=== PATIENT | female | born 1935 | race Caucasian/White ===

== ENCOUNTER 2017-11-14 22:25 | Observation (INO) | payer MEDICARE ==
[2017-11-14] MEDS ORDERED: HYDROmorphone 1 MG/ML Syringe IM ONE (23:10)
--- NOTE | 2017-11-14 23:22 | EDM.PDOC ---
ED HPI GENERAL MEDICAL PROBLEM - General Chief Complaint: Neck Problem Stated Complaint: ILLNESS Time Seen by Provider: 11/14/17 22:50 Source of Information: Reports: Patient, EMS History Limitations: Reports: No Limitations - History of Present Illness INITIAL COMMENTS - FREE TEXT/NARRATIVE: 82-year-old female who lives alone, lives independently has been struggling with neck pain. The past several weeks. It's getting worse, she is having very significant spasms and bursts of sharp pain which seems to be more left-sided on her neck but is debilitating. It is somewhat related with movement, it does not radiate down the arms and she has no radiculopathy or weakness or paresthesias in the arms. There is no specific history of trauma. Onset: Unknown/Unsure Location: Reports: Neck Severity: Severe Improves with: Reports: Rest Worsens with: Reports: Movement Associated Symptoms: Reports: No Other Symptoms Left Neck Pain Score (Numeric/FACES): 4 - Related Data Allergies Allergy/AdvReac Type Severity Reaction Status Date / Time No Known Allergies Allergy Verified 11/15/17 00:06 Home Meds: Home Meds Albuterol [Ventolin HFA] 2 puff INH QID PRN 11/25/12 [History] Benazepril HCl [Lotensin] 20 mg PO DAILY 11/25/12 [History] Cholecalciferol (Vitamin D3) [Vitamin D3] 2,000 unit PO DAILY 11/25/12 [History] Cyanocobalamin (Vitamin B-12) [Vitamin B-12] 1,000 mcg PO DAILY 11/25/12 [ History] Metoprolol Succinate [Toprol XL] 25 mg PO DAILY 11/25/12 [History] Polyethylene Glycol 3350 [MiraLAX] 17 gm PO DAILY PRN 11/25/12 [History] Pregabalin [Lyrica] 100 mg PO TID 11/25/12 [History] Sennosides/Docusate Sodium [Senokot-S Tablet] 2 tab PO DAILY 11/25/12 [History] Folic Acid 0.4 mg PO DAILY 02/17/15 [History] Sertraline HCl 50 mg PO DAILY 02/17/15 [History] Warfarin [Coumadin] 5 mg PO SUMOTUTHFRSA 02/17/15 [History] Albuterol/Ipratropium [DuoNeb 3.0-0.5 MG/3 ML] 3 ml INH Q4H PRN 05/10/15 [ History] Calcium Carbonate/Vitamin D3 [Calcium 600 + Vit D 400 Softgl] 1 tab PO DAILY [History] Naproxen [Naprosyn] 500 mg PO BID 05/10/15 [History] Ranitidine [Zantac] 150 mg PO BID 05/10/15 [History] Warfarin [Coumadin] 7.5 mg PO WE 05/12/15 [History] Colesevelam [Welchol] 1,875 mg PO BID 11/14/17 [History] Cyclobenzaprine [Flexeril] 5 mg PO DAILY 11/14/17 [History] Docusate Sodium 100 mg PO DAILY 11/14/17 [History] Fesoterodine Fumarate [Toviaz] 8 mg PO DAILY 11/14/17 [History] Nystatin [Nystatin Crm] 30 gm TOP QID 11/14/17 [History] Tiotropium [Spiriva] 18 mcg INH DAILY 11/14/17 [History] Vit D3 & K/Berberine HCl/Hops [Ostera] 1 each PO DAILY 11/14/17 [History] Past Medical History HEENT History: Reports: Cataract, Hard of Hearing, Impaired Vision Cardiovascular History: Reports: Afib, Automatic Implantable Cardioverter Defibrillators, High Cholesterol, Hypertension, Pacemaker, Other (See Below) Other Cardiovascular History: Aortic stenosis Respiratory History: Reports: Bronchitis, Recurrent, COPD, Sleep Apnea Gastrointestinal History: Reports: Cholelithiasis, Chronic Constipation, GERD, Hemorrhoids Genitourinary History: Reports: Urinary Incontinence, UTI, Recurrent 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 - Infectious Disease History Infectious Disease History: Reports: Chicken Pox, Measles, Mumps - Past Surgical History HEENT Surgical History: Reports: Cataract Surgery GI Surgical History: Reports: Colonoscopy, Hernia Repair/Other, Other (See Below ) Other GI Surgeries/Procedures: colon resection Musculoskeletal Surgical History: Reports: Knee Replacement, Shoulder Replacement Dermatological Surgical History: Reports: Skin Biopsy Social & Family History - Family History Family Medical History: Noncontributory - Tobacco Use Smoking Status *Q: Former Smoker Used Tobacco, but Quit: Yes Month/Year Tobacco Last Used: 47 years ago - Caffeine Use Caffeine Use: Reports: Coffee - Recreational Drug Use Recreational Drug Use: No ED ROS GENERAL - Review of Systems Review Of Systems: See Below Constitutional: Denies: Fever, Chills HEENT: Denies: Vision Change Respiratory: Denies: Shortness of Breath Cardiovascular: Denies: Chest Pain GI/Abdominal: Denies: Abdominal Pain, Nausea, Vomiting Skin: Denies: Rash (No rash over painful area) Neurological: Denies: Paresthesia Psychiatric: Reports: No Symptoms ED EXAM, UPPER BACK/NECK PAIN - Physical Exam Exam: See Below Exam Limited By: No Limitations General Appearance: Alert, No Apparent Distress (Generally she is not in distress until the pain hits and then she becomes acutely distressed and uncomfortable) Eye Exam: Bilateral Eye: EOMI Head Exam: Atraumatic Neck Exam: Other (She is very tender to palpation to the paraspinous cervical neck on both sides, increased pain with rotation against resistance both directions) Nexus Criteria: No: Focal Neurological Deficit Cardiovascular/Respiratory: No Respiratory Distress GI/Abdominal: Soft, Non-Tender Neurologic: No Motor/Sensory Deficits, Oriented x 3 Psychiatric: Normal Affect, Normal Mood Skin Exam: Normal Color, Warm/Dry Course - Vital Signs Last Recorded V/S: Last Vital Signs Temp 98.1 F 11/15/17 02:04 Pulse 66 11/15/17 02:04 Resp 18 11/15/17 02:04 BP 143/68 H 11/15/17 02:04 Pulse Ox 94 L 11/15/17 02:04 - Orders/Labs/Meds Orders: Active Orders 24 hr Category Date Time Status Cervical Spine 2V or 3V [CR] Stat Exams 11/14/17 23:07 Taken Medication Orders Acetaminophen (Tylenol) 650 mg PO Q4H PRN PRN Reason: Pain (Mild 1-3)/fever Albuterol (Proventil Neb Soln) 2.5 mg NEB Q4H PRN PRN Reason: Shortness Of Breath/wheezing Albuterol/Ipratropium (Duoneb 3.0-0.5 Mg/3 Ml) 3 ml NEB QID PRN PRN Reason: Shortness Of Breath/wheezing Benazepril HCl (Lotensin) 20 mg PO DAILY [facility] Bisacodyl (Dulcolax) 5 mg PO DAILY PRN PRN Reason: Constipation Cyclobenzaprine HCl (Flexeril) 5 mg PO DAILY [facility] Docusate Sodium (Colace) 100 mg PO BID PRN PRN Reason: Constipation Docusate Sodium (Colace) 100 mg PO DAILY [facility] Folic Acid (Folic Acid) 0.5 mg PO DAILY [facility] Hydromorphone HCl (Dilaudid) 0.5 mg IVPUSH Q4H PRN PRN Reason: Pain Ibuprofen (Motrin) 600 mg PO Q6H PRN PRN Reason: Pain/Fever Lorazepam (Ativan) 1 mg IV Q6H PRN PRN Reason: Nausea/Vomiting Metoprolol Succinate (Toprol Xl) 25 mg PO DAILY [facility] Naproxen (Naprosyn) 500 mg PO BIDMEALS [facility] Non-Formulary Medication (Colesevelam [Welchol]) 1,875 mg PO BIDMEALS [facility] Nystatin (Nystatin Crm) 0 gm TOP QID [facility] Ondansetron HCl (Zofran Odt) 4 mg PO Q6H PRN PRN Reason: Nausea able to take PO Oxycodone HCl (Oxycodone) 5 mg PO Q4H PRN PRN Reason: Pain (moderate 4-6) Pantoprazole Sodium (Protonix) 40 mg PO ACBREAKFAST [facility] Polyethylene Glycol (Miralax) 17 gm PO DAILY PRN PRN Reason: Constipation Pregabalin (Lyrica) 100 mg PO TID [facility] Senna/Docusate Sodium (Senna Plus) 2 tab PO DAILY [facility] Sertraline HCl (Zoloft) 50 mg PO DAILY [facility] Sodium Chloride (Saline Flush) 10 ml FLUSH ASDIRECTED PRN PRN Reason: Keep Vein Open Tiotropium [place] (Spiriva Handihaler) 18 mcg INH DAILY [facility] Trospium (Sanctura) 20 mg PO BID [facility] Warfarin Sodium (Coumadin) 5 mg PO SUMOTUTHFRSA [facility] Warfarin Sodium (Coumadin) 7.5 mg PO WE [facility] Meds: Medications Generic Name Dose Route Start Last Admin Trade Name Freq PRN Reason Stop Dose Admin Acetaminophen 650 mg 11/15/17 01:52 Tylenol PO Q4H PRN Pain (Mild 1-3)/fever Albuterol 2.5 mg 11/15/17 01:52 Proventil Neb Soln NEB Q4H PRN Shortness Of Breath/wheezing Albuterol/Ipratropium 3 ml 11/15/17 01:52 Duoneb 3.0-0.5 Mg/3 Ml NEB QID PRN Shortness Of Breath/wheezing Benazepril HCl 20 mg 11/15/17 09:00 Lotensin PO DAILY [facility] Bisacodyl 5 mg 11/15/17 01:52 Dulcolax PO DAILY PRN Constipation Cyclobenzaprine HCl 5 mg 11/15/17 09:00 Flexeril PO DAILY [facility] Docusate Sodium 100 mg 11/15/17 01:52 Colace PO BID PRN Constipation Docusate Sodium 100 mg 11/15/17 09:00 Colace PO DAILY [facility] Folic Acid 0.5 mg 11/15/17 09:00 Folic Acid PO DAILY [facility] Hydromorphone HCl 0.5 mg 11/15/17 01:52 Dilaudid IVPUSH Q4H PRN Pain Ibuprofen 600 mg 11/15/17 01:52 Motrin PO Q6H PRN Pain/Fever Lorazepam 1 mg 11/15/17 01:52 Ativan IV Q6H PRN Nausea/Vomiting Metoprolol Succinate 25 mg 11/15/17 09:00 Toprol Xl PO DAILY [facility] Naproxen 500 mg 11/15/17 08:00 Naprosyn PO BIDMEALS [facility] Non-Formulary Medication 1,875 mg 11/15/17 08:00 Colesevelam [Welchol] PO BIDMEALS [facility] Nystatin 0 gm 11/15/17 06:00 Nystatin Crm TOP QID [facility] Ondansetron HCl 4 mg 11/15/17 01:52 Zofran Odt PO Q6H PRN Nausea able to take PO Oxycodone HCl 5 mg 11/15/17 01:52 Oxycodone PO Q4H PRN Pain (moderate 4-6) Pantoprazole Sodium 40 mg 11/15/17 07:30 Protonix PO ACBREAKFAST [facility] Polyethylene Glycol 17 gm 11/15/17 01:52 Miralax PO DAILY PRN Constipation Pregabalin 100 mg 11/15/17 09:00 Lyrica PO TID [facility] Senna/Docusate Sodium 2 tab 11/15/17 09:00 Senna Plus PO DAILY [facility] Sertraline HCl 50 mg 11/15/17 09:00 Zoloft PO DAILY [facility] Sodium Chloride 10 ml 11/15/17 01:52 Saline Flush FLUSH ASDIRECTED PRN Keep Vein Open Tiotropium [place] 18 mcg 11/15/17 09:00 Spiriva Handihaler INH DAILY [facility] Trospium 20 mg 11/15/17 09:00 Sanctura PO BID [facility] Warfarin Sodium 5 mg 11/15/17 01:52 Coumadin PO SUMOTUTHFRSA [facility] Warfarin Sodium 7.5 mg 11/20/17 00:37 Coumadin PO WE [facility] Discontinued Medications Generic Name Dose Route Start Last Admin Trade Name Freq PRN Reason Stop Dose Admin Hydromorphone HCl 1 mg 11/14/17 23:10 11/14/17 23:16 Dilaudid IM 11/14/17 23:11 1 mg ONETIME ONE Administration - Re-Assessments/Exams Free Text/Narrative Re-Assessment/Exam: 11/14/17 23:22 Patient was given 1 mg of IM Dilaudid because she was so uncomfortable. A 2 view cervical spine x-ray was obtained. 11/14/17 23:55 Patient's seemed to get some symptom relief from the IM Dilaudid, the x-ray showed significant arthritis and spurring at C3 and C4 of the cervical spine. Because of the debilitating pain and inability to get relief at home, I talked to the hospitalist service and Cathy Darling agreed to admit her for pain control and further evaluation tomorrow, possibly MRI or physical therapy consultation. She may also be a candidate for anesthesia consultation for local injections. Departure - Departure Time of Disposition: 00:17 Disposition: Admitted As Inpatient 64 Condition: Fair Clinical Impression: Neck pain, bilateral - Discharge Information - My Orders Last 24 Hours: My Active Orders 11/14/17 23:07 Cervical Spine 2V or 3V [CR] Stat - Assessment/Plan Last 24 Hours: My Active Orders 11/14/17 23:07 Cervical Spine 2V or 3V [CR] Stat
[2017-11-15] MEDS ORDERED: Bisacodyl 5 MG Tab PO PRN (01:52)
[2017-11-15] MEDS ORDERED: Docusate Sodium 100 MG Cap PO PRN (01:52)
[2017-11-15] MEDS ORDERED: Ibuprofen 600 MG Tab PO PRN (01:52)
[2017-11-15] MEDS ORDERED: Ondansetron 4 MG Tab.DIS PO PRN (01:52)
[2017-11-15] MEDS ORDERED: Polyethylene Glycol 3350 Powder 17 GM Packet PO PRN (01:52)
[2017-11-15] MEDS ORDERED: Sodium Chloride 0.9% 10 ML Syringe FLUSH PRN (01:52)
[2017-11-15] MEDS ORDERED: Albuterol/Ipratropium 3.0-0.5 MG/3 ML Neb Soln NEB PRN (01:52)
[2017-11-15] MEDS ORDERED: Acetaminophen 325 MG Tab PO PRN (01:52)
[2017-11-15] MEDS ORDERED: HYDROmorphone 0.5 MG/0.5 ML Syringe IVPUSH PRN (01:52)
[2017-11-15] MEDS ORDERED: oxyCODONE 5 MG Tab PO PRN (01:52)
[2017-11-15] MEDS ORDERED: LORazepam 2 MG/ML SDV IV PRN (01:52)
[2017-11-15] MEDS ORDERED: Albuterol 0.083% 2.5 MG/3 ML Neb Soln NEB PRN (01:52)
--- NOTE | 2017-11-15 05:48 | PCM.HP ---
H&P History of Present Illness - General Date of Service: 11/14/17 Admit Problem/Dx: Admission Diagnosis/Problem Admission Diagnosis/Problem Neck pain Source of Information: Patient, Provider, RN History Limitations: Reports: No Limitations - History of Present Illness Initial Comments - Free Text/Narative: 82-year-old female who lives alone, lives independently has been struggling with neck pain. The past several weeks. It's getting worse, she is having very significant spasms and bursa sharp pain which seems to be more left-sided on her neck but is debilitating. It is somewhat related with movement, it does not radiate down the arms and she has no radiculopathy or weakness or paresthesias in the arms. There is no specific history of trauma. Onset: Unknown/Unsure Location: Reports: Neck Severity: Severe Improves with: Reports: Rest 11/14/17 23:22 Patient was given 1 mg of IM Dilaudid because she was so uncomfortable. A 2 view cervical spine x-ray was obtained. 11/14/17 23:55 Patient's seemed to get some symptom relief from the IM Dilaudid, the x-ray showed significant arthritis and spurring at C3 and C4 of the cervical spine. Because of the debilitating pain and inability to get relief at home, I talked to the hospitalist service and Cathy Martin agreed to admit her for pain control and further evaluation tomorrow, possibly MRI or physical therapy consultation. She may also be a candidate for anesthesia consultation for local injections. Onset of Symptoms: Reports: Gradual Duration of Symptoms: Reports: Week(s):, Chronic, Getting Worse Location: Reports: Neck Quality: Reports: Same as Previous Episode Severity: Severe Improves with: Reports: Medication Worsens with: Reports: Movement Context: Reports: Other (acute on chronic necck pain) Associated Symptoms: Reports: No Other Symptoms Left Neck Pain Score (Numeric/FACES): 4 - Related Data Allergies/Adverse Reactions: Allergies Allergy/AdvReac Type Severity Reaction Status Date / Time No Known Allergies Allergy Verified 11/15/17 00:06 Home Medications: Home Meds Albuterol [Ventolin HFA] 2 puff INH QID PRN 11/25/12 [History] Benazepril HCl [Lotensin] 20 mg PO DAILY 11/25/12 [History] Cholecalciferol (Vitamin D3) [Vitamin D3] 2,000 unit PO DAILY 11/25/12 [History] Cyanocobalamin (Vitamin B-12) [Vitamin B-12] 1,000 mcg PO DAILY 11/25/12 [ History] Metoprolol Succinate [Toprol XL] 25 mg PO DAILY 11/25/12 [History] Polyethylene Glycol 3350 [MiraLAX] 17 gm PO DAILY PRN 11/25/12 [History] Pregabalin [Lyrica] 100 mg PO TID 11/25/12 [History] Sennosides/Docusate Sodium [Senokot-S Tablet] 2 tab PO DAILY 11/25/12 [History] Folic Acid 0.4 mg PO DAILY 02/17/15 [History] Sertraline HCl 50 mg PO DAILY 02/17/15 [History] Warfarin [Coumadin] 5 mg PO SUMOTUTHFRSA 02/17/15 [History] Albuterol/Ipratropium [DuoNeb 3.0-0.5 MG/3 ML] 3 ml INH Q4H PRN 05/10/15 [ History] Calcium Carbonate/Vitamin D3 [Calcium 600 + Vit D 400 Softgl] 1 tab PO DAILY [History] Naproxen [Naprosyn] 500 mg PO BID 05/10/15 [History] Ranitidine [Zantac] 150 mg PO BID 05/10/15 [History] Warfarin [Coumadin] 7.5 mg PO WE 05/12/15 [History] Colesevelam [Welchol] 1,875 mg PO BID 11/14/17 [History] Cyclobenzaprine [Flexeril] 5 mg PO DAILY 11/14/17 [History] Docusate Sodium 100 mg PO DAILY 11/14/17 [History] Fesoterodine Fumarate [Toviaz] 8 mg PO DAILY 11/14/17 [History] Nystatin [Nystatin Crm] 30 gm TOP QID 11/14/17 [History] Tiotropium [Spiriva] 18 mcg INH DAILY 11/14/17 [History] Vit D3 & K/Berberine HCl/Hops [Ostera] 1 each PO DAILY 11/14/17 [History] Past Medical History HEENT History: Reports: Cataract, Hard of Hearing, Impaired Vision Cardiovascular History: Reports: Afib, Automatic Implantable Cardioverter Defibrillators, High Cholesterol, Hypertension, Pacemaker, Other (See Below) Other Cardiovascular History: Aortic stenosis Respiratory History: Reports: Bronchitis, Recurrent, COPD, Sleep Apnea Gastrointestinal History: Reports: Cholelithiasis, Chronic Constipation, GERD, Hemorrhoids Genitourinary History: Reports: Urinary Incontinence, UTI, Recurrent OPHTHALMIC SURGEON History: Reports: Musculoskeletal History: Reports: Arthritis, Fracture, RA Endocrine/Metabolic History: Reports: Hyperthyroidism, Obesity/BMI 30+, Other ( See Below) Other Endocrine/Metabolic History: Goiter Hematologic History: Reports: Anticoagulation Therapy, B12 Deficiency Oncologic (Cancer) History: Reports: Other (See Below) Other Oncologic History: "skin cancer" Dermatologic History: Reports: Melanoma Other Dermatologic History: Removal of skin spot l hand. - Infectious Disease History Infectious Disease History: Reports: Chicken Pox, Measles, Mumps - Past Surgical History HEENT Surgical History: Reports: Cataract Surgery GI Surgical History: Reports: Colonoscopy, Hernia Repair/Other, Other (See Below ) Other GI Surgeries/Procedures: colon resection Musculoskeletal Surgical History: Reports: Knee Replacement, Shoulder Replacement Dermatological Surgical History: Reports: Skin Biopsy Social & Family History - Family History Family Medical History: Noncontributory - Tobacco Use Smoking Status *Q: Never Smoker Used Tobacco, but Quit: Yes Month/Year Tobacco Last Used: 47 years ago Second Hand Smoke Exposure: No - Caffeine Use Caffeine Use: Reports: Coffee - Recreational Drug Use Recreational Drug Use: No - Living Situation & Occupation Living situation: Reports: Alone Occupation: Retired (lives alone in [place]. Has 3 children, one son and 2 daughter, (one daughter age 44 yrs related to OD)) H&P Review of Systems - Review of Systems: Review Of Systems: See Below General: Reports: Other (at Present time Mrs. Hayden is very comfortable after receiving Dilaudid injection. reports pain free. worried about being home alone after Dilaudid injection. no one to check on her.) HEENT: Reports: No Symptoms Pulmonary: Reports: No Symptoms, Other (COPD) Cardiovascular: Reports: No Symptoms Gastrointestinal: Reports: No Symptoms Genitourinary: Reports: No Symptoms Musculoskeletal: Reports: Neck Pain (presently pain is controlled.), Other ( ambulates with cane or walker) Skin: Reports: No Symptoms Psychiatric: Reports: No Symptoms Neurological: Reports: No Symptoms Hematologic/Lymphatic: Reports: No Symptoms Immunologic: Reports: No Symptoms Exam - Exam Exam: See Below - Vital Signs Vital Signs: Last Vital Signs Temp 36.7 C 11/15/17 02:04 Pulse 66 11/15/17 02:04 Resp 18 11/15/17 02:04 BP 143/68 H 11/15/17 02:04 Pulse Ox 94 L 11/15/17 02:04 Weight: 112.491 kg - Exam General: Alert, Oriented, Cooperative, Other (reports pain free.) HEENT: PERRLA, Conjunctiva Clear, EACs Clear, EOMI, Hearing Intact, Mucosa Moist & [place] Neck: Supple, Trachea Midline Lungs: Clear to Auscultation, Normal Respiratory Effort Cardiovascular: Regular Rate, Regular Rhythm GI/Abdominal Exam: Normal Bowel Sounds, Soft, Non-Tender, Other (difficult to assess abdomnen due to size) Back Exam: Normal Inspection, Full Range of Motion Extremities: Normal Inspection, Normal Range of Motion, Non-Tender, No Pedal Edema, Normal Capillary Refill Skin: Warm, Dry, Intact Neurological: Reflexes Equal Bilateral, Strength Equal Bilateral Neuro Extensive - Mental Status: Alert, Oriented x3, Normal Mood/Affect, Normal Cognition Psychiatric: Alert, Normal Affect, Normal Mood - Problem List (1) Neck pain, bilateral SNOMED Code(s): 52453557 ICD Code: M54.2 - CERVICALGIA Status: Acute Priority: High Current Visit: Yes (2) COPD (chronic obstructive pulmonary disease) SNOMED Code(s): 38629545 ICD Code: J44.9 - CHRONIC OBSTRUCTIVE PULMONARY DISEASE, UNSPECIFIED Status : Acute Priority: Low Current Visit: No Qualifiers: COPD type: unspecified COPD Qualified Code(s): J44.9 - Chronic obstructive pulmonary disease, unspecified (3) Pacemaker SNOMED Code(s): 370562445 ICD Code: Z95.0 - PRESENCE OF CARDIAC PACEMAKER Status: Acute Priority: Low Current Visit: No (4) Cardiovascular disease Status: Acute Priority: Low Current Visit: No Problem List Initiated/Reviewed/Updated: Yes Orders Last 24hrs: Active Orders 24 hr Category Date Time Status Intake and Output [RC] QSHIFT Care 11/15/17 01:52 Active Notify Provider Vital Signs [RC] ASDIRECTED Care 11/15/17 01:52 Active Oxygen Therapy [RC] PRN Care 11/15/17 01:52 Active Pulse Oximetry [RC] PRN Care 11/15/17 01:52 Active RT Aerosol Therapy [RC] ASDIRECTED Care 11/15/17 01:52 Active Up With Assistance [RC] ASDIRECTED Care 11/15/17 01:52 Active VTE/DVT Education [RC] Per Unit Routine Care 11/15/17 01:52 Active Vital Signs [RC] Q4H Care 11/15/17 01:52 Active OT Evaluation and Treatment [CONS] Routine Cons 11/15/17 01:52 Active PT Evaluation and Treatment [CONS] Routine Cons 11/15/17 01:52 Active Regular Diet [DIET] Diet 11/15/17 Breakfast Active Cervical Spine 2V or 3V [CR] Stat Exams 11/14/17 23:07 Taken Acetaminophen [Tylenol] Med 11/15/17 01:52 Active 650 mg PO Q4H PRN Albuterol [Proventil Neb Soln] Med 11/15/17 01:52 Active 2.5 mg NEB Q4H PRN Albuterol/Ipratropium [DuoNeb 3.0-0.5 MG/3 ML] Med 11/15/17 01:52 Active 3 ml NEB QID PRN Benazepril [Lotensin] Med 11/15/17 09:00 Active 20 mg PO DAILY Bisacodyl [Dulcolax] Med 11/15/17 01:52 Active 5 mg PO DAILY PRN Colesevelam [Welchol] Med 11/15/17 08:00 Pending 1,875 mg PO BIDMEALS Cyclobenzaprine [Flexeril] Med 11/15/17 09:00 Pending 5 mg PO DAILY Docusate Sodium [Colace] Med 11/15/17 01:52 Active 100 mg PO BID PRN Docusate Sodium [Colace] Med 11/15/17 09:00 Active 100 mg PO DAILY Docusate Sodium/Sennosides [Senna Plus] Med 11/15/17 09:00 Active 2 tab PO DAILY Folic Acid Med 11/15/17 09:00 Active 0.5 mg PO DAILY HYDROmorphone [Dilaudid] Med 11/15/17 01:52 Active 0.5 mg IVPUSH Q4H PRN Ibuprofen [Motrin] Med 11/15/17 01:52 Active 600 mg PO Q6H PRN LORazepam [Ativan] Med 11/15/17 01:52 Active 1 mg IV Q6H PRN Metoprolol Succinate [Toprol XL] Med 11/15/17 09:00 Active 25 mg PO DAILY Naproxen [Naprosyn] Med 11/15/17 08:00 Active 500 mg PO BIDMEALS Nystatin [Nystatin Crm] Med 11/15/17 06:00 Active 0 gm TOP QID Ondansetron [Zofran ODT] Med 11/15/17 01:52 Active 4 mg PO Q6H PRN Pantoprazole [ProTONIX] Med 11/15/17 07:30 Active 40 mg PO ACBREAKFAST Polyethylene Glycol 3350 [MiraLAX] Med 11/15/17 01:52 Active 17 gm PO DAILY PRN Pregabalin [Lyrica] Med 11/15/17 09:00 Active 100 mg PO TID Sertraline [Zoloft] Med 11/15/17 09:00 Active 50 mg PO DAILY Sodium Chloride 0.9% [Saline Flush] Med 11/15/17 01:52 Active 10 ml FLUSH ASDIRECTED PRN Tiotropium [Spiriva HandiHaler] Med 11/15/17 09:00 Active 18 mcg INH DAILY Trospium [Sanctura] Med 11/15/17 09:00 Active 20 mg PO BID Warfarin [Coumadin] Med 11/15/17 01:52 Pending 5 mg PO SUMOTUTHFRSA Warfarin [Coumadin] Med 11/20/17 00:37 Pending 7.5 mg PO WE oxyCODONE Med 11/15/17 01:52 Active 5 mg PO Q4H PRN Saline Lock Insert [OM.PC] Routine Oth 11/15/17 01:52 Ordered Resuscitation Status Routine Resus Stat 11/15/17 00:29 Ordered Medication Orders Acetaminophen (Tylenol) 650 mg PO Q4H PRN PRN Reason: Pain (Mild 1-3)/fever Albuterol (Proventil Neb Soln) 2.5 mg NEB Q4H PRN PRN Reason: Shortness Of Breath/wheezing Albuterol/Ipratropium (Duoneb 3.0-0.5 Mg/3 Ml) 3 ml NEB QID PRN PRN Reason: Shortness Of Breath/wheezing Benazepril HCl (Lotensin) 20 mg PO DAILY [facility] Bisacodyl (Dulcolax) 5 mg PO DAILY PRN PRN Reason: Constipation Cyclobenzaprine HCl (Flexeril) 5 mg PO DAILY [facility] Docusate Sodium (Colace) 100 mg PO BID PRN PRN Reason: Constipation Docusate Sodium (Colace) 100 mg PO DAILY [facility] Folic Acid (Folic Acid) 0.5 mg PO DAILY [facility] Hydromorphone HCl (Dilaudid) 0.5 mg IVPUSH Q4H PRN PRN Reason: Pain Ibuprofen (Motrin) 600 mg PO Q6H PRN PRN Reason: Pain/Fever Lorazepam (Ativan) 1 mg IV Q6H PRN PRN Reason: Nausea/Vomiting Metoprolol Succinate (Toprol Xl) 25 mg PO DAILY [facility] Naproxen (Naprosyn) 500 mg PO BIDMEALS [facility] Non-Formulary Medication (Colesevelam [Welchol]) 1,875 mg PO BIDMEALS [facility] Nystatin (Nystatin Crm) 0 gm TOP QID [facility] Ondansetron HCl (Zofran Odt) 4 mg PO Q6H PRN PRN Reason: Nausea able to take PO Oxycodone HCl (Oxycodone) 5 mg PO Q4H PRN PRN Reason: Pain (moderate 4-6) Pantoprazole Sodium (Protonix) 40 mg PO ACBREAKFAST [facility] Polyethylene Glycol (Miralax) 17 gm PO DAILY PRN PRN Reason: Constipation Pregabalin (Lyrica) 100 mg PO TID [facility] Senna/Docusate Sodium (Senna Plus) 2 tab PO DAILY [facility] Sertraline HCl (Zoloft) 50 mg PO DAILY [facility] Sodium Chloride (Saline Flush) 10 ml FLUSH ASDIRECTED PRN PRN Reason: Keep Vein Open Tiotropium [place] (Spiriva Handihaler) 18 mcg INH DAILY [facility] Trospium (Sanctura) 20 mg PO BID [facility] Warfarin Sodium (Coumadin) 5 mg PO SUMOTUTHFRSA [facility] Warfarin Sodium (Coumadin) 7.5 mg PO [facility] Assessment/Plan Comment:: ASSESSMENT / PLAN - 82-year-old female who lives alone, lives independently has been struggling with neck pain. The past several weeks. It's getting worse, she is having very significant spasms and bursa sharp pain which seems to be more left-sided on her neck but is debilitating. It is somewhat related with movement, it does not radiate down the arms and she has no radiculopathy or weakness or paresthesias in the arms. There is no specific history of trauma. Patient was given 1 mg of IM Dilaudid because she was so uncomfortable. A 2 view cervical spine x-ray was obtained. Patient's seemed to get some symptom relief from the IM Dilaudid, the x-ray showed significant arthritis and spurring at C3 and C4 of the cervical spine. Because of the debilitating pain and inability to get relief at home, to admit Observation status for pain control and further evaluation tomorrow. Neck Pain -admit to [address] [place] [address] Observation -pain medications ordered -saline lock -referral to OT and PT for evaluation COPD -continue home medications -albuterol nebs prn -Duo nebs prn Cardiovascular Disease -Pacemaker -continue home medication Maintenance issues -Orders home meds:ordered -Nutrition: Regular diet -William catheter not indicated at this time -DVT: current Coumadin therapy -GI Prophalaxis; Protonix 40mg daily CODE STATUS: DNR/DNI Admission status: Admit to Observation -I expect this patient to stay less than 24 hours, not to exceed 96 hours for evaluation and management of this problem. Disposition: home Primary care provider: Dr. Morris Hospitalist: Dr. Campos
[2017-11-15] MEDS ORDERED: Nystatin Crm 30 GM Tube TOP SCH (06:00)
[2017-11-15] MEDS ORDERED: Pantoprazole 40 MG Tab.CR PO SCH (07:30)
[2017-11-15] MEDS ORDERED: Naproxen 250 MG Tab PO SCH (08:00)
--- NOTE | 2017-11-15 08:33 | CR ---
Cervical Spine 2V or 3V CLINICAL HISTORY: Pain with movement, no trauma FINDINGS: The vertebral body heights are intact. The disc spaces are narrowed diffusely. There is mod erate accompanying spondylosis in the upper and mid cervical spine . The alignment is maintained. The re are severe osteoarthritic changes throughout the apophyseal joints. IMPRESSION: Severe diffuse degenerative disc disease with spondylosis Severe diffuse osteoarthritis
[2017-11-15] MEDS ORDERED: Metoprolol Succinate 25 MG Tab.ER PO SCH (09:00)
[2017-11-15] MEDS ORDERED: Tiotropium Inhaler 18 MCG Inhalation Powder Cap Kit of 5 INH SCH (09:00)
[2017-11-15] MEDS ORDERED: Cyclobenzaprine 10 MG Tab PO SCH (09:00)
[2017-11-15] MEDS ORDERED: Trospium 20 MG Tab PO SCH (09:00)
[2017-11-15] MEDS ORDERED: Sertraline 25 MG Tab PO SCH (09:00)
[2017-11-15] MEDS ORDERED: Pregabalin 100 MG Cap PO SCH (09:00)
[2017-11-15] MEDS ORDERED: Docusate Sodium 100 MG Cap PO SCH (09:00)
[2017-11-15] MEDS ORDERED: Folic Acid 1 MG Tab PO SCH (09:00)
[2017-11-15 10:51] VITALS: BP 132/56
--- NOTE | 2017-11-15 12:44 | PCM.DCSUM1 ---
Discharge Summary - Hospital Course Brief History: Ms. Hayden is an 82-year-old woman who was admitted to observation status for further evaluation and management of severe neck pain. - Discharge Data Discharge Date: 11/15/17 Discharge Disposition: Home, W Home Health Agency Condition: Fair - Discharge Diagnosis/Problem(s) (1) Degenerative arthritis of cervical spine SNOMED Code(s): 214011419 ICD Code: M47.812 - SPONDYLOSIS W/O MYELOPATHY OR RADICULOPATHY, CERVICAL REGION Status: Acute Current Visit: Yes (2) Neck pain, bilateral SNOMED Code(s): 13257958 ICD Code: M54.2 - CERVICALGIA Status: Acute Priority: High Current Visit: Yes (3) COPD (chronic obstructive pulmonary disease) SNOMED Code(s): 87800174 ICD Code: J44.9 - CHRONIC OBSTRUCTIVE PULMONARY DISEASE, UNSPECIFIED Status : Chronic Priority: Low Current Visit: No Qualifiers: COPD type: unspecified COPD Qualified Code(s): J44.9 - Chronic obstructive pulmonary disease, unspecified - Patient Summary/Data Consults: Consultations 11/15/17 01:52 OT Evaluation and Treatment [CONS] Routine Please Evaluate and Treat. OT Reason for Consult: Discharge Planning This query below is only for informational purposes and is not editable. PT Evaluation and Treatment [CONS] Routine Please Evaluate and Treat. PT Reason for Consult: Ambulation This query below is only for informational purposes and is not editable. Hospital Course: 82-year-old female who lives alone, lives independently has been struggling with neck pain. The past several weeks. It's getting worse, she is having very significant spasms and bursts of sharp pain which seems to be more left-sided on her neck but is debilitating. It is somewhat related with movement, it does not radiate down the arms and she has no radiculopathy or weakness or paresthesias in the arms. There is no specific history of trauma. Patient's seemed to get some symptom relief from the IM Dilaudid, the X-ray showed significant arthritis and spurring at C3 and C4 of the cervical spine. On admission she was given pain medications and muscle relaxants as needed for her pain. Following morning was seen and evaluated by physical therapy and did feel improved prior to discharge. Activity will be as tolerated and she will resume her usual diet. Soft cervical neck brace will be provided to the patient to use for episodes of increased pain. She was given a very limited amount of oxycodone at the time of discharge to use for episodes of very severe pain. She will be scheduled for appointment in the pain clinic to consider cervical trigger point injections. Home care will be arranged with home physical therapy and a follow-up appointment will be scheduled with primary care within 1 week. - Patient Instructions Diet: Usual Diet as Tolerated Activity: As Tolerated Other/Special Instructions: Soft cervical collar, use as needed for severe neck pain. Please schedule follow-up appointment with Dr. Morris within one week. Please schedule appointment for pain clinic for cervical trigger point injections. Please arrange for home care with home physical therapy after discharge. - Discharge Plan *PRESCRIPTION DRUG MONITORING PROGRAM REVIEWED*: Not Applicable *COPY OF PRESCRIPTION DRUG MONITORING REPORT IN PATIENT DANIEL: Not Applicable Prescriptions/Med Rec: oxyCODONE 5 mg PO Q4H PRN #12 tablet PRN Reason: Pain (Moderate 4-6) Home Medications: Home Meds Albuterol [Ventolin HFA] 2 puff INH QID PRN 11/25/12 [History] Benazepril HCl [Lotensin] 20 mg PO DAILY 11/25/12 [History] Cholecalciferol (Vitamin D3) [Vitamin D3] 2,000 unit PO DAILY 11/25/12 [History] Cyanocobalamin (Vitamin B-12) [Vitamin B-12] 1,000 mcg PO DAILY 11/25/12 [ History] Metoprolol Succinate [Toprol XL] 25 mg PO DAILY 11/25/12 [History] Polyethylene Glycol 3350 [MiraLAX] 17 gm PO DAILY PRN 11/25/12 [History] Pregabalin [Lyrica] 100 mg PO TID 11/25/12 [History] Sennosides/Docusate Sodium [Senokot-S Tablet] 2 tab PO DAILY 11/25/12 [History] Folic Acid 0.4 mg PO DAILY 02/17/15 [History] Sertraline HCl 50 mg PO DAILY 02/17/15 [History] Warfarin [Coumadin] 5 mg PO SUMOTUTHFRSA 02/17/15 [History] Albuterol/Ipratropium [DuoNeb 3.0-0.5 MG/3 ML] 3 ml INH Q4H PRN 05/10/15 [ History] Calcium Carbonate/Vitamin D3 [Calcium 600 + Vit D 400 Softgl] 1 tab PO DAILY [History] Naproxen [Naprosyn] 500 mg PO BID 05/10/15 [History] Ranitidine [Zantac] 150 mg PO BID 05/10/15 [History] Warfarin [Coumadin] 7.5 mg PO WE 05/12/15 [History] Colesevelam [Welchol] 1,875 mg PO BID 11/14/17 [History] Cyclobenzaprine [Flexeril] 5 mg PO DAILY 11/14/17 [History] Docusate Sodium 100 mg PO DAILY 11/14/17 [History] Fesoterodine Fumarate [Toviaz] 8 mg PO DAILY 11/14/17 [History] Nystatin [Nystatin Crm] 30 gm TOP QID 11/14/17 [History] Tiotropium [Spiriva HandiHaler] 18 mcg INH DAILY 11/14/17 [History] Vit D3 & K/Berberine HCl/Hops [Ostera] 1 each PO DAILY 11/14/17 [History] oxyCODONE 5 mg PO Q4H PRN #12 tablet 11/15/17 [Rx] Referrals: Marlon Morris MD [Primary Care Provider] - 11/20/17 1:00 pm Lori Perdomo CNM [Mid-] - 11/27/17 11:00 am - Discharge Summary/Plan Comment DC Time >30 min.: No - Patient Data Vitals - Most Recent: Last Vital Signs Temp 96.6 F 11/15/17 10:50 Pulse 64 11/15/17 10:50 Resp 16 11/15/17 10:50 BP 132/56 L 11/15/17 10:50 Pulse Ox 91 L 11/15/17 10:50 Weight - Most Recent: 248 lb I&O - Last 24 hours: Intake & Output 11/14/17 11/15/17 11/15/17 22:59 06:59 14:59 Intake Total 240 Balance 240 Med Orders - Current: Current Medications Acetaminophen (Tylenol) 650 mg PO Q4H PRN PRN Reason: Pain (Mild 1-3)/fever Albuterol (Proventil Neb Soln) 2.5 mg NEB Q4H PRN PRN Reason: Shortness Of Breath/wheezing Albuterol/Ipratropium (Duoneb 3.0-0.5 Mg/3 Ml) 3 ml NEB QID PRN PRN Reason: Shortness Of Breath/wheezing Benazepril HCl (Lotensin) 20 mg PO DAILY [facility] Bisacodyl (Dulcolax) 5 mg PO DAILY PRN PRN Reason: Constipation Cyclobenzaprine HCl (Flexeril) 5 mg PO DAILY [facility] Docusate Sodium (Colace) 100 mg PO BID PRN PRN Reason: Constipation Docusate Sodium (Colace) 100 mg PO DAILY [facility] Folic Acid (Folic Acid) 0.5 mg PO DAILY [facility] Hydromorphone HCl (Dilaudid) 0.5 mg IVPUSH Q4H PRN PRN Reason: Pain Last Admin: 11/15/17 06:18 Dose: 0.5 mg Ibuprofen (Motrin) 600 mg PO Q6H PRN PRN Reason: Pain/Fever Lorazepam (Ativan) 1 mg IV Q6H PRN PRN Reason: Nausea/Vomiting Metoprolol Succinate (Toprol Xl) 25 mg PO DAILY [facility] Naproxen (Naprosyn) 500 mg PO BIDMEALS [facility] (Colesevelam [ Welchol] 1,875 Mg)* Pom* 1,875 mg PO BIDMEALS [facility] Nystatin (Nystatin Crm) 0 gm TOP QID [facility] Last Admin: 11/15/17 07:03 Dose: Not Given Ondansetron HCl (Zofran Odt) 4 mg PO Q6H PRN PRN Reason: Nausea able to take PO Oxycodone HCl (Oxycodone) 5 mg PO Q4H PRN PRN Reason: Pain (moderate 4-6) Pantoprazole Sodium (Protonix) 40 mg PO ACBREAKFAST [facility] Polyethylene Glycol (Miralax) 17 gm PO DAILY PRN PRN Reason: Constipation Pregabalin (Lyrica) 100 mg PO TID [facility] Senna/Docusate Sodium (Senna Plus) 2 tab PO DAILY [facility] Sertraline HCl (Zoloft) 50 mg PO DAILY [facility] Sodium Chloride (Saline Flush) 10 ml FLUSH ASDIRECTED PRN PRN Reason: Keep Vein Open Tiotropium [place] (Spiriva Handihaler) 18 mcg INH DAILY [facility] Last Admin: 11/15/17 10:26 Dose: Not Given Trospium (Sanctura) 20 mg PO BID [facility] Warfarin Sodium (Coumadin) 5 mg PO SuMoTuThFrSa@1300 [facility] Warfarin Sodium (Coumadin) 7.5 mg PO We@1300 [facility] Discontinued Medications Hydromorphone HCl (Dilaudid) 1 mg IM ONETIME ONE Stop: 11/14/17 23:11 Last Admin: 11/14/17 23:16 Dose: 1 mg - Exam General: Reports: Alert, Oriented, Cooperative, Mild Distress Lungs: Reports: Clear to Auscultation, Normal Respiratory Effort Cardiovascular: Reports: Regular Rate, Regular Rhythm, No Murmurs GI/Abdominal Exam: Soft, Non-Tender, No Organomegaly, No Distention Extremities: Other (Tenderness to palpation of cervical musculature)
[2017-11-15] MEDS ORDERED: Warfarin 5 MG Tab PO SCH (13:00)
[2017-11-20] MEDS ORDERED: Warfarin 5 MG Tab PO SCH (13:00)
== END 2017-11-15 13:20 | disposition home health service (06) ==
LOC: JP.ED 22:25 → JP.MS 11-15 00:28
PROVIDERS: ADMIT Hospitalist; ATTEND Hospitalist
DX: M47.812 Spondylosis without myelopathy or radiculopathy, cervical region (principal); J44.9 Chronic obstructive pulmonary disease, unspecified; I48.91 Unspecified atrial fibrillation; G47.30 Sleep apnea, unspecified; K21.9 Gastro-esophageal reflux disease without esophagitis; M10.9 Gout, unspecified; M19.90 Unspecified osteoarthritis, unspecified site; E05.90 Thyrotoxicosis, unspecified without thyrotoxic crisis or storm; E53.8 Deficiency of other specified B group vitamins; E66.9 Obesity, unspecified; Z68.42 Body mass index [BMI] 45.0-49.9, adult; Z79.01 Long term (current) use of anticoagulants; Z79.899 Other long term (current) drug therapy; Z87.891 Personal history of nicotine dependence
CPT/HCPCS: 72040; 96372; 97161; 97165; 97530; 99285; A9270; J1170; 96374; G0378

== ENCOUNTER 2018-05-08 08:57 | Emergency (ER) | payer MEDICARE ==
[2018-05-08 09:01] VITALS: BP 155/92
--- NOTE | 2018-05-08 09:24 | EDM.PDOC ---
ED HPI GENERAL MEDICAL PROBLEM - General Chief Complaint: Lower Extremity Injury/Pain Stated Complaint: VIA NORTH Time Seen by Provider: 05/08/18 09:21 Source of Information: Reports: Patient History Limitations: Reports: No Limitations - History of Present Illness INITIAL COMMENTS - FREE TEXT/NARRATIVE: pt got upt to go to the bathroom and lost her balance She landed on her left knee. She is able to bear weight on the knee. She did develop alot of swelling over the knee cap. She is on coumadin. Onset: Today, Sudden Duration: Hour(s): Location: Reports: Lower Extremity, Left Associated Symptoms: Reports: No Other Symptoms - Related Data Allergies Allergy/AdvReac Type Severity Reaction Status Date / Time No Known Allergies Allergy Verified 01/08/18 09:42 Home Meds: Home Meds Albuterol [Ventolin HFA] 2 puff INH QID PRN 11/25/12 [History] Benazepril HCl [Lotensin] 20 mg PO DAILY 11/25/12 [History] Cholecalciferol (Vitamin D3) [Vitamin D3] 2,000 unit PO DAILY 11/25/12 [History] Cyanocobalamin (Vitamin B-12) [Vitamin B-12] 1,000 mcg PO DAILY 11/25/12 [ History] Metoprolol Succinate [Toprol XL] 25 mg PO DAILY 11/25/12 [History] Polyethylene Glycol 3350 [MiraLAX] 17 gm PO DAILY PRN 11/25/12 [History] Pregabalin [Lyrica] 100 mg PO TID 11/25/12 [History] Sennosides/Docusate Sodium [Senokot-S Tablet] 2 tab PO DAILY 11/25/12 [History] Folic Acid 0.4 mg PO DAILY 02/17/15 [History] Sertraline HCl 50 mg PO DAILY 02/17/15 [History] Warfarin [Coumadin] 5 mg PO SUMOTUTHFRSA 02/17/15 [History] Albuterol/Ipratropium [DuoNeb 3.0-0.5 MG/3 ML] 3 ml INH Q4H PRN 05/10/15 [ History] Calcium Carbonate/Vitamin D3 [Calcium 600 + Vit D 400 Softgl] 1 tab PO DAILY [History] Naproxen [Naprosyn] 500 mg PO BID 05/10/15 [History] Ranitidine [Zantac] 150 mg PO BID 05/10/15 [History] Warfarin [Coumadin] 7.5 mg PO WE 05/12/15 [History] Colesevelam [Welchol] 1,875 mg PO BID 11/14/17 [History] Cyclobenzaprine [Flexeril] 5 mg PO DAILY 11/14/17 [History] Docusate Sodium 100 mg PO DAILY 11/14/17 [History] Fesoterodine Fumarate [Toviaz] 8 mg PO DAILY 11/14/17 [History] Nystatin [Nystatin Crm] 30 gm TOP QID 11/14/17 [History] Tiotropium [Spiriva HandiHaler] 18 mcg INH DAILY 11/14/17 [History] Vit D3 & K/Berberine HCl/Hops [Ostera] 1 each PO DAILY 11/14/17 [History] oxyCODONE 5 mg PO Q4H PRN #12 tablet 11/15/17 [Rx] Nitrofurantoin [place]/Macrocryst [Nitrofurantoin [place]-MCR] 1 tab PO BID 12/11/17 [ History] Past Medical History HEENT History: Reports: Cataract, Hard of Hearing, Impaired Vision Cardiovascular History: Reports: Afib, Automatic Implantable Cardioverter Defibrillators, High Cholesterol, Hypertension, Pacemaker, Other (See Below) Other Cardiovascular History: Aortic stenosis Respiratory History: Reports: Bronchitis, Recurrent, COPD, Sleep Apnea Gastrointestinal History: Reports: Cholelithiasis, Chronic Constipation, GERD, Hemorrhoids Genitourinary History: Reports: Urinary Incontinence, UTI, Recurrent 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 - Infectious Disease History Infectious Disease History: Reports: Chicken Pox, Measles, Mumps - Past Surgical History Other GI Surgeries/Procedures: colon resection Social & Family History - Family History Family Medical History: Noncontributory - Tobacco Use Smoking Status *Q: Former Smoker Used Tobacco, but Quit: Yes Month/Year Tobacco Last Used: many years ago - Caffeine Use Caffeine Use: Reports: Coffee - Recreational Drug Use Recreational Drug Use: No - Living Situation & Occupation Living situation: Reports: Alone Occupation: Retired Review of Systems - Review of Systems Review Of Systems: See Below Constitutional: Reports: No Symptoms Eyes: Reports: No Symptoms Ears: Reports: No Symptoms Nose: Reports: No Symptoms Mouth/Throat: Reports: No Symptoms Respiratory: Reports: No Symptoms Cardiovascular: Reports: No Symptoms GI/Abdominal: Reports: No Symptoms Musculoskeletal: Reports: Other (pt has swelling over the left knee cap. ) Skin: Reports: No Symptoms Neurological: Reports: No Symptoms Psychiatric: Reports: No Symptoms ED EXAM, GENERAL - Physical Exam Exam: See Below Free Text/Narrative:: pt fell on the way to the bathroom this am and landed on her left knee. She now has alot of swelling over the knee cap that looks like a hematoma. Exam Limited By: No Limitations General Appearance: Alert, No Apparent Distress, Anxious, Other (pt is able to ambulate on the left leg without alot of pain. ) Ears: Normal TMs Nose: Normal Inspection Throat/Mouth: Normal Inspection Head: Atraumatic Neck: Normal Inspection Respiratory/Chest: No Respiratory Distress Cardiovascular: Regular Rate, Rhythm Extremities: Other (pt has a large hematoma over the left knee cap. She does not have alot of pain with the swelling. ) Neurological: Alert, Oriented, Normal Cognition Psychiatric: Normal Affect Course - Vital Signs Last Recorded V/S: Last Vital Signs Temp 36.7 C 05/08/18 09:05 Pulse 51 L 05/08/18 09:05 Resp 18 05/08/18 09:05 BP 155/92 H 05/08/18 09:05 Pulse Ox 93 L 05/08/18 09:05 - Orders/Labs/Meds Orders: Active Orders 24 hr Category Date Time Status Knee 3V Lt [CR] Stat Exams 05/08/18 08:58 Ordered Labs: Laboratory Tests 05/08/18 Range/Units 09:05 PT 20.2 H (9.5-12.0) sec INR 1.90 H (0.80-1.20) - Re-Assessments/Exams Free Text/Narrative Re-Assessment/Exam: 05/08/18 09:50 pt had a INR that was not elevated. Her xray revealed a total knee which is not disrupted and there is no fracture. Departure - Departure Time of Disposition: 09:52 Disposition: Home, Self-Care 01 Condition: Fair Clinical Impression: Traumatic hematoma of left knee - Discharge Information Referrals: PCP,None [Primary Care Provider] - Forms: ED Department Discharge Care Plan Goals: limit activity for the next 2 days, cool pack to the left knee, pt should be aware that the bruising will spread down the leg and spread wider. This does not mean that it is getting worse. - My Orders Last 24 Hours: My Active Orders 05/08/18 08:58 Knee 3V Lt [CR] Stat - Assessment/Plan Last 24 Hours: My Active Orders 05/08/18 08:58 Knee 3V Lt [CR] Stat
--- NOTE | 2018-05-08 10:49 | CRLCR ---
3 VIEWS left knee. INDICATION: Swelling and bruising IMPRESSION: No visualized fracture. Alignments anatomic. Left knee arthroplasty FINDINGS: Extensive anterior prepatellar swelling. Intact components of total knee arthroplasty with patellar resurfacing. Title mild bony demineralization. Dictated by Jose Andrade MD @ May 08 2018 10:45AM Signed by Dr. Jose Andrade @ May 08 2018 10:47AM
== END 2018-05-08 10:03 | disposition home or self-care (01) ==
LOC: JP.ED 08:57
DX: S80.02XA Contusion of left knee, initial encounter (principal); I48.91 Unspecified atrial fibrillation; E78.00 Pure hypercholesterolemia, unspecified; I10 Essential (primary) hypertension; E05.90 Thyrotoxicosis, unspecified without thyrotoxic crisis or storm; Z95.0 Presence of cardiac pacemaker; W18.30XA Fall on same level, unspecified, initial encounter; Z79.899 Other long term (current) drug therapy; Z87.891 Personal history of nicotine dependence
CPT/HCPCS: 36415; 73562-LT; 85610; 99283-25

== ENCOUNTER 2019-02-26 02:24 | Emergency (ER) | payer MEDICARE ==
[2019-02-26] MEDS ORDERED: Albuterol 0.083% 2.5 MG/3 ML Neb Soln NEB ONE (03:02)
--- NOTE | 2019-02-26 03:08 | EDM.PDOC ---
ED HPI GENERAL MEDICAL PROBLEM - General Chief Complaint: Respiratory Problem Stated Complaint: MEDICAL VIA NORTH Time Seen by Provider: 02/26/19 02:50 Source of Information: Reports: Patient, Old Records, RN History Limitations: Reports: No Limitations - History of Present Illness INITIAL COMMENTS - FREE TEXT/NARRATIVE: 83 yo female patient of Dr. Ewing with known COPD and who lives alone presents via EMS from her home with SOB and a cough productive of colored phlegm. She has had progressive sx's for about a week. No fever. Has home oxygen to use at night as needed. Quit smoking about 40-45 yrs ago. Last used her nebulizer about 3 hrs before arrival with minimal benefit. Has sleep apnea, does not use her CPAP as they took it away because she sleeps so little at night. Frequent awakening. Onset: Gradual Onset Date: 02/19/19 Duration: Week(s): (1), Getting Worse Location: Reports: Chest Quality: Reports: Other (no pain) Severity: Moderate Improves with: Reports: Rest Worsens with: Reports: Movement (exertion) Context: Reports: Other (see HPI) Associated Symptoms: Reports: Cough, Shortness of Breath, Weakness. 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 (see below) (Duoneb 3 hrs ago) Chest Pain Score (Numeric/FACES): 10 - Related Data Allergies Allergy/AdvReac Type Severity Reaction Status Date / Time No Known Allergies Allergy Verified 02/26/19 02:36 Home Meds: Home Meds Albuterol [Ventolin HFA] 2 puff INH QID PRN 11/25/12 [History] Benazepril HCl [Lotensin] 20 mg PO DAILY 11/25/12 [History] Cholecalciferol (Vitamin D3) [Vitamin D3] 2,000 unit PO DAILY 11/25/12 [History] Cyanocobalamin (Vitamin B-12) [Vitamin B-12] 1,000 mcg PO DAILY 11/25/12 [ History] Metoprolol Succinate [Toprol XL] 25 mg PO DAILY 11/25/12 [History] Polyethylene Glycol 3350 [MiraLAX] 17 gm PO DAILY PRN 11/25/12 [History] Pregabalin [Lyrica] 100 mg PO TID 11/25/12 [History] Sennosides/Docusate Sodium [Senokot-S Tablet] 2 tab PO DAILY 11/25/12 [History] Folic Acid 0.4 mg PO DAILY 02/17/15 [History] Sertraline HCl 50 mg PO DAILY 02/17/15 [History] Warfarin [Coumadin] 5 mg PO SUTUTHFRSA 02/17/15 [History] Albuterol/Ipratropium [DuoNeb 3.0-0.5 MG/3 ML] 3 ml INH Q4H PRN 05/10/15 [ History] Calcium Carbonate/Vitamin D3 [Calcium 600 + Vit D 400 Softgl] 1 tab PO DAILY [History] Naproxen [Naprosyn] 500 mg PO BID 05/10/15 [History] Ranitidine [Zantac] 150 mg PO BID 05/10/15 [History] Colesevelam [Welchol] 1,875 mg PO BID 11/14/17 [History] Cyclobenzaprine [Flexeril] 5 mg PO DAILY 11/14/17 [History] Docusate Sodium 100 mg PO DAILY 11/14/17 [History] Fesoterodine Fumarate [Toviaz] 8 mg PO DAILY 11/14/17 [History] Nystatin [Nystatin Crm] 30 gm TOP QID 11/14/17 [History] Tiotropium [Spiriva HandiHaler] 18 mcg INH DAILY 11/14/17 [History] Vit D3 & K/Berberine HCl/Hops [Ostera] 1 each PO DAILY 11/14/17 [History] Nitrofurantoin [place]/Macrocryst [Nitrofurantoin [place]-MCR] 1 tab PO BID 12/11/17 [ History] traMADol HCl [Tramadol HCl] 25 mg PO BEDTIME 10/23/18 [History] Doxycycline Hyclate 100 mg PO BID #14 tablet 02/26/19 [Rx] Warfarin [Coumadin] 2.5 mg PO MO 02/26/19 [History] predniSONE [Prednisone] 20 mg PO BID #10 tablet 02/26/19 [Rx] Past Medical History HEENT History: Reports: Cataract, Hard of Hearing, Impaired Vision Cardiovascular History: Reports: Afib, Automatic Implantable Cardioverter Defibrillators, High Cholesterol, Hypertension, Pacemaker, Other (See Below) Other Cardiovascular History: Aortic stenosis Respiratory History: Reports: Bronchitis, Recurrent, COPD, Sleep Apnea Other Respiratory History: Oxygen and c-pap Gastrointestinal History: Reports: Cholelithiasis, Chronic Constipation, GERD, Hemorrhoids Genitourinary History: Reports: Urinary Incontinence, UTI, Recurrent 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 right shoulder pain Neurological History: Reports: None Psychiatric History: Reports: None Endocrine/Metabolic History: Reports: Hyperthyroidism, Obesity/BMI 30+, Other ( See Below) Other Endocrine/Metabolic History: Goiter Hematologic History: Reports: Anticoagulation Therapy, B12 Deficiency Immunologic History: Reports: None Oncologic (Cancer) History: Reports: Other (See Below) Other Oncologic History: "skin cancer" Dermatologic History: Reports: Melanoma Other Dermatologic History: Removal of skin spot l hand. - Infectious Disease History Infectious Disease History: Reports: Chicken Pox, Measles, Mumps - Past Surgical History HEENT Surgical History: Reports: None Cardiovascular Surgical History: Reports: None Respiratory Surgical History: Reports: None Other GI Surgeries/Procedures: colon resection Female Surgical History: Reports: None Endocrine Surgical History: Reports: None Musculoskeletal Surgical History: Reports: Knee Replacement, Shoulder Surgery Other Musculoskeletal Surgeries/Procedures:: reverse total shoulder Social & Family History - Family History Family Medical History: Noncontributory - Tobacco Use Smoking Status *Q: Former Smoker Used Tobacco, but Quit: Yes Month/Year Tobacco Last Used: 40 years - Caffeine Use Caffeine Use: Reports: Coffee - Recreational Drug Use Recreational Drug Use: No - Living Situation & Occupation Living situation: Reports: Alone Occupation: Retired ED ROS GENERAL - Review of Systems Review Of Systems: See Below Constitutional: Reports: Weakness, Fatigue. Denies: Fever, Chills HEENT: Reports: No Symptoms Respiratory: Reports: Shortness of Breath, Cough, Sputum. Denies: Wheezing, Pleuritic Chest Pain, Hemoptysis Cardiovascular: Reports: No Symptoms Endocrine: Reports: No Symptoms GI/Abdominal: Reports: No Symptoms : Reports: No Symptoms Musculoskeletal: Reports: No Symptoms Skin: Reports: No Symptoms Neurological: Reports: No Symptoms Psychiatric: Reports: No Symptoms ED EXAM, GENERAL - Physical Exam Exam: See Below Exam Limited By: No Limitations General Appearance: Alert, WD/WN, Mild Distress, Obese Eye Exam: Bilateral Eye: Normal Inspection Ears: Normal External Exam, Normal Canal, Hearing Grossly Normal, Normal TMs Ear Exam: Bilateral Ear: Auricle Normal, Canal Normal, TM normal Nose: Normal Inspection, No Blood Throat/Mouth: Normal Inspection, Normal Lips, Normal Oropharynx, Normal Voice, No Airway Compromise Head: Atraumatic, Normocephalic Neck: Normal Inspection Respiratory/Chest: No Respiratory Distress, No Accessory Muscle Use, Decreased Breath Sounds, Other (mild tachypnea) Cardiovascular: Regular Rate, Rhythm, No Edema GI/Abdominal: Normal Bowel Sounds, Soft, Non-Tender. No: No Distention Back Exam: Normal Inspection Extremities: Normal Inspection, Normal Range of Motion, Non-Tender, No Pedal Edema Neurological: Alert, Oriented, CN II-XII Intact, Normal Cognition, No Motor/ Sensory Deficits Psychiatric: Normal Affect, Normal Mood Skin Exam: Warm, Dry, Intact, Normal Color, No Rash Course - Vital Signs Text/Narrative:: Albuterol neb, wheezing slightly more audible after this. Called Dr. Abarca @ 1604h Last Recorded V/S: Last Vital Signs Temp 36.8 C 02/26/19 02:31 Pulse 78 02/26/19 03:53 Resp 22 H 02/26/19 03:53 BP 141/79 H 02/26/19 03:53 Pulse Ox 88 L 02/26/19 03:53 - Orders/Labs/Meds Orders: Active Orders 24 hr Category Date Time Status RT Aerosol Therapy [RC] ASDIRECTED Care 02/26/19 03:02 Active PRO B-TYPE NATRIUR PEPT,BNPPRO [CHEM] Stat Lab 02/26/19 03:50 Ordered Labs: Laboratory Tests 02/26/19 02/26/19 Range/Units 03:10 03:10 WBC 7.7 (4.5-11.0) K/uL RBC 4.72 (3.30-5.50) M/uL Hgb 12.9 D (12.0-15.0) g/dL Hct 42.9 (36.0-48.0) % MCV 91 (80-98) fL MCH 27 (27-31) pg MCHC 30 L (32-36) % Plt Count 228 (150-400) K/uL Sodium 141 (140-148) mmol/L Potassium 4.1 (3.6-5.2) mmol/L Chloride 103 (100-108) mmol/L Carbon Dioxide 32 (21-32) mmol/L Anion Gap 6.2 (5.0-14.0) mmol/L BUN 22 H (7-18) mg/dL Creatinine 0.8 (0.6-1.0) mg/dL Est Cr Clr Drug Dosing 38.80 mL/min Estimated GFR (MDRD) > 60 (>60) Glucose 135 H (74-106) mg/dL Calcium 8.8 (8.5-10.1) mg/dL Meds: Medications Discontinued Medications Generic Name Dose Route Start Last Admin Trade Name Freq PRN Reason Stop Dose Admin Albuterol 2.5 mg 02/26/19 03:02 02/26/19 03:08 Proventil Neb Soln NEB 02/26/19 03:03 2.5 mg ONETIME ONE Administration - Radiology Interpretation Free Text/Narrative:: CXR- IMPRESSION: Pulmonary cephalization without focal consolidation. Dictated by Josse Fernandez MD @ Feb 26 2019 3:48AM Departure - Departure Time of Disposition: 07:00 Disposition: Home, Self-Care 01 Condition: Fair Clinical Impression: COPD exacerbation, Bronchitis - Discharge Information *PRESCRIPTION DRUG MONITORING PROGRAM REVIEWED*: No *COPY OF PRESCRIPTION DRUG MONITORING REPORT IN PATIENT DANIEL: No Instructions: Acute Bronchitis, Adult, [id number], Chronic Obstructive Pulmonary Disease, [id number] Referrals: PCP,None [Primary Care Provider] - Forms: ED Department Discharge Additional Instructions: Take the prednisone and doxycycline as directed. Avoid taking anything with calcium 2 hrs before or after the doxycycline. Continue your other medications as before. Avoid salt or salty foods. Recheck with Dr. Alexandra MILLER. Return as needed. Sepsis Event Note - Evaluation Sepsis Screening Result: No Definite Risk - Focused Exam Vital Signs: Vital Signs Temp Pulse Resp BP Pulse Ox 02/26/19 03:53 78 22 H 141/79 H 88 L 02/26/19 02:31 36.8 C 83 24 H 186/77 H 92 L Date Exam was Performed: 02/26/19 Time Exam was Performed: 04:02 - My Orders Last 24 Hours: My Active Orders 02/26/19 03:02 RT Aerosol Therapy [RC] ASDIRECTED 02/26/19 03:50 PRO B-TYPE NATRIUR PEPT,BNPPRO [CHEM] Stat - Assessment/Plan Last 24 Hours: My Active Orders 02/26/19 03:02 RT Aerosol Therapy [RC] ASDIRECTED 02/26/19 03:50 PRO B-TYPE NATRIUR PEPT,BNPPRO [CHEM] Stat
--- NOTE | 2019-02-26 03:50 | CRLCR ---
INDICATION: Shortness of breath TECHNIQUE: Chest 2 views COMPARISON: Chest x-ray 10/01/2017 FINDINGS: Cardiovascular and mediastinum: Normal heart size with left-sided dual lead pacemaker. Lungs and pleural spaces: No pleural effusion or pneumothorax. Pulmonary cephalization. Bones and soft tissues: Status post reverse left shoulder replacement. IMPRESSION: Pulmonary cephalization without focal consolidation. Dictated by Josse Fernandez MD @ Feb 26 2019 3:48AM Signed by Dr. Josse Fernandez @ Feb 26 2019 3:49AM
[2019-02-26 04:00] VITALS: BP 141/79; PULSE 78
[2019-02-26] MEDS ORDERED: Sodium Chloride 0.9% 10 ML Syringe FLUSH PRN (04:07)
[2019-02-26] MEDS ORDERED: predniSONE 20 MG Tab PO ONE (04:10)
== END 2019-02-26 06:52 | disposition home or self-care (01) ==
LOC: JP.ED 02:24
DX: J44.1 Chronic obstructive pulmonary disease with (acute) exacerbation (principal); I48.91 Unspecified atrial fibrillation; E78.00 Pure hypercholesterolemia, unspecified; I10 Essential (primary) hypertension; K21.9 Gastro-esophageal reflux disease without esophagitis; M06.9 Rheumatoid arthritis, unspecified; E05.90 Thyrotoxicosis, unspecified without thyrotoxic crisis or storm; E66.9 Obesity, unspecified; Z79.01 Long term (current) use of anticoagulants; Z87.891 Personal history of nicotine dependence; Z79.899 Other long term (current) drug therapy
CPT/HCPCS: 36415; 71046; 80048; 85027; 87804; 87804-59; 94640; 99284; 99285-25; A9270-GY

== ENCOUNTER 2020-08-21 23:01 | Emergency (ER) | payer MEDICARE ==
[2020-08-21 23:06] VITALS: PULSE 68
[2020-08-21] MEDS ORDERED: Sodium Chloride 0.9% 10 ML Syringe FLUSH PRN (23:17)
[2020-08-22 01:39] VITALS: BP 130/58
--- NOTE | 2020-08-22 01:51 | EDM.PDOC ---
ED HPI GENERAL MEDICAL PROBLEM - General Chief Complaint: Upper Extremity Injury/Pain Stated Complaint: MEDICAL Time Seen by Provider: 08/21/20 23:11 Source of Information: Reports: Patient, Old Records History Limitations: Reports: No Limitations - History of Present Illness INITIAL COMMENTS - FREE TEXT/NARRATIVE: Nemo is a 85-year-old female presenting to the ED with severe right upper extremity pain, limited mobility, and swelling. The patient is scheduled tomorrow for an ultrasound of the right upper extremity with duplex venous imaging to rule out a DVT. The patient has a history significant for rotator cuff injury of the right shoulder and chronic right shoulder pain. She states she is not able to lift the arm off the chair and is having great deal of difficulty ambulating at home as she gets around with a walker. Complicating matters is that the patient is morbidly obese with a BMI of 51.2. The patient is on chronic pain management with tramadol 50 mg every 6 hours. She does take naproxen but states that that has not been helping. She is inquiring about a stronger pain medicine, however, given her age and comorbidities I declined anything stronger. She denies any new injuries. She does live at [facility] which she moved into approximately a month ago. Since then she has had significant increase in her peripheral edema both in the upper and lower extremities. Prior to going into [facility] she was very cautious about her salt intake. She does take Lasix 20 mg daily for fluid retention. She is short of breath but is constantly on oxygen due to her COPD. She denies any nausea, vomiting, diarrhea or constipation. She has had no fever or chills. She is on chronic anticoagulation with Coumadin for atrial fibrillation. 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 - Related Data Allergies Allergy/AdvReac Type Severity Reaction Status Date / Time No Known Allergies Allergy Verified 02/26/19 02:36 Home Meds: Home Meds Albuterol [Ventolin HFA] 2 puff INH Q6HR PRN 11/25/12 [History] Benazepril HCl [Lotensin] 20 mg PO DAILY 11/25/12 [History] Cholecalciferol (Vitamin D3) [Vitamin D3] 2,000 unit PO DAILY 11/25/12 [History] Cyanocobalamin (Vitamin B-12) [Vitamin B-12] 1,000 mcg PO DAILY 11/25/12 [History] Metoprolol Succinate [Toprol XL] 25 mg PO DAILY 11/25/12 [History] Pregabalin [Lyrica] 100 mg PO TID 11/25/12 [History] Sennosides/Docusate Sodium [Senokot-S Tablet] 2 tab PO DAILY 11/25/12 [History] polyethylene glycoL 3350 [MiraLAX] 17 gm PO DAILY PRN 11/25/12 [History] Folic Acid 0.4 mg PO DAILY 02/17/15 [History] Sertraline HCl 50 mg PO DAILY 02/17/15 [History] Warfarin [Coumadin] 5 mg PO SUTUTHFRSA 02/17/15 [History] Albuterol/Ipratropium [DuoNeb 3.0-0.5 MG/3 ML] 3 ml INH Q4H PRN 05/10/15 [History] Naproxen [Naprosyn] 500 mg PO BID PRN 05/10/15 [History] Ranitidine [Zantac] 150 mg PO BID 05/10/15 [History] Docusate Sodium 100 mg PO DAILY 11/14/17 [History] Nystatin [Nystatin Crm] 30 gm TOP QID 11/14/17 [History] Tiotropium [Spiriva HandiHaler] 18 mcg INH DAILY 11/14/17 [History] Vit D3 & K/Berberine HCl/Hops [Ostera] 1 each PO DAILY 11/14/17 [History] Nitrofurantoin Drew/Macrocryst [Nitrofurantoin Drew-MCR] 1 tab PO BID 12/11/17 [History] traMADol HCl [Tramadol HCl] 25 mg PO Q6HR PRN 10/23/18 [History] Warfarin [Coumadin] 2.5 mg PO MO 02/26/19 [History] predniSONE [Prednisone] 20 mg PO BID #10 tablet 02/26/19 [Rx] Acetaminophen [Mapap] 500 mg PO TID PRN 07/17/19 [History] Mirabegron [Myrbetriq] 50 mg PO 07/17/19 [History] Furosemide 20 mg PO DAILY 08/22/20 [History] Furosemide [Lasix] 40 mg PO DAILY 30 Days #30 tab 08/22/20 [Rx] Past Medical History HEENT History: Reports: Cataract, Hard of Hearing, Impaired Vision Cardiovascular History: Reports: Afib, Automatic Implantable Cardioverter Defibrillators, High Cholesterol, Hypertension, Pacemaker, Other (See Below) Other Cardiovascular History: Aortic stenosis Respiratory History: Reports: Bronchitis, Recurrent, COPD, Sleep Apnea Other Respiratory History: Oxygen and c-pap Gastrointestinal History: Reports: Cholelithiasis, Chronic Constipation, GERD, Hemorrhoids Genitourinary History: Reports: Urinary Incontinence, UTI, Recurrent 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 right shoulder pain Neurological History: Reports: None Psychiatric History: Reports: None Endocrine/Metabolic History: Reports: Hyperthyroidism, Obesity/BMI 30+, Other (See Below) Other Endocrine/Metabolic History: Goiter Hematologic History: Reports: Anticoagulation Therapy, B12 Deficiency Immunologic History: Reports: None Oncologic (Cancer) History: Reports: Other (See Below) Other Oncologic History: "skin cancer" Dermatologic History: Reports: Melanoma Other Dermatologic History: Removal of skin spot l hand. - Infectious Disease History Infectious Disease History: Reports: Chicken Pox, Measles, Mumps - Past Surgical History HEENT Surgical History: Reports: None, Cataract Surgery Cardiovascular Surgical History: Reports: None Respiratory Surgical History: Reports: None GI Surgical History: Reports: Colonoscopy, Hernia Repair/Other, Other (See Below) Other GI Surgeries/Procedures: colon resection Female Surgical History: Reports: None Endocrine Surgical History: Reports: None Musculoskeletal Surgical History: Reports: Knee Replacement, Shoulder Surgery Other Musculoskeletal Surgeries/Procedures:: reverse total shoulder Dermatological Surgical History: Reports: Skin Biopsy Social & Family History - Family History Family Medical History: No Pertinent Family History - Tobacco Use Tobacco Use Status *Q: Former Tobacco User Used Tobacco, but Quit: Yes Month/Year Tobacco Last Used: unknown - Caffeine Use Caffeine Use: Reports: None - Recreational Drug Use Recreational Drug Use: No - Living Situation & Occupation Living situation: Reports: Alone Occupation: Retired Review of Systems - Review of Systems Review Of Systems: See Below Constitutional: Reports: No Symptoms Eyes: Reports: No Symptoms Ears: Reports: No Symptoms Nose: Reports: No Symptoms Mouth/Throat: Reports: No Symptoms Respiratory: Reports: Shortness of Breath (Chronically due to COPD), Cough (Chronic) Cardiovascular: Reports: Edema GI/Abdominal: Reports: No Symptoms Genitourinary: Reports: No Symptoms Musculoskeletal: Reports: Shoulder Pain (Right shoulder pain and reduced range of motion), Other (Swelling of the right upper extremity with ecchymosis of the forearm and hand.) Skin: Reports: Bruising (Right forearm and hand) Neurological: Reports: No Symptoms Psychiatric: Reports: Anxiety ED EXAM, GENERAL - Physical Exam Exam: See Below Exam Limited By: No Limitations General Appearance: Alert, Anxious, Mild Distress Eye Exam: Bilateral Eye: EOMI, PERRL Throat/Mouth: Normal Inspection, Normal Oropharynx, Normal Voice, No Airway Compromise Head: Atraumatic, Normocephalic Neck: Normal Inspection, Non-Tender, Full Range of Motion. No: Lymphadenopathy (R), Lymphadenopathy (L) Respiratory/Chest: No Accessory Muscle Use, Decreased Breath Sounds (Diminished breath sounds in the bases), Rhonchi (Bibasilar rhonchi), Wheezing (Inspiratory and expiratory wheezes) Cardiovascular: Normal Peripheral Pulses, Regular Rate, Rhythm, No Murmur, Other (Distant heart sounds due to chest anatomy) GI/Abdominal: Normal Bowel Sounds, Soft, Non-Tender Extremities: Limited Range of Motion (Pain with movement of the right shoulder), Other (Increased swelling of the right upper extremity). No: Increased Warmth Neurological: Alert, Oriented, Normal Cognition, No Motor/Sensory Deficits Psychiatric: Anxious Skin Exam: Warm, Ecchymosis (Ecchymosis in the distal right forearm and dorsal hand. These areas are nontender. There is no increased temperature. The patient is anticoagulated with Coumadin. She is unaware of what her INR is that has not been checked in over a month.) Lymphatic: No Adenopathy Course - Vital Signs Last Recorded V/S: Last Vital Signs Temp 36.5 C 08/21/20 23:05 Pulse 68 08/21/20 23:05 Resp 16 08/22/20 01:38 BP 130/58 L 08/22/20 01:38 Pulse Ox 94 L 08/22/20 01:38 - Orders/Labs/Meds Orders: Active Orders 24 hr Category Date Time Status EKG Documentation Completion [RC] ASDIRECTED Care 08/21/20 23:18 Active VL Duplex Lwr Ext Veins Ltd Rt [US] Stat Exams 08/21/20 23:17 Taken Sodium Chloride 0.9% [Saline Flush] Med 08/21/20 23:17 Active 10 ml FLUSH ASDIRECTED PRN Saline Lock Insert [OM.PC] Routine Oth 08/21/20 23:17 Ordered EKG 12 Lead [EK] Routine Ther 08/21/20 23:17 Ordered Medication Orders Sodium Chloride (Sodium Chloride 0.9% 10 Ml Syringe) 10 ml FLUSH ASDIRECTED PRN PRN Reason: Keep Vein Open Last Admin: 08/21/20 23:25 Dose: 10 ml Documented by: OTILIA Labs: Laboratory Tests 08/21/20 08/21/20 08/21/20 Range/Units 23:24 23:24 23:24 WBC 6.4 (4.5-11.0) K/uL RBC 3.96 (3.30-5.50) M/uL Hgb 11.5 L (12.0-15.0) g/dL Hct 36.7 (36.0-48.0) % MCV 93 (80-98) fL MCH 29 (27-31) pg MCHC 31 L (32-36) % Plt Count 212 (150-400) K/uL Neut % (Auto) 55.0 (36-66) % Lymph % (Auto) 26.4 (24-44) % Drew % (Auto) 14.7 H (2-6) % Eos % (Auto) 3.1 (2-4) % Baso % (Auto) 0.8 (0-1) % PT 32.8 H (9.5-12.0) sec INR 3.08 H (0.80-1.20) APTT 40.1 H (27.0-36.0) sec Sodium 140 (140-148) mmol/L Potassium 4.9 (3.6-5.2) mmol/L Chloride 102 (100-108) mmol/L Carbon Dioxide 31 (21-32) mmol/L Anion Gap 6.8 (5.0-14.0) mmol/L BUN 26 H (7-18) mg/dL Creatinine 1.1 H (0.6-1.0) mg/dL Est Cr Clr Drug Dosing 27.19 mL/min Estimated GFR (MDRD) 47 L (>60) Glucose 115 H (74-106) mg/dL Calcium 8.9 (8.5-10.1) mg/dL Total Bilirubin 0.3 D (0.2-1.0) mg/dL AST 22 (15-37) U/L ALT 29 (12-78) U/L Alkaline Phosphatase 81 (46-116) U/L Troponin I < 0.017 (0.000-0.056) ng/mL NT-Pro-B Natriuret Pep 141 (5-450) pg/mL Total Protein 6.7 (6.4-8.2) g/dL Albumin 3.1 L (3.4-5.0) g/dL Globulin 3.6 H (2.3-3.5) g/dL Albumin/Globulin Ratio 0.9 L (1.2-2.2) Meds: Medications Generic Name Dose Route Start Last Admin Trade Name Freq PRN Reason Stop Dose Admin Sodium Chloride 10 ml 08/21/20 23:17 08/21/20 23:25 Sodium Chloride 0.9% 10 Ml Syringe FLUSH 10 ml ASDIRECTED PRN Administration Keep Vein Open - Radiology Interpretation Free Text/Narrative:: Venous duplex ultrasound of the right upper extremity shows normal venous compliance and augmentation. There is no evidence for deep venous thrombosis. There is considerable tissue edema seen on the ultrasound. This is consistent with lymphedema. - Re-Assessments/Exams Free Text/Narrative Re-Assessment/Exam: 08/22/20 02:02 I reviewed the patient's labs with a leukocyte count of 6.4, hemoglobin of 11.5, hematocrit of 36.7, and 212,000 platelets. Her comprehensive metabolic panel was significant for a BUN of 26 with a creatinine 1.1. Her INR is 3.08 with a PTT of 40.1. Her troponin is negative at less than 0.017. Her BNP is negative at 141. An EKG was obtained showing an atrial and ventricular paced rhythm at 71 bpm. No kiana P waves are present. 08/22/20 02:04 to reviewing everything, I believe the patient is suitable for discharge home. She inquired about a stronger pain medicine than tramadol as she has been on 50 mg of tramadol every 6 hours for over a year. Given her age and multiple comorbidities, I am concerned about giving her anything stronger. She may continue to use the naproxen as before intermittently. I believe her kidney function is well enough that can tolerate that. I think an additional narcotic medication would be a poor decision. Ultimately she needs to get the rotator cuff addressed. Another issue, is we need to make sure the fabi mariee is watching a low-sodium diet on this patient as she has increased fluid retention. I am going to increase her Lasix to 40 mg a day from 20 mg a day to see if this will help diurese off the excess fluid. I do believe that this time she can return to [facility]. Indications to return to the ED were discussed. I like her to follow-up with her primary care provider within a week. Departure - Departure Time of Disposition: 01:50 Disposition: DC/Tfer to [facility] Clinical Impression: Peripheral edema, Rotator cuff syndrome of right shoulder Shoulder pain, right Qualifiers: Chronicity: chronic Qualified Code(s): M25.511 - Pain in right shoulder; G89.29 - Other chronic pain - Discharge Information Prescriptions: Furosemide [Lasix] 40 mg PO DAILY 30 Days #30 tab Referrals: PCP,None [Primary Care Provider] - Forms: ED Department Discharge Care Plan Goals: Your work-up today has shown that you are retaining fluid causing swelling in your upper and lower extremities. We need to be very mindful of the amount of salt that you may be taking in in your diet. Please have the [employer] people review your salt intake. We are going to increase your Lasix from 20 mg to 40 mg a day to help get the excess water off. The work-up of your arm has shown that there is normal blood flow both arterial and venous in your right arm and no evidence for a blood clot. In addition, your blood work does not show any evidence of heart failure or heart damage. Your EKG remains unchanged. I would recommend following up with your primary care provider this week. Your INR today was 3.08. Sepsis Event Note (ED) - Evaluation Sepsis Screening Result: No Definite Risk - Focused Exam Vital Signs: Vital Signs Temp Pulse Resp BP Pulse Ox 08/22/20 01:38 16 130/58 L 94 L 08/21/20 23:05 36.5 C 68 150/38 H 92 L 08/21/20 23:04 36.5 C 68 150/38 H 92 L - Problem List & Annotations (1) Shoulder pain, right SNOMED Code(s): 35972310, 41170091 Code(s): M25.511 - PAIN IN RIGHT SHOULDER Status: Chronic Priority: Medium Current Visit: Yes Qualifiers: Chronicity: chronic Qualified Code(s): M25.511 - Pain in right shoulder; G89.29 - Other chronic pain (2) Rotator cuff syndrome of right shoulder SNOMED Code(s): 844631857 Code(s): M75.101 - UNSP ROTATR-CUFF TEAR/RUPTR OF RIGHT SHOULDER, NOT TRAUMA Status: Chronic Priority: Medium Current Visit: Yes (3) COPD (chronic obstructive pulmonary disease) SNOMED Code(s): 42343875 Code(s): J44.9 - CHRONIC OBSTRUCTIVE PULMONARY DISEASE, UNSPECIFIED Status: Chronic Priority: Low Current Visit: No Qualifiers: COPD type: unspecified COPD Qualified Code(s): J44.9 - Chronic obstructive pulmonary disease, unspecified (4) Peripheral edema SNOMED Code(s): 344981077 Code(s): R60.9 - EDEMA, UNSPECIFIED Status: Acute Priority: Medium Current Visit: Yes - Problem List Review Problem List Initiated/Reviewed/Updated: Yes - My Orders Last 24 Hours: My Active Orders 08/21/20 23:17 VL Duplex Lwr Ext Veins Ltd Rt [US] Stat Sodium Chloride 0.9% [Saline Flush] 10 ml FLUSH ASDIRECTED PRN Saline Lock Insert [OM.PC] Routine EKG 12 Lead [EK] Routine 08/21/20 23:18 EKG Documentation Completion [RC] ASDIRECTED - Assessment/Plan Last 24 Hours: My Active Orders 08/21/20 23:17 VL Duplex Lwr Ext Veins Ltd Rt [US] Stat Sodium Chloride 0.9% [Saline Flush] 10 ml FLUSH ASDIRECTED PRN Saline Lock Insert [OM.PC] Routine EKG 12 Lead [EK] Routine 08/21/20 23:18 EKG Documentation Completion [RC] ASDIRECTED
[2020-08-22] MEDS ORDERED: Ketorolac 30 MG/ML SDV IM ONE (02:07)
--- NOTE | 2020-08-22 13:55 | US ---
VL Duplex Lwr Ext Veins Ltd Rt CLINICAL HISTORY: Right arm pain and swelling FINDINGS: There is normal downward flow in the right jugular. There is normal flow in the brachiocephalic. Subclavian axillary brachial cephalic and basilic veins show flow and compressibility IMPRESSION: No evidence of deep venous thrombosis in the right upper extremity
== END 2020-08-22 02:30 ==
LOC: JP.ED 23:01
DX: M75.101 Unspecified rotator cuff tear or rupture of right shoulder, not specified as traumatic (principal); R60.0 Localized edema; I48.91 Unspecified atrial fibrillation; I10 Essential (primary) hypertension; J44.9 Chronic obstructive pulmonary disease, unspecified; K21.9 Gastro-esophageal reflux disease without esophagitis; E05.90 Thyrotoxicosis, unspecified without thyrotoxic crisis or storm; E66.9 Obesity, unspecified; Z68.43 Body mass index [BMI] 50.0-59.9, adult; Z79.01 Long term (current) use of anticoagulants; Z87.891 Personal history of nicotine dependence; Z79.899 Other long term (current) drug therapy; X58.XXXA Exposure to other specified factors, initial encounter
CPT/HCPCS: 36415; 80053; 83880; 84484; 85025; 85610; 85730; 93005; 93010; 93971-26; 93971-RT; 99283; 99284-25

== ENCOUNTER 2020-10-19 05:16 | Inpatient (IN) | payer MEDICARE ==
[2020-10-19] MEDS ORDERED: Povidone-Iodine 10% Soln 118.25 ML Bottle ONE (06:46)
[2020-10-19] MEDS ORDERED: Nozin Nasal Sanitizer NASBOTH ONE (07:00)
[2020-10-19] MEDS ORDERED: Albuterol/Ipratropium 3.0-0.5 MG/3 ML Neb Soln NEB ONE (07:00)
[2020-10-19] MEDS ORDERED: Lactated Ringers 1,000 ML IV SCH (07:00)
[2020-10-19] MEDS ORDERED: Budesonide 0.5 MG/2 ML Neb Susp NEB ONE (07:00)
[2020-10-19] MEDS ORDERED: ceFAZolin 1 GM in Premix Bag 1 BAG IV ONE (07:15)
[2020-10-19] MEDS ORDERED: fentaNYL 250 MCG/5 ML SDV ONE (07:27)
[2020-10-19] MEDS ORDERED: Ondansetron 4 MG/2 ML SDV ONE (07:28)
[2020-10-19] MEDS ORDERED: Rocuronium 50 MG/5 ML Vial ONE (07:28)
[2020-10-19] MEDS ORDERED: Dexamethasone 4 MG/ML SDV ONE (07:28)
[2020-10-19] MEDS ORDERED: Glycopyrrolate 0.2 MG/ML 5 ML MDV ONE (07:28)
[2020-10-19] MEDS ORDERED: Neostigmine Methylsulfate 1 MG/ML 5 ML Syringe ONE (07:28)
[2020-10-19] MEDS ORDERED: Propofol 200 MG/20 ML SDV ONE (07:28)
[2020-10-19] MEDS ORDERED: Bupivacaine 0.5% 30 ML SDV ONE (07:34)
[2020-10-19] MEDS ORDERED: Acetaminophen/oxyCODONE 325-5 MG Tab PO PRN (10:08)
[2020-10-19] MEDS ORDERED: Acetaminophen 325 MG Tab PO PRN (10:08)
[2020-10-19] MEDS ORDERED: Morphine 2 MG/ML SYRINGE IVPUSH PRN (10:08)
[2020-10-19] MEDS ORDERED: Albuterol 8 GM Inhaler INH PRN (10:18)
[2020-10-19] MEDS ORDERED: Albuterol/Ipratropium 3.0-0.5 MG/3 ML Neb Soln INH PRN (10:18)
[2020-10-19] MEDS ORDERED: Warfarin 5 MG Tab PO SCH (10:30)
[2020-10-19] MEDS ORDERED: Warfarin 2.5 MG Tab PO SCH (10:30)
[2020-10-19] MEDS ORDERED: Aluminum Hydroxide/Magnesium Hydroxide/Simethicone Susp 30 ML Cup PO PRN (10:45)
[2020-10-19] MEDS: traMADol 50 MG Tab PO PRN ×2 (12:07→19:18)
[2020-10-19] MEDS: Sodium Chloride 0.9% 1,000 ML IV SCH (13:42)
[2020-10-19] MEDS: ceFAZolin 1 GM in Premix Bag 1 BAG IV SCH ×2 (14:51→21:53)
[2020-10-19] MEDS: Pregabalin 100 MG Cap PO SCH ×2 (14:51→21:52)
--- NOTE | 2020-10-19 15:11 | CR ---
Shoulder 1V Rt CLINICAL HISTORY: Postop total shoulder FINDINGS: Patient is status post recent placement of a total reverse shoulder prosthesis. Components appear well seated
[2020-10-19] MEDS: Budesonide 0.5 MG/2 ML Neb Susp NEB SCH (21:43)
[2020-10-19] MEDS: Docusate Sodium 100 MG Cap PO SCH (21:52)
[2020-10-19] MEDS: Nozin Nasal Sanitizer NASBOTH SCH (21:53)
[2020-10-19] MEDS ORDERED: Furosemide 20 MG Tab PO ONE (21:53)
[2020-10-20] MEDS: Acetaminophen/HYDROcodone 325-5 MG Tab PO PRN ×4 (00:01→17:26)
[2020-10-20] MEDS: Sodium Chloride 0.9% 1,000 ML IV SCH (04:46)
[2020-10-20] MEDS: ceFAZolin 1 GM in Premix Bag 1 BAG IV SCH (05:47)
[2020-10-20] MEDS ORDERED: Tiotropium Bromide 4 GM Inhalation Spray (2.5mcg/1 dose; 10 doses) INH SCH (07:00)
[2020-10-20] MEDS: Budesonide 0.5 MG/2 ML Neb Susp NEB SCH ×2 (07:22→20:13)
[2020-10-20] MEDS: Tiotropium Bromide 4 GM Inhalation Spray (2.5mcg/1 dose; 10 doses) INH SCH (07:23)
[2020-10-20] MEDS ORDERED: MIRABEGRON 50 MG PO SCH (09:00)
[2020-10-20] MEDS ORDERED: Non-Formulary Medication 1 Each (Tiotropium [Spiriva Handihaler] 18 MCG Cap) INH SCH (09:00)
[2020-10-20] MEDS: Nozin Nasal Sanitizer NASBOTH SCH ×2 (09:58→20:13)
[2020-10-20] MEDS: Docusate Sodium 100 MG Cap PO SCH ×2 (09:59→20:13)
[2020-10-20] MEDS: Furosemide 20 MG Tab PO SCH (09:59)
[2020-10-20] MEDS: Aspirin 81 MG Tab.EC PO SCH (09:59)
[2020-10-20] MEDS: Mirabegron 25 MG Tab Extended Release PO SCH (09:59)
[2020-10-20] MEDS: Polyethylene Glycol 3350 Powder 17 GM Packet PO SCH (09:59)
[2020-10-20] MEDS: predniSONE 20 MG Tab PO SCH (10:00)
[2020-10-20] MEDS: Pravastatin 20 MG Tab PO SCH (10:00)
[2020-10-20] MEDS: Benazepril 10 MG Tab PO SCH (10:01)
[2020-10-20] MEDS: Metoprolol Succinate 25 MG Tab.ER PO SCH (10:02)
[2020-10-20] MEDS: Pregabalin 100 MG Cap PO SCH ×3 (10:07→20:13)
--- NOTE | 2020-10-20 16:08 | PCM.SURGPN ---
- General Info Date of Service: 10/20/20 Date of Surgery/Procedure: 10/19/20 POD#: 1 Functional Status: Reports: Pain Controlled, Tolerating Diet - Review of Systems General: Reports: No Symptoms HEENT: Reports: No Symptoms Pulmonary: Reports: Shortness of Breath, Wheezing Cardiovascular: Reports: No Symptoms Gastrointestinal: Reports: No Symptoms Genitourinary: Reports: No Symptoms Musculoskeletal: Reports: Arm Pain Skin: Reports: No Symptoms Neurological: Reports: No Symptoms Psychiatric: Reports: No Symptoms - Patient Data Vitals - Most Recent: Last Vital Signs Temp 35.9 C L 10/20/20 15:00 Pulse 65 10/20/20 15:00 Resp 16 10/20/20 15:00 BP 114/38 L 10/20/20 15:00 Pulse Ox 96 10/20/20 15:00 Weight - Most Recent: 127.006 kg I&O - Last 24 Hours: Intake & Output 10/20/20 10/20/20 10/20/20 06:59 14:59 22:59 Intake Total 955 480 Output Total 710 Balance 245 480 Lab Results Last 24 Hrs: Laboratory Results - last 24 hr 10/20/20 Range/Units 05:03 PT 14.0 H (9.5-12.0) sec INR 1.29 H (0.80-1.20) Med Orders - Current: Current Medications Acetaminophen (Acetaminophen 325 Mg Tab) 650 mg PO Q4H PRN PRN Reason: Pain/Fever Hydrocodone Bitart/Acetaminophen (Acetaminophen/Hydrocodone 325-5 Mg Tab) 1 tab PO Q3H PRN PRN Reason: Pain (mild 1-3) Last Admin: 10/20/20 09:20 Dose: 1 tab Documented by: Al Hydroxide/Mg Hydroxide (Aluminum Hydroxide/Magnesium Hydroxide/Simethicone Susp 30 Ml Cup) 30 ml PO Q4H PRN PRN Reason: Indigestion Albuterol (Albuterol 8 Gm Inhaler) 0 gm INH Q6HR PRN PRN Reason: Shortness of Breath Albuterol/Ipratropium (Albuterol/Ipratropium 3.0-0.5 Mg/3 Ml Neb Soln) 3 ml INH Q4H PRN PRN Reason: Shortness of Breath Last Admin: 10/19/20 11:23 Dose: 3 ml Documented by: Aspirin (Aspirin 81 Mg Tab.Ec) 81 mg PO DAILY [facility] Last Admin: 10/20/20 09:59 Dose: 81 mg Documented by: Bandage/Support Products (Nozin Nasal Ultrasonic Solderer) 1 applic NASBOTH BID [facility] Stop: 10/25/20 21:01 Last Admin: 10/20/20 09:58 Dose: 1 applic Documented by: Benazepril HCl (Benazepril 10 Mg Tab) 20 mg PO DAILY [facility] Last Admin: 10/20/20 10:01 Dose: 20 mg Documented by: Budesonide (Budesonide 0.5 Mg/2 Ml Neb Susp) 0.5 mg NEB BIDRT [facility] Last Admin: 10/20/20 07:22 Dose: 0.5 mg Documented by: Docusate Sodium (Docusate Sodium 100 Mg Cap) 100 mg PO BID [facility] Last Admin: 10/20/20 09:59 Dose: 100 mg Documented by: Furosemide (Furosemide 20 Mg Tab) 40 mg PO DAILY [facility] Last Admin: 10/20/20 09:59 Dose: 40 mg Documented by: Sodium Chloride (Normal Saline) 1,000 mls @ 25 mls/hr IV ASDIRECTED [facility] Last Admin: 10/20/20 04:46 Dose: 100 mls/hr Documented by: Magnesium Hydroxide (Magnesium Hydroxide 400 Mg/5 Ml Susp 30 Ml Cup) 30 ml PO BID PRN PRN Reason: Constipation Metoprolol Succinate (Metoprolol Succinate 25 Mg Tab.Er) 25 mg PO DAILY [facility] Last Admin: 10/20/20 10:02 Dose: 25 mg Documented by: Mirabegron (Mirabegron 25 Mg Tab Extended Release) 50 mg PO DAILY [facility] Last Admin: 10/20/20 09:59 Dose: 50 mg Documented by: Morphine Sulfate (Morphine 2 Mg/Ml Syringe) 2 mg IVPUSH Q1H PRN PRN Reason: Breakthrough Pain Oxycodone/Acetaminophen (Acetaminophen/Oxycodone 325-5 Mg Tab) 1 - 2 tab PO Q4H PRN PRN Reason: Pain (moderate 4-6) Polyethylene Glycol (Polyethylene Glycol 3350 Powder 17 Gm Packet) 17 gm PO DAILY [facility] Last Admin: 10/20/20 09:59 Dose: 17 gm Documented by: Pravastatin Sodium (Pravastatin 20 Mg Tab) 20 mg PO DAILY [facility] Last Admin: 10/20/20 10:00 Dose: 20 mg Documented by: Prednisone (Prednisone 20 Mg Tab) 20 mg PO DAILY [facility] Last Admin: 10/20/20 10:00 Dose: 20 mg Documented by: Pregabalin (Pregabalin 100 Mg Cap) 100 mg PO TID [facility] Last Admin: 10/20/20 15:38 Dose: 100 mg Documented by: Senna/Docusate Sodium (Docusate Sodium/Sennosides 50-8.6 Mg Tab) 1 tab PO DAILY [facility] Last Admin: 10/20/20 10:02 Dose: 1 tab Documented by: Tiotropium Hackett (Tiotropium Hackett 4 Gm Inhalation [place] (2.5mcg/1 Dose; 10 Doses)) [facility] Last Admin: 10/20/20 07:23 Dose: 2 puff Documented by: Tramadol HCl (Tramadol 50 Mg Tab) 25 mg PO Q6H PRN PRN Reason: Pain Last Admin: 10/19/20 19:18 Dose: 25 mg Documented by: Discontinued Medications Albuterol/Ipratropium (Albuterol/Ipratropium 3.0-0.5 Mg/3 Ml Neb Soln) 3 ml NEB ONETIME ONE Stop: 10/19/20 07:01 Last Admin: 10/19/20 07:13 Dose: 3 ml Documented by: Bandage/Support Products (Nozin Nasal Ultrasonic Solderer) 1 applic NASBOTH ONETIME ONE Stop: 10/19/20 07:01 Last Admin: 10/19/20 06:12 Dose: 1 applic Documented by: Budesonide (Budesonide 0.5 Mg/2 Ml Neb Susp) 0.5 mg NEB ONETIME ONE Stop: 10/19/20 07:01 Last Admin: 10/19/20 07:11 Dose: 0.5 mg Documented by: Bupivacaine HCl (Bupivacaine 0.5% 30 Ml Sdv) Confirm Administered Dose 60 ml .ROUTE .STK-MED ONE Stop: 10/19/20 07:35 Dexamethasone (Dexamethasone 4 Mg/Ml Sdv) Confirm Administered Dose 4 mg .ROUTE .STK-MED ONE Stop: 10/19/20 07:29 Fentanyl (Fentanyl 250 Mcg/5 Ml Sdv) Confirm Administered Dose 250 mcg .ROUTE .STK-MED ONE Stop: 10/19/20 07:28 Furosemide (Furosemide 20 Mg Tab) 20 mg PO ONETIME ONE Stop: 10/19/20 21:54 Last Admin: 10/19/20 22:18 Dose: 20 mg Documented by: Glycopyrrolate (Glycopyrrolate 0.2 Mg/Ml 5 Ml Mdv) Confirm Administered Dose 1 mg .ROUTE .STK-MED ONE Stop: 10/19/20 07:29 Lactated Ringer's (Ringers, Lactated) 1,000 mls @ 75 mls/hr IV ASDIRECTED [facility] Last Admin: 10/19/20 06:11 Dose: 75 mls/hr Documented by: Cefazolin Sodium/Dextrose 1 gm (/ Premix) 50 mls @ 100 mls/hr IV ONETIME ONE Stop: 10/19/20 07:44 Last Admin: 10/19/20 07:35 Dose: 100 mls/hr Documented by: Cefazolin Sodium/Dextrose 1 gm (/ Premix) 50 mls @ 100 mls/hr IV Q8H [facility] Stop: 10/20/20 06:59 Last Admin: 10/20/20 05:47 Dose: 100 mls/hr Documented by: Neostigmine Methylsulfate (Neostigmine Methylsulfate 1 Mg/Ml 5 Ml Syringe) Confirm Administered Dose 5 mg .ROUTE .STK-MED ONE Stop: 10/19/20 07:29 Ondansetron HCl (Ondansetron 4 Mg/2 Ml Sdv) Confirm Administered Dose 4 mg .ROUTE .STK-MED ONE Stop: 10/19/20 07:29 Povidone Iodine (Povidone-Iodine 10% Soln 118.25 Ml Bottle) Confirm Administered Dose 1 ml .ROUTE .STK-MED ONE Stop: 10/19/20 06:47 Last Admin: 10/19/20 08:49 Dose: 30 ml Documented by: Propofol (Propofol 200 Mg/20 Ml Sdv) Confirm Administered Dose 200 mg .ROUTE .STK-MED ONE Stop: 10/19/20 07:29 Rocuronium Hackett (Rocuronium 50 Mg/5 Ml Vial) Confirm Administered Dose 50 mg .ROUTE .STK-MED ONE Stop: 10/19/20 07:29 - Exam Wound/Incisions: Drainage (slight from drain site) General: Alert, Oriented Neck: Supple Lungs: Decreased Breath Sounds Cardiovascular: Regular Rate, Regular Rhythm GI/Abdominal Exam: Normal Bowel Sounds, Soft Extremities: Arm Pain, Limited Range of Motion Skin: Warm, Dry Neurological: No New Focal Deficit Psy/Mental Status: Alert, Normal Affect, Normal Mood Sepsis Event Note - Evaluation Sepsis Screening Result: No Definite Risk - Focused Exam Vital Signs: Vital Signs Temp Pulse Pulse Resp BP BP Pulse Ox 10/20/20 15:00 35.9 C L 65 16 114/38 L 96 10/20/20 10:20 35.3 C L 80 16 122/45 L 97 10/20/20 10:02 87 157/62 H 10/20/20 10:01 157/62 H 10/20/20 07:25 80 10/20/20 07:00 35.7 C L 84 18 157/62 H 95 - Problem List & Annotations (1) Status post reverse arthroplasty of right shoulder SNOMED Code(s): 90863247165723232, 10322019527229096 Code(s): Z96.611 - PRESENCE OF RIGHT ARTIFICIAL SHOULDER JOINT Status: Acute Current Visit: Yes (2) Rotator cuff tear arthropathy of right shoulder SNOMED Code(s): 14477695364087691 Code(s): M75.101 - UNSP ROTATR-CUFF TEAR/RUPTR OF RIGHT SHOULDER, NOT TRAUMA; M12.811 - OTH SPECIFIC ARTHROPATHIES, NEC, RIGHT SHOULDER Status: Acute Current Visit: No (3) COPD (chronic obstructive pulmonary disease) SNOMED Code(s): 84610687 Code(s): J44.9 - CHRONIC OBSTRUCTIVE PULMONARY DISEASE, UNSPECIFIED Status: Chronic Priority: Low Current Visit: No Qualifiers: (4) Cardiovascular disease Status: Chronic Priority: Low Current Visit: No (5) History of atrial fibrillation SNOMED Code(s): 066202086 Code(s): Z86.79 - PERSONAL HISTORY OF OTHER DISEASES OF THE CIRCULATORY SYSTEM Status: Chronic Current Visit: No - Problem List Review Problem List Initiated/Reviewed/Updated: Yes - My Orders Last 24 Hours: Active Orders 24 hr Category Date Time Status Admission Status [Patient Status] [ADT] Routine ADT 10/20/20 11:45 Active William Catheter Insertion [Insert Urinary Catheter] [OM. Care 10/19/20 22:00 Ordered PC] Q24H Urinary Catheter Assessment [RC] ASDIRECTED Care 10/19/20 21:52 Active Aspirin [Halfprin] Med 10/20/20 09:00 Active 81 mg PO DAILY Benazepril [Lotensin] Med 10/20/20 09:00 Active 20 mg PO DAILY Budesonide [Pulmicort] Med 10/19/20 21:00 Active 0.5 mg NEB BIDRT Docusate Sodium [Colace] Med 10/19/20 21:00 Active 100 mg PO BID Docusate Sodium/Sennosides [Senna Plus] Med 10/20/20 09:00 Active 1 tab PO DAILY Furosemide [Lasix] Med 10/20/20 09:00 Active 40 mg PO DAILY Metoprolol Succinate [Toprol XL] Med 10/20/20 09:00 Active 25 mg PO DAILY Mirabegron [Myrbetriq] Med 10/20/20 09:00 Active 50 mg PO DAILY Nozin [ Nasal Ultrasonic Solderer] Med 10/19/20 21:00 Active 1 applic NASBOTH BID Pravastatin [Pravachol] Med 10/20/20 09:00 Active 20 mg PO DAILY Tiotropium Hackett [Spiriva Respimat] Med 10/20/20 07:00 Active 0 gm INH DAILYRT polyethylene glycoL 3350 [MiraLAX] Med 10/20/20 09:00 Active 17 gm PO DAILY predniSONE Med 10/20/20 09:00 Active 20 mg PO DAILY Medication Orders Acetaminophen (Acetaminophen 325 Mg Tab) 650 mg PO Q4H PRN PRN Reason: Pain/Fever Hydrocodone Bitart/Acetaminophen (Acetaminophen/Hydrocodone 325-5 Mg Tab) 1 tab PO Q3H PRN PRN Reason: Pain (mild 1-3) Last Admin: 10/20/20 09:20 Dose: 1 tab Documented by: Admin: 10/20/20 04:45 Dose: 1 tab Documented by: Admin: 10/20/20 00:01 Dose: 1 tab Documented by: KATHIA Al Hydroxide/Mg Hydroxide (Aluminum Hydroxide/Magnesium Hydroxide/Simethicone Susp 30 Ml Cup) 30 ml PO Q4H PRN PRN Reason: Indigestion Albuterol (Albuterol 8 Gm Inhaler) 0 gm INH Q6HR PRN PRN Reason: Shortness of Breath Albuterol/Ipratropium (Albuterol/Ipratropium 3.0-0.5 Mg/3 Ml Neb Soln) 3 ml INH Q4H PRN PRN Reason: Shortness of Breath Last Admin: 10/19/20 11:23 Dose: 3 ml Documented by: PB Aspirin (Aspirin 81 Mg Tab.Ec) 81 mg PO DAILY [facility] Last Admin: 10/20/20 09:59 Dose: 81 mg Documented by: PB Bandage/Support Products (Nozin Nasal Ultrasonic Solderer) 1 applic NASBOTH BID [facility] Stop: 10/25/20 21:01 Last Admin: 10/20/20 09:58 Dose: 1 applic Documented by: Admin: 10/19/20 21:53 Dose: 1 applic Documented by: KOBE Benazepril HCl (Benazepril 10 Mg Tab) 20 mg PO DAILY [facility] Last Admin: 10/20/20 10:01 Dose: 20 mg Documented by: PB Budesonide (Budesonide 0.5 Mg/2 Ml Neb Susp) 0.5 mg NEB BIDRT [facility] Last Admin: 10/20/20 07:22 Dose: 0.5 mg Documented by: Admin: 10/19/20 21:43 Dose: 0.5 mg Documented by: KOBE Docusate Sodium (Docusate Sodium 100 Mg Cap) 100 mg PO BID [facility] Last Admin: 10/20/20 09:59 Dose: 100 mg Documented by: Admin: 10/19/20 21:52 Dose: 100 mg Documented by: KOBE Furosemide (Furosemide 20 Mg Tab) 40 mg PO DAILY [facility] Last Admin: 10/20/20 09:59 Dose: 40 mg Documented by: PB Sodium Chloride (Normal Saline) 1,000 mls @ 25 mls/hr IV ASDIRECTED [facility] Last Admin: 10/20/20 04:46 Dose: 100 mls/hr Documented by: Infusion: 10/19/20 23:42 Dose: 100 mls/hr Documented by: Admin: 10/19/20 13:42 Dose: 100 mls/hr Documented by: SHANE Magnesium Hydroxide (Magnesium Hydroxide 400 Mg/5 Ml Susp 30 Ml Cup) 30 ml PO BID PRN PRN Reason: Constipation Metoprolol Succinate (Metoprolol Succinate 25 Mg Tab.Er) 25 mg PO DAILY [facility] Last Admin: 10/20/20 10:02 Dose: 25 mg Documented by: PB Mirabegron (Mirabegron 25 Mg Tab Extended Release) 50 mg PO DAILY [facility] Last Admin: 10/20/20 09:59 Dose: 50 mg Documented by: PB Morphine Sulfate (Morphine 2 Mg/Ml Syringe) 2 mg IVPUSH Q1H PRN PRN Reason: Breakthrough Pain Oxycodone/Acetaminophen (Acetaminophen/Oxycodone 325-5 Mg Tab) 1 - 2 tab PO Q4H PRN PRN Reason: Pain (moderate 4-6) Polyethylene Glycol (Polyethylene Glycol 3350 Powder 17 Gm Packet) 17 gm PO DAILY [facility] Last Admin: 10/20/20 09:59 Dose: 17 gm Documented by: PB Pravastatin Sodium (Pravastatin 20 Mg Tab) 20 mg PO DAILY [facility] Last Admin: 10/20/20 10:00 Dose: 20 mg Documented by: PB Prednisone (Prednisone 20 Mg Tab) 20 mg PO DAILY [facility] Last Admin: 10/20/20 10:00 Dose: 20 mg Documented by: PB Pregabalin (Pregabalin 100 Mg Cap) 100 mg PO TID [facility] Last Admin: 10/20/20 15:38 Dose: 100 mg Documented by: Admin: 10/20/20 10:07 Dose: 100 mg Documented by: Admin: 10/19/20 21:52 Dose: 100 mg Documented by: Admin: 10/19/20 14:51 Dose: 100 mg Documented by: PB Senna/Docusate Sodium (Docusate Sodium/Sennosides 50-8.6 Mg Tab) 1 tab PO DAILY [facility] Last Admin: 10/20/20 10:02 Dose: 1 tab Documented by: PB Tiotropium Hackett (Tiotropium [place]ett 4 Gm Inhalation [place] (2.5mcg/1 Dose; 10 Doses)) 0 gm INH DAILYRT [facility] Last Admin: 10/20/20 07:23 Dose: 2 puff Documented by: ADRIENNE Tramadol HCl (Tramadol 50 Mg Tab) 25 mg PO Q6H PRN PRN Reason: Pain Last Admin: 10/19/20 19:18 Dose: 25 mg Documented by: Admin: 10/19/20 12:07 Dose: 25 mg Documented by: PB - Assessment Assessment (Free Text/Narrative):: Tolerated the surgery fairly well but did have difficulty getting out of bed to bathroom last night and had some SOB and mild wheezing. William placed to monitor fluid output and prevent need for frequent bathroom/commode use with Lasix. Better this morning and tolerated getting up to chair. Does not feel short of breath today. Dressing changed and drain pulled. Back on normal Lasix dose, nebulizers, etc. Will restart Coumadin in am. Continue William through the night and D/C in am. PT/OT for right arm ROM. Probable discharge tomorrow if stable.
[2020-10-21] MEDS: Tiotropium Bromide 4 GM Inhalation Spray (2.5mcg/1 dose; 10 doses) INH SCH (07:12)
[2020-10-21] MEDS: Budesonide 0.5 MG/2 ML Neb Susp NEB SCH ×2 (07:12→21:04)
[2020-10-21] MEDS: Acetaminophen/HYDROcodone 325-5 MG Tab PO PRN ×3 (07:49→19:32)
[2020-10-21] MEDS ORDERED: Warfarin 5 MG Tab PO ONE (08:00)
[2020-10-21] MEDS: Nozin Nasal Sanitizer NASBOTH SCH ×2 (10:36→21:04)
[2020-10-21] MEDS: Benazepril 10 MG Tab PO SCH (10:37)
[2020-10-21] MEDS: predniSONE 20 MG Tab PO SCH (10:37)
[2020-10-21] MEDS: Mirabegron 25 MG Tab Extended Release PO SCH (10:38)
[2020-10-21] MEDS: Metoprolol Succinate 25 MG Tab.ER PO SCH (10:38)
[2020-10-21] MEDS: Pravastatin 20 MG Tab PO SCH (10:38)
[2020-10-21] MEDS: Polyethylene Glycol 3350 Powder 17 GM Packet PO SCH (10:38)
[2020-10-21] MEDS: Docusate Sodium 100 MG Cap PO SCH ×2 (10:39→21:04)
[2020-10-21] MEDS: Furosemide 20 MG Tab PO SCH (10:39)
[2020-10-21] MEDS: Aspirin 81 MG Tab.EC PO SCH (10:40)
[2020-10-21] MEDS: Pregabalin 100 MG Cap PO SCH ×3 (10:43→21:04)
[2020-10-22] MEDS: Acetaminophen/HYDROcodone 325-5 MG Tab PO PRN ×3 (00:06→19:32)
[2020-10-22] MEDS: Magnesium Hydroxide 400 MG/5 ML Susp 30 ML Cup PO PRN ×2 (04:01→19:32)
[2020-10-22] MEDS: Tiotropium Bromide 4 GM Inhalation Spray (2.5mcg/1 dose; 10 doses) INH SCH (07:09)
[2020-10-22] MEDS: Budesonide 0.5 MG/2 ML Neb Susp NEB SCH ×2 (07:09→20:35)
[2020-10-22] MEDS: Nozin Nasal Sanitizer NASBOTH SCH ×2 (09:22→20:35)
[2020-10-22] MEDS: Aspirin 81 MG Tab.EC PO SCH (09:23)
[2020-10-22] MEDS: Mirabegron 25 MG Tab Extended Release PO SCH (09:23)
[2020-10-22] MEDS: Pravastatin 20 MG Tab PO SCH (09:23)
[2020-10-22] MEDS: predniSONE 20 MG Tab PO SCH (09:24)
[2020-10-22] MEDS: Docusate Sodium 100 MG Cap PO SCH ×2 (09:24→20:35)
[2020-10-22] MEDS: Polyethylene Glycol 3350 Powder 17 GM Packet PO SCH (09:24)
[2020-10-22] MEDS: Furosemide 20 MG Tab PO SCH (09:24)
[2020-10-22] MEDS: Pregabalin 100 MG Cap PO SCH ×3 (09:26→20:35)
[2020-10-22] MEDS: Metoprolol Succinate 25 MG Tab.ER PO SCH (13:56)
[2020-10-22] MEDS: Benazepril 10 MG Tab PO SCH (13:56)
[2020-10-22] MEDS ORDERED: Warfarin 5 MG Tab PO ONE (15:00)
[2020-10-23] MEDS: Tiotropium Bromide 4 GM Inhalation Spray (2.5mcg/1 dose; 10 doses) INH SCH (06:58)
[2020-10-23] MEDS: Budesonide 0.5 MG/2 ML Neb Susp NEB SCH ×2 (06:58→21:22)
[2020-10-23] MEDS: Nozin Nasal Sanitizer NASBOTH SCH ×2 (08:58→21:19)
[2020-10-23] MEDS: Polyethylene Glycol 3350 Powder 17 GM Packet PO SCH (08:58)
[2020-10-23] MEDS: Furosemide 20 MG Tab PO SCH (08:59)
[2020-10-23] MEDS: Mirabegron 25 MG Tab Extended Release PO SCH (08:59)
[2020-10-23] MEDS: Aspirin 81 MG Tab.EC PO SCH (08:59)
[2020-10-23] MEDS: Docusate Sodium 100 MG Cap PO SCH ×2 (08:59→21:22)
[2020-10-23] MEDS: Pravastatin 20 MG Tab PO SCH (09:00)
[2020-10-23] MEDS: predniSONE 20 MG Tab PO SCH (09:01)
[2020-10-23] MEDS: Pregabalin 100 MG Cap PO SCH ×3 (09:06→21:22)
[2020-10-23] MEDS: Benazepril 10 MG Tab PO SCH (09:09)
[2020-10-23] MEDS: Metoprolol Succinate 25 MG Tab.ER PO SCH (09:09)
[2020-10-23] MEDS: Acetaminophen/HYDROcodone 325-5 MG Tab PO PRN ×2 (09:32→12:25)
[2020-10-23] MEDS ORDERED: Warfarin 5 MG Tab PO ONE (18:05)
[2020-10-24] MEDS: Acetaminophen/HYDROcodone 325-5 MG Tab PO PRN ×3 (07:06→20:44)
[2020-10-24] MEDS: Tiotropium Bromide 4 GM Inhalation Spray (2.5mcg/1 dose; 10 doses) INH SCH (07:25)
[2020-10-24] MEDS: Budesonide 0.5 MG/2 ML Neb Susp NEB SCH ×2 (07:25→20:57)
[2020-10-24] MEDS: Nozin Nasal Sanitizer NASBOTH SCH ×2 (08:26→20:46)
[2020-10-24] MEDS: Docusate Sodium 100 MG Cap PO SCH ×2 (08:26→20:46)
[2020-10-24] MEDS: Aspirin 81 MG Tab.EC PO SCH (08:27)
[2020-10-24] MEDS: Furosemide 20 MG Tab PO SCH (08:27)
[2020-10-24] MEDS: Polyethylene Glycol 3350 Powder 17 GM Packet PO SCH (08:28)
[2020-10-24] MEDS: Benazepril 10 MG Tab PO SCH (08:28)
[2020-10-24] MEDS: Metoprolol Succinate 25 MG Tab.ER PO SCH (08:29)
[2020-10-24] MEDS: Pravastatin 20 MG Tab PO SCH (08:29)
[2020-10-24] MEDS: Mirabegron 25 MG Tab Extended Release PO SCH (08:29)
[2020-10-24] MEDS: predniSONE 20 MG Tab PO SCH (08:29)
[2020-10-24] MEDS: Pregabalin 100 MG Cap PO SCH ×3 (08:31→20:44)
--- NOTE | 2020-10-24 10:48 | PCM.DCSUM1 ---
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 Diagnosis: Stroke: No Modified [place] Scale: No Symptoms at All Modified [place] Scale Score: 0 - Discharge Data Discharge Date: 10/24/20 Discharge Disposition: DC/Tfer to SNF 03 Condition: Good - Referral to Home Health Date of Face to Face Encounter: 10/24/20 Primary Care Physician: Marlon Morris MD - Discharge Diagnosis/Problem(s) (1) Status post reverse arthroplasty of right shoulder SNOMED Code(s): 21302430401805474, 52306321447132245 ICD Code: Z96.611 - PRESENCE OF RIGHT ARTIFICIAL SHOULDER JOINT Status: Acute Current Visit: Yes (2) Rotator cuff tear arthropathy of right shoulder SNOMED Code(s): 94341844792202373 ICD Code: M75.101 - UNSP ROTATR-CUFF TEAR/RUPTR OF RIGHT SHOULDER, NOT TRAUMA; M12.811 - [facility] SPECIFIC ARTHROPATHIES, NEC, RIGHT SHOULDER Status: Acute Current Visit: No (3) COPD (chronic obstructive pulmonary disease) SNOMED Code(s): 68038266 ICD Code: J44.9 - CHRONIC OBSTRUCTIVE PULMONARY DISEASE, UNSPECIFIED Status: Chronic Priority: Low Current Visit: No Qualifiers: (4) Cardiovascular disease Status: Chronic Priority: Low Current Visit: No (5) History of atrial fibrillation SNOMED Code(s): 980232063 ICD Code: Z86.79 - PERSONAL HISTORY OF OTHER DISEASES OF THE CIRCULATORY SYSTEM Status: Chronic Current Visit: No (6) Acute postoperative anemia due to expected blood loss SNOMED Code(s): 88380173059189986 ICD Code: D62 - ACUTE POSTHEMORRHAGIC ANEMIA Status: Acute Current Visit: Yes - Patient Summary/Data Operative Procedure(s) Performed: Right reverse total shoulder arthroplasty Complications: none Consults: Consultations 10/19/20 10:08 Consult to Case Management/Configuration Analyst [CONS] Routine Comment: Physician Instructions: Service(s) to be Consulted: Case Management Reason for Consult: Plan for Discharge OT Evaluation and Treatment [CONS] Routine Please Evaluate and Treat. OT Reason for Consult: Other (Type Response) Special Instructions: ROM and strengthening right hand and elbow, ROM of shoulder as tolerated This query below is only for informational purposes and is not editable. PT Evaluation and Treatment [CONS] Routine Please Evaluate and Treat. PT Reason for Consult: Post op Ortho Surgery This query below is only for informational purposes and is not editable. PT Evaluation and Treatment [CONS] Routine Please Evaluate and Treat. PT Reason for Consult: Post op Ortho Surgery Knee Pending Discharge: Yes, 1- 2 days Special Instructions: Schedule first outpatient PT appointment in 3-5 day post discharge. This query below is only for informational purposes and is not editable. Recommended Follow-up Testing/Procedures: Routine PT/INR Hospital Course: Patient admitted for right shoulder arthroplasty. She tolerated the procedure well. She has multiple chronic medical conditions including CHF, COPD, sleep apnea, A. Fib. on Coumadin therapy. Had some SOB with mild fluid retention post -op. William was placed to monitor fluid output. Minimal drain output and drain was removed POD#1. She had difficulty with transfers in and out of bed requiring assist of 2-3 staff. Due to this factors it was felt that she was not safe to return to her assisted living. Coumadin was resumed. Post op H/H showed anemia but her BP and heart rate were stable. She was seen by PT and OT. She improved significantly with mobility over the weekend and a spot was available for Saturday at a SNF. She is discharged today on her regular Coumadin schedule. Continue PT/O for right arm and ambulation. use of right arm as tolerated. Follow up with Ortho in approx 2 weeks. - Patient Instructions Diet: Usual Diet as Tolerated Activity: Apply Ice, No Lifting Over 10 Pounds Showering/Bathing: May Shower Wound/Incision Care: Keep Operative Site/Wound Site Clean and Dry Notify Provider of: Fever, Increased Pain, Swelling and Redness, Drainage, Nausea and/or Vomiting Other/Special Instructions: Resume Coumadin on her pre-op schedule. PT to see for ROM and strengthening of right arm. - Discharge Plan *PRESCRIPTION DRUG MONITORING PROGRAM REVIEWED*: No *COPY OF PRESCRIPTION DRUG MONITORING REPORT IN PATIENT DANIEL: No Prescriptions/Med Rec: Acetaminophen/HYDROcodone [HYDROcodone-Acetaminophen 325-5 MG] 1 - 2 tab PO Q6H PRN #36 tab PRN Reason: Pain (Moderate 4-6) Home Medications: Home Meds Albuterol [Ventolin HFA] 2 puff INH Q6HR PRN 11/25/12 [History] Benazepril HCl [Lotensin] 20 mg PO DAILY 11/25/12 [History] Cholecalciferol (Vitamin D3) [Vitamin D3] 2,000 unit PO DAILY 11/25/12 [History] Cyanocobalamin (Vitamin B-12) [Vitamin B-12] 1,000 mcg PO DAILY 11/25/12 [History] Metoprolol Succinate [Toprol XL] 25 mg PO DAILY 11/25/12 [History] Sennosides/Docusate Sodium [Senokot-S Tablet] 1 tab PO DAILY 11/25/12 [History] polyethylene glycoL 3350 [MiraLAX] 17 gm PO DAILY 11/25/12 [History] Folic Acid 400 mcg PO DAILY 02/17/15 [History] Warfarin [Coumadin] 5 mg PO .SAT,SAT,SAT,,02/17/15 [History] Albuterol/Ipratropium [DuoNeb 3.0-0.5 MG/3 ML] 3 ml INH Q4H PRN 05/10/15 [History] Naproxen [Naprosyn] 375 mg PO DAILY PRN 05/10/15 [History] Docusate Sodium 100 - 300 mg PO DAILY PRN 11/14/17 [History] Nystatin [Nystatin Crm] 1 applic TOP TID 11/14/17 [History] Tiotropium [Spiriva HandiHaler] 1 cap INH DAILY 11/14/17 [History] traMADol HCl [Tramadol HCl] 25 mg PO Q6HR PRN 10/23/18 [History] Warfarin [Coumadin] 2.5 mg PO .SAT,Sat02/26/19 [History] Acetaminophen [Mapap] 650 mg PO Q4H PRN 07/17/19 [History] Mirabegron [Myrbetriq] 50 mg PO DAILY 07/17/19 [History] Aspirin [Halfprin] 81 mg PO DAILY 08/22/20 [History] Betamethasone/Clotrimazole [Lotrisone] 1 applic TOP BID 08/22/20 [History] Budesonide [Pulmicort] 2 ml IH BID 08/22/20 [History] Diclofenac Sodium [Voltaren Arthritis Pain] 1 applic TOP QID PRN 08/22/20 [History] Furosemide 40 mg PO DAILY 08/22/20 [History] Pravastatin Sodium 20 mg PO DAILY 08/22/20 [History] Pregabalin [Lyrica] 100 mg PO TID 08/22/20 [History] predniSONE [Prednisone] 20 mg PO DAILY 08/22/20 [History] Acetaminophen [Tylenol] 650 mg RECTAL Q4H PRN 10/05/20 [History] Bisacodyl [Laxative Suppository] 10 mg RC DAILY PRN 10/05/20 [History] Carbamide Peroxide [Debrox] 5 drop EARBOTH BID PRN 10/05/20 [History] Dextromethorphan/guaiFENesin [Robitussin DM] 10 ml PO Q4H PRN 10/05/20 [History] Mag Hydrox/Aluminum Hyd/Simeth [Maalox Maximum Strength Susp] 30 ml PO Q4H PRN 10/05/20 [History] Magnesium Hydroxide [Milk of Magnesia] 30 ml PO DAILY PRN 10/05/20 [History] Acetaminophen [Acetaminophen Extra Strength] 1,000 mg PO TID 10/14/20 [History] Cyanocobalamin (Vitamin B12) [Vitamin B12] 1,000 mcg PO DAILY 10/14/20 [History] Sodium Phosphate,[place]-Dibasic [Fleet Enema] 1 enema RECTAL DAILY PRN 10/14/20 [History] cephALEXin [Keflex] 250 mg PO BEDTIME 10/14/20 [History] Acetaminophen/HYDROcodone [HYDROcodone-Acetaminophen 325-5 MG] 1 - 2 tab PO Q6H PRN #36 tab 10/24/20 [Rx] Oxygen Therapy Mode: Nasal Cannula Oxygen Flow Rate (L/min): 2 Patient Handouts: Preventing Problems After Surgery, How to Prevent Constipation After Surgery - Discharge Summary/Plan Comment DC Time >30 min.: Yes Total # of Minutes for Discharge Time: 35 minutes - General Info Functional Status: Reports: Pain Controlled, Tolerating Diet, Ambulating, Urinating - Review of Systems General: Reports: No Symptoms HEENT: Reports: No Symptoms Pulmonary: Reports: Other (baseline SOB) Cardiovascular: Reports: No Symptoms Gastrointestinal: Reports: No Symptoms Genitourinary: Reports: No Symptoms Musculoskeletal: Reports: Arm Pain Skin: Reports: No Symptoms Neurological: Reports: No Symptoms Psychiatric: Reports: No Symptoms - Patient Data Vitals - Most Recent: Last Vital Signs Temp 35.8 C L 10/24/20 10:07 Pulse 88 10/24/20 10:07 Resp 18 10/24/20 10:07 BP 134/56 L 10/24/20 10:07 Pulse Ox 98 10/24/20 10:07 Weight - Most Recent: 127.006 kg I&O - Last 24 hours: Intake & Output 10/23/20 10/24/20 10/24/20 22:59 06:59 14:59 Intake Total 360 500 Output Total 100 Balance 260 500 Med Orders - Current: Current Medications Acetaminophen (Acetaminophen 325 Mg Tab) 650 mg PO Q4H PRN PRN Reason: Pain/Fever Hydrocodone Bitart/Acetaminophen (Acetaminophen/Hydrocodone 325-5 Mg Tab) 1 tab PO Q3H PRN PRN Reason: Pain (mild 1-3) Last Admin: 10/24/20 10:31 Dose: 1 tab Documented by: Al Hydroxide/Mg Hydroxide (Aluminum Hydroxide/Magnesium Hydroxide/Simethicone Susp 30 Ml Cup) 30 ml PO Q4H PRN PRN Reason: Indigestion Last Admin: 10/21/20 10:20 Dose: 30 ml Documented by: Albuterol (Albuterol 8 Gm Inhaler) 0 gm INH Q6HR PRN PRN Reason: Shortness of Breath Albuterol/Ipratropium (Albuterol/Ipratropium 3.0-0.5 Mg/3 Ml Neb Soln) 3 ml INH Q4H PRN PRN Reason: Shortness of Breath Last Admin: 10/19/20 11:23 Dose: 3 ml Documented by: Aspirin (Aspirin 81 Mg Tab.Ec) 81 mg PO DAILY [facility] Last Admin: 10/24/20 08:27 Dose: 81 mg Documented by: Bandage/Support Products (Nozin Nasal Pull Worker) 1 applic NASBOTH BID ANGELA Stop: 10/25/20 21:01 Last Admin: 10/24/20 08:26 Dose: 1 applic Documented by: Benazepril HCl (Benazepril 10 Mg Tab) 20 mg PO DAILY [facility] Last Admin: 10/24/20 08:28 Dose: 20 mg Documented by: Budesonide (Budesonide 0.5 Mg/2 Ml Neb Susp) 0.5 mg NEB BIDRT [facility] Last Admin: 10/24/20 07:25 Dose: 0.5 mg Documented by: Docusate Sodium (Docusate Sodium 100 Mg Cap) 100 mg PO BID [facility] Last Admin: 10/24/20 08:26 Dose: 100 mg Documented by: Furosemide (Furosemide 20 Mg Tab) 40 mg PO DAILY [facility] Last Admin: 10/24/20 08:27 Dose: 40 mg Documented by: Sodium Chloride (Normal Saline) 1,000 mls @ 25 mls/hr IV ASDIRECTED [facility] Last Admin: 10/20/20 04:46 Dose: 100 mls/hr Documented by: Magnesium Hydroxide (Magnesium Hydroxide 400 Mg/5 Ml Susp 30 Ml Cup) 30 ml PO BID PRN PRN Reason: Constipation Last Admin: 10/22/20 19:32 Dose: 30 ml Documented by: Metoprolol Succinate (Metoprolol Succinate 25 Mg Tab.Er) 25 mg PO DAILY [facility] Last Admin: 10/24/20 08:29 Dose: 25 mg Documented by: Mirabegron (Mirabegron 25 Mg Tab Extended Release) 50 mg PO DAILY [facility] Last Admin: 10/24/20 08:29 Dose: 50 mg Documented by: Morphine Sulfate (Morphine 2 Mg/Ml Syringe) 2 mg IVPUSH Q1H PRN PRN Reason: Breakthrough Pain Oxycodone/Acetaminophen (Acetaminophen/Oxycodone 325-5 Mg Tab) 1 - 2 tab PO Q4H PRN PRN Reason: Pain (moderate 4-6) Polyethylene Glycol (Polyethylene Glycol 3350 Powder 17 Gm Packet) 17 gm PO DAILY [facility] Last Admin: 10/24/20 08:28 Dose: Not Given Documented by: Pravastatin Sodium (Pravastatin 20 Mg Tab) 20 mg PO DAILY [facility] Last Admin: 10/24/20 08:29 Dose: 20 mg Documented by: Prednisone (Prednisone 20 Mg Tab) 20 mg PO DAILY [facility] Last Admin: 10/24/20 08:29 Dose: 20 mg Documented by: Pregabalin (Pregabalin 100 Mg Cap) 100 mg PO TID [facility] Last Admin: 10/24/20 08:31 Dose: 100 mg Documented by: Senna/Docusate Sodium (Docusate Sodium/Sennosides 50-8.6 Mg Tab) 1 tab PO DAILY [facility] Last Admin: 10/24/20 08:29 Dose: 1 tab Documented by: Tiotropium [place] (Tiotropium [place] 4 Gm Inhalation [place] (2.5mcg/1 Dose; 10 Doses)) 0 gm INH DAILYRT [facility] Last Admin: 10/24/20 07:25 Dose: 2 puff Documented by: Tramadol HCl (Tramadol 50 Mg Tab) 25 mg PO Q6H PRN PRN Reason: Pain Last Admin: 10/19/20 19:18 Dose: 25 mg Documented by: Discontinued Medications Albuterol/Ipratropium (Albuterol/Ipratropium 3.0-0.5 Mg/3 Ml Neb Soln) 3 ml NEB ONETIME ONE Stop: 10/19/20 07:01 Last Admin: 10/19/20 07:13 Dose: 3 ml Documented by: Bandage/Support Products (Nozin Nasal Pull Worker) 1 applic NASBOTH ONETIME ONE Stop: 10/19/20 07:01 Last Admin: 10/19/20 06:12 Dose: 1 applic Documented by: Budesonide (Budesonide 0.5 Mg/2 Ml Neb Susp) 0.5 mg NEB ONETIME ONE Stop: 10/19/20 07:01 Last Admin: 10/19/20 07:11 Dose: 0.5 mg Documented by: Bupivacaine HCl (Bupivacaine 0.5% 30 Ml Sdv) Confirm Administered Dose 60 ml .ROUTE .STK-MED ONE Stop: 10/19/20 07:35 Dexamethasone (Dexamethasone 4 Mg/Ml Sdv) Confirm Administered Dose 4 mg .ROUTE .STK-MED ONE Stop: 10/19/20 07:29 Fentanyl (Fentanyl 250 Mcg/5 Ml Sdv) Confirm Administered Dose 250 mcg .ROUTE .STK-MED ONE Stop: 10/19/20 07:28 Furosemide (Furosemide 20 Mg Tab) 20 mg PO ONETIME ONE Stop: 10/19/20 21:54 Last Admin: 10/19/20 22:18 Dose: 20 mg Documented by: Glycopyrrolate (Glycopyrrolate 0.2 Mg/Ml 5 Ml Mdv) Confirm Administered Dose 1 mg .ROUTE .STK-MED ONE Stop: 10/19/20 07:29 Lactated Ringer's (Ringers, Lactated) 1,000 mls @ 75 mls/hr IV ASDIRECTED [facility] Last Admin: 10/19/20 06:11 Dose: 75 mls/hr Documented by: Cefazolin Sodium/Dextrose 1 gm (/ Premix) 50 mls @ 100 mls/hr IV ONETIME ONE Stop: 10/19/20 07:44 Last Admin: 10/19/20 07:35 Dose: 100 mls/hr Documented by: Cefazolin Sodium/Dextrose 1 gm (/ Premix) 50 mls @ 100 mls/hr IV Q8H ANGELA Stop: 10/20/20 06:59 Last Admin: 10/20/20 05:47 Dose: 100 mls/hr Documented by: Neostigmine Methylsulfate (Neostigmine Methylsulfate 1 Mg/Ml 5 Ml Syringe) Confirm Administered Dose 5 mg .ROUTE .STK-MED ONE Stop: 10/19/20 07:29 Ondansetron HCl (Ondansetron 4 Mg/2 Ml Sdv) Confirm Administered Dose 4 mg .ROUTE .STK-MED ONE Stop: 10/19/20 07:29 Povidone Iodine (Povidone-Iodine 10% Soln 118.25 Ml Bottle) Confirm Administered Dose 1 ml .ROUTE .STK-MED ONE Stop: 10/19/20 06:47 Last Admin: 10/19/20 08:49 Dose: 30 ml Documented by: Propofol (Propofol 200 Mg/20 Ml Sdv) Confirm Administered Dose 200 mg .ROUTE .STK-MED ONE Stop: 10/19/20 07:29 Rocuronium [place] (Rocuronium 50 Mg/5 Ml Vial) Confirm Administered Dose 50 mg .ROUTE .STK-MED ONE Stop: 10/19/20 07:29 Warfarin Sodium (Warfarin 5 Mg Tab) 10 mg PO ONETIME ONE Stop: 10/21/20 08:01 Last Admin: 10/21/20 07:53 Dose: 10 mg Documented by: Warfarin Sodium (Warfarin 5 Mg Tab) 10 mg PO ONETIME ONE Stop: 10/22/20 15:01 Last Admin: 10/22/20 15:24 Dose: 10 mg Documented by: Warfarin Sodium (Warfarin 5 Mg Tab) 7.5 mg PO ONETIME ONE Stop: 10/23/20 18:06 Last Admin: 10/23/20 18:38 Dose: 7.5 mg Documented by: - Exam Quality Assessment: Reports: Supplemental Oxygen General: Reports: Alert, Oriented HEENT: Reports: Pupils Equal, Pupils Reactive, EOMI, Mucous Membr. Moist/[place] Neck: Reports: Supple Lungs: Reports: Clear to Auscultation, Decreased Breath Sounds Cardiovascular: Reports: Regular Rate, Regular Rhythm GI/Abdominal Exam: Normal Bowel Sounds, Soft, Non-Tender, No Distention (Female) Exam: Deferred Rectal (Female) Exam: Deferred Back Exam: Reports: Normal Inspection Extremities: Arm Pain, Limited Range of Motion, Other (ecchymosis of right upper arm, no pedal edema) Skin: Reports: Warm, Dry Wound/Incisions: Reports: Healing Well, No Drainage Neurological: Reports: No New Focal Deficit Psy/Mental Status: Reports: Alert, Normal Affect, Normal Mood
[2020-10-25 07:13] VITALS: BP 128/85; PULSE 85
[2020-10-25] MEDS: Budesonide 0.5 MG/2 ML Neb Susp NEB SCH (07:39)
[2020-10-25] MEDS: Tiotropium Bromide 4 GM Inhalation Spray (2.5mcg/1 dose; 10 doses) INH SCH (07:39)
[2020-10-25] MEDS: Acetaminophen/HYDROcodone 325-5 MG Tab PO PRN (08:18)
[2020-10-25] MEDS: Docusate Sodium 100 MG Cap PO SCH (08:22)
[2020-10-25] MEDS: Furosemide 20 MG Tab PO SCH (08:22)
[2020-10-25] MEDS: Aspirin 81 MG Tab.EC PO SCH (08:22)
[2020-10-25] MEDS: Nozin Nasal Sanitizer NASBOTH SCH (08:22)
[2020-10-25] MEDS: Benazepril 10 MG Tab PO SCH (08:24)
[2020-10-25] MEDS: Polyethylene Glycol 3350 Powder 17 GM Packet PO SCH (08:24)
[2020-10-25] MEDS: Mirabegron 25 MG Tab Extended Release PO SCH (08:25)
[2020-10-25] MEDS: Pravastatin 20 MG Tab PO SCH (08:25)
[2020-10-25] MEDS: predniSONE 20 MG Tab PO SCH (08:25)
[2020-10-25] MEDS: Metoprolol Succinate 25 MG Tab.ER PO SCH (08:25)
[2020-10-25] MEDS: Pregabalin 100 MG Cap PO SCH (08:29)
--- NOTE | 2020-11-14 03:46 | OR ---
DATE OF PROCEDURE: 10/19/2020 SURGEON: Gary Montano MD PREOPERATIVE DIAGNOSES: 1. Chronic massive rotator cuff tear. 2. Pseudoparalysis, right shoulder. POSTOPERATIVE DIAGNOSES: 1. Chronic massive rotator cuff tear. 2. Pseudoparalysis, right shoulder. PROCEDURE: Right reverse total shoulder arthroplasty using Jerilyn trabecular metal size 12 stem, 36 glenosphere, +6 mm spacer and a +3 mm polyethylene. ANESTHESIA: Interscalene block with general. INDICATIONS: Nemo is an 85-year-old female with a history of chronic rotator cuff tear, which has progressed to the point of pseudoparalysis. She has minimal use of her right arm with significant pain and subluxation. She now presents for a right reverse total shoulder. Risks, benefits, and potential complications of the procedure were discussed with her at some length. DESCRIPTION OF PROCEDURE: After adequate anesthesia was obtained, the patient was placed in a modified beach-chair position. The right shoulder and arm were prepped and draped in a sterile fashion. Anterior incision was utilized, carried down through the subcutaneous tissues, and the deltopectoral interval was identified, retracting the cephalic vein laterally with the deltoid. The clavipectoral fascia was divided, and this exposed the denuded superior humeral head with a massive chronic retracted rotator cuff tear. The capsule was released from the humeral neck, allowing exposure of the head. A self-retaining retractor was placed beneath the conjoined tendon and the deltoid. Additional retraction was placed over the top of the humeral head and a rongeur was used to initiate a starting point for the humeral shaft awl. The Awl was placed down the shaft, and the shaft was sequentially reamed to 12 mm with good cortical contact. Last reamer was left in place, and the humeral cutting jig was secured. The rotation guides were placed onto the cutting jig. The jig was positioned and secured to the humeral head. Cutting guides were removed along with the reamer, and the humeral head was then cut with an oscillating saw. The metaphyseal reamer was then utilized. A trial humeral stem was placed and left in place to protect the humerus during retraction for work on the glenoid. Retractors were placed about the glenoid. Remaining portions of the glenoid labrum were excised including the stump of the biceps tendon. The glenoid guide was used to position a starting pin in the center position from anterior to posterior and as low in the glenoid as possible while maintaining contact. A pin was placed. A small reamer was placed over this, and then the glenoid reamer was utilized to remove the glenoid cartilage. Once this was taken down to bone, a larger reamer was utilized for the glenoid base plate peg. The base plate was tapped into position with good fit. Additional fixation was obtained with superior and inferior screws, and locking caps were placed. The wound was then irrigated. Retractors were placed and the 36 mm glenosphere was tamped onto the base plate. This was confirmed to be snugly in place with use of a [place] elevator in an attempt to dislodge it. Attention was returned to the humerus where, initial trials with a 6 and 9 mm polyethylene were done. This showed just a slight amount of residual laxity with a 9 mm implant. The trials were removed, and the final stem was tapped into position. This was trialed once again using a 6 mm spacer and a 3 mm polyethylene. This provided good tension on the reduction and stability with internal and external rotation. Trial poly was removed. Prosthesis was irrigated and dried. The spacer was tapped into position followed by the 3 mm polyethylene and the shoulder was reduced. It again showed good stability. The shoulder was irrigated including a dilute Betadine irrigation which was left in place for 2-1/2 minutes. A small round drain was placed and brought out through a separate stab incision. The deltopectoral interval was allowed to close without additional suture closure. The skin was closed with 2-0 Vicryl and a running 3-0 Monocryl. Steri-Strips were applied. Sterile dressing was then placed. The patient tolerated the procedure very well. There were no complications. She was taken from the operating room in stable condition. Gary Montano MD /[id number] LUIS
== END 2020-10-25 09:00 | DRG 483 ==
LOC: JP.SDS 05:16 → JP.MS 10:08 → JP.SDS 10-20 11:44
PROVIDERS: ADMIT Specialist; ATTEND Specialist
PROC: 0RRJ00Z Replacement of Right Shoulder Joint with Reverse Ball and Socket Synthetic Substitute, Open Approach (ICD-10-PCS; principal; 2020-10-19)
DX: M75.101 Unspecified rotator cuff tear or rupture of right shoulder, not specified as traumatic (principal); D62 Acute posthemorrhagic anemia; M12.811 Other specific arthropathies, not elsewhere classified, right shoulder; J44.9 Chronic obstructive pulmonary disease, unspecified; I50.9 Heart failure, unspecified; G47.30 Sleep apnea, unspecified; I48.91 Unspecified atrial fibrillation; Z79.01 Long term (current) use of anticoagulants; Z79.899 Other long term (current) drug therapy
CPT/HCPCS: 36415; 51702; 73020-26-RT; 73020-RT; 80048; 85027; 85610; 86850; 86900; 86901; 94640; 94667; 94668; 97110-GO; 97110-GP; 97116-GP; 97140-GP; 97162-GP; 97165-GO; 97530-GP; 97535-GP; A9270-GY; C1713; C1776; J0690; J1100; J2405; J2704; J2710; J3010; J3490; J7030; J7120; J7512; J7620-GY

== ENCOUNTER 2020-12-02 16:10 | Inpatient (IN) | payer MEDICARE ==
[2020-12-02] MEDS ORDERED: Sodium Chloride 0.9% 1,000 ML IV SCH ×3 (16:30→22:24)
[2020-12-02] MEDS ORDERED: Lactated Ringers 1,000 ML IV SCH (17:45)
--- NOTE | 2020-12-02 17:59 | EDM.PDOC ---
ED HPI GENERAL MEDICAL PROBLEM - General Chief Complaint: General Stated Complaint: MED[facility] Time Seen by Provider: 12/02/20 16:30 Source of Information: Reports: EMS, Family, [facility] Records History Limitations: Reports: No Limitations - History of Present Illness INITIAL COMMENTS - FREE TEXT/NARRATIVE: pt has had a couple of days where she was not nearly as responsive as usual. This Pm lori is very lethargic. She Was seen by ortho yesterday and during that visit she did go to sleep. This pm she is very lethargic. Her bp was in the 90 systolic range. Onset: Gradual, Other (last 2 days. ) Duration: Hour(s): Location: Reports: Generalized Associated Symptoms: Reports: Weakness, Other (pt is quite obtunded. ) Left Leg Pain Score (Numeric/FACES): 3 - Related Data Allergies Allergy/AdvReac Type Severity Reaction Status Date / Time No Known Allergies Allergy Verified 12/02/20 16:34 Home Meds: Home Meds Albuterol [Ventolin HFA] 2 puff INH Q6HR PRN 11/25/12 [History] Benazepril HCl [Lotensin] 20 mg PO DAILY 11/25/12 [History] Cholecalciferol (Vitamin D3) [Vitamin D3] 2,000 unit PO DAILY 11/25/12 [History] Metoprolol Succinate [Toprol XL] 25 mg PO DAILY 11/25/12 [History] Sennosides/Docusate Sodium [Senokot-S Tablet] 1 tab PO DAILY 11/25/12 [History] polyethylene glycoL 3350 [MiraLAX] 17 gm PO DAILY 11/25/12 [History] Folic Acid 400 mcg PO DAILY 02/17/15 [History] Warfarin [Coumadin] 2.5 mg PO .SUN,SAT,SAT,,SA 02/17/15 [History] Albuterol/Ipratropium [DuoNeb 3.0-0.5 MG/3 ML] 3 ml INH Q4H PRN 05/10/15 [History] Naproxen [Naprosyn] 375 mg PO DAILY PRN 05/10/15 [History] Docusate Sodium 100 - 300 mg PO DAILY PRN 11/14/17 [History] Nystatin [Nystatin Crm] 1 applic TOP TID 11/14/17 [History] Tiotropium [Spiriva HandiHaler] 1 cap INH DAILY 11/14/17 [History] Warfarin [Coumadin] 5 mg PO .MON,Sat02/26/19 [History] Mirabegron [Myrbetriq] 50 mg PO DAILY 07/17/19 [History] Aspirin [Halfprin] 81 mg PO DAILY 08/22/20 [History] Furosemide 40 mg PO DAILY 08/22/20 [History] Pravastatin Sodium 20 mg PO DAILY 08/22/20 [History] Pregabalin [Lyrica] 100 mg PO TID 08/22/20 [History] predniSONE [Prednisone] 20 mg PO DAILY 08/22/20 [History] Bisacodyl [Laxative Suppository] 10 mg RC DAILY PRN 10/05/20 [History] Carbamide Peroxide [Debrox] 5 drop EARBOTH BID PRN 10/05/20 [History] Dextromethorphan/guaiFENesin [Robitussin DM] 10 ml PO Q4H PRN 10/05/20 [History] Mag Hydrox/Aluminum Hyd/Simeth [Maalox Maximum Strength Susp] 30 ml PO Q4H PRN 10/05/20 [History] Magnesium Hydroxide [Milk of Magnesia] 30 ml PO DAILY PRN 10/05/20 [History] Acetaminophen [Acetaminophen Extra Strength] 1,000 mg PO TID PRN 10/14/20 [History] Cyanocobalamin (Vitamin B12) [Vitamin B12] 1,000 mcg PO DAILY 10/14/20 [History] Acetaminophen/HYDROcodone [HYDROcodone-Acetaminophen 5-325 MG *] 1 - 2 tab PO Q6H PRN #36 tab 10/24/20 [Rx] Diclofenac Sodium [Voltaren 1% Gel] 1 applic TOP BID PRN #100 gm 12/01/20 [Rx] Pantoprazole Sodium [Protonix] 40 mg PO DAILY 12/02/20 [History] cephALEXin [Keflex] 500 mg PO BID #1 cap 12/06/20 [Rx] Past Medical History HEENT History: Reports: Cataract, Hard of Hearing, Impaired Vision Cardiovascular History: Reports: Afib, Automatic Implantable Cardioverter Defibrillators, High Cholesterol, Hypertension, Pacemaker, Other (See Below) Other Cardiovascular History: Aortic stenosis Respiratory History: Reports: Bronchitis, Recurrent, COPD, Sleep Apnea Other Respiratory History: Oxygen and c-pap Gastrointestinal History: Reports: Cholelithiasis, Chronic Constipation, GERD, Hemorrhoids Genitourinary History: Reports: Urinary Incontinence, UTI, Recurrent PROVER History: Reports: Musculoskeletal History: Reports: Arthritis, Fracture, RA Other Musculoskeletal History: left knee pain. right shoulder pain Neurological History: Reports: None Psychiatric History: Reports: None Endocrine/Metabolic History: Reports: Hyperthyroidism, Obesity/BMI 30+, Other (See Below) Other Endocrine/Metabolic History: Goiter Hematologic History: Reports: Anticoagulation Therapy, B12 Deficiency Immunologic History: Reports: None Oncologic (Cancer) History: Reports: Other (See Below) Other Oncologic History: "skin cancer" Dermatologic History: Reports: Melanoma Other Dermatologic History: Removal of skin spot l hand. - Infectious Disease History Infectious Disease History: Reports: Chicken Pox, Measles, Mumps - Past Surgical History HEENT Surgical History: Reports: None, Cataract Surgery Cardiovascular Surgical History: Reports: None Respiratory Surgical History: Reports: None GI Surgical History: Reports: Colonoscopy, Hernia Repair/Other, Other (See Below) Other GI Surgeries/Procedures: colon resection Female Surgical History: Reports: None Endocrine Surgical History: Reports: None Musculoskeletal Surgical History: Reports: Knee Replacement, Shoulder Replacement, Shoulder Surgery Other Musculoskeletal Surgeries/Procedures:: LT reverse total shoulder. RT reverse total shoulder (10/19/2020). Bilat TKA Dermatological Surgical History: Reports: Skin Biopsy Social & Family History - Family History Family Medical History: No Pertinent Family History - Tobacco Use Tobacco Use Status *Q: Never Tobacco User - Caffeine Use Caffeine Use: Reports: None - Recreational Drug Use Recreational Drug Use: No - Living Situation & Occupation Living situation: Reports: Alone Occupation: Retired ED ROS GENERAL - Review of Systems Review Of Systems: See Below Constitutional: Reports: Malaise, Weakness HEENT: Reports: No Symptoms Respiratory: Reports: No Symptoms Cardiovascular: Reports: No Symptoms Endocrine: Reports: No Symptoms GI/Abdominal: Reports: No Symptoms : Reports: No Symptoms Musculoskeletal: Reports: No Symptoms Skin: Reports: No Symptoms Neurological: Reports: Weakness, Other (pt is obtunded. ) ED EXAM, GENERAL - Physical Exam Exam: See Below Free Text/Narrative:: pt arrived very obtunded and bearly responding. She started with not being as active yestrerday and today she has become progressively less responsive. Exam Limited By: Altered Mental Status General Appearance: Alert, Obtunded Ears: Normal TMs Nose: Normal Inspection Throat/Mouth: Normal Inspection Head: Atraumatic Neck: Normal Inspection Respiratory/Chest: No Respiratory Distress Cardiovascular: Regular Rate, Rhythm GI/Abdominal: Soft, No Mass (Female) Exam: Deferred Rectal (Female) Exam: Deferred Back Exam: Normal Inspection Extremities: Normal Inspection Neurological: Alert, Oriented, Inattentive, Slow to Respond Course - Vital Signs Last Recorded V/S: Last Vital Signs Temp 36.2 C 12/06/20 11:00 Pulse 70 12/06/20 11:00 Resp 18 12/06/20 11:00 BP 154/60 H 12/06/20 08:07 Pulse Ox 100 12/06/20 11:00 - Orders/Labs/Meds Labs: Laboratory Tests 12/02/20 12/02/20 12/02/20 Range/Units 16:44 16:46 17:32 WBC 11.1 H (4.5-11.0) K/uL RBC 3.65 (3.30-5.50) M/uL Hgb 10.4 L D (12.0-15.0) g/dL Hct 35.2 L (36.0-48.0) % MCV 96 (80-98) fL MCH 29 (27-31) pg MCHC 30 L (32-36) % Plt Count 218 (150-400) K/uL Neut % (Auto) 81.3 H (36-66) % Lymph % (Auto) 10.5 L (24-44) % [place] % (Auto) 8.0 H (2-6) % Eos % (Auto) 0.0 L (2-4) % Baso % (Auto) 0.2 (0-1) % Sodium 140 (140-148) mmol/L Potassium 5.1 (3.6-5.2) mmol/L Chloride 102 (100-108) mmol/L Carbon Dioxide 29 (21-32) mmol/L Anion Gap 8.9 (5.0-14.0) mmol/L BUN 44 H (7-18) mg/dL Creatinine 1.7 H D (0.6-1.0) mg/dL Est Cr Clr Drug Dosing 17.59 mL/min Estimated GFR (MDRD) 28 L (>60) Glucose 166 H (74-106) mg/dL Lactic Acid 2.7 H (0.4-2.0) mmol/L Calcium 8.4 L (8.5-10.1) mg/dL Total Bilirubin 0.4 (0.2-1.0) mg/dL AST 45 H D (15-37) U/L ALT 33 (12-78) U/L Alkaline Phosphatase 47 (46-116) U/L C-Reactive Protein (0.0-0.3) mg/dL Total Protein 5.8 L (6.4-8.2) g/dL Albumin 2.9 L (3.4-5.0) g/dL Globulin 2.9 (2.3-3.5) g/dL Albumin/Globulin Ratio 1.0 L (1.2-2.2) Urine Color (YELLOW) Urine Appearance (CLEAR) Urine pH (5.0-8.0) Ur Specific [place] (1.008-1.030) Urine Protein (NEGATIVE) mg/dL Urine Glucose (UA) (NEGATIVE) mg/dL Urine Ketones (NEGATIVE) mg/dL Urine Occult Blood (NEGATIVE) Urine Nitrite (NEGATIVE) Urine Bilirubin (NEGATIVE) Urine Urobilinogen (0.2-1.0) EU/dL Ur Leukocyte Esterase (NEGATIVE) Urine RBC (0-5) Urine WBC (0-5) Ur Epithelial Cells Amorphous Sediment Urine Bacteria Urine Mucus SARS-CoV-2 RNA (MARVIN) (NEGATIVE) 12/02/20 12/02/20 12/02/20 Range/Units 17:32 17:56 18:06 WBC (4.5-11.0) K/uL RBC (3.30-5.50) M/uL Hgb (12.0-15.0) g/dL Hct (36.0-48.0) % MCV (80-98) fL MCH (27-31) pg MCHC (32-36) % Plt Count (150-400) K/uL Neut % (Auto) (36-66) % Lymph % (Auto) (24-44) % [place] % (Auto) (2-6) % Eos % (Auto) (2-4) % Baso % (Auto) (0-1) % Sodium (140-148) mmol/L Potassium (3.6-5.2) mmol/L Chloride (100-108) mmol/L Carbon Dioxide (21-32) mmol/L Anion Gap (5.0-14.0) mmol/L BUN (7-18) mg/dL Creatinine (0.6-1.0) mg/dL Est Cr Clr Drug Dosing mL/min Estimated GFR (MDRD) (>60) Glucose (74-106) mg/dL Lactic Acid (0.4-2.0) mmol/L Calcium (8.5-10.1) mg/dL Total Bilirubin (0.2-1.0) mg/dL AST (15-37) U/L ALT (12-78) U/L Alkaline Phosphatase (46-116) U/L C-Reactive Protein 10.12 H (0.0-0.3) mg/dL Total Protein (6.4-8.2) g/dL Albumin (3.4-5.0) g/dL Globulin (2.3-3.5) g/dL Albumin/Globulin Ratio (1.2-2.2) Urine Color Yellow (YELLOW) Urine Appearance Cloudy A (CLEAR) Urine pH 5.5 (5.0-8.0) Ur Specific [place] 1.020 (1.008-1.030) Urine Protein Trace H (NEGATIVE) mg/dL Urine Glucose (UA) Negative (NEGATIVE) mg/dL Urine Ketones Negative (NEGATIVE) mg/dL Urine Occult Blood Trace-intact H (NEGATIVE) Urine Nitrite Negative (NEGATIVE) Urine Bilirubin Negative (NEGATIVE) Urine Urobilinogen 0.2 (0.2-1.0) EU/dL Ur Leukocyte Esterase Moderate H (NEGATIVE) Urine RBC 0-5 (0-5) Urine WBC Semi-packed H (0-5) Ur Epithelial Cells Occasional Amorphous Sediment Occasional Urine Bacteria Many Urine Mucus Occasional SARS-CoV-2 RNA (MARVIN) Negative (NEGATIVE) Meds: Medications Discontinued Medications Generic Name Dose Route Start Last Admin Trade Name Freq PRN Reason Stop Dose Admin Acetaminophen 650 mg 12/02/20 20:31 Acetaminophen 650 Mg Supp RECTAL Q4H PRN Mild pain/fever Acetaminophen 650 mg 12/02/20 20:31 Acetaminophen 325 Mg Tab PO Q4H PRN Pain (Mild 1-3)/fever Hydrocodone Bitart/Acetaminophen 1 - 2 tab 12/02/20 20:31 Acetaminophen/Hydrocodone 325-5 Mg Tab PO Q6H PRN Pain (moderate 4-6) Al Hydroxide/Mg Hydroxide 30 ml 12/02/20 20:31 Aluminum Hydroxide/Magnesium Hydroxide/Simethicone Susp 30 Ml Cup PO Q4H PRN Indigestion Albuterol 2.5 mg 12/02/20 20:31 12/03/20 17:52 Albuterol 0.083% 2.5 Mg/3 Ml Neb Soln NEB 2.5 mg Q4H PRN Administration Shortness Of Breath/wheezing Albuterol/Ipratropium 3 ml 12/02/20 20:31 Albuterol/Ipratropium 3.0-0.5 Mg/3 Ml Neb Soln NEB QID PRN Shortness Of Breath/wheezing Albuterol/Ipratropium 3 ml 12/03/20 11:00 12/06/20 11:01 Albuterol/Ipratropium 3.0-0.5 Mg/3 Ml Neb Soln NEB 3 ml QIDRT ANGELA Administration Benazepril HCl 20 mg 12/03/20 09:00 12/06/20 08:07 Benazepril 10 Mg Tab PO 20 mg DAILY ANGELA Administration Bisacodyl 5 mg 12/02/20 20:31 Bisacodyl 5 Mg Tab PO DAILY PRN Constipation Bisacodyl 10 mg 12/02/20 20:31 Bisacodyl 10 Mg Supp RECTAL DAILY PRN Constipation Cephalexin 500 mg 12/04/20 21:00 12/06/20 08:05 Cephalexin 250 Mg Cap PO 500 mg BID ANGELA Administration Cholecalciferol 50 mcg 12/03/20 09:00 12/06/20 08:07 Cholecalciferol (Vitamin D3) 25 Mcg Tab PO 50 mcg DAILY ANGELA Administration Cyanocobalamin 1,000 mcg 12/03/20 09:00 12/06/20 08:06 Cyanocobalamin (Vitamin B12) 1,000 Mcg Tab PO 1,000 mcg DAILY ANGELA Administration Diclofenac Sodium 0 gm 12/02/20 20:31 Diclofenac Sodium 1% Gel 100 Gm Tube TOP BID PRN Pain Docusate Sodium 100 mg 12/02/20 20:31 Docusate Sodium 100 Mg Cap PO BID PRN Constipation Docusate Sodium 100 - 300 mg 12/02/20 20:31 Docusate Sodium 100 Mg Cap PO DAILY PRN Constipation Folic Acid 1 mg 10/09/21 09:00 12/06/20 08:06 Folic Acid 1 Mg Tab PO 1 mg DAILY ANGELA Administration Furosemide 40 mg 12/03/20 09:00 12/06/20 08:07 Furosemide 40 Mg Tab PO 40 mg DAILY ANGELA Administration Guaifenesin/Dextromethorphan 10 ml 12/02/20 20:31 Guaifenesin/Dextromethorphan 100-10 Mg/5 Ml Soln 10 Ml Cup PO Q4H PRN Cough Sodium Chloride 1,000 mls @ 500 mls/hr 12/02/20 16:30 12/02/20 16:25 Normal Saline IV 500 mls/hr ASDIRECTED ANGELA Administration Lactated Ringer's 1,000 mls @ 999 mls/hr 12/02/20 17:45 12/02/20 18:35 Ringers, Lactated IV 999 mls/hr ASDIRECTED ANGELA Administration Piperacillin Sod/Tazobactam 50 mls @ 100 mls/hr 12/02/20 18:15 12/02/20 18:41 Sod 3.375 gm/ Sodium Chloride IV 100 mls/hr ONETIME ANGELA Administration Piperacillin Sod/Tazobactam 50 mls @ 100 mls/hr 12/03/20 00:10 Sod 3.375 gm/ Sodium Chloride IV Q6H ANGELA Sodium Chloride 1,000 mls @ 125 mls/hr 12/02/20 20:31 12/02/20 21:28 Normal Saline IV 75 mls/hr ASDIRECTED ANGELA Administration Piperacillin Sod/Tazobactam 50 mls @ 100 mls/hr 12/03/20 02:00 12/03/20 01:50 Sod 2.25 gm/ Sodium Chloride IV 100 mls/hr Q8H ANGELA Administration Sodium Chloride 1,000 mls @ 75 mls/hr 12/02/20 22:24 12/03/20 10:08 Normal Saline IV 75 mls/hr ASDIRECTED ANGELA Administration Piperacillin/Tazobactam/ 50 mls @ 100 mls/hr 12/03/20 08:00 12/04/20 10:51 Dextrose 2.25 gm/ Premix IV 100 mls/hr Q6H ANGELA Administration Lorazepam 1 mg 12/02/20 20:31 Lorazepam 2 Mg/Ml Sdv IV Q6H PRN Nausea/Vomiting Magnesium Hydroxide 30 ml 12/02/20 20:31 Magnesium Hydroxide 400 Mg/5 Ml Susp 30 Ml Cup PO DAILY PRN Constipation Melatonin 9 mg 12/04/20 21:00 12/05/20 20:58 Melatonin 3 Mg Tab PO 9 mg BEDTIME ANGELA Administration Metoprolol Succinate 25 mg 12/03/20 09:00 12/06/20 08:06 Metoprolol Succinate 25 Mg Tab.Er PO 25 mg DAILY ANGELA Administration Morphine Sulfate 2 mg 12/02/20 20:31 Morphine 2 Mg/Ml Syringe IVPUSH Q2H PRN Pain (severe 7-10) Non-Formulary Medication 400 mcg 12/03/20 09:00 Folic Acid [Folic Acid] PO DAILY ANGELA Non-Formulary Medication 50 mg 12/03/20 09:00 Mirabegron [Myrbetriq] PO DAILY ANGELA Nystatin 0 gm 12/02/20 21:00 12/04/20 21:17 Nystatin Crm 30 Gm Tube TOP 1 applic TID ANGELA Administration Nystatin 0 gm 12/05/20 10:30 12/06/20 08:07 Nystatin Crm 15 Gm Tube TOP 1 applicful TID ANGELA Administration Pantoprazole Sodium 40 mg 12/02/20 21:00 12/02/20 21:24 Pantoprazole 40 Mg Vial IV 40 mg BEDTIME ANGELA Administration Pantoprazole Sodium 40 mg 12/04/20 07:30 12/06/20 07:18 Pantoprazole 40 Mg Tab.Cr PO 40 mg ACBREAKFAST ANGELA Administration Polyethylene Glycol 17 gm 12/03/20 09:00 12/06/20 08:07 Polyethylene Glycol 3350 Powder 17 Gm Packet PO 17 gm DAILY ANGELA Administration Prednisone 20 mg 12/03/20 08:00 12/06/20 07:18 Prednisone 20 Mg Tab PO 20 mg DAILY@0800 ANGELA Administration Pregabalin 100 mg 12/02/20 21:00 12/06/20 08:10 Pregabalin 100 Mg Cap PO 100 mg TID ANGELA Administration Tiotropium [place] 0 gm 12/03/20 09:00 12/04/20 08:07 Tiotropium [place] 4 Gm Inhalation [place] (2.5mcg/1 Dose; 10 Doses) INH 2 puff DAILY ANGELA Administration Tiotropium [place] 0 gm 12/05/20 07:00 12/06/20 07:16 Tiotropium [place] 4 Gm Inhalation [place] (2.5mcg/1 Dose; 10 Doses) INH 2 puff DAILYRT ANGELA Administration Warfarin Sodium 2.5 mg 12/03/20 13:00 12/06/20 12:12 Warfarin 2.5 Mg Tab PO 2.5 mg SuTuWeThSa@1300 [facility] Administration Warfarin Sodium 5 mg 12/05/20 13:00 12/05/20 12:59 Warfarin 2.5 Mg Tab PO 5 mg MoFr@1300 [facility] Administration - Re-Assessments/Exams Free Text/Narrative Re-Assessment/Exam: 12/02/20 19:09 cat scan result pending, lactic acid is elevated urine is very infected. A culture of urine and bl ood cultures were obtained/ will admit and treat for urosepsis Departure - Departure Time of Disposition: 19:10 Disposition: Admitted As Inpatient 64 Condition: Fair Clinical Impression: UTI (urinary tract infection), Sepsis - Discharge Information Sepsis Event Note (ED) - Evaluation Sepsis Screening Result: No Definite Risk
[2020-12-02] MEDS ORDERED: Piperacillin/Tazobactam 3.375 GM in Sodium Chloride 0.9% 50 ML IV SCH (18:15)
--- NOTE | 2020-12-02 19:15 | CRLCT ---
For Patients: As a result of the Century Cures Act, medical imaging exams and procedure reports are released immediately into your electronic medical record. You may view this report before your referring provider. If you have questions, please contact your health care provider. INDICATION: Less responsive. TECHNIQUE: Noncontrast CT images acquired through the brain. COMPARISON: None. FINDINGS: Motion artifact degrades image quality, significantly through the skullbase and posterior fossa. Prominence of the ventricles and sulci compatible with mild diffuse cerebral volume loss. No mass effect or midline shift. The coreas-white differentiation is preserved. No acute intracranial hemorrhage within exam limitations. No pathologic extra-axial fluid collection. Scattered hypoattenuation in the supratentorial white matter, suggestive of mild chronic microvascular ischemic changes. Intracranial atherosclerotic calcifications. Thinning of the ocular lenses. The calvarium is intact. Hyperostosis frontalis interna. Minimal right maxillary sinus mucosal thickening. The mastoid air cells are clear. IMPRESSION: 1. Motion artifact degrades image quality, significantly through the skullbase and posterior fossa. 2. No acute intracranial hemorrhage within exam limitations. No intracranial mass effect. Please note that all CT scans at this facility use dose modulation, iterative reconstruction, and/or weight-based dosing when appropriate to reduce radiation dose to as low as reasonably achievable. Dictated by Roderick Basurto MD @ 12/02/2020 7:13:16 PM (Electronically Signed)
--- NOTE | 2020-12-02 20:08 | PCM.HP.2 ---
H&P History of Present Illness - General Date of Service: 12/02/20 Admit Problem/Dx: Admission Diagnosis/Problem Admission Diagnosis/Problem Urosepsis Source of Information: EMS Notes Reviewed, Provider, RN History Limitations: Reports: Altered Mental Status - History of Present Illness Initial Comments - Free Text/Narative: chief complaint: urosepsis Mrs. Hayden is unable to give history of present illness due to lethargic and not responding to questions. ER Note review- Mrs. Hayden arrives to ER via EMS [facility] from [facility] at 1610, the staff called for EMS when it was noted Mrws. Hayden was having increase lethargy and not responding. Yesterday she was at a Ortho appointment and slept during exam, today with worsen condition. Daughter was at bedside but left before H & P exam. Onset of Symptoms: Reports: Gradual Symptom Onset Date: 12/01/20 Duration of Symptoms: Reports: Day(s): (two), Getting Worse Location: Reports: Generalized (weakness and lethargy) Improves with: Reports: None Worsens with: Reports: None Context: Reports: Other (85 year old female who is unresponsive.) Associated Symptoms: Reports: Weakness - Related Data Allergies/Adverse Reactions: Allergies Allergy/AdvReac Type Severity Reaction Status Date / Time No Known Allergies Allergy Verified 12/02/20 16:34 Home Medications: Home Meds Albuterol [Ventolin HFA] 2 puff INH Q6HR PRN 11/25/12 [History] Benazepril HCl [Lotensin] 20 mg PO DAILY 11/25/12 [History] Cholecalciferol (Vitamin D3) [Vitamin D3] 2,000 unit PO DAILY 11/25/12 [History] Metoprolol Succinate [Toprol XL] 25 mg PO DAILY 11/25/12 [History] Sennosides/Docusate Sodium [Senokot-S Tablet] 1 tab PO DAILY 11/25/12 [History] polyethylene glycoL 3350 [MiraLAX] 17 gm PO DAILY 11/25/12 [History] Folic Acid 400 mcg PO DAILY 02/17/15 [History] Warfarin [Coumadin] 2.5 mg PO .SUN,E,SAT,TH,SA 02/17/15 [History] Albuterol/Ipratropium [DuoNeb 3.0-0.5 MG/3 ML] 3 ml INH Q4H PRN 05/10/15 [History] Naproxen [Naprosyn] 375 mg PO DAILY PRN 05/10/15 [History] Docusate Sodium 100 - 300 mg PO DAILY PRN 11/14/17 [History] Nystatin [Nystatin Crm] 1 applic TOP TID 11/14/17 [History] Tiotropium [Spiriva HandiHaler] 1 cap INH DAILY 11/14/17 [History] Warfarin [Coumadin] 5 mg PO .SAT,Sat02/26/19 [History] Mirabegron [Myrbetriq] 50 mg PO DAILY 07/17/19 [History] Aspirin [Halfprin] 81 mg PO DAILY 08/22/20 [History] Furosemide 40 mg PO DAILY 08/22/20 [History] Pravastatin Sodium 20 mg PO DAILY 08/22/20 [History] Pregabalin [Lyrica] 100 mg PO TID 08/22/20 [History] predniSONE [Prednisone] 20 mg PO DAILY 08/22/20 [History] Bisacodyl [Laxative Suppository] 10 mg RC DAILY PRN 10/05/20 [History] Carbamide Peroxide [Debrox] 5 drop EARBOTH BID PRN 10/05/20 [History] Dextromethorphan/guaiFENesin [Robitussin DM] 10 ml PO Q4H PRN 10/05/20 [History] Mag Hydrox/Aluminum Hyd/Simeth [Maalox Maximum Strength Susp] 30 ml PO Q4H PRN 10/05/20 [History] Magnesium Hydroxide [Milk of Magnesia] 30 ml PO DAILY PRN 10/05/20 [History] Acetaminophen [Acetaminophen Extra Strength] 1,000 mg PO TID PRN 10/14/20 [History] Cyanocobalamin (Vitamin B12) [Vitamin B12] 1,000 mcg PO DAILY 10/14/20 [History] Acetaminophen/HYDROcodone [HYDROcodone-Acetaminophen 325-5 MG] 1 - 2 tab PO Q6H PRN #36 tab 10/24/20 [Rx] Diclofenac Sodium [Voltaren 1% Gel] 1 applic TOP BID PRN #100 gm 12/01/20 [Rx] Pantoprazole Sodium [Protonix] 40 mg PO DAILY 12/02/20 [History] Past Medical History HEENT History: Reports: Cataract, Hard of Hearing, Impaired Vision Cardiovascular History: Reports: Afib, Automatic Implantable Cardioverter Defibrillators, High Cholesterol, Hypertension, Pacemaker, Other (See Below) Other Cardiovascular History: Aortic stenosis Respiratory History: Reports: Bronchitis, Recurrent, COPD, Sleep Apnea Other Respiratory History: Oxygen and c-pap Gastrointestinal History: Reports: Cholelithiasis, Chronic Constipation, GERD, Hemorrhoids Genitourinary History: Reports: Urinary Incontinence, UTI, Recurrent [employer]ER History: Reports: Musculoskeletal History: Reports: Arthritis, Fracture, RA Other Musculoskeletal History: left knee pain. right shoulder pain Neurological History: Reports: None Psychiatric History: Reports: None Endocrine/Metabolic History: Reports: Hyperthyroidism, Obesity/BMI 30+, Other (See Below) Other Endocrine/Metabolic History: Goiter Hematologic History: Reports: Anticoagulation Therapy, B12 Deficiency Immunologic History: Reports: None Oncologic (Cancer) History: Reports: Other (See Below) Other Oncologic History: "skin cancer" Dermatologic History: Reports: Melanoma Other Dermatologic History: Removal of skin spot l hand. - Infectious Disease History Infectious Disease History: Reports: Chicken Pox, Measles, Mumps - Past Surgical History HEENT Surgical History: Reports: None, Cataract Surgery Cardiovascular Surgical History: Reports: None Respiratory Surgical History: Reports: None GI Surgical History: Reports: Colonoscopy, Hernia Repair/Other, Other (See Below) Other GI Surgeries/Procedures: colon resection Female Surgical History: Reports: None Endocrine Surgical History: Reports: None Musculoskeletal Surgical History: Reports: Knee Replacement, Shoulder Replacement, Shoulder Surgery Other Musculoskeletal Surgeries/Procedures:: LT reverse total shoulder. RT reverse total shoulder (10/19/2020). Bilat TKA Dermatological Surgical History: Reports: Skin Biopsy Social & Family History - Family History Family Medical History: No Pertinent Family History - Tobacco Use Tobacco Use Status *Q: Never Tobacco User - Caffeine Use Caffeine Use: Reports: None - Recreational Drug Use Recreational Drug Use: No - Living Situation & Occupation Living situation: Reports: , Assisted Living ([facility].) Occupation: Retired H&P Review of Systems - Review of Systems: Review Of Systems: Unable To Obtain (Mrs. Hayden is unresponsive during H&P) Reason Not Obtained: unresponsive Exam - Exam Exam: See Below - Vital Signs Vital Signs: Last Vital Signs Temp 97.2 F 12/02/20 16:45 Pulse 68 12/02/20 19:30 Resp 25 H 12/02/20 19:30 BP 114/39 L 12/02/20 19:30 Pulse Ox 93 L 12/02/20 18:22 Weight: 287 lb - Exam Quality Assessment: Supplemental Oxygen, DVT Prophylaxis, Skin Breakdown (decub noted to lower lower back /coccyx) General: Lethargic (unable to respond to questions), Obtunded, Other (Mrs. Hayden in laying at 30 degrees, in hospital gown, mouth open, does not respond to questions. or open eyes . non labored breathing noted. ) HEENT: Nares Patent, Posterior Pharynx Clear, Pupils Equal (constricted pin point), Glasses, Other (ear canals clear of any debri or wax). No: Mucosa Moist & [place] (mouth is dry and open) Neck: Supple, Trachea Midline Lungs: Clear to Auscultation, Normal Respiratory Effort Cardiovascular: Regular Rate, Regular Rhythm GI/Abdominal Exam: Normal Bowel Sounds, Soft, Non-Tender (no pain response noted with palpation of abdomen. ), No Distention (very large abdomen- morbid obesity) (Female) Exam: Deferred Rectal (Female) Exam: Deferred Back Exam: Other (skin breakdown noted to area just above the coccyx. 4.5 cm x 2.5 cm) Extremities: Pedal Edema (2+ pitting edema of feet ), Slow Capillary Refill, Limited Range of Motion Peripheral Pulses: 1+: Radial (L), Radial (R) Skin: Warm, Dry, Other (skin breakdown noted to coccyx 4.5x 2.5 cm, groin folds, multi bruises to body and extremities) Neurological: Other (no response due to lethargy) Neuro Extensive - Mental Status: Other (no response when asked question. ) Neuro Extensive - Motor, Sensory, Reflexes: Motor/Sensory Deficits Psychiatric: Other (unable to evaluate due to unresponsive) - Patient Data Lab Results Last 24 hrs: Laboratory Results - last 24 hr 12/02/20 12/02/20 12/02/20 Range/Units 16:44 16:46 17:32 WBC 11.1 H (4.5-11.0) K/uL RBC 3.65 (3.30-5.50) M/uL Hgb 10.4 L D (12.0-15.0) g/dL Hct 35.2 L (36.0-48.0) % MCV 96 (80-98) fL MCH 29 (27-31) pg MCHC 30 L (32-36) % Plt Count 218 (150-400) K/uL Neut % (Auto) 81.3 H (36-66) % Lymph % (Auto) 10.5 L (24-44) % [place] % (Auto) 8.0 H (2-6) % Eos % (Auto) 0.0 L (2-4) % Baso % (Auto) 0.2 (0-1) % Sodium 140 (140-148) mmol/L Potassium 5.1 (3.6-5.2) mmol/L Chloride 102 (100-108) mmol/L Carbon Dioxide 29 (21-32) mmol/L Anion Gap 8.9 (5.0-14.0) mmol/L BUN 44 H (7-18) mg/dL Creatinine 1.7 H D (0.6-1.0) mg/dL Est Cr Clr Drug Dosing 17.59 mL/min Estimated GFR (MDRD) 28 L (>60) Glucose 166 H (74-106) mg/dL Lactic Acid 2.7 H (0.4-2.0) mmol/L Calcium 8.4 L (8.5-10.1) mg/dL Total Bilirubin 0.4 (0.2-1.0) mg/dL AST 45 H D (15-37) U/L ALT 33 (12-78) U/L Alkaline Phosphatase 47 (46-116) U/L C-Reactive Protein (0.0-0.3) mg/dL Total Protein 5.8 L (6.4-8.2) g/dL Albumin 2.9 L (3.4-5.0) g/dL Globulin 2.9 (2.3-3.5) g/dL Albumin/Globulin Ratio 1.0 L (1.2-2.2) Urine Color (YELLOW) Urine Appearance (CLEAR) Urine pH (5.0-8.0) Ur Specific [place] (1.008-1.030) Urine Protein (NEGATIVE) mg/dL Urine Glucose (UA) (NEGATIVE) mg/dL Urine Ketones (NEGATIVE) mg/dL Urine Occult Blood (NEGATIVE) Urine Nitrite (NEGATIVE) Urine Bilirubin (NEGATIVE) Urine Urobilinogen (0.2-1.0) EU/dL Ur Leukocyte Esterase (NEGATIVE) Urine RBC (0-5) Urine WBC (0-5) Ur Epithelial Cells Amorphous Sediment Urine Bacteria Urine Mucus SARS-CoV-2 RNA (MARVIN) (NEGATIVE) 12/02/20 12/02/20 12/02/20 Range/Units 17:32 17:56 18:06 WBC (4.5-11.0) K/uL RBC (3.30-5.50) M/uL Hgb (12.0-15.0) g/dL Hct (36.0-48.0) % MCV (80-98) fL MCH (27-31) pg MCHC (32-36) % Plt Count (150-400) K/uL Neut % (Auto) (36-66) % Lymph % (Auto) (24-44) % [place] % (Auto) (2-6) % Eos % (Auto) (2-4) % Baso % (Auto) (0-1) % Sodium (140-148) mmol/L Potassium (3.6-5.2) mmol/L Chloride (100-108) mmol/L Carbon Dioxide (21-32) mmol/L Anion Gap (5.0-14.0) mmol/L BUN (7-18) mg/dL Creatinine (0.6-1.0) mg/dL Est Cr Clr Drug Dosing mL/min Estimated GFR (MDRD) (>60) Glucose (74-106) mg/dL Lactic Acid (0.4-2.0) mmol/L Calcium (8.5-10.1) mg/dL Total Bilirubin (0.2-1.0) mg/dL AST (15-37) U/L ALT (12-78) U/L Alkaline Phosphatase (46-116) U/L C-Reactive Protein 10.12 H (0.0-0.3) mg/dL Total Protein (6.4-8.2) g/dL Albumin (3.4-5.0) g/dL Globulin (2.3-3.5) g/dL Albumin/Globulin Ratio (1.2-2.2) Urine Color Yellow (YELLOW) Urine Appearance Cloudy A (CLEAR) Urine pH 5.5 (5.0-8.0) Ur Specific [place] 1.020 (1.008-1.030) Urine Protein Trace H (NEGATIVE) mg/dL Urine Glucose (UA) Negative (NEGATIVE) mg/dL Urine Ketones Negative (NEGATIVE) mg/dL Urine Occult Blood Trace-intact H (NEGATIVE) Urine Nitrite Negative (NEGATIVE) Urine Bilirubin Negative (NEGATIVE) Urine Urobilinogen 0.2 (0.2-1.0) EU/dL Ur Leukocyte Esterase Moderate H (NEGATIVE) Urine RBC 0-5 (0-5) Urine WBC Semi-packed H (0-5) Ur Epithelial Cells Occasional Amorphous Sediment Occasional Urine Bacteria Many Urine Mucus Occasional SARS-CoV-2 RNA (MARVIN) Negative (NEGATIVE) Result Diagrams: 12/02/20 16:44 12/02/20 16:46 Sepsis Event Note - Evaluation Sepsis Screening Result: No Definite Risk - Focused Exam Vital Signs: Vital Signs Temp Pulse Resp BP Pulse Ox 12/02/20 19:30 68 25 H 114/39 L 12/02/20 18:22 70 23 H 119/78 93 L 12/02/20 16:53 68 22 H 98/38 L 94 L 12/02/20 16:45 97.2 F 72 25 H 112/59 L 92 L 12/02/20 16:24 97.2 F 72 25 H 112/59 L 92 L - Problem List (1) UTI (urinary tract infection) SNOMED Code(s): 08694914 ICD Code: N39.0 - URINARY TRACT INFECTION, SITE NOT SPECIFIED Status: Acute Current Visit: Yes (2) Sepsis SNOMED Code(s): 81204356 ICD Code: A41.9 - SEPSIS, UNSPECIFIED ORGANISM Status: Acute Current Visit: Yes (3) Peripheral edema SNOMED Code(s): 665701046 ICD Code: R60.9 - EDEMA, UNSPECIFIED Status: Acute Priority: Medium Current Visit: No (4) COPD (chronic obstructive pulmonary disease) SNOMED Code(s): 83907663 ICD Code: J44.9 - CHRONIC OBSTRUCTIVE PULMONARY DISEASE, UNSPECIFIED Status: Chronic Priority: Low Current Visit: No Qualifiers: (5) Cardiovascular disease Status: Chronic Priority: Low Current Visit: No (6) History of atrial fibrillation SNOMED Code(s): 960440661 ICD Code: Z86.79 - PERSONAL HISTORY OF OTHER DISEASES OF THE CIRCULATORY SYSTEM Status: Chronic Current Visit: No (7) Pacemaker SNOMED Code(s): 524645637 ICD Code: Z95.0 - PRESENCE OF CARDIAC PACEMAKER Status: Chronic Priority: Low Current Visit: No (8) Intertriginous skin ulcer, limited to breakdown of skin SNOMED Code(s): 73664384, 67525407, 708643771 ICD Code: L98.491 - NON-PRS CHRONIC ULCER SKIN/ SITES LIMITED TO BRKDWN SKIN Status: Acute Priority: Low Current Visit: Yes (9) Skin ulcer of lower back, limited to breakdown of skin SNOMED Code(s): 48107316628648355, 27482782636376310 ICD Code: L98.421 - NON-PRESSURE CHRONIC ULCER OF BACK LIMITED TO BRKDWN SKIN Status: Acute Priority: Low Current Visit: Yes Problem List Initiated/Reviewed/Updated: Yes Orders Last 24hrs: Active Orders 24 hr Category Date Time Status Patient Status Manage Transfer [TRANSFER] Routine ADT 12/02/20 19:38 Ordered Chest 1V Frontal [CR] Stat Exams 12/02/20 17:33 Taken CULTURE BLOOD [BC] Urgent Lab 12/02/20 18:40 Received CULTURE BLOOD [BC] Urgent Lab 12/02/20 19:40 Received CULTURE URINE [RM] Stat Lab 12/02/20 18:23 Received Lactated Ringers [Ringers, Lactated] 1,000 ml Med 12/02/20 17:45 Active IV ASDIRECTED Piperacillin/Tazobactam [Zosyn] 3.375 gm Med 12/02/20 18:15 Active Sodium Chloride 0.9% [Normal Saline] 50 ml IV ONETIME Sodium Chloride 0.9% [Normal Saline] 1,000 ml Med 12/02/20 16:30 Active IV ASDIRECTED Blood Culture x2 Reflex Set [OM.PC] Urgent Oth 12/02/20 18:10 Ordered Resuscitation Status Routine Resus Stat 12/02/20 19:40 Ordered EKG 12 Lead [EK] Routine Ther 12/02/20 19:12 Ordered Medication Orders Sodium Chloride (Normal Saline) 1,000 mls @ 500 mls/hr IV ASDIRECTED ANGELA Last Admin: 12/02/20 16:25 Dose: 500 mls/hr Documented by: NYDIA Lactated Ringer's (Ringers, Lactated) 1,000 mls @ 999 mls/hr IV ASDIRECTED [facility] Last Admin: 12/02/20 18:35 Dose: 999 mls/hr Documented by: NYDIA Piperacillin Sod/Tazobactam (Sod 3.375 gm/ Sodium Chloride) 50 mls @ 100 mls/hr IV ONETIME [facility] Last Admin: 12/02/20 18:41 Dose: 100 mls/hr Documented by: NYDIA Assessment/Plan Comment:: Assessment/Plan Comment:: ASSESSMENT AND PLAN OF CARE- URINARY TRACT INFECTION WITH LETHARGY, WEAKNESS AND SEPSIS, CARDIOVASCULAR DISEASE ,HX OF ATRIAL FIB., PACEMAKER, COPD, PULMONARY EDEMA, SKIN BREAKDOWN OF LOWER BACK AND GROIN FOLDS. URINARY TRACT INFECTION WITH LETHARY, WEAKNESS AND SEPSIS, Mrs. Hayden has a two day history of worsen lethargy. Today at [facility] assisted living home was noted to be obtunded and ambulance was called to transport to ER. In ER, vital signs were 97.2-72-25 112/59 oxygen sat 92% on 1-2 liter. She was unresponsive, blood pressure was less than 100 systolic was given two liter and blood pressure systolic >100, Imaging of CT head and Chest x-ray with not acute worrisome changes. Labs wbc 11.1, hgb 10.4, hct 35.2, chemistries Na+ 140, K+ 5.1, Cl 102, anion gap 8.9, BUN 44, cr 1.7- last cr 1.1, glucose 166, co2 29, lactic acid 2.7, crp 10.12, covid negative. Urine cath +Leukocytes, moderate, packed WBC, urine culture pending, blood cultures x2 pending. Medication - IV fluids x 2 liter, Zoysn 3.375 at 1815, oxygen. plans to admit for further care and treatment. -Admit to [address] [place] [address] for further monitoring -IV Fluids for rehydration NS at 125 ml/hr -IV Antibiotic; Zosyn 3.375 gram IV every 6 hours -oxygen to keep sats greater than 95% -Prednisone -blood cultures x2 pending -Covid 19 virus test in ER is negative -Lactic acid timed at 2300 and in am -Am lab-m CBC, BMP,CRP,LACTIC ACID COPD WITHOUT EXACERBATION -Duo nebs every 6 hours prn , Albuterol nebs every 4 hours prn -Robitussin dm 10 ml every 6 hours as needed for painful cough CARDIOVASCULAR DISEASE, HISTORY OF A.FIB, PACEMAKER -continue outpatient medications -Coumadin 2.5 mg on Sat, Saturday -Coumadin 5 mg on Sat, Sat, Sat. -tele overnight -am labs INR, PT SKIN BREAKDOWN OF LOWER BACK AND GROIN FOLD -lower back applied foam wound pad -groin folds- intradry pads and Nystatin creme bid -monitor for any skin changes -consider consult to wound clinic Maintenance issues -Orders home meds: chronic medication -Nutrition: full liquid diet as advance as tolerated -William catheter -not indicated at this time -DVT - Coumadin -PPI - IV Protonix 40mg daily -consult to PT -consult to OT CODE STATUS: DNR/DNI Admission status: Admit to [address] [place] [address] Admission justification. This patient will be admitted for inpatient services and is medically appropriate meeting medical necessity for inpatient admission as outlined in my documentation. I reasonably expect the patient will require inpatient services that span. Time over 2 midnights. I reasonably expect this patient to be discharged or tr ansferred within 96 hours after admission to the [facility]. Disposition: assisted living home or extended care facility Primary care provider: Dr. Morris, [facility] Hospitalist: Dr. Abarca - Mortality Measure Prognosis:: Poor
[2020-12-02] MEDS ORDERED: Aluminum Hydroxide/Magnesium Hydroxide/Simethicone Susp 30 ML Cup PO PRN (20:31)
[2020-12-02] MEDS ORDERED: Acetaminophen 650 MG Supp RECTAL PRN (20:31)
[2020-12-02] MEDS ORDERED: Diclofenac Sodium 1% Gel 100 GM Tube TOP PRN (20:31)
[2020-12-02] MEDS ORDERED: Acetaminophen 325 MG Tab PO PRN (20:31)
[2020-12-02] MEDS ORDERED: Magnesium Hydroxide 400 MG/5 ML Susp 30 ML Cup PO PRN (20:31)
[2020-12-02] MEDS ORDERED: Bisacodyl 5 MG Tab PO PRN (20:31)
[2020-12-02] MEDS ORDERED: guaiFENesin/Dextromethorphan 100-10 MG/5 ML Soln 10 ML Cup PO PRN (20:31)
[2020-12-02] MEDS ORDERED: Acetaminophen/HYDROcodone 325-5 MG Tab PO PRN (20:31)
[2020-12-02] MEDS ORDERED: Albuterol/Ipratropium 3.0-0.5 MG/3 ML Neb Soln NEB PRN (20:31)
[2020-12-02] MEDS ORDERED: Morphine 2 MG/ML SYRINGE IVPUSH PRN (20:31)
[2020-12-02] MEDS ORDERED: Docusate Sodium 100 MG Cap PO PRN ×2 (20:31)
[2020-12-02] MEDS ORDERED: LORazepam 2 MG/ML SDV IV PRN (20:31)
[2020-12-02] MEDS ORDERED: Bisacodyl 10 MG Supp RECTAL PRN (20:31)
[2020-12-02] MEDS ORDERED: Albuterol 0.083% 2.5 MG/3 ML Neb Soln NEB PRN (20:31)
[2020-12-02] MEDS ORDERED: Pantoprazole 40 MG Vial IV SCH (21:00)
[2020-12-02] MEDS: Pregabalin 100 MG Cap PO SCH (21:24)
[2020-12-02] MEDS: Nystatin Crm 30 GM Tube TOP SCH (21:31)
[2020-12-03] MEDS ORDERED: Piperacillin/Tazobactam 3.375 GM in Sodium Chloride 0.9% 50 ML IV SCH (00:10)
[2020-12-03] MEDS ORDERED: Piperacillin/Tazobactam 2.25 GM in Sodium Chloride 0.9% 50 ML IV SCH (02:00)
[2020-12-03] MEDS: Nystatin Crm 30 GM Tube TOP SCH ×4 (02:16→21:00)
[2020-12-03] MEDS: Tiotropium Bromide 4 GM Inhalation Spray (2.5mcg/1 dose; 10 doses) INH SCH (08:29)
[2020-12-03] MEDS ORDERED: Non-Formulary Medication 1 Each (Folic Acid [Folic Acid] 0.4 MG Tablet) PO SCH (09:00)
[2020-12-03] MEDS ORDERED: MIRABEGRON 50 MG PO SCH (09:00)
[2020-12-03] MEDS: predniSONE 20 MG Tab PO SCH (09:49)
[2020-12-03] MEDS: Folic Acid 1 MG Tab PO SCH (09:49)
[2020-12-03] MEDS: Cyanocobalamin (Vitamin B12) 1,000 MCG Tab PO SCH (09:49)
[2020-12-03] MEDS: Pregabalin 100 MG Cap PO SCH ×3 (09:50→20:56)
[2020-12-03] MEDS: Furosemide 40 MG Tab PO SCH (09:50)
[2020-12-03] MEDS: Metoprolol Succinate 25 MG Tab.ER PO SCH (09:51)
--- NOTE | 2020-12-03 09:51 | PCM.PN ---
- General Info Date of Service: 12/03/20 Subjective Update: No acute events overnight following admission. The patient is more alert and interactive today. She thinks she is feeling better than yesterday. Ate most of her breakfast. No fevers overnight. She did require a Zehra lift to get from the bed to the chair. She is complaining of pain in her buttocks area in the area of her pressure ulcer. Urine culture is growing a gram-negative rose with identification pending. White blood cell count is normal today. - Review of Systems General: Reports: Weakness. Denies: Fever - Patient Data Vitals - Most Recent: Last Vital Signs Temp 36.9 C 12/03/20 07:48 Pulse 70 12/03/20 07:48 Resp 20 12/03/20 07:48 BP 137/103 H 12/03/20 07:48 Pulse Ox 93 L 12/03/20 07:48 Weight - Most Recent: 123.831 kg I&O - Last 24 Hours: Intake & Output 12/02/20 12/03/20 12/03/20 22:59 06:59 14:59 Intake Total 50 Balance 50 Lab Results Last 24 Hours: Laboratory Results - last 24 hr 12/02/20 12/02/20 12/02/20 Range/Units 16:44 16:46 17:32 WBC 11.1 H (4.5-11.0) K/uL RBC 3.65 (3.30-5.50) M/uL Hgb 10.4 L D (12.0-15.0) g/dL Hct 35.2 L (36.0-48.0) % MCV 96 (80-98) fL MCH 29 (27-31) pg MCHC 30 L (32-36) % Plt Count 218 (150-400) K/uL Neut % (Auto) 81.3 H (36-66) % Lymph % (Auto) 10.5 L (24-44) % Boyle % (Auto) 8.0 H (2-6) % Eos % (Auto) 0.0 L (2-4) % Baso % (Auto) 0.2 (0-1) % PT (9.2-10.6) sec INR Sodium 140 (140-148) mmol/L Potassium 5.1 (3.6-5.2) mmol/L Chloride 102 (100-108) mmol/L Carbon Dioxide 29 (21-32) mmol/L Anion Gap 8.9 (5.0-14.0) mmol/L BUN 44 H (7-18) mg/dL Creatinine 1.7 H D (0.6-1.0) mg/dL Est Cr Clr Drug Dosing 17.59 mL/min Estimated GFR (MDRD) 28 L (>60) Glucose 166 H (74-106) mg/dL Lactic Acid 2.7 H (0.4-2.0) mmol/L Calcium 8.4 L (8.5-10.1) mg/dL Total Bilirubin 0.4 (0.2-1.0) mg/dL AST 45 H D (15-37) U/L ALT 33 (12-78) U/L Alkaline Phosphatase 47 (46-116) U/L C-Reactive Protein (0.0-0.3) mg/dL Total Protein 5.8 L (6.4-8.2) g/dL Albumin 2.9 L (3.4-5.0) g/dL Globulin 2.9 (2.3-3.5) g/dL Albumin/Globulin Ratio 1.0 L (1.2-2.2) Urine Color (YELLOW) Urine Appearance (CLEAR) Urine pH (5.0-8.0) Ur Specific Moffit (1.008-1.030) Urine Protein (NEGATIVE) mg/dL Urine Glucose (UA) (NEGATIVE) mg/dL Urine Ketones (NEGATIVE) mg/dL Urine Occult Blood (NEGATIVE) Urine Nitrite (NEGATIVE) Urine Bilirubin (NEGATIVE) Urine Urobilinogen (0.2-1.0) EU/dL Ur Leukocyte Esterase (NEGATIVE) Urine RBC (0-5) Urine WBC (0-5) Ur Epithelial Cells Amorphous Sediment Urine Bacteria Urine Mucus SARS-CoV-2 RNA (MARVIN) (NEGATIVE) 12/02/20 12/02/20 12/02/20 Range/Units 17:32 17:56 18:06 WBC (4.5-11.0) K/uL RBC (3.30-5.50) M/uL Hgb (12.0-15.0) g/dL Hct (36.0-48.0) % MCV (80-98) fL MCH (27-31) pg MCHC (32-36) % Plt Count (150-400) K/uL Neut % (Auto) (36-66) % Lymph % (Auto) (24-44) % Boyle % (Auto) (2-6) % Eos % (Auto) (2-4) % Baso % (Auto) (0-1) % PT (9.2-10.6) sec INR Sodium (140-148) mmol/L Potassium (3.6-5.2) mmol/L Chloride (100-108) mmol/L Carbon Dioxide (21-32) mmol/L Anion Gap (5.0-14.0) mmol/L BUN (7-18) mg/dL Creatinine (0.6-1.0) mg/dL Est Cr Clr Drug Dosing mL/min Estimated GFR (MDRD) (>60) Glucose (74-106) mg/dL Lactic Acid (0.4-2.0) mmol/L Calcium (8.5-10.1) mg/dL Total Bilirubin (0.2-1.0) mg/dL AST (15-37) U/L ALT (12-78) U/L Alkaline Phosphatase (46-116) U/L C-Reactive Protein 10.12 H (0.0-0.3) mg/dL Total Protein (6.4-8.2) g/dL Albumin (3.4-5.0) g/dL Globulin (2.3-3.5) g/dL Albumin/Globulin Ratio (1.2-2.2) Urine Color Yellow (YELLOW) Urine Appearance Cloudy A (CLEAR) Urine pH 5.5 (5.0-8.0) Ur Specific Moffit 1.020 (1.008-1.030) Urine Protein Trace H (NEGATIVE) mg/dL Urine Glucose (UA) Negative (NEGATIVE) mg/dL Urine Ketones Negative (NEGATIVE) mg/dL Urine Occult Blood Trace-intact H (NEGATIVE) Urine Nitrite Negative (NEGATIVE) Urine Bilirubin Negative (NEGATIVE) Urine Urobilinogen 0.2 (0.2-1.0) EU/dL Ur Leukocyte Esterase Moderate H (NEGATIVE) Urine RBC 0-5 (0-5) Urine WBC Semi-packed H (0-5) Ur Epithelial Cells Occasional Amorphous Sediment Occasional Urine Bacteria Many Urine Mucus Occasional SARS-CoV-2 RNA (MARVIN) Negative (NEGATIVE) 12/02/20 12/03/20 12/03/20 Range/Units 23:15 04:20 04:20 WBC 7.3 (4.5-11.0) K/uL RBC 3.47 (3.30-5.50) M/uL Hgb 10.0 L (12.0-15.0) g/dL Hct 33.8 L (36.0-48.0) % MCV 97 (80-98) fL MCH 29 (27-31) pg MCHC 30 L (32-36) % Plt Count 188 (150-400) K/uL Neut % (Auto) 74.4 H (36-66) % Lymph % (Auto) 17.1 L (24-44) % Boyle % (Auto) 8.1 H (2-6) % Eos % (Auto) 0.1 L (2-4) % Baso % (Auto) 0.3 (0-1) % PT 17.1 H (9.2-10.6) sec INR 1.7 Sodium (140-148) mmol/L Potassium (3.6-5.2) mmol/L Chloride (100-108) mmol/L Carbon Dioxide (21-32) mmol/L Anion Gap (5.0-14.0) mmol/L BUN (7-18) mg/dL Creatinine (0.6-1.0) mg/dL Est Cr Clr Drug Dosing mL/min Estimated GFR (MDRD) (>60) Glucose (74-106) mg/dL Lactic Acid 1.3 (0.4-2.0) mmol/L Calcium (8.5-10.1) mg/dL Total Bilirubin (0.2-1.0) mg/dL AST (15-37) U/L ALT (12-78) U/L Alkaline Phosphatase (46-116) U/L C-Reactive Protein (0.0-0.3) mg/dL Total Protein (6.4-8.2) g/dL Albumin (3.4-5.0) g/dL Globulin (2.3-3.5) g/dL Albumin/Globulin Ratio (1.2-2.2) Urine Color (YELLOW) Urine Appearance (CLEAR) Urine pH (5.0-8.0) Ur Specific Moffit (1.008-1.030) Urine Protein (NEGATIVE) mg/dL Urine Glucose (UA) (NEGATIVE) mg/dL Urine Ketones (NEGATIVE) mg/dL Urine Occult Blood (NEGATIVE) Urine Nitrite (NEGATIVE) Urine Bilirubin (NEGATIVE) Urine Urobilinogen (0.2-1.0) EU/dL Ur Leukocyte Esterase (NEGATIVE) Urine RBC (0-5) Urine WBC (0-5) Ur Epithelial Cells Amorphous Sediment Urine Bacteria Urine Mucus SARS-CoV-2 RNA (MARVIN) (NEGATIVE) 12/03/20 Range/Units 04:20 WBC (4.5-11.0) K/uL RBC (3.30-5.50) M/uL Hgb (12.0-15.0) g/dL Hct (36.0-48.0) % MCV (80-98) fL MCH (27-31) pg MCHC (32-36) % Plt Count (150-400) K/uL Neut % (Auto) (36-66) % Lymph % (Auto) (24-44) % Boyle % (Auto) (2-6) % Eos % (Auto) (2-4) % Baso % (Auto) (0-1) % PT (9.2-10.6) sec INR Sodium 143 (140-148) mmol/L Potassium 4.5 (3.6-5.2) mmol/L Chloride 105 (100-108) mmol/L Carbon Dioxide 31 (21-32) mmol/L Anion Gap 7.4 (5.0-14.0) mmol/L BUN 37 H (7-18) mg/dL Creatinine 1.2 H (0.6-1.0) mg/dL Est Cr Clr Drug Dosing 24.92 mL/min Estimated GFR (MDRD) 42 L (>60) Glucose 95 (74-106) mg/dL Lactic Acid (0.4-2.0) mmol/L Calcium 8.1 L (8.5-10.1) mg/dL Total Bilirubin (0.2-1.0) mg/dL AST (15-37) U/L ALT (12-78) U/L Alkaline Phosphatase (46-116) U/L C-Reactive Protein 11.01 H (0.0-0.3) mg/dL Total Protein (6.4-8.2) g/dL Albumin (3.4-5.0) g/dL Globulin (2.3-3.5) g/dL Albumin/Globulin Ratio (1.2-2.2) Urine Color (YELLOW) Urine Appearance (CLEAR) Urine pH (5.0-8.0) Ur Specific Moffit (1.008-1.030) Urine Protein (NEGATIVE) mg/dL Urine Glucose (UA) (NEGATIVE) mg/dL Urine Ketones (NEGATIVE) mg/dL Urine Occult Blood (NEGATIVE) Urine Nitrite (NEGATIVE) Urine Bilirubin (NEGATIVE) Urine Urobilinogen (0.2-1.0) EU/dL Ur Leukocyte Esterase (NEGATIVE) Urine RBC (0-5) Urine WBC (0-5) Ur Epithelial Cells Amorphous Sediment Urine Bacteria Urine Mucus SARS-CoV-2 RNA (MARVIN) (NEGATIVE) Luis Results Last 24 Hours: Microbiology 12/02/20 18:23 Urine Culture - Preliminary Urine, Bladder Med Orders - Current: Current Medications Acetaminophen (Acetaminophen 650 Mg Supp) 650 mg RECTAL Q4H PRN PRN Reason: Mild pain/fever Acetaminophen (Acetaminophen 325 Mg Tab) 650 mg PO Q4H PRN PRN Reason: Pain (Mild 1-3)/fever Hydrocodone Bitart/Acetaminophen (Acetaminophen/Hydrocodone 325-5 Mg Tab) 1 - 2 tab PO Q6H PRN PRN Reason: Pain (moderate 4-6) Al Hydroxide/Mg Hydroxide (Aluminum Hydroxide/Magnesium Hydroxide/Simethicone Susp 30 Ml Cup) 30 ml PO Q4H PRN PRN Reason: Indigestion Albuterol (Albuterol 0.083% 2.5 Mg/3 Ml Neb Soln) 2.5 mg NEB Q4H PRN PRN Reason: Shortness Of Breath/wheezing Benazepril HCl (Benazepril 10 Mg Tab) 20 mg PO DAILY [facility] Bisacodyl (Bisacodyl 5 Mg Tab) 5 mg PO DAILY PRN PRN Reason: Constipation Bisacodyl (Bisacodyl 10 Mg Supp) 10 mg RECTAL DAILY PRN PRN Reason: Constipation Cholecalciferol (Cholecalciferol (Vitamin D3) 25 Mcg Tab) 50 mcg PO DAILY [facility] Cyanocobalamin (Cyanocobalamin (Vitamin B12) 1,000 Mcg Tab) 1,000 mcg PO DAILY [facility] Diclofenac Sodium (Diclofenac Sodium 1% Gel 100 Gm Tube) 0 gm TOP BID PRN PRN Reason: Pain Docusate Sodium (Docusate Sodium 100 Mg Cap) 100 - 300 mg PO DAILY PRN PRN Reason: Constipation Folic Acid (Folic Acid 1 Mg Tab) 1 mg PO DAILY [facility] Furosemide (Furosemide 40 Mg Tab) 40 mg PO DAILY [facility] Guaifenesin/Dextromethorphan (Guaifenesin/Dextromethorphan 100-10 Mg/5 Ml Soln 10 Ml Cup) 10 ml PO Q4H PRN PRN Reason: Cough Piperacillin/Tazobactam/ (Dextrose 2.25 gm/ Premix) 50 mls @ 100 mls/hr IV Q6H [facility] Lorazepam (Lorazepam 2 Mg/Ml Sdv) 1 mg IV Q6H PRN PRN Reason: Nausea/Vomiting Magnesium Hydroxide (Magnesium Hydroxide 400 Mg/5 Ml Susp 30 Ml Cup) 30 ml PO DAILY PRN PRN Reason: Constipation Metoprolol Succinate (Metoprolol Succinate 25 Mg Tab.Er) 25 mg PO DAILY [facility] Morphine Sulfate (Morphine 2 Mg/Ml Syringe) 2 mg IVPUSH Q2H PRN PRN Reason: Pain (severe 7-10) Nystatin (Nystatin Crm 30 Gm Tube) 0 gm TOP TID [facility] Last Admin: 12/03/20 02:16 Dose: Not Given Documented by: Polyethylene Glycol (Polyethylene Glycol 3350 Powder 17 Gm Packet) 17 gm PO DAILY [facility] Prednisone (Prednisone 20 Mg Tab) 20 mg PO DAILY@0800 [facility] Pregabalin (Pregabalin 100 Mg Cap) 100 mg PO TID [facility] Last Admin: 12/02/20 21:24 Dose: 100 mg Documented by: Tiotropium Hamel (Tiotropium Hamel 4 Gm Inhalation [place] (2.5mcg/1 Dose; 10 Doses)) 0 gm INH DAILY [facility] Last Admin: 12/03/20 08:29 Dose: 2 puff Documented by: Warfarin Sodium (Warfarin 2.5 Mg Tab) 2.5 mg PO SuTuWeThSa@1300 [facility] Warfarin Sodium (Warfarin 2.5 Mg Tab) 5 mg PO MoFr@1300 [facility] Discontinued Medications Albuterol/Ipratropium (Albuterol/Ipratropium 3.0-0.5 Mg/3 Ml Neb Soln) 3 ml NEB QID PRN PRN Reason: Shortness Of Breath/wheezing Docusate Sodium (Docusate Sodium 100 Mg Cap) 100 mg PO BID PRN PRN Reason: Constipation Sodium Chloride (Normal Saline) 1,000 mls @ 500 mls/hr IV ASDIRECTED [facility] Last Admin: 12/02/20 16:25 Dose: 500 mls/hr Documented by: Lactated Ringer's (Ringers, Lactated) 1,000 mls @ 999 mls/hr IV ASDIRECTED [facility] Last Admin: 12/02/20 18:35 Dose: 999 mls/hr Documented by: Piperacillin Sod/Tazobactam (Sod 3.375 gm/ Sodium Chloride) 50 mls @ 100 mls/hr IV ONETIME [facility] Last Admin: 12/02/20 18:41 Dose: 100 mls/hr Documented by: Piperacillin Sod/Tazobactam (Sod 3.375 gm/ Sodium Chloride) 50 mls @ 100 mls/hr IV Q6H [facility] Sodium Chloride (Normal Saline) 1,000 mls @ 125 mls/hr IV ASDIRECTED [facility] Last Admin: 12/02/20 21:28 Dose: 75 mls/hr Documented by: Piperacillin Sod/Tazobactam (Sod 2.25 gm/ Sodium Chloride) 50 mls @ 100 mls/hr IV Q8H [facility] Last Admin: 12/03/20 01:50 Dose: 100 mls/hr Documented by: Sodium Chloride (Normal Saline) 1,000 mls @ 75 mls/hr IV ASDIRECTED [facility] Non-Formulary Medication (Folic Acid [Folic Acid]) 400 mcg PO DAILY [facility] Non-Formulary Medication (Mirabegron [Myrbetriq]) 50 mg PO DAILY [facility] Pantoprazole Sodium (Pantoprazole 40 Mg Vial) 40 mg IV BEDTIME [facility] Last Admin: 12/02/20 21:24 Dose: 40 mg Documented by: - Exam Quality Assessment: Supplemental Oxygen General: Alert, Oriented, Cooperative, No Acute Distress Lungs: Clear to Auscultation, Normal Respiratory Effort, Decreased Breath Sounds (mild both ) Cardiovascular: Regular Rate, Regular Rhythm GI/Abdominal Exam: Soft, No Distention, Other (obese ) Extremities: Pedal Edema. No: Increased Warmth Skin: Warm, Dry Psy/Mental Status: Alert, Normal Affect - Patient Data Lab Results Last 24 hrs: Laboratory Results - last 24 hr 12/02/20 12/02/20 12/02/20 Range/Units 16:44 16:46 17:32 WBC 11.1 H (4.5-11.0) K/uL RBC 3.65 (3.30-5.50) M/uL Hgb 10.4 L D (12.0-15.0) g/dL Hct 35.2 L (36.0-48.0) % MCV 96 (80-98) fL MCH 29 (27-31) pg MCHC 30 L (32-36) % Plt Count 218 (150-400) K/uL Neut % (Auto) 81.3 H (36-66) % Lymph % (Auto) 10.5 L (24-44) % Boyle % (Auto) 8.0 H (2-6) % Eos % (Auto) 0.0 L (2-4) % Baso % (Auto) 0.2 (0-1) % PT (9.2-10.6) sec INR Sodium 140 (140-148) mmol/L Potassium 5.1 (3.6-5.2) mmol/L Chloride 102 (100-108) mmol/L Carbon Dioxide 29 (21-32) mmol/L Anion Gap 8.9 (5.0-14.0) mmol/L BUN 44 H (7-18) mg/dL Creatinine 1.7 H D (0.6-1.0) mg/dL Est Cr Clr Drug Dosing 17.59 mL/min Estimated GFR (MDRD) 28 L (>60) Glucose 166 H (74-106) mg/dL Lactic Acid 2.7 H (0.4-2.0) mmol/L Calcium 8.4 L (8.5-10.1) mg/dL Total Bilirubin 0.4 (0.2-1.0) mg/dL AST 45 H D (15-37) U/L ALT 33 (12-78) U/L Alkaline Phosphatase 47 (46-116) U/L C-Reactive Protein (0.0-0.3) mg/dL Total Protein 5.8 L (6.4-8.2) g/dL Albumin 2.9 L (3.4-5.0) g/dL Globulin 2.9 (2.3-3.5) g/dL Albumin/Globulin Ratio 1.0 L (1.2-2.2) Urine Color (YELLOW) Urine Appearance (CLEAR) Urine pH (5.0-8.0) Ur Specific Moffit (1.008-1.030) Urine Protein (NEGATIVE) mg/dL Urine Glucose (UA) (NEGATIVE) mg/dL Urine Ketones (NEGATIVE) mg/dL Urine Occult Blood (NEGATIVE) Urine Nitrite (NEGATIVE) Urine Bilirubin (NEGATIVE) Urine Urobilinogen (0.2-1.0) EU/dL Ur Leukocyte Esterase (NEGATIVE) Urine RBC (0-5) Urine WBC (0-5) Ur Epithelial Cells Amorphous Sediment Urine Bacteria Urine Mucus SARS-CoV-2 RNA (MARVIN) (NEGATIVE) 12/02/20 12/02/20 12/02/20 Range/Units 17:32 17:56 18:06 WBC (4.5-11.0) K/uL RBC (3.30-5.50) M/uL Hgb (12.0-15.0) g/dL Hct (36.0-48.0) % MCV (80-98) fL MCH (27-31) pg MCHC (32-36) % Plt Count (150-400) K/uL Neut % (Auto) (36-66) % Lymph % (Auto) (24-44) % Boyle % (Auto) (2-6) % Eos % (Auto) (2-4) % Baso % (Auto) (0-1) % PT (9.2-10.6) sec INR Sodium (140-148) mmol/L Potassium (3.6-5.2) mmol/L Chloride (100-108) mmol/L Carbon Dioxide (21-32) mmol/L Anion Gap (5.0-14.0) mmol/L BUN (7-18) mg/dL Creatinine (0.6-1.0) mg/dL Est Cr Clr Drug Dosing mL/min Estimated GFR (MDRD) (>60) Glucose (74-106) mg/dL Lactic Acid (0.4-2.0) mmol/L Calcium (8.5-10.1) mg/dL Total Bilirubin (0.2-1.0) mg/dL AST (15-37) U/L ALT (12-78) U/L Alkaline Phosphatase (46-116) U/L C-Reactive Protein 10.12 H (0.0-0.3) mg/dL Total Protein (6.4-8.2) g/dL Albumin (3.4-5.0) g/dL Globulin (2.3-3.5) g/dL Albumin/Globulin Ratio (1.2-2.2) Urine Color Yellow (YELLOW) Urine Appearance Cloudy A (CLEAR) Urine pH 5.5 (5.0-8.0) Ur Specific Moffit 1.020 (1.008-1.030) Urine Protein Trace H (NEGATIVE) mg/dL Urine Glucose (UA) Negative (NEGATIVE) mg/dL Urine Ketones Negative (NEGATIVE) mg/dL Urine Occult Blood Trace-intact H (NEGATIVE) Urine Nitrite Negative (NEGATIVE) Urine Bilirubin Negative (NEGATIVE) Urine Urobilinogen 0.2 (0.2-1.0) EU/dL Ur Leukocyte Esterase Moderate H (NEGATIVE) Urine RBC 0-5 (0-5) Urine WBC Semi-packed H (0-5) Ur Epithelial Cells Occasional Amorphous Sediment Occasional Urine Bacteria Many Urine Mucus Occasional SARS-CoV-2 RNA (MARVIN) Negative (NEGATIVE) 12/02/20 12/03/20 12/03/20 Range/Units 23:15 04:20 04:20 WBC 7.3 (4.5-11.0) K/uL RBC 3.47 (3.30-5.50) M/uL Hgb 10.0 L (12.0-15.0) g/dL Hct 33.8 L (36.0-48.0) % MCV 97 (80-98) fL MCH 29 (27-31) pg MCHC 30 L (32-36) % Plt Count 188 (150-400) K/uL Neut % (Auto) 74.4 H (36-66) % Lymph % (Auto) 17.1 L (24-44) % Boyle % (Auto) 8.1 H (2-6) % Eos % (Auto) 0.1 L (2-4) % Baso % (Auto) 0.3 (0-1) % PT 17.1 H (9.2-10.6) sec INR 1.7 Sodium (140-148) mmol/L Potassium (3.6-5.2) mmol/L Chloride (100-108) mmol/L Carbon Dioxide (21-32) mmol/L Anion Gap (5.0-14.0) mmol/L BUN (7-18) mg/dL Creatinine (0.6-1.0) mg/dL Est Cr Clr Drug Dosing mL/min Estimated GFR (MDRD) (>60) Glucose (74-106) mg/dL Lactic Acid 1.3 (0.4-2.0) mmol/L Calcium (8.5-10.1) mg/dL Total Bilirubin (0.2-1.0) mg/dL AST (15-37) U/L ALT (12-78) U/L Alkaline Phosphatase (46-116) U/L C-Reactive Protein (0.0-0.3) mg/dL Total Protein (6.4-8.2) g/dL Albumin (3.4-5.0) g/dL Globulin (2.3-3.5) g/dL Albumin/Globulin Ratio (1.2-2.2) Urine Color (YELLOW) Urine Appearance (CLEAR) Urine pH (5.0-8.0) Ur Specific Moffit (1.008-1.030) Urine Protein (NEGATIVE) mg/dL Urine Glucose (UA) (NEGATIVE) mg/dL Urine Ketones (NEGATIVE) mg/dL Urine Occult Blood (NEGATIVE) Urine Nitrite (NEGATIVE) Urine Bilirubin (NEGATIVE) Urine Urobilinogen (0.2-1.0) EU/dL Ur Leukocyte Esterase (NEGATIVE) Urine RBC (0-5) Urine WBC (0-5) Ur Epithelial Cells Amorphous Sediment Urine Bacteria Urine Mucus SARS-CoV-2 RNA (MARVIN) (NEGATIVE) 12/03/20 Range/Units 04:20 WBC (4.5-11.0) K/uL RBC (3.30-5.50) M/uL Hgb (12.0-15.0) g/dL Hct (36.0-48.0) % MCV (80-98) fL MCH (27-31) pg MCHC (32-36) % Plt Count (150-400) K/uL Neut % (Auto) (36-66) % Lymph % (Auto) (24-44) % Boyle % (Auto) (2-6) % Eos % (Auto) (2-4) % Baso % (Auto) (0-1) % PT (9.2-10.6) sec INR Sodium 143 (140-148) mmol/L Potassium 4.5 (3.6-5.2) mmol/L Chloride 105 (100-108) mmol/L Carbon Dioxide 31 (21-32) mmol/L Anion Gap 7.4 (5.0-14.0) mmol/L BUN 37 H (7-18) mg/dL Creatinine 1.2 H (0.6-1.0) mg/dL Est Cr Clr Drug Dosing 24.92 mL/min Estimated GFR (MDRD) 42 L (>60) Glucose 95 (74-106) mg/dL Lactic Acid (0.4-2.0) mmol/L Calcium 8.1 L (8.5-10.1) mg/dL Total Bilirubin (0.2-1.0) mg/dL AST (15-37) U/L ALT (12-78) U/L Alkaline Phosphatase (46-116) U/L C-Reactive Protein 11.01 H (0.0-0.3) mg/dL Total Protein (6.4-8.2) g/dL Albumin (3.4-5.0) g/dL Globulin (2.3-3.5) g/dL Albumin/Globulin Ratio (1.2-2.2) Urine Color (YELLOW) Urine Appearance (CLEAR) Urine pH (5.0-8.0) Ur Specific Moffit (1.008-1.030) Urine Protein (NEGATIVE) mg/dL Urine Glucose (UA) (NEGATIVE) mg/dL Urine Ketones (NEGATIVE) mg/dL Urine Occult Blood (NEGATIVE) Urine Nitrite (NEGATIVE) Urine Bilirubin (NEGATIVE) Urine Urobilinogen (0.2-1.0) EU/dL Ur Leukocyte Esterase (NEGATIVE) Urine RBC (0-5) Urine WBC (0-5) Ur Epithelial Cells Amorphous Sediment Urine Bacteria Urine Mucus SARS-CoV-2 RNA (MARVIN) (NEGATIVE) Result Diagrams: 12/03/20 04:20 12/03/20 04:20 Luis Results Last 24 hrs: Microbiology 12/02/20 18:23 Urine Culture - Preliminary Urine, Bladder Sepsis Event Note - Evaluation Sepsis Screening Result: No Definite Risk - Focused Exam Vital Signs: Vital Signs Temp Pulse Resp BP Pulse Ox 12/03/20 07:48 36.9 C 70 20 137/103 H 93 L 12/03/20 07:26 93 L 12/03/20 04:00 36.5 C 71 16 95 12/03/20 01:30 95 12/03/20 00:53 36.0 C L 72 20 131/59 L 96 - Problem List Review Problem List Initiated/Reviewed/Updated: Yes - My Orders Last 24 Hours: My Active Orders 12/02/20 22:49 Consult to Case Management/Neonatal Pediatric Nurse [CONS] Routine 12/03/20 09:48 Convert IV to Saline Lock [OM.PC] Routine 12/03/20 09:49 Discontinue Telemetry Monitoring [Cardiac Monitoring Discontinue] [RC] Click to Edit 12/03/20 10:00 Albuterol/Ipratropium [DuoNeb 3.0-0.5 MG/3 ML] 3 ml NEB QID 12/04/20 05:00 BASIC METABOLIC PANEL,BMP [CHEM] Timed CBC W/O DIFF,HEMOGRAM [HEME] Timed (1) INR,PT,PROTHROMBIN TIME [COAG] Timed 12/04/20 09:00 Pantoprazole [ProTONIX] 40 mg PO DAILY - Plan Plan:: ASSESSMENT AND PLAN - Acute cystitis without hematuria-history of recurrent urinary tract infections. Culture growing a gram-negative rose. Clinically she has improved since admission. -Saline lock IV -Continue Pip/Tazo -Follow-up cultures COPD WITHOUT EXACERBATION-respiratory status stable. She does [facility] oxygen [facility]. -Supplement oxygen as needed -Duo nebs every 6 hours prn , Albuterol nebs every 4 hours prn -Robitussin dm 10 ml every 6 hours as needed for painful cough CARDIOVASCULAR DISEASE, HISTORY OF A.FIB, PACEMAKER-stable. -continue outpatient medications -Coumadin 2.5 mg on Sat, Saturday -Coumadin 5 mg on Sat, Sat, Sat. SKIN BREAKDOWN OF LOWER BACK AND GROIN FOLD-sacral pressure ulcer was present on admission. -allevyn dressing to sacral wound -groin folds- intradry pads and Nystatin creme bid -monitor for any skin changes -consider consult to wound clinic Morbid obesity-BMI greater than 50 Maintenance issues -Nutrition: full liquid diet as advance as tolerated -DVT - Coumadin -GI - PPI Disposition: assisted living home or extended care facility Doyle Abarca MD
[2020-12-03] MEDS: Cholecalciferol (Vitamin D3) 25 MCG Tab PO SCH (09:53)
[2020-12-03] MEDS: Benazepril 10 MG Tab PO SCH (09:54)
[2020-12-03] MEDS: Piperacillin/Tazobactam/Dext 2.25 GM in Premix Bag 1 BAG IV SCH ×3 (09:56→20:54)
[2020-12-03] MEDS: Albuterol/Ipratropium 3.0-0.5 MG/3 ML Neb Soln NEB SCH ×3 (10:16→20:57)
[2020-12-03] MEDS: Polyethylene Glycol 3350 Powder 17 GM Packet PO SCH (13:53)
[2020-12-03] MEDS: Warfarin 2.5 MG Tab PO SCH (13:54)
[2020-12-04] MEDS: Piperacillin/Tazobactam/Dext 2.25 GM in Premix Bag 1 BAG IV SCH ×2 (03:12→10:51)
[2020-12-04] MEDS: Albuterol/Ipratropium 3.0-0.5 MG/3 ML Neb Soln NEB SCH ×4 (07:03→21:15)
[2020-12-04] MEDS: predniSONE 20 MG Tab PO SCH (08:05)
[2020-12-04] MEDS: Pantoprazole 40 MG Tab.CR PO SCH (08:05)
[2020-12-04] MEDS: Tiotropium Bromide 4 GM Inhalation Spray (2.5mcg/1 dose; 10 doses) INH SCH (08:07)
--- NOTE | 2020-12-04 10:19 | PCM.PN ---
- General Info Date of Service: 12/04/20 Subjective Update: No acute events overnight. Patient did not sleep well. She feels a little better today. She is a little bit stronger and was able to take a couple of steps. Appetite has been good. Urine culture grew out E. coli that was sensitive to the ceftriaxone. Kidney function slowly improving and nearing baseline. Weak but otherwise doing pretty well. Functional Status: Reports: Pain Controlled - Review of Systems General: Reports: Weakness - Patient Data Vitals - Most Recent: Last Vital Signs Temp 37.1 C 12/04/20 07:56 Pulse 70 12/04/20 07:56 Resp 20 12/04/20 07:56 BP 140/61 12/04/20 07:56 Pulse Ox 90 L 12/04/20 07:56 Weight - Most Recent: 123.831 kg I&O - Last 24 Hours: Intake & Output 12/03/20 12/04/20 12/04/20 22:59 06:59 14:59 Intake Total 150 50 50 Output Total 150 Balance 150 50 -100 Lab Results Last 24 Hours: Laboratory Results - last 24 hr 12/04/20 12/04/20 12/04/20 Range/Units 04:10 04:10 04:10 WBC 7.7 (4.5-11.0) K/uL RBC 3.48 (3.30-5.50) M/uL Hgb 9.7 L (12.0-15.0) g/dL Hct 33.5 L (36.0-48.0) % MCV 96 (80-98) fL MCH 28 (27-31) pg MCHC 29 L (32-36) % Plt Count 203 (150-400) K/uL PT 20.0 H (9.2-10.6) sec INR 2.0 Sodium 146 (140-148) mmol/L Potassium 4.4 (3.6-5.2) mmol/L Chloride 106 (100-108) mmol/L Carbon Dioxide > 45 H (21-32) mmol/L Anion Gap -0.6 L (5.0-14.0) mmol/L BUN 28 H (7-18) mg/dL Creatinine 1.1 H (0.6-1.0) mg/dL Est Cr Clr Drug Dosing 27.19 mL/min Estimated GFR (MDRD) 47 L (>60) Glucose 86 (74-106) mg/dL Calcium 8.5 (8.5-10.1) mg/dL Luis Results Last 24 Hours: Microbiology 12/02/20 18:23 Urine Culture - Final Urine, Bladder Escherichia Coli 12/02/20 19:40 Aerobic Blood Culture - Preliminary Blood - Arm, Left NO GROWTH AFTER 1 DAY Anaerobic Blood Culture - Preliminary NO GROWTH AFTER 1 DAY 12/02/20 18:40 Aerobic Blood Culture - Preliminary Blood - Arm, Left NO GROWTH AFTER 1 DAY Anaerobic Blood Culture - Preliminary NO GROWTH AFTER 1 DAY Med Orders - Current: Current Medications Acetaminophen (Acetaminophen 650 Mg Supp) 650 mg RECTAL Q4H PRN PRN Reason: Mild pain/fever Acetaminophen (Acetaminophen 325 Mg Tab) 650 mg PO Q4H PRN PRN Reason: Pain (Mild 1-3)/fever Hydrocodone Bitart/Acetaminophen (Acetaminophen/Hydrocodone 325-5 Mg Tab) 1 - 2 tab PO Q6H PRN PRN Reason: Pain (moderate 4-6) Al Hydroxide/Mg Hydroxide (Aluminum Hydroxide/Magnesium Hydroxide/Simethicone Susp 30 Ml Cup) 30 ml PO Q4H PRN PRN Reason: Indigestion Albuterol (Albuterol 0.083% 2.5 Mg/3 Ml Neb Soln) 2.5 mg NEB Q4H PRN PRN Reason: Shortness Of Breath/wheezing Last Admin: 12/03/20 17:52 Dose: 2.5 mg Documented by: Albuterol/Ipratropium (Albuterol/Ipratropium 3.0-0.5 Mg/3 Ml Neb Soln) 3 ml NEB QIDRT [facility] Last Admin: 12/04/20 07:03 Dose: 3 ml Documented by: Benazepril HCl (Benazepril 10 Mg Tab) 20 mg PO DAILY [facility] Last Admin: 12/03/20 09:54 Dose: 20 mg Documented by: Bisacodyl (Bisacodyl 5 Mg Tab) 5 mg PO DAILY PRN PRN Reason: Constipation Bisacodyl (Bisacodyl 10 Mg Supp) 10 mg RECTAL DAILY PRN PRN Reason: Constipation Cephalexin (Cephalexin 250 Mg Cap) 500 mg PO BID [facility] Cholecalciferol (Cholecalciferol (Vitamin D3) 25 Mcg Tab) 50 mcg PO DAILY [facility] Last Admin: 12/03/20 09:53 Dose: 50 mcg Documented by: Cyanocobalamin (Cyanocobalamin (Vitamin B12) 1,000 Mcg Tab) 1,000 mcg PO DAILY [facility] Last Admin: 12/03/20 09:49 Dose: 1,000 mcg Documented by: Diclofenac Sodium (Diclofenac Sodium 1% Gel 100 Gm Tube) 0 gm TOP BID PRN PRN Reason: Pain Docusate Sodium (Docusate Sodium 100 Mg Cap) 100 - 300 mg PO DAILY PRN PRN Reason: Constipation Folic Acid (Folic Acid 1 Mg Tab) 1 mg PO DAILY [facility] Last Admin: 12/03/20 09:49 Dose: 1 mg Documented by: Furosemide (Furosemide 40 Mg Tab) 40 mg PO DAILY [facility] Last Admin: 12/03/20 09:50 Dose: 40 mg Documented by: Guaifenesin/Dextromethorphan (Guaifenesin/Dextromethorphan 100-10 Mg/5 Ml Soln 10 Ml Cup) 10 ml PO Q4H PRN PRN Reason: Cough Lorazepam (Lorazepam 2 Mg/Ml Sdv) 1 mg IV Q6H PRN PRN Reason: Nausea/Vomiting Magnesium Hydroxide (Magnesium Hydroxide 400 Mg/5 Ml Susp 30 Ml Cup) 30 ml PO DAILY PRN PRN Reason: Constipation Melatonin (Melatonin 3 Mg Tab) 9 mg PO BEDTIME [facility] Metoprolol Succinate (Metoprolol Succinate 25 Mg Tab.Er) 25 mg PO DAILY [facility] Last Admin: 12/03/20 09:51 Dose: 25 mg Documented by: Morphine Sulfate (Morphine 2 Mg/Ml Syringe) 2 mg IVPUSH Q2H PRN PRN Reason: Pain (severe 7-10) Nystatin (Nystatin Crm 30 Gm Tube) 0 gm TOP TID [facility] Last Admin: 12/03/20 21:00 Dose: 1 applic Documented by: Pantoprazole Sodium (Pantoprazole 40 Mg Tab.Cr) 40 mg PO ACBREAKFAST [facility] Last Admin: 12/04/20 08:05 Dose: 40 mg Documented by: Polyethylene Glycol (Polyethylene Glycol 3350 Powder 17 Gm Packet) 17 gm PO DAILY [facility] Last Admin: 12/03/20 13:53 Dose: 17 gm Documented by: Prednisone (Prednisone 20 Mg Tab) 20 mg PO DAILY@0800 [facility] Last Admin: 12/04/20 08:05 Dose: 20 mg Documented by: Pregabalin (Pregabalin 100 Mg Cap) 100 mg PO TID [facility] Last Admin: 12/03/20 20:56 Dose: 100 mg Documented by: Tiotropium [place] (Tiotropium [place] 4 Gm Inhalation [place] (2.5mcg/1 Dose; 10 Doses)) 0 gm INH DAILY [facility] Last Admin: 12/04/20 08:07 Dose: 2 puff Documented by: Warfarin Sodium (Warfarin 2.5 Mg Tab) 2.5 mg PO SuTuWeThSa@1300 [facility] Last Admin: 12/03/20 13:54 Dose: 2.5 mg Documented by: Warfarin Sodium (Warfarin 2.5 Mg Tab) 5 mg PO MoFr@1300 [facility] Discontinued Medications Albuterol/Ipratropium (Albuterol/Ipratropium 3.0-0.5 Mg/3 Ml Neb Soln) 3 ml NEB QID PRN PRN Reason: Shortness Of Breath/wheezing Docusate Sodium (Docusate Sodium 100 Mg Cap) 100 mg PO BID PRN PRN Reason: Constipation Sodium Chloride (Normal Saline) 1,000 mls @ 500 mls/hr IV ASDIRECTED [facility] Last Admin: 12/02/20 16:25 Dose: 500 mls/hr Documented by: Lactated Ringer's (Ringers, Lactated) 1,000 mls @ 999 mls/hr IV ASDIRECTED [facility] Last Admin: 12/02/20 18:35 Dose: 999 mls/hr Documented by: Piperacillin Sod/Tazobactam (Sod 3.375 gm/ Sodium Chloride) 50 mls @ 100 mls/hr IV ONETIME [facility] Last Admin: 12/02/20 18:41 Dose: 100 mls/hr Documented by: Piperacillin Sod/Tazobactam (Sod 3.375 gm/ Sodium Chloride) 50 mls @ 100 mls/hr IV Q6H [facility] Sodium Chloride (Normal Saline) 1,000 mls @ 125 mls/hr IV ASDIRECTED [facility] Last Admin: 12/02/20 21:28 Dose: 75 mls/hr Documented by: Piperacillin Sod/Tazobactam (Sod 2.25 gm/ Sodium Chloride) 50 mls @ 100 mls/hr IV Q8H [facility] Last Admin: 12/03/20 01:50 Dose: 100 mls/hr Documented by: Sodium Chloride (Normal Saline) 1,000 mls @ 75 mls/hr IV ASDIRECTED [facility] Last Admin: 12/03/20 10:08 Dose: 75 mls/hr Documented by: Piperacillin/Tazobactam/ (Dextrose 2.25 gm/ Premix) 50 mls @ 100 mls/hr IV Q6H [facility] Last Admin: 12/04/20 03:12 Dose: 100 mls/hr Documented by: Non-Formulary Medication (Folic Acid [Folic Acid]) 400 mcg PO DAILY [facility] Non-Formulary Medication (Mirabegron [Myrbetriq]) 50 mg PO DAILY [facility] Pantoprazole Sodium (Pantoprazole 40 Mg Vial) 40 mg IV BEDTIME [facility] Last Admin: 12/02/20 21:24 Dose: 40 mg Documented by: - Exam Quality Assessment: Supplemental Oxygen General: Alert, Oriented, Cooperative, No Acute Distress Lungs: Normal Respiratory Effort. No: Wheezing Cardiovascular: Regular Rate, Regular Rhythm GI/Abdominal Exam: Soft, No Distention, Other (obese) Extremities: Pedal Edema. No: Increased Warmth Skin: Warm, Dry Psy/Mental Status: Alert, Normal Affect - Patient Data Lab Results Last 24 hrs: Laboratory Results - last 24 hr 12/04/20 12/04/20 12/04/20 Range/Units 04:10 04:10 04:10 WBC 7.7 (4.5-11.0) K/uL RBC 3.48 (3.30-5.50) M/uL Hgb 9.7 L (12.0-15.0) g/dL Hct 33.5 L (36.0-48.0) % MCV 96 (80-98) fL MCH 28 (27-31) pg MCHC 29 L (32-36) % Plt Count 203 (150-400) K/uL PT 20.0 H (9.2-10.6) sec INR 2.0 Sodium 146 (140-148) mmol/L Potassium 4.4 (3.6-5.2) mmol/L Chloride 106 (100-108) mmol/L Carbon Dioxide > 45 H (21-32) mmol/L Anion Gap -0.6 L (5.0-14.0) mmol/L BUN 28 H (7-18) mg/dL Creatinine 1.1 H (0.6-1.0) mg/dL Est Cr Clr Drug Dosing 27.19 mL/min Estimated GFR (MDRD) 47 L (>60) Glucose 86 (74-106) mg/dL Calcium 8.5 (8.5-10.1) mg/dL Result Diagrams: 12/04/20 04:10 12/04/20 04:10 Luis Results Last 24 hrs: Microbiology 12/02/20 18:23 Urine Culture - Final Urine, Bladder Escherichia Coli 12/02/20 19:40 Aerobic Blood Culture - Preliminary Blood - Arm, Left NO GROWTH AFTER 1 DAY Anaerobic Blood Culture - Preliminary NO GROWTH AFTER 1 DAY 12/02/20 18:40 Aerobic Blood Culture - Preliminary Blood - Arm, Left NO GROWTH AFTER 1 DAY Anaerobic Blood Culture - Preliminary NO GROWTH AFTER 1 DAY Sepsis Event Note - Evaluation Sepsis Screening Result: No Definite Risk - Focused Exam Vital Signs: Vital Signs Temp Pulse Resp BP Pulse Ox 12/04/20 07:56 37.1 C 70 20 140/61 90 L 12/04/20 07:03 70 12/04/20 03:09 37.3 C 70 18 121/57 L 90 L - Problem List Review Problem List Initiated/Reviewed/Updated: Yes - My Orders Last 24 Hours: My Active Orders 12/03/20 09:48 Convert IV to Saline Lock [OM.PC] Routine 12/03/20 11:00 Albuterol/Ipratropium [DuoNeb 3.0-0.5 MG/3 ML] 3 ml NEB QIDRT 12/04/20 07:30 Pantoprazole [ProTONIX] 40 mg PO ACBREAKFAST 12/04/20 21:00 Melatonin 9 mg PO BEDTIME cephALEXin [Keflex] 500 mg PO BID - Plan Plan:: ASSESSMENT AND PLAN - Acute cystitis without hematuria-history of recurrent urinary tract infections. Culture grew out E. coli that was sensitive to the ceftriaxone -Saline lock IV -Change antibiotics to cephalexin, anticipate 3 additional days of treatment -Follow-up cultures -Physical therapy for weakness Acute kidney injury-creatinine elevated more than 50% beyond baseline in the setting of acute infection. This has improved with treatment. -Repeat labs in the morning COPD WITHOUT EXACERBATION-respiratory status stable. She does use oxygen at home. -Supplement oxygen as needed -Duo nebs every 6 hours prn , Albuterol nebs every 4 hours prn -Robitussin dm 10 ml every 6 hours as needed for painful cough CARDIOVASCULAR DISEASE, HISTORY OF A.FIB, PACEMAKER-stable. INR acceptable. -continue outpatient medications -Coumadin 2.5 mg on Sat, Saturday -Coumadin 5 mg on Sat, Sat, Sat. SKIN BREAKDOWN OF LOWER BACK AND GROIN FOLD-sacral pressure ulcer was present on admission. -allevyn dressing to sacral wound -groin folds- intradry pads and Nystatin creme bid -monitor for any skin changes -consider consult to wound clinic Morbid obesity-BMI greater than 50 Maintenance issues -Nutrition: full liquid diet as advance as tolerated, patient content with full liquids at this time -DVT - Coumadin -GI - PPI Disposition: [facility] or extended care facility depending on how her strength is on Saturday Doyle Abarca MD
[2020-12-04] MEDS: Furosemide 40 MG Tab PO SCH (10:37)
[2020-12-04] MEDS: Pregabalin 100 MG Cap PO SCH ×3 (10:39→21:15)
[2020-12-04] MEDS: Metoprolol Succinate 25 MG Tab.ER PO SCH (10:39)
[2020-12-04] MEDS: Benazepril 10 MG Tab PO SCH (10:41)
[2020-12-04] MEDS: Folic Acid 1 MG Tab PO SCH (10:41)
[2020-12-04] MEDS: Polyethylene Glycol 3350 Powder 17 GM Packet PO SCH (10:41)
[2020-12-04] MEDS: Nystatin Crm 30 GM Tube TOP SCH ×3 (10:41→21:17)
[2020-12-04] MEDS: Cyanocobalamin (Vitamin B12) 1,000 MCG Tab PO SCH (10:42)
[2020-12-04] MEDS: Cholecalciferol (Vitamin D3) 25 MCG Tab PO SCH (10:42)
[2020-12-04] MEDS: Warfarin 2.5 MG Tab PO SCH (13:53)
[2020-12-04] MEDS: Cephalexin 250 MG Cap PO SCH (21:15)
[2020-12-04] MEDS: Melatonin 3 MG Tab PO SCH (21:15)
[2020-12-05] MEDS: Pantoprazole 40 MG Tab.CR PO SCH (07:01)
[2020-12-05] MEDS: Albuterol/Ipratropium 3.0-0.5 MG/3 ML Neb Soln NEB SCH ×4 (07:14→20:59)
[2020-12-05] MEDS: Tiotropium Bromide 4 GM Inhalation Spray (2.5mcg/1 dose; 10 doses) INH SCH (07:25)
[2020-12-05] MEDS: predniSONE 20 MG Tab PO SCH (07:46)
--- NOTE | 2020-12-05 09:38 | CR ---
CHEST: Portable 12/02/2020 at 6:27 PM CLINICAL HISTORY:Shortness of breath, confusion COMPARISON:February 2019 FINDINGS: Heart is enlarged. Pulmonary vascularity is mildly cephalized. There is mild generalized prominence of lung markings. Resolution is limited due to patient's large body habitus. There are no effusions. Patient has a permanent cardiac pacer. Impression: Cardiac megaly. With vascular cephalization suggests some pulmonary venous hypertension. Generalized prominence of the interstitial markings may be some mild interstitial edema from CHF. Pneumonitis is not excluded
[2020-12-05] MEDS: Cephalexin 250 MG Cap PO SCH ×2 (09:56→20:58)
[2020-12-05] MEDS: Furosemide 40 MG Tab PO SCH (09:57)
[2020-12-05] MEDS: Benazepril 10 MG Tab PO SCH (09:58)
[2020-12-05] MEDS: Polyethylene Glycol 3350 Powder 17 GM Packet PO SCH (09:59)
[2020-12-05] MEDS: Metoprolol Succinate 25 MG Tab.ER PO SCH (09:59)
[2020-12-05] MEDS: Cholecalciferol (Vitamin D3) 25 MCG Tab PO SCH (10:01)
[2020-12-05] MEDS: Cyanocobalamin (Vitamin B12) 1,000 MCG Tab PO SCH (10:01)
[2020-12-05] MEDS: Folic Acid 1 MG Tab PO SCH (10:02)
[2020-12-05] MEDS: Pregabalin 100 MG Cap PO SCH ×3 (10:20→20:58)
[2020-12-05] MEDS: Nystatin Crm 15 GM Tube TOP SCH ×3 (10:30→20:59)
[2020-12-05] MEDS ORDERED: Warfarin 2.5 MG Tab PO SCH (13:00)
[2020-12-05] MEDS: Melatonin 3 MG Tab PO SCH (20:58)
--- NOTE | 2020-12-05 21:23 | PCM.PN ---
- General Info Date of Service: 12/05/20 Admission Dx/Problem (Free Text): Admission Diagnosis/Problem Admission Diagnosis/Problem Urosepsis Subjective Update: Catracho says she is feeling better today and she has been able to get up and out of bed 3 times today. She states that she is working her best to get stronger so that she can go back to [place]. She did have an episode of hypoxia this morning and I asked her about that and she normally wears a CPAP at night when [facility]. - Review of Systems General: Reports: Weakness HEENT: Reports: No Symptoms Pulmonary: Reports: No Symptoms Cardiovascular: Reports: No Symptoms Gastrointestinal: Reports: No Symptoms Genitourinary: Reports: No Symptoms Musculoskeletal: Reports: No Symptoms Skin: Reports: No Symptoms Neurological: Reports: Difficulty Walking Psychiatric: Reports: No Symptoms - Patient Data Vitals - Most Recent: Last Vital Signs Temp 97.3 F 12/05/20 19:17 Pulse 70 12/05/20 19:17 Resp 18 12/05/20 19:17 BP 125/63 12/05/20 19:17 Pulse Ox 95 12/05/20 19:17 Weight - Most Recent: 273 lb 0.01 oz I&O - Last 24 Hours: Intake & Output 12/05/20 12/05/20 12/05/20 06:59 14:59 22:59 Intake Total 900 Output Total 200 Balance -200 900 Lab Results Last 24 Hours: Laboratory Results - last 24 hr 12/05/20 Range/Units 09:23 PT 20.8 H (9.2-10.6) sec INR 2.1 Luis Results Last 24 Hours: Microbiology 12/02/20 19:40 Aerobic Blood Culture - Preliminary Blood - Arm, Left NO GROWTH AFTER 3 DAYS Anaerobic Blood Culture - Preliminary NO GROWTH AFTER 3 DAYS 12/02/20 18:40 Aerobic Blood Culture - Preliminary Blood - Arm, Left NO GROWTH AFTER 3 DAYS Anaerobic Blood Culture - Preliminary NO GROWTH AFTER 3 DAYS Med Orders - Current: Current Medications Acetaminophen (Acetaminophen 650 Mg Supp) 650 mg RECTAL Q4H PRN PRN Reason: Mild pain/fever Acetaminophen (Acetaminophen 325 Mg Tab) 650 mg PO Q4H PRN PRN Reason: Pain (Mild 1-3)/fever Hydrocodone Bitart/Acetaminophen (Acetaminophen/Hydrocodone 325-5 Mg Tab) 1 - 2 tab PO Q6H PRN PRN Reason: Pain (moderate 4-6) Al Hydroxide/Mg Hydroxide (Aluminum Hydroxide/Magnesium Hydroxide/Simethicone Susp 30 Ml Cup) 30 ml PO Q4H PRN PRN Reason: Indigestion Albuterol (Albuterol 0.083% 2.5 Mg/3 Ml Neb Soln) 2.5 mg NEB Q4H PRN PRN Reason: Shortness Of Breath/wheezing Last Admin: 12/03/20 17:52 Dose: 2.5 mg Documented by: Albuterol/Ipratropium (Albuterol/Ipratropium 3.0-0.5 Mg/3 Ml Neb Soln) 3 ml NEB QIDRT [facility] Last Admin: 12/05/20 20:59 Dose: 3 ml Documented by: Benazepril HCl (Benazepril 10 Mg Tab) 20 mg PO DAILY [facility] Last Admin: 12/05/20 09:58 Dose: 20 mg Documented by: Bisacodyl (Bisacodyl 5 Mg Tab) 5 mg PO DAILY PRN PRN Reason: Constipation Bisacodyl (Bisacodyl 10 Mg Supp) 10 mg RECTAL DAILY PRN PRN Reason: Constipation Cephalexin (Cephalexin 250 Mg Cap) 500 mg PO BID [facility] Last Admin: 12/05/20 20:58 Dose: 500 mg Documented by: Cholecalciferol (Cholecalciferol (Vitamin D3) 25 Mcg Tab) 50 mcg PO DAILY [facility] Last Admin: 12/05/20 10:01 Dose: 50 mcg Documented by: Cyanocobalamin (Cyanocobalamin (Vitamin B12) 1,000 Mcg Tab) 1,000 mcg PO DAILY [facility] Last Admin: 12/05/20 10:01 Dose: 1,000 mcg Documented by: Diclofenac Sodium (Diclofenac Sodium 1% Gel 100 Gm Tube) 0 gm TOP BID PRN PRN Reason: Pain Docusate Sodium (Docusate Sodium 100 Mg Cap) 100 - 300 mg PO DAILY PRN PRN Reason: Constipation Folic Acid (Folic Acid 1 Mg Tab) 1 mg PO DAILY [facility] Last Admin: 12/05/20 10:02 Dose: 1 mg Documented by: Furosemide (Furosemide 40 Mg Tab) 40 mg PO DAILY [facility] Last Admin: 12/05/20 09:57 Dose: 40 mg Documented by: Guaifenesin/Dextromethorphan (Guaifenesin/Dextromethorphan 100-10 Mg/5 Ml Soln 10 Ml Cup) 10 ml PO Q4H PRN PRN Reason: Cough Lorazepam (Lorazepam 2 Mg/Ml Sdv) 1 mg IV Q6H PRN PRN Reason: Nausea/Vomiting Magnesium Hydroxide (Magnesium Hydroxide 400 Mg/5 Ml Susp 30 Ml Cup) 30 ml PO DAILY PRN PRN Reason: Constipation Melatonin (Melatonin 3 Mg Tab) 9 mg PO BEDTIME [facility] Last Admin: 12/05/20 20:58 Dose: 9 mg Documented by: Metoprolol Succinate (Metoprolol Succinate 25 Mg Tab.Er) 25 mg PO DAILY [facility] Last Admin: 12/05/20 09:59 Dose: 25 mg Documented by: Morphine Sulfate (Morphine 2 Mg/Ml Syringe) 2 mg IVPUSH Q2H PRN PRN Reason: Pain (severe 7-10) Nystatin (Nystatin Crm 15 Gm Tube) 0 gm TOP TID [facility] Last Admin: 12/05/20 20:59 Dose: 1 applicful Documented by: Pantoprazole Sodium (Pantoprazole 40 Mg Tab.Cr) 40 mg PO ACBREAKFAST [facility] Last Admin: 12/05/20 07:01 Dose: 40 mg Documented by: Polyethylene Glycol (Polyethylene Glycol 3350 Powder 17 Gm Packet) 17 gm PO DAILY [facility] Last Admin: 12/05/20 09:59 Dose: 17 gm Documented by: Prednisone (Prednisone 20 Mg Tab) 20 mg PO DAILY@0800 [facility] Last Admin: 12/05/20 07:46 Dose: 20 mg Documented by: Pregabalin (Pregabalin 100 Mg Cap) 100 mg PO TID [facility] Last Admin: 12/05/20 20:58 Dose: 100 mg Documented by: Tiotropium [place] (Tiotropium [place] 4 Gm Inhalation [place] (2.5mcg/1 Dose; 10 Doses)) 0 gm INH DAILYRT [facility] Last Admin: 12/05/20 07:25 Dose: 2 puff Documented by: Warfarin Sodium (Warfarin 2.5 Mg Tab) 2.5 mg PO SuTuWeThSa@1300 [facility] Last Admin: 12/04/20 13:53 Dose: 2.5 mg Documented by: Warfarin Sodium (Warfarin 2.5 Mg Tab) 5 mg PO MoFr@1300 [facility] Last Admin: 12/05/20 12:59 Dose: 5 mg Documented by: Discontinued Medications Albuterol/Ipratropium (Albuterol/Ipratropium 3.0-0.5 Mg/3 Ml Neb Soln) 3 ml NEB QID PRN PRN Reason: Shortness Of Breath/wheezing Docusate Sodium (Docusate Sodium 100 Mg Cap) 100 mg PO BID PRN PRN Reason: Constipation Sodium Chloride (Normal Saline) 1,000 mls @ 500 mls/hr IV ASDIRECTED [facility] Last Admin: 12/02/20 16:25 Dose: 500 mls/hr Documented by: Lactated Ringer's (Ringers, Lactated) 1,000 mls @ 999 mls/hr IV ASDIRECTED [facility] Last Admin: 12/02/20 18:35 Dose: 999 mls/hr Documented by: Piperacillin Sod/Tazobactam (Sod 3.375 gm/ Sodium Chloride) 50 mls @ 100 mls/hr IV ONETIME [facility] Last Admin: 12/02/20 18:41 Dose: 100 mls/hr Documented by: Piperacillin Sod/Tazobactam (Sod 3.375 gm/ Sodium Chloride) 50 mls @ 100 mls/hr IV Q6H [facility] Sodium Chloride (Normal Saline) 1,000 mls @ 125 mls/hr IV ASDIRECTED [facility] Last Admin: 12/02/20 21:28 Dose: 75 mls/hr Documented by: Piperacillin Sod/Tazobactam (Sod 2.25 gm/ Sodium Chloride) 50 mls @ 100 mls/hr IV Q8H [facility] Last Admin: 12/03/20 01:50 Dose: 100 mls/hr Documented by: Sodium Chloride (Normal Saline) 1,000 mls @ 75 mls/hr IV ASDIRECTED [facility] Last Admin: 12/03/20 10:08 Dose: 75 mls/hr Documented by: Piperacillin/Tazobactam/ (Dextrose 2.25 gm/ Premix) 50 mls @ 100 mls/hr IV Q6H [facility] Last Admin: 12/04/20 10:51 Dose: 100 mls/hr Documented by: Non-Formulary Medication (Folic Acid [Folic Acid]) 400 mcg PO DAILY [facility] Non-Formulary Medication (Mirabegron [Myrbetriq]) 50 mg PO DAILY [facility] Nystatin (Nystatin Crm 30 Gm Tube) 0 gm TOP TID [facility] Last Admin: 10/10/21 21:17 Dose: 1 applic Documented by: Pantoprazole Sodium (Pantoprazole 40 Mg Vial) 40 mg IV BEDTIME [facility] Last Admin: 12/02/20 21:24 Dose: 40 mg Documented by: Tiotropium [place] (Tiotropium [place] 4 Gm Inhalation [place] (2.5mcg/1 Dose; 10 Doses)) 0 gm INH DAILY [facility] Last Admin: 12/04/20 08:07 Dose: 2 puff Documented by: - Exam General: Alert, Oriented, Cooperative, No Acute Distress HEENT: Pupils Equal, EOMI, Mucous Membr. Moist/[place] Neck: Supple, Trachea Midline Lungs: Clear to Auscultation, Other (Increased respiratory effort and cough w hile conversing) Cardiovascular: Regular Rate, Regular Rhythm GI/Abdominal Exam: Normal Bowel Sounds, Soft, Non-Tender, No Distention Extremities: Normal Inspection, Non-Tender Skin: Warm, Dry, Intact Neurological: No New Focal Deficit Psy/Mental Status: Alert, Normal Affect, Normal Mood - Patient Data Lab Results Last 24 hrs: Laboratory Results - last 24 hr 12/05/20 Range/Units 09:23 PT 20.8 H (9.2-10.6) sec INR 2.1 Result Diagrams: 12/04/20 04:10 12/04/20 04:10 Luis Results Last 24 hrs: Microbiology 12/02/20 19:40 Aerobic Blood Culture - Preliminary Blood - Arm, Left NO GROWTH AFTER 3 DAYS Anaerobic Blood Culture - Preliminary NO GROWTH AFTER 3 DAYS 12/02/20 18:40 Aerobic Blood Culture - Preliminary Blood - Arm, Left NO GROWTH AFTER 3 DAYS Anaerobic Blood Culture - Preliminary NO GROWTH AFTER 3 DAYS Sepsis Event Note - Evaluation Sepsis Screening Result: No Definite Risk - Focused Exam Vital Signs: Vital Signs Temp Pulse Pulse Resp BP BP Pulse Ox 12/05/20 19:17 97.3 F 70 18 125/63 95 12/05/20 16:39 97.6 F 48 L 16 114/55 L 91 L 12/05/20 13:00 97.9 F 64 18 141/76 H 95 12/05/20 09:59 73 137/48 L 12/05/20 09:58 137/48 L 12/05/20 09:30 97.5 F 55 L 18 137/48 L 95 - Problem List & Annotations (1) Intertriginous skin ulcer, limited to breakdown of skin SNOMED Code(s): 02605013, 84289067, 639297828 Code(s): L98.491 - NON-PRS CHRONIC ULCER SKIN/ SITES LIMITED TO BRKDWN SKIN Status: Acute Priority: Low Current Visit: Yes (2) UTI (urinary tract infection) SNOMED Code(s): 88850053 Code(s): N39.0 - URINARY TRACT INFECTION, SITE NOT SPECIFIED Status: Acute Current Visit: Yes (3) COPD (chronic obstructive pulmonary disease) SNOMED Code(s): 01402954 Code(s): J44.9 - CHRONIC OBSTRUCTIVE PULMONARY DISEASE, UNSPECIFIED Status: Chronic Priority: Low Current Visit: No Qualifiers: (4) Sleep apnea SNOMED Code(s): 87722158 Code(s): G47.30 - SLEEP APNEA, UNSPECIFIED Status: Chronic Current Visit: No - Problem List Review Problem List Initiated/Reviewed/Updated: Yes - Plan Plan:: ASSESSMENT AND PLAN - Acute cystitis without hematuria-history of recurrent urinary tract infections. Culture grew out E. coli that was sensitive to the ceftriaxone -Saline lock IV -Change antibiotics to cephalexin 1/3 days -Follow-up cultures -Physical therapy for weakness Acute kidney injury-creatinine elevated more than 50% beyond baseline in the setting of acute infection. This has improved with treatment. -Repeat labs in the morning COPD WITHOUT EXACERBATION-respiratory status stable. She does use oxygen at home. -Supplement oxygen as needed -Duo nebs every 6 hours prn , Albuterol nebs every 4 hours prn -Robitussin dm 10 ml every 6 hours as needed for painful cough CARDIOVASCULAR DISEASE, HISTORY OF A.FIB, PACEMAKER-stable. INR acceptable. -continue outpatient medications -Coumadin 2.5 mg on Sat, Saturday -Coumadin 5 mg on Sat, Sat, Sat. Obstructive sleep apnea -Uses a CPAP at night and thinks her pressures might be 5 will need to be adjusted and will be started on CPAP while inpatient SKIN BREAKDOWN OF LOWER BACK AND GROIN FOLD-sacral pressure ulcer was present on admission. -allevyn dressing to sacral wound -groin folds- intradry pads and Nystatin creme bid -monitor for any skin changes -consider consult to wound clinic Morbid obesity-BMI greater than 50 Maintenance issues -Nutrition: full liquid diet as advance as tolerated, patient content with full liquids at this time -DVT - Coumadin -GI - PPI Disposition: [facility] living home or extended care facility depending on how her strength improves. She may be able to go home tomorrow Tana Benitez, DO
[2020-12-06] MEDS: Tiotropium Bromide 4 GM Inhalation Spray (2.5mcg/1 dose; 10 doses) INH SCH (07:16)
[2020-12-06] MEDS: predniSONE 20 MG Tab PO SCH (07:18)
[2020-12-06] MEDS: Pantoprazole 40 MG Tab.CR PO SCH (07:18)
[2020-12-06] MEDS: Albuterol/Ipratropium 3.0-0.5 MG/3 ML Neb Soln NEB SCH ×2 (07:32→11:01)
[2020-12-06] MEDS: Cephalexin 250 MG Cap PO SCH (08:05)
[2020-12-06] MEDS: Folic Acid 1 MG Tab PO SCH (08:06)
[2020-12-06] MEDS: Cyanocobalamin (Vitamin B12) 1,000 MCG Tab PO SCH (08:06)
[2020-12-06] MEDS: Metoprolol Succinate 25 MG Tab.ER PO SCH (08:06)
[2020-12-06] MEDS: Polyethylene Glycol 3350 Powder 17 GM Packet PO SCH (08:07)
[2020-12-06] MEDS: Benazepril 10 MG Tab PO SCH (08:07)
[2020-12-06] MEDS: Cholecalciferol (Vitamin D3) 25 MCG Tab PO SCH (08:07)
[2020-12-06] MEDS: Furosemide 40 MG Tab PO SCH (08:07)
[2020-12-06] MEDS: Nystatin Crm 15 GM Tube TOP SCH (08:07)
[2020-12-06 08:08] VITALS: BP 154/60
[2020-12-06] MEDS: Pregabalin 100 MG Cap PO SCH (08:10)
[2020-12-06 11:06] VITALS: PULSE 70
[2020-12-06] MEDS: Warfarin 2.5 MG Tab PO SCH (12:12)
--- NOTE | 2020-12-12 09:05 | PCM.DCSUM1 ---
Discharge Summary - Hospital Course Free Text/Narrative:: Ms. Hayden is an 85-year-old female with past medical history significant for atrial fibrillation status post pacemaker, and COPD who presented with lethargy and inability to respond to questions at her assisted living facility, [facility]. She was brought in by EMS. Her symptoms had been noted the day prior during and orthopedics appointment. Her initial vital signs in the emergency department: Temp 97.2, pulse 72, respiratory rate 25, blood pressure 112/59, pulse ox 92. Her labs were significant for a white blood cell count of 11.1, hemoglobin 10.4, and a lactic acid of 2.7. She had a urinalysis done via cath which showed leukocyte esterase , trace protein and blood, and packed white blood cells with many bacteria. She was given fluid hydration with IV normal saline. And started on Zosyn. She also had an acute kidney injury. Her urine culture grew E. coli sensitive to ceftriaxone and cephalosporins. Her kidney function improved. She was sent home to [facility] with the additional doses of antibiotic. Diagnosis: Stroke: No Modified Daniel Scale: No Signif.Disability Despite Sympt.Able to Carry Out Usual Act./Duties Modified [place] Scale Score: 1 - Discharge Data Discharge Date: 12/06/20 Discharge Disposition: DC/Tfer to SNF 03 Condition: Good - Referral to Home Health Primary Care Physician: Marlon Morris MD - Discharge Diagnosis/Problem(s) (1) Intertriginous skin ulcer, limited to breakdown of skin SNOMED Code(s): 43809812, 78541732, 268844198 ICD Code: L98.491 - NON-PRS CHRONIC ULCER SKIN/ SITES LIMITED TO BRKDWN SKIN Status: Acute Priority: Low (2) UTI (urinary tract infection) SNOMED Code(s): 62164376 ICD Code: N39.0 - URINARY TRACT INFECTION, SITE NOT SPECIFIED Status: Acute (3) COPD (chronic obstructive pulmonary disease) SNOMED Code(s): 78612483 ICD Code: J44.9 - CHRONIC OBSTRUCTIVE PULMONARY DISEASE, UNSPECIFIED Status: Chronic Priority: Low Qualifiers: (4) Sleep apnea SNOMED Code(s): 94341397 ICD Code: G47.30 - SLEEP APNEA, UNSPECIFIED Status: Chronic - Patient Summary/Data Consults: Consultations 12/02/20 20:31 OT Evaluation and Treatment [CONS] Routine Please Evaluate and Treat. OT Reason for Consult: Discharge Planning This query below is only for informational purposes and is not editable. PT Evaluation and Treatment [CONS] Routine Please Evaluate and Treat. PT Reason for Consult: Strengthening This query below is only for informational purposes and is not editable. 12/02/20 22:49 Consult to Case Management/Director Service [CONS] Routine Comment: Physician Instructions: Service(s) to be Consulted: Case Management Reason for Consult: pressure ulcer noted on admit - Patient Instructions Diet: Heart Healthy Diet - Discharge Plan Prescriptions/Med Rec: cephALEXin [Keflex] 500 mg PO BID #1 cap Home Medications: Home Meds Albuterol [Ventolin HFA] 2 puff INH Q6HR PRN 11/25/12 [History] Benazepril HCl [Lotensin] 20 mg PO DAILY 11/25/12 [History] Cholecalciferol (Vitamin D3) [Vitamin D3] 2,000 unit PO DAILY 11/25/12 [History] Metoprolol Succinate [Toprol XL] 25 mg PO DAILY 11/25/12 [History] Sennosides/Docusate Sodium [Senokot-S Tablet] 1 tab PO DAILY 11/25/12 [History] polyethylene glycoL 3350 [MiraLAX] 17 gm PO DAILY 11/25/12 [History] Folic Acid 400 mcg PO DAILY 02/17/15 [History] Warfarin [Coumadin] 2.5 mg PO .SAT,SAT,SAT,, 02/17/15 [History] Albuterol/Ipratropium [DuoNeb 3.0-0.5 MG/3 ML] 3 ml INH Q4H PRN 05/10/15 [His tory] Naproxen [Naprosyn] 375 mg PO DAILY PRN 05/10/15 [History] Docusate Sodium 100 - 300 mg PO DAILY PRN 11/14/17 [History] Nystatin [Nystatin Crm] 1 applic TOP TID 11/14/17 [History] Tiotropium [Spiriva HandiHaler] 1 cap INH DAILY 11/14/17 [History] Warfarin [Coumadin] 5 mg PO .SAT,Sat02/26/19 [History] Mirabegron [Myrbetriq] 50 mg PO DAILY 07/17/19 [History] Aspirin [Halfprin] 81 mg PO DAILY 08/22/20 [History] Furosemide 40 mg PO DAILY 08/22/20 [History] Pravastatin Sodium 20 mg PO DAILY 08/22/20 [History] Pregabalin [Lyrica] 100 mg PO TID 08/22/20 [History] predniSONE [Prednisone] 20 mg PO DAILY 08/22/20 [History] Bisacodyl [Laxative Suppository] 10 mg RC DAILY PRN 10/05/20 [History] Carbamide Peroxide [Debrox] 5 drop EARBOTH BID PRN 10/05/20 [History] Dextromethorphan/guaiFENesin [Robitussin DM] 10 ml PO Q4H PRN 10/05/20 [History] Mag Hydrox/Aluminum Hyd/Simeth [Maalox Maximum Strength Susp] 30 ml PO Q4H PRN 10/05/20 [History] Magnesium Hydroxide [Milk of Magnesia] 30 ml PO DAILY PRN 10/05/20 [History] Acetaminophen [Acetaminophen Extra Strength] 1,000 mg PO TID PRN 10/14/20 [History] Cyanocobalamin (Vitamin B12) [Vitamin B12] 1,000 mcg PO DAILY 10/14/20 [History] Acetaminophen/HYDROcodone [HYDROcodone-Acetaminophen 5-325 MG *] 1 - 2 tab PO Q6H PRN #36 tab 10/24/20 [Rx] Diclofenac Sodium [Voltaren 1% Gel] 1 applic TOP BID PRN #100 gm 12/01/20 [Rx] Pantoprazole Sodium [Protonix] 40 mg PO DAILY 12/02/20 [History] cephALEXin [Keflex] 500 mg PO BID #1 cap 12/06/20 [Rx] Patient Handouts: Urinary Tract Infection, Adult, [id number], Urosepsis, Adult Forms: ED Department Discharge Referrals: Marlon Morris MD [Primary Care Provider] - 12/14/20 1:30 pm (Please arrive 15 minutes early to register for your appointment.) - Discharge Summary/Plan Comment DC Time >30 min.: No Total # of Minutes for Discharge Time: 30 - General Info Date of Service: 12/06/20 Admission Dx/Problem (Free Text: Admission Diagnosis/Problem Admission Diagnosis/Problem Urosepsis Subjective Update: Ms. Hayden was feeling good on her day of discharge and ready to go home. She was still having some weakness but was able to get up and use the restroom with assistance. - Review of Systems General: Reports: Weakness HEENT: Reports: No Symptoms Pulmonary: Reports: No Symptoms Cardiovascular: Reports: No Symptoms Gastrointestinal: Reports: No Symptoms Genitourinary: Reports: No Symptoms Musculoskeletal: Reports: No Symptoms Skin: Reports: No Symptoms Neurological: Reports: No Symptoms Psychiatric: Reports: No Symptoms - Patient Data Vitals - Most Recent: Last Vital Signs Temp 97.1 F 12/06/20 11:00 Pulse 70 12/06/20 11:00 Resp 18 12/06/20 11:00 BP 154/60 H 12/06/20 08:07 Pulse Ox 100 12/06/20 11:00 Weight - Most Recent: 273 lb 0.01 oz Med Orders - Current: Current Medications Discontinued Medications Acetaminophen (Acetaminophen 650 Mg Supp) 650 mg RECTAL Q4H PRN PRN Reason: Mild pain/fever Acetaminophen (Acetaminophen 325 Mg Tab) 650 mg PO Q4H PRN PRN Reason: Pain (Mild 1-3)/fever Hydrocodone Bitart/Acetaminophen (Acetaminophen/Hydrocodone 325-5 Mg Tab) 1 - 2 tab PO Q6H PRN PRN Reason: Pain (moderate 4-6) Al Hydroxide/Mg Hydroxide (Aluminum Hydroxide/Magnesium Hydroxide/Simethicone Susp 30 Ml Cup) 30 ml PO Q4H PRN PRN Reason: Indigestion Albuterol (Albuterol 0.083% 2.5 Mg/3 Ml Neb Soln) 2.5 mg NEB Q4H PRN PRN Reason: Shortness Of Breath/wheezing Last Admin: 12/03/20 17:52 Dose: 2.5 mg Documented by: Albuterol/Ipratropium (Albuterol/Ipratropium 3.0-0.5 Mg/3 Ml Neb Soln) 3 ml NEB QID PRN PRN Reason: Shortness Of Breath/wheezing Albuterol/Ipratropium (Albuterol/Ipratropium 3.0-0.5 Mg/3 Ml Neb Soln) 3 ml NEB QIDRT ANGELA Last Admin: 12/06/20 11:01 Dose: 3 ml Documented by: Benazepril HCl (Benazepril 10 Mg Tab) 20 mg PO DAILY [facility] Last Admin: 12/06/20 08:07 Dose: 20 mg Documented by: Bisacodyl (Bisacodyl 5 Mg Tab) 5 mg PO DAILY PRN PRN Reason: Constipation Bisacodyl (Bisacodyl 10 Mg Supp) 10 mg RECTAL DAILY PRN PRN Reason: Constipation Cephalexin (Cephalexin 250 Mg Cap) 500 mg PO BID [facility] Last Admin: 12/06/20 08:05 Dose: 500 mg Documented by: Cholecalciferol (Cholecalciferol (Vitamin D3) 25 Mcg Tab) 50 mcg PO DAILY [facility] Last Admin: 12/06/20 08:07 Dose: 50 mcg Documented by: Cyanocobalamin (Cyanocobalamin (Vitamin B12) 1,000 Mcg Tab) 1,000 mcg PO DAILY [facility] Last Admin: 12/06/20 08:06 Dose: 1,000 mcg Documented by: Diclofenac Sodium (Diclofenac Sodium 1% Gel 100 Gm Tube) 0 gm TOP BID PRN PRN Reason: Pain Docusate Sodium (Docusate Sodium 100 Mg Cap) 100 mg PO BID PRN PRN Reason: Constipation Docusate Sodium (Docusate Sodium 100 Mg Cap) 100 - 300 mg PO DAILY PRN PRN Reason: Constipation Folic Acid (Folic Acid 1 Mg Tab) 1 mg PO DAILY [facility] Last Admin: 12/06/20 08:06 Dose: 1 mg Documented by: Furosemide (Furosemide 40 Mg Tab) 40 mg PO DAILY [facility] Last Admin: 12/06/20 08:07 Dose: 40 mg Documented by: Guaifenesin/Dextromethorphan (Guaifenesin/Dextromethorphan 100-10 Mg/5 Ml Soln 10 Ml Cup) 10 ml PO Q4H PRN PRN Reason: Cough Sodium Chloride (Normal Saline) 1,000 mls @ 500 mls/hr IV ASDIRECTED [facility] Last Admin: 12/02/20 16:25 Dose: 500 mls/hr Documented by: Lactated Ringer's (Ringers, Lactated) 1,000 mls @ 999 mls/hr IV ASDIRECTED [facility] Last Admin: 12/02/20 18:35 Dose: 999 mls/hr Documented by: Piperacillin Sod/Tazobactam (Sod 3.375 gm/ Sodium Chloride) 50 mls @ 100 mls/hr IV ONETIME [facility] Last Admin: 12/02/20 18:41 Dose: 100 mls/hr Documented by: Piperacillin Sod/Tazobactam (Sod 3.375 gm/ Sodium Chloride) 50 mls @ 100 mls/hr IV Q6H [facility] Sodium Chloride (Normal Saline) 1,000 mls @ 125 mls/hr IV ASDIRECTED [facility] Last Admin: 12/02/20 21:28 Dose: 75 mls/hr Documented by: Piperacillin Sod/Tazobactam (Sod 2.25 gm/ Sodium Chloride) 50 mls @ 100 mls/hr IV Q8H [facility] Last Admin: 12/03/20 01:50 Dose: 100 mls/hr Documented by: Sodium Chloride (Normal Saline) 1,000 mls @ 75 mls/hr IV ASDIRECTED [facility] Last Admin: 12/03/20 10:08 Dose: 75 mls/hr Documented by: Piperacillin/Tazobactam/ (Dextrose 2.25 gm/ Premix) 50 mls @ 100 mls/hr IV Q6H [facility] Last Admin: 12/04/20 10:51 Dose: 100 mls/hr Documented by: Lorazepam (Lorazepam 2 Mg/Ml Sdv) 1 mg IV Q6H PRN PRN Reason: Nausea/Vomiting Magnesium Hydroxide (Magnesium Hydroxide 400 Mg/5 Ml Susp 30 Ml Cup) 30 ml PO DAILY PRN PRN Reason: Constipation Melatonin (Melatonin 3 Mg Tab) 9 mg PO BEDTIME [facility] Last Admin: 12/05/20 20:58 Dose: 9 mg Documented by: Metoprolol Succinate (Metoprolol Succinate 25 Mg Tab.Er) 25 mg PO DAILY [facility] Last Admin: 12/06/20 08:06 Dose: 25 mg Documented by: Morphine Sulfate (Morphine 2 Mg/Ml Syringe) 2 mg IVPUSH Q2H PRN PRN Reason: Pain (severe 7-10) Non-Formulary Medication (Folic Acid [Folic Acid]) 400 mcg PO DAILY [facility] Non-Formulary Medication (Mirabegron [Myrbetriq]) 50 mg PO DAILY [facility] Nystatin (Nystatin Crm 30 Gm Tube) 0 gm TOP TID [facility] Last Admin: 12/04/20 21:17 Dose: 1 applic Documented by: Nystatin (Nystatin Crm 15 Gm Tube) 0 gm TOP TID [facility] Last Admin: 12/06/20 08:07 Dose: 1 applicful Documented by: Pantoprazole Sodium (Pantoprazole 40 Mg Vial) 40 mg IV BEDTIME [facility] Last Admin: 12/02/20 21:24 Dose: 40 mg Documented by: Pantoprazole Sodium (Pantoprazole 40 Mg Tab.Cr) 40 mg PO ACBREAKFAST [facility] Last Admin: 12/06/20 07:18 Dose: 40 mg Documented by: Polyethylene Glycol (Polyethylene Glycol 3350 Powder 17 Gm Packet) 17 gm PO DAILY [facility] Last Admin: 12/06/20 08:07 Dose: 17 gm Documented by: Prednisone (Prednisone 20 Mg Tab) 20 mg PO DAILY@0800 [facility] Last Admin: 12/06/20 07:18 Dose: 20 mg Documented by: Pregabalin (Pregabalin 100 Mg Cap) 100 mg PO TID [facility] Last Admin: 12/06/20 08:10 Dose: 100 mg Documented by: Tiotropium [place] (Tiotropium [place] 4 Gm Inhalation [place] (2.5mcg/1 Dose; 10 Doses)) 0 gm INH DAILY [facility] Last Admin: 12/04/20 08:07 Dose: 2 puff Documented by: Tiotropium [place] (Tiotropium [place] 4 Gm Inhalation [place] (2.5mcg/1 Dose; 10 Doses)) 0 gm INH DAILYRT [facility] Last Admin: 12/06/20 07:16 Dose: 2 puff Documented by: Warfarin Sodium (Warfarin 2.5 Mg Tab) 2.5 mg PO SuTuWeThSa@1300 [facility] Last Admin: 12/06/20 12:12 Dose: 2.5 mg Documented by: Warfarin Sodium (Warfarin 2.5 Mg Tab) 5 mg PO MoFr@1300 [facility] Last Admin: 12/05/20 12:59 Dose: 5 mg Documented by: - Exam General: Reports: Alert, Oriented HEENT: Reports: Pupils Equal, EOMI, Mucous Membr. Moist/[place] Neck: Reports: Supple Lungs: Reports: Clear to Auscultation, Normal Respiratory Effort Cardiovascular: Reports: Regular Rate, Regular Rhythm GI/Abdominal Exam: Normal Bowel Sounds, Soft, Non-Tender, No Organomegaly, No Distention, No Abnormal Bruit, No Mass, Pelvis Stable Extremities: Normal Inspection, Non-Tender Skin: Reports: Warm, Dry, Intact Neurological: Reports: No New Focal Deficit Psy/Mental Status: Reports: Alert, Normal Affect, Normal Mood
== END 2020-12-06 13:15 | DRG 690 ==
LOC: JP.ED 16:10 → JP.MS 19:38
PROVIDERS: ADMIT Internal Medicine; ATTEND Internal Medicine
DX: A41.9 Sepsis, unspecified organism (principal); N39.0 Urinary tract infection, site not specified; H54.7 Unspecified visual loss; H91.90 Unspecified hearing loss, unspecified ear; N30.00 Acute cystitis without hematuria; E78.00 Pure hypercholesterolemia, unspecified; N17.9 Acute kidney failure, unspecified; Z95.810 Presence of automatic (implantable) cardiac defibrillator; I35.0 Nonrheumatic aortic (valve) stenosis; Z68.43 Body mass index [BMI] 50.0-59.9, adult; G47.30 Sleep apnea, unspecified; B96.20 Unspecified Escherichia coli [E. coli] as the cause of diseases classified elsewhere; J44.9 Chronic obstructive pulmonary disease, unspecified; R32 Unspecified urinary incontinence; M19.90 Unspecified osteoarthritis, unspecified site; M06.9 Rheumatoid arthritis, unspecified; E05.90 Thyrotoxicosis, unspecified without thyrotoxic crisis or storm; E53.8 Deficiency of other specified B group vitamins; Z85.820 Personal history of malignant melanoma of skin; G47.33 Obstructive sleep apnea (adult) (pediatric); Z79.82 Long term (current) use of aspirin; Z79.52 Long term (current) use of systemic steroids; Z79.899 Other long term (current) drug therapy; I48.91 Unspecified atrial fibrillation; L89.159 Pressure ulcer of sacral region, unspecified stage; E66.01 Morbid (severe) obesity due to excess calories; Z20.822 Contact with and (suspected) exposure to COVID-19; I10 Essential (primary) hypertension; K21.9 Gastro-esophageal reflux disease without esophagitis; Z66 Do not resuscitate; K59.09 Other constipation; Z96.612 Presence of left artificial shoulder joint; Z96.611 Presence of right artificial shoulder joint; Z96.653 Presence of artificial knee joint, bilateral; Z79.01 Long term (current) use of anticoagulants; Z87.19 Personal history of other diseases of the digestive system; Z98.42 Cataract extraction status, left eye; Z98.41 Cataract extraction status, right eye; Z95.0 Presence of cardiac pacemaker
CPT/HCPCS: 36415; 70450; 71045 ×2; 80053; 81001; 83605; 85025; 86140; 87040; 87086; 87088; 87186; 93005; J2543; J7030; J7120; U0002; 80048; 85027; 85610; 94640; 94762; 96365; 97110-GP; 97161-GP; 97165-GO; 97530-GP; 97535-GP; 99285-25; A9270-GY; C9113; J7512; J7620-GY

== ENCOUNTER 2021-01-24 22:29 | Inpatient (IN) | payer MEDICARE ==
[2021-01-24] MEDS ORDERED: Albuterol/Ipratropium 3.0-0.5 MG/3 ML Neb Soln NEB PRN (22:58)
[2021-01-24] MEDS ORDERED: Acetaminophen 325 MG Tab PO PRN (22:58)
[2021-01-24] MEDS ORDERED: Dexamethasone 4 MG/ML SDV IVPUSH ONE (22:58)
--- NOTE | 2021-01-24 23:39 | EDM.PDOC ---
<JoselynSophie garcia - Last Filed: 01/25/21 05:33> ED HPI GENERAL MEDICAL PROBLEM - General Chief Complaint: Respiratory Problem Stated Complaint: MEDICAL [facility]IA [facility] Time Seen by Provider: 01/24/21 22:36 Source of Information: Reports: Alf Records, Old Records, RN Notes Reviewed History Limitations: Reports: Respiratory Distress - History of Present Illness INITIAL COMMENTS - FREE TEXT/NARRATIVE: Patient presents emergency room today via EMS secondary to increasing respiratory distress shortness of breath difficulty breathing patient is a resident at local halfway facility she is diagnosed with Covid. Patient is not able to give me any specific history she does know that she is at [facility] and appears her halfway records that she is on chronic oxygen utilizer 2 L nasal cannula nonambulatory and requires frequent nursing care support. 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 hypertension mixed incontinence already had pacemaker chronic anticoagulation secondary to atrial fibrillation Covid positive Medsreviewed in EMR is a list was not provided with her paperwork for me to review at this time She has no known drug allergies Patient has received her Covid immunization initial dose on three 03/2020-second dose was given on 05/26/2020 she was given her Pneumovax in 2016 her last tetanus in 2016 does not appear that she has received her annual immunization or influenza at this time POLST form is present it is noted for DNR allow natural this was verified with patient he states that she did not want to be on a breathing machine/intubated. Section B does request selective treatment but use antibiotics IV fluids rn cardiac but no intervention for advanced airway may consider CPAP BiPAP and transfer to hospital if needed patient he indicates no artificial nutrition by tube although she will accept IV IM as indicated. This form was signed on 10/25/2020 - Related Data Allergies Allergy/AdvReac Type Severity Reaction Status Date / Time No Known Allergies Allergy Verified 12/02/20 16:34 Home Meds: Home Meds Albuterol [Ventolin HFA] 2 puff INH Q6HR PRN 11/25/12 [History] Benazepril HCl [Lotensin] 20 mg PO DAILY 11/25/12 [History] Cholecalciferol (Vitamin D3) [Vitamin D3] 2,000 unit PO DAILY 11/25/12 [History] Metoprolol Succinate [Toprol XL] 25 mg PO DAILY 11/25/12 [History] Sennosides/Docusate Sodium [Senokot-S Tablet] 1 tab PO DAILY 11/25/12 [History] polyethylene glycoL 3350 [MiraLAX] 17 gm PO DAILY 11/25/12 [History] Folic Acid 400 mcg PO DAILY 02/17/15 [History] Warfarin [Coumadin] 2.5 mg PO .SUN,TUE,THUR,SA 02/17/15 [History] Albuterol/Ipratropium [DuoNeb 3.0-0.5 MG/3 ML] 3 ml INH Q4H PRN 05/10/15 [History] Naproxen [Naprosyn] 375 mg PO DAILY PRN 05/10/15 [History] Docusate Sodium 100 mg PO DAILY PRN 11/14/17 [History] Nystatin [Nystatin Crm] 1 applic TOP TID PRN 11/14/17 [History] Tiotropium [Spiriva HandiHaler] 1 cap INH DAILY 11/14/17 [History] Warfarin [Coumadin] 5 mg PO .MON,WED,Sat02/26/19 [History] Mirabegron [Myrbetriq] 50 mg PO DAILY 07/17/19 [History] Aspirin [Halfprin] 81 mg PO DAILY 08/22/20 [History] Furosemide 40 mg PO DAILY 08/22/20 [History] Pravastatin Sodium 20 mg PO DAILY 08/22/20 [History] Pregabalin [Lyrica] 100 mg PO TID 08/22/20 [History] predniSONE [Prednisone] 20 mg PO DAILY 08/22/20 [History] Carbamide Peroxide [Debrox] 5 drop EARBOTH BID PRN 10/05/20 [History] Dextromethorphan/guaiFENesin [Robitussin DM] 10 ml PO Q4H PRN 10/05/20 [History] Mag Hydrox/Aluminum Hyd/Simeth [Maalox Maximum Strength Susp] 30 ml PO Q4H PRN 10/05/20 [History] Magnesium Hydroxide [Milk of Magnesia] 30 ml PO DAILY PRN 10/05/20 [History] Acetaminophen [Acetaminophen Extra Strength] 1,000 mg PO TID PRN 10/14/20 [History] Cyanocobalamin (Vitamin B12) [Vitamin B12] 1,000 mcg PO DAILY 10/14/20 [History] Diclofenac Sodium [Voltaren 1% Gel] 1 applic TOP BID PRN #100 gm 12/01/20 [Rx] Pantoprazole Sodium [Protonix] 40 mg PO DAILY 12/02/20 [History] Ferrous Sulfate 325 mg PO BID 01/04/21 [History] Acetaminophen/HYDROcodone [HYDROcodone-Acetaminophen 5-325 MG *] 1 tab PO Q6H PRN 01/24/21 [History] Bisacodyl [Laxative Suppository] 10 mg RC Q24H PRN 01/24/21 [History] Clotrimazole/Betameth Dip/Zinc [Dermacinrx Therazole Devyn] 135 gm TP BID PRN 01/24/21 [History] Melatonin 3 mg PO BEDTIME 01/24/21 [History] Past Medical History HEENT History: Reports: Cataract, Hard of Hearing, Impaired Vision Cardiovascular History: Reports: Afib, Automatic Implantable Cardioverter Defibrillators, High Cholesterol, Hypertension, Pacemaker, Other (See Below) Other Cardiovascular History: Aortic stenosis Respiratory History: Reports: Bronchitis, Recurrent, COPD, Sleep Apnea Other Respiratory History: Oxygen and c-pap Gastrointestinal History: Reports: Cholelithiasis, Chronic Constipation, GERD, Hemorrhoids Genitourinary History: Reports: Urinary Incontinence, UTI, Recurrent 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 right shoulder pain Neurological History: Reports: None Psychiatric History: Reports: None Endocrine/Metabolic History: Reports: Hyperthyroidism, Obesity/BMI 30+, Other (See Below) Other Endocrine/Metabolic History: Goiter Hematologic History: Reports: Anticoagulation Therapy, B12 Deficiency Immunologic History: Reports: None Oncologic (Cancer) History: Reports: Other (See Below) Other Oncologic History: "skin cancer" Dermatologic History: Reports: Melanoma Other Dermatologic History: Removal of skin spot l hand. - Infectious Disease History Infectious Disease History: Reports: Chicken Pox, Measles, Mumps - Past Surgical History HEENT Surgical History: Reports: None, Cataract Surgery Cardiovascular Surgical History: Reports: None Respiratory Surgical History: Reports: None GI Surgical History: Reports: Colonoscopy, Hernia Repair/Other, Other (See Below) Other GI Surgeries/Procedures: colon resection Female Surgical History: Reports: None Endocrine Surgical History: Reports: None Musculoskeletal Surgical History: Reports: Knee Replacement, Shoulder Replacement, Shoulder Surgery Other Musculoskeletal Surgeries/Procedures:: LT reverse total shoulder. RT reverse total shoulder (10/19/2020). Bilat TKA Dermatological Surgical History: Reports: Skin Biopsy Social & Family History - Family History Family Medical History: No Pertinent Family History - Tobacco Use Tobacco Use Status *Q: Never Tobacco User - Caffeine Use Caffeine Use: Reports: Coffee - Living Situation & Occupation Living situation: Reports: , Assisted Living Occupation: Retired ED ROS GENERAL - Review of Systems Review Of Systems: Unable To Obtain Reason Not Obtained: acute respiratory distress ED EXAM, GENERAL - Physical Exam Exam: See Below Exam Limited By: Respiratory Distress General Appearance: Alert, Moderate Distress Eye Exam: Bilateral Eye: EOMI, PERRL Ears: Normal External Exam, Hearing Grossly Normal Nose: Normal Inspection Throat/Mouth: Normal Inspection, Normal Oropharynx, Normal Voice Head: Atraumatic, Normocephalic Neck: Normal Inspection, Supple, Non-Tender, Full Range of Motion Respiratory/Chest: Respiratory Distress, Rales, Rhonchi, Accessory Muscle Use, Other (During my exam his oximetry is noted to be 97% on 3 L her heart rate is 70 respiratory rate is 44 she does have "hoarse rhonchi and rails throughout and she does limit verbal interaction likely secondary to respiratory distress although she does talk to me with very limited responses) Cardiovascular: Normal Peripheral Pulses, No Edema, Irregularly Irregular Peripheral Pulses: 2+: Radial (L), Radial (R) GI/Abdominal: Normal Bowel Sounds, Soft, Non-Tender, No Distention (Female) Exam: Deferred Rectal (Female) Exam: Deferred Back Exam: Normal Inspection, Other (Patient was able to sit up with assistance in the bed for posterior lung exam she did hold with her arms nonferrous bilaterally as well as use her core muscles) Extremities: Normal Inspection, Normal Range of Motion, No Pedal Edema Neurological: Alert, Oriented, No Motor/Sensory Deficits Psychiatric: Normal Affect, Normal Mood Skin Exam: Warm, Dry, Intact, Normal Color #1 Interpretation EKG Date: 01/24/21 Time: 23:11 Rhythm: A-Fib Rate (Beats/Min): 70 Strong: Normal P-Wave: Absent QRS: Normal (Visits the scar you are denies) QT: Normal (QT/QTc was 13/452) EKG Interpretation Comments: Patient is noted on EKG to have atrial fib flutter with a ventricular paced rhythm EKG was read at 2316 there is no STEMI noted Course - Vital Signs Text/Narrative:: 0140--1 view chest film was completed and read by radiology it is noted for diffuse patchy interstitial opacities slightly improved from previous film in bilateral lung bases compared to prior study it is a known Covid positive patient with Covid pneumonia. labs have been reviewed and noted for the following abnormalities of note patient is on chronic anticoagulation of Coumadin therapy and is therapeutic at this time. Negative troponin LDH is elevated normal white blood cell count although she does have a mild elevation of neutrophil percent. CRP is elevated as would be expected with Covid related illness. Does have some mild renal insufficiency. Patient is noted on urinalysis to have positive nitrates positive leukoesterase with bacteria and white blood cells present urine culture was ordered as well as patient was started on Levaquin. patient on ABG noted to have hypercarpnia/respiratory acidosis. consider bipap to help with this (no an oxygen issue) Laboratory Tests 01/24/21 01/24/21 01/24/21 23:35 23:35 23:35 WBC 9.4 Neut % (Auto) 72.0 H INR D-Dimer, Quantitative 396.42 ABG pH ABG pCO2 ABG HCO3 ABG Total CO2 O2 Delivery Device Oxygen Flow Rate BUN 44 H D Creatinine 1.4 H D Lactate Dehydrogenase 246 H Creatine Kinase 21 L Troponin I C-Reactive Protein 7.85 H Procalcitonin Urine Appearance Urine Occult Blood Urine Nitrite Ur Leukocyte Esterase Urine WBC Urine Bacteria 01/24/21 01/24/21 01/24/21 23:35 23:35 23:35 WBC Neut % (Auto) INR 2.2 D-Dimer, Quantitative ABG pH 7.337 L ABG pCO2 63.3 H ABG HCO3 33.0 H ABG Total CO2 30.1 H O2 Delivery Device Nasal cannula Oxygen Flow Rate 3.0 BUN Creatinine Lactate Dehydrogenase Creatine Kinase Troponin I C-Reactive Protein Procalcitonin < 0.05 Urine Appearance Urine Occult Blood Urine Nitrite Ur Leukocyte Esterase Urine WBC Urine Bacteria 01/24/21 01/25/21 23:35 00:23 WBC Neut % (Auto) INR D-Dimer, Quantitative ABG pH ABG pCO2 ABG HCO3 ABG Total CO2 O2 Delivery Device Oxygen Flow Rate BUN Creatinine Lactate Dehydrogenase Creatine Kinase Troponin I < 0.017 C-Reactive Protein Procalcitonin Urine Appearance Cloudy A Urine Occult Blood Trace-lysed H Urine Nitrite Positive H Ur Leukocyte Esterase Trace H Urine WBC 5-10 H Urine Bacteria Many 0152--[facility] transfer line contacted, no beds available for COVID pneumonia transfer at this time 0153--call placed to [facility], no beds available for COVID pneumonia transfer at this time 0154--call placed to [facility]; case was d/w Dr Price, Hospitalist service. he agrees with IV steroids as given & placement of bipap. no beds available for COVID pneumonia transfer at this time 0200--[facility] (SENIOR BRANCH MANAGER had called for placement earlier, no beds available at night/do not accept transfers except during daytime. Will need to call back at that time to discuss with Hospitalist 0305--RT in the ER for placement of bipap; has placed to settings 15/5, 40% FiO2, to allow lower oxygen sats for increased respiratory "blow-off" of CO2, RR-20-30's TV--low to mid 300's. I will place order for repeat ABG in 1 hour to follow patient status 0415--SENIOR BRANCH MANAGER notified physician that patient is pulling off bipap mask or pulling tubing off, requesting something for possible anxiety/restlessness. I did offer ativan prn order as well as recommended soft wrist restraints if needed to stop pulling of needed medical treatment equipment. SENIOR BRANCH MANAGER was able to reposition tubing out of patient reach, will continued to monitor. ABG s/p initiation of bipap is due at 0430 but unsure how accurate it will be given episodes of bipap remove in the last 15-30 minutes 0530--patient has not pulled off bipap since tubing repositioned out of reach, p/o--90-91% on 40% 15/5. ABG essentially unchanged in nature other than increase in hypoxia as was set by RT with goal p/o 90-92%. remains hypercarpnic, respiratory acidosis Laboratory Tests 01/24/21 01/25/21 23:35 04:45 ABG pH 7.337 L 7.319 L ABG pCO2 63.3 H 67.1 H ABG pO2 67.5 L ABG HCO3 33.0 H 33.5 H ABG Total CO2 30.1 H 30.9 H ABG O2 Saturation 92.2 L O2 Delivery Device Nasal cannula Bipap 0700--case d/w Officer, ER at change of shift/transfer of care. patient need inpatient admission for continued medical care needs. Departure - Departure Disposition: Admitted As Inpatient 64 Condition: Fair Clinical Impression: Pneumonia due to COVID-19 virus, On home oxygen therapy, Acute respiratory failure with hypoxia and hypercarbia UTI (urinary tract infection) Qualifiers: Urinary tract infection type: acute cystitis Hematuria presence: without hematuria Qualified Code(s): N30.00 - Acute cystitis without hematuria Chronic renal insufficiency, stage III (moderate) Qualifiers: Chronic kidney disease stage 3 subtype: stage 3b (GFR 30-44) Qualified Code(s): N18.32 - Chronic kidney disease, stage 3b - Discharge Information *PRESCRIPTION DRUG MONITORING PROGRAM REVIEWED*: Not Applicable *COPY OF PRESCRIPTION DRUG MONITORING REPORT IN PATIENT DANIEL: Not Applicable Referrals: PCP,Unknown [Primary Care Provider] - Forms: ED Department Discharge Critical Care Note - Critical Care Note Total Time (mins): 45 Sepsis Event Note (ED) - Evaluation Sepsis Screening Result: No Definite Risk <Junior Johnston - Last Filed: 01/26/21 13:55> Course - Vital Signs Last Recorded V/S: Last Vital Signs Temp 97.6 F 01/26/21 10:27 Pulse 70 01/26/21 10:27 Resp 22 H 01/26/21 10:27 BP 141/72 H 01/26/21 10:27 Pulse Ox 95 01/26/21 12:08 - Orders/Labs/Meds Orders: Active Orders 24 hr Category Date Time Status Patient Status Manage Transfer [TRANSFER] Routine ADT 01/26/21 13:37 Active RT Aerosol Therapy [RC] ASDIRECTED Care 01/25/21 16:44 Active RT Post Treatment Assessment [RC] Click to Edit Care 01/25/21 16:44 Active Albuterol/Ipratropium [Combivent Respimat] Med 01/25/21 22:00 Active 1 gm INH QID Benzonatate [Tessalon Perles] Med 01/25/21 16:45 Active 100 mg PO TID PRN Dextromethorphan/guaiFENesin [Robitussin DM] Med 01/25/21 16:45 Active 10 ml PO Q4H PRN Melatonin Med 01/25/21 21:00 Active 3 mg PO BEDTIME Remdesivir 100 mg Med 01/26/21 17:00 Active Sodium Chloride 0.9% [Normal Saline] 100 ml IV Q24H Warfarin [Coumadin] Med 01/26/21 13:00 Active 2.5 mg PO SuTuThSa@1300 Warfarin [Coumadin] Med 01/25/21 13:00 Active 5 mg PO MoWeFr@1300 dexAMETHasone [Decadron] Med 01/25/21 23:00 Active 6 mg IVPUSH Q24H Medication Orders Acetaminophen (Acetaminophen 325 Mg Tab) 650 mg PO Q4H PRN PRN Reason: Pain/Fever Albuterol (Albuterol 8 Gm Inhaler) 0 gm INH Q6H PRN PRN Reason: Shortness of Breath Albuterol/Ipratropium (Albuterol/Ipratropium 4 Gm Inhalation [place]) 1 gm INH QID [facility] Last Admin: 01/26/21 10:22 Dose: 1 puff Documented by: Admin: 01/26/21 06:25 Dose: 1 puff Documented by: Admin: 01/25/21 22:45 Dose: 1 puff Documented by: JEANETTE Aspirin (Aspirin 81 Mg Tab.Ec) 81 mg PO DAILY [facility] Last Admin: 01/26/21 10:24 Dose: 81 mg Documented by: Admin: 01/25/21 09:40 Dose: 81 mg Documented by: RUDY Baricitinib (Baricitinib 2 Mg Tab) 2 mg PO DAILY [facility] Stop: 02/07/21 09:01 Last Admin: 01/26/21 10:24 Dose: 2 mg Documented by: Admin: 01/25/21 09:41 Dose: 2 mg Documented by: RUDY Benzonatate (Benzonatate 100 Mg Cap) 100 mg PO TID PRN PRN Reason: Cough Cholecalciferol (Cholecalciferol (Vitamin D3) 25 Mcg Tab) 50 mcg PO DAILY [facility] Last Admin: 01/26/21 10:25 Dose: 50 mcg Documented by: Admin: 01/25/21 09:40 Dose: 50 mcg Documented by: RUDY Cyanocobalamin (Cyanocobalamin (Vitamin B12) 1,000 Mcg Tab) 1,000 mcg PO DAILY [facility] Last Admin: 01/26/21 10:24 Dose: 1,000 mcg Documented by: Admin: 01/25/21 09:41 Dose: 1,000 mcg Documented by: RUDY Dexamethasone (Dexamethasone 4 Mg/Ml Sdv) 6 mg IVPUSH Q24H [facility] Last Admin: 01/25/21 22:28 Dose: 6 mg Documented by: JEANETTE Folic Acid (Folic Acid 1 Mg Tab) 0.5 mg PO DAILY [facility] Last Admin: 01/26/21 10:25 Dose: 0.5 mg Documented by: Admin: 01/25/21 09:39 Dose: 0.5 mg Documented by: RUDY Furosemide (Furosemide 40 Mg Tab) 40 mg PO DAILY [facility] Last Admin: 01/26/21 10:24 Dose: 40 mg Documented by: Admin: 01/25/21 09:40 Dose: 40 mg Documented by: RUDY Guaifenesin/Dextromethorphan (Guaifenesin/Dextromethorphan 100-10 Mg/5 Ml Soln 10 Ml Cup) 10 ml PO Q4H PRN PRN Reason: Cough Remdesivir 100 mg/ Sodium (Chloride) 100 mls @ 100 mls/hr IV Q24H [facility] Stop: 01/29/21 17:59 Lisinopril (Lisinopril 20 Mg Tab) 20 mg PO DAILY [facility] Last Admin: 01/26/21 10:25 Dose: 20 mg Documented by: Admin: 01/25/21 09:40 Dose: 20 mg Documented by: RUDY Melatonin (Melatonin 3 Mg Tab) 3 mg PO BEDTIME [facility] Last Admin: 01/25/21 22:30 Dose: 3 mg Documented by: JEANETTE Metoprolol Succinate (Metoprolol Succinate 25 Mg Tab.Er) 25 mg PO DAILY [facility] Last Admin: 01/26/21 10:23 Dose: 25 mg Documented by: Admin: 01/25/21 09:40 Dose: 25 mg Documented by: RUDY Mirabegron (Mirabegron 25 Mg Tab Extended Release) 50 mg PO DAILY [facility] Last Admin: 01/26/21 10:24 Dose: 50 mg Documented by: Admin: 01/25/21 09:41 Dose: 50 mg Documented by: RUDY Morphine Sulfate (Morphine 2 Mg/Ml Syringe) 2 mg IVPUSH Q1H PRN PRN Reason: Anxiety Last Admin: 01/25/21 12:50 Dose: 2 mg Documented by: Admin: 01/25/21 08:14 Dose: 2 mg Documented by: RUDY Non-Formulary Medication (Clotrimazole/Betameth Dip/Zinc [Dermacinrx Therazole Devyn]) 135 gm TP BID PRN PRN Reason: Itching Pantoprazole Sodium (Pantoprazole 40 Mg Tab.Cr) 40 mg PO ACBREAKFAST [facility] Last Admin: 01/26/21 10:25 Dose: 40 mg Documented by: Admin: 01/25/21 09:41 Dose: 40 mg Documented by: RUDY Pravastatin Sodium (Pravastatin 20 Mg Tab) 20 mg PO DAILY [facility] Last Admin: 01/26/21 10:24 Dose: 20 mg Documented by: Admin: 01/25/21 09:40 Dose: 20 mg Documented by: RUDY Pregabalin (Pregabalin 100 Mg Cap) 100 mg PO TID [facility] Last Admin: 01/26/21 10:48 Dose: 100 mg Documented by: Admin: 01/25/21 22:30 Dose: 100 mg Documented by: Admin: 01/25/21 16:04 Dose: 100 mg Documented by: Admin: 01/25/21 09:49 Dose: 100 mg Documented by: RUDY Tiotropium [place] (Tiotropium [place] 4 Gm Inhalation [place] (2.5mcg/1 Dose; 10 Doses)) 0 gm INH DAILYRT [facility] Last Admin: 01/26/21 07:53 Dose: 2 spray Documented by: Admin: 01/25/21 09:41 Dose: 2 spray Documented by: RUDY Warfarin Sodium (Warfarin 5 Mg Tab) 5 mg PO MoWeFr@1300 [facility] Last Admin: 01/25/21 12:51 Dose: 5 mg Documented by: RUDY Warfarin Sodium (Warfarin 2.5 Mg Tab) 2.5 mg PO SuTuThSa@1300 [facility] Labs: Laboratory Tests 01/24/21 01/24/21 01/24/21 Range/Units 23:35 23:35 23:35 WBC 9.4 (4.5-11.0) K/uL RBC 4.52 (3.30-5.50) M/uL Hgb 12.7 D (12.0-15.0) g/dL Hct 41.6 (36.0-48.0) % MCV 92 (80-98) fL MCH 28 (27-31) pg MCHC 31 L (32-36) % Plt Count 194 (150-400) K/uL Neut % (Auto) 72.0 H (36-66) % Lymph % (Auto) 15.4 L (24-44) % [place] % (Auto) 12.5 H (2-6) % Eos % (Auto) 0.0 L (2-4) % Baso % (Auto) 0.1 (0-1) % PT (9.2-10.6) sec INR APTT 34.1 H (21.4-31.8) sec D-Dimer, Quantitative (0.0-500.0) ng/mL Puncture Site ABG pH (7.350-7.450) ABG pCO2 (35.0-42.0) mmHg ABG pO2 (75.0-100.0) mmHg ABG HCO3 (22.0-26.0) mmol/L ABG Total CO2 (21.0-25.0) mmol/L ABG O2 Saturation (95.0-98.0) % ABG O2 Content (15.0-23.0) %vol ABG Base Excess mm/L ABG Hemoglobin (12.0-16.0) g/dL ABG Oxyhemoglobin % ABG Carboxyhemoglobin (0.0-1.6) % ABG Methemoglobin % Pedro Test O2 Delivery Device Oxygen Flow Rate L Sodium (140-148) mmol/L Potassium (3.6-5.2) mmol/L Chloride (100-108) mmol/L Carbon Dioxide (21-32) mmol/L Anion Gap (5.0-14.0) mmol/L BUN (7-18) mg/dL Creatinine (0.6-1.0) mg/dL Est Cr Clr Drug Dosing mL/min Estimated GFR (MDRD) (>60) Glucose (74-106) mg/dL Lactic Acid (0.4-2.0) mmol/L Calcium (8.5-10.1) mg/dL Magnesium (1.8-2.4) mg/dL Ferritin 174 (8-388) ng/ml Total Bilirubin (0.2-1.0) mg/dL Direct Bilirubin (0.0-0.2) mg/dL Indirect Bilirubin AST (15-37) U/L ALT (12-78) U/L Alkaline Phosphatase (46-116) U/L Lactate Dehydrogenase (82-234) U/L Creatine Kinase (26-192) U/L Troponin I (0.000-0.056) ng/mL C-Reactive Protein (0.0-0.3) mg/dL Total Protein (6.4-8.2) g/dL Albumin (3.4-5.0) g/dL Globulin (2.3-3.5) g/dL Albumin/Globulin Ratio (1.2-2.2) Procalcitonin ng/mL Urine Color (YELLOW) Urine Appearance (CLEAR) Urine pH (5.0-8.0) Ur Specific [place] (1.008-1.030) Urine Protein (NEGATIVE) mg/dL Urine Glucose (UA) (NEGATIVE) mg/dL Urine Ketones (NEGATIVE) mg/dL Urine Occult Blood (NEGATIVE) Urine Nitrite (NEGATIVE) Urine Bilirubin (NEGATIVE) Urine Urobilinogen (0.2-1.0) EU/dL Ur Leukocyte Esterase (NEGATIVE) Urine RBC (0-5) Urine WBC (0-5) Ur Epithelial Cells Amorphous Sediment Urine Bacteria Urine Mucus 01/24/21 01/24/21 01/24/21 Range/Units 23:35 23:35 23:35 WBC (4.5-11.0) K/uL RBC (3.30-5.50) M/uL Hgb (12.0-15.0) g/dL Hct (36.0-48.0) % MCV (80-98) fL MCH (27-31) pg MCHC (32-36) % Plt Count (150-400) K/uL Neut % (Auto) (36-66) % Lymph % (Auto) (24-44) % [place]pson % (Auto) (2-6) % Eos % (Auto) (2-4) % Baso % (Auto) (0-1) % PT (9.2-10.6) sec INR APTT (21.4-31.8) sec D-Dimer, Quantitative 396.42 (0.0-500.0) ng/mL Puncture Site ABG pH (7.350-7.450) ABG pCO2 (35.0-42.0) mmHg ABG pO2 (75.0-100.0) mmHg ABG HCO3 (22.0-26.0) mmol/L ABG Total CO2 (21.0-25.0) mmol/L ABG O2 Saturation (95.0-98.0) % ABG O2 Content (15.0-23.0) %vol ABG Base Excess mm/L ABG Hemoglobin (12.0-16.0) g/dL ABG Oxyhemoglobin % ABG Carboxyhemoglobin (0.0-1.6) % ABG Methemoglobin % Pedro Test O2 Delivery Device Oxygen Flow Rate L Sodium 143 (140-148) mmol/L Potassium 5.0 (3.6-5.2) mmol/L Chloride 103 (100-108) mmol/L Carbon Dioxide 36 H (21-32) mmol/L Anion Gap 9.0 (5.0-14.0) mmol/L BUN 44 H D (7-18) mg/dL Creatinine 1.4 H D (0.6-1.0) mg/dL Est Cr Clr Drug Dosing 20.33 mL/min Estimated GFR (MDRD) 36 L (>60) Glucose 111 H (74-106) mg/dL Lactic Acid 1.7 (0.4-2.0) mmol/L Calcium 8.3 L (8.5-10.1) mg/dL Magnesium (1.8-2.4) mg/dL Ferritin (8-388) ng/ml Total Bilirubin 0.3 (0.2-1.0) mg/dL Direct Bilirubin 0.09 (0.0-0.2) mg/dL Indirect Bilirubin TNP AST 16 (15-37) U/L ALT 30 (12-78) U/L Alkaline Phosphatase 52 (46-116) U/L Lactate Dehydrogenase 246 H (82-234) U/L Creatine Kinase 21 L (26-192) U/L Troponin I (0.000-0.056) ng/mL C-Reactive Protein 7.85 H (0.0-0.3) mg/dL Total Protein 6.6 (6.4-8.2) g/dL Albumin 3.1 L (3.4-5.0) g/dL Globulin 3.5 (2.3-3.5) g/dL Albumin/Globulin Ratio 0.9 L (1.2-2.2) Procalcitonin ng/mL Urine Color (YELLOW) Urine Appearance (CLEAR) Urine pH (5.0-8.0) Ur Specific [place] (1.008-1.030) Urine Protein (NEGATIVE) mg/dL Urine Glucose (UA) (NEGATIVE) mg/dL Urine Ketones (NEGATIVE) mg/dL Urine Occult Blood (NEGATIVE) Urine Nitrite (NEGATIVE) Urine Bilirubin (NEGATIVE) Urine Urobilinogen (0.2-1.0) EU/dL Ur Leukocyte Esterase (NEGATIVE) Urine RBC (0-5) Urine WBC (0-5) Ur Epithelial Cells Amorphous Sediment Urine Bacteria Urine Mucus 01/24/21 01/24/21 01/24/21 Range/Units 23:35 23:35 23:35 WBC (4.5-11.0) K/uL RBC (3.30-5.50) M/uL Hgb (12.0-15.0) g/dL Hct (36.0-48.0) % MCV (80-98) fL MCH (27-31) pg MCHC (32-36) % Plt Count (150-400) K/uL Neut % (Auto) (36-66) % Lymph % (Auto) (24-44) % [place] % (Auto) (2-6) % Eos % (Auto) (2-4) % Baso % (Auto) (0-1) % PT 21.7 H (9.2-10.6) sec INR 2.2 APTT (21.4-31.8) sec D-Dimer, Quantitative (0.0-500.0) ng/mL Puncture Site Rt radial ABG pH 7.337 L (7.350-7.450) ABG pCO2 63.3 H (35.0-42.0) mmHg ABG pO2 81.2 (75.0-100.0) mmHg ABG HCO3 33.0 H (22.0-26.0) mmol/L ABG Total CO2 30.1 H (21.0-25.0) mmol/L ABG O2 Saturation 95.7 (95.0-98.0) % ABG O2 Content 16.7 (15.0-23.0) %vol ABG Base Excess 5.8 mm/L ABG Hemoglobin 12.6 (12.0-16.0) g/dL ABG Oxyhemoglobin 93.5 % ABG Carboxyhemoglobin 1.6 (0.0-1.6) % ABG Methemoglobin 0.7 % Pedro Test Pass O2 Delivery Device Nasal cannula Oxygen Flow Rate 3.0 L Sodium (140-148) mmol/L Potassium (3.6-5.2) mmol/L Chloride (100-108) mmol/L Carbon Dioxide (21-32) mmol/L Anion Gap (5.0-14.0) mmol/L BUN (7-18) mg/dL Creatinine (0.6-1.0) mg/dL Est Cr Clr Drug Dosing mL/min Estimated GFR (MDRD) (>60) Glucose (74-106) mg/dL Lactic Acid (0.4-2.0) mmol/L Calcium (8.5-10.1) mg/dL Magnesium (1.8-2.4) mg/dL Ferritin (8-388) ng/ml Total Bilirubin (0.2-1.0) mg/dL Direct Bilirubin (0.0-0.2) mg/dL Indirect Bilirubin AST (15-37) U/L ALT (12-78) U/L Alkaline Phosphatase (46-116) U/L Lactate Dehydrogenase (82-234) U/L Creatine Kinase (26-192) U/L Troponin I (0.000-0.056) ng/mL C-Reactive Protein (0.0-0.3) mg/dL Total Protein (6.4-8.2) g/dL Albumin (3.4-5.0) g/dL Globulin (2.3-3.5) g/dL Albumin/Globulin Ratio (1.2-2.2) Procalcitonin < 0.05 ng/mL Urine Color (YELLOW) Urine Appearance (CLEAR) Urine pH (5.0-8.0) Ur Specific [place] (1.008-1.030) Urine Protein (NEGATIVE) mg/dL Urine Glucose (UA) (NEGATIVE) mg/dL Urine Ketones (NEGATIVE) mg/dL Urine Occult Blood (NEGATIVE) Urine Nitrite (NEGATIVE) Urine Bilirubin (NEGATIVE) Urine Urobilinogen (0.2-1.0) EU/dL Ur Leukocyte Esterase (NEGATIVE) Urine RBC (0-5) Urine WBC (0-5) Ur Epithelial Cells Amorphous Sediment Urine Bacteria Urine Mucus 01/24/21 01/25/21 01/25/21 Range/Units 23:35 00:23 04:45 WBC (4.5-11.0) K/uL RBC (3.30-5.50) M/uL Hgb (12.0-15.0) g/dL Hct (36.0-48.0) % MCV (80-98) fL MCH (27-31) pg MCHC (32-36) % Plt Count (150-400) K/uL Neut % (Auto) (36-66) % Lymph % (Auto) (24-44) % [place] % (Auto) (2-6) % Eos % (Auto) (2-4) % Baso % (Auto) (0-1) % PT (9.2-10.6) sec INR APTT (21.4-31.8) sec D-Dimer, Quantitative (0.0-500.0) ng/mL Puncture Site Lt radial ABG pH 7.319 L (7.350-7.450) ABG pCO2 67.1 H (35.0-42.0) mmHg ABG pO2 67.5 L (75.0-100.0) mmHg ABG HCO3 33.5 H (22.0-26.0) mmol/L ABG Total CO2 30.9 H (21.0-25.0) mmol/L ABG O2 Saturation 92.2 L (95.0-98.0) % ABG O2 Content 15.1 (15.0-23.0) %vol ABG Base Excess 5.9 mm/L ABG Hemoglobin 11.9 L (12.0-16.0) g/dL ABG Oxyhemoglobin 90.1 % ABG Carboxyhemoglobin 1.6 (0.0-1.6) % ABG Methemoglobin 0.7 % Pedro Test Pass O2 Delivery Device Bipap Oxygen Flow Rate L Sodium (140-148) mmol/L Potassium (3.6-5.2) mmol/L Chloride (100-108) mmol/L Carbon Dioxide (21-32) mmol/L Anion Gap (5.0-14.0) mmol/L BUN (7-18) mg/dL Creatinine (0.6-1.0) mg/dL Est Cr Clr Drug Dosing mL/min Estimated GFR (MDRD) (>60) Glucose (74-106) mg/dL Lactic Acid (0.4-2.0) mmol/L Calcium (8.5-10.1) mg/dL Magnesium 2.4 (1.8-2.4) mg/dL Ferritin (8-388) ng/ml Total Bilirubin (0.2-1.0) mg/dL Direct Bilirubin (0.0-0.2) mg/dL Indirect Bilirubin AST (15-37) U/L ALT (12-78) U/L Alkaline Phosphatase (46-116) U/L Lactate Dehydrogenase (82-234) U/L Creatine Kinase (26-192) U/L Troponin I < 0.017 (0.000-0.056) ng/mL C-Reactive Protein (0.0-0.3) mg/dL Total Protein (6.4-8.2) g/dL Albumin (3.4-5.0) g/dL Globulin (2.3-3.5) g/dL Albumin/Globulin Ratio (1.2-2.2) Procalcitonin ng/mL Urine Color Yellow (YELLOW) Urine Appearance Cloudy A (CLEAR) Urine pH 5.0 (5.0-8.0) Ur Specific [place] 1.025 (1.008-1.030) Urine Protein Negative (NEGATIVE) mg/dL Urine Glucose (UA) Negative (NEGATIVE) mg/dL Urine Ketones Negative (NEGATIVE) mg/dL Urine Occult Blood Trace-lysed H (NEGATIVE) Urine Nitrite Positive H (NEGATIVE) Urine Bilirubin Negative (NEGATIVE) Urine Urobilinogen 0.2 (0.2-1.0) EU/dL Ur Leukocyte Esterase Trace H (NEGATIVE) Urine RBC 0-5 (0-5) Urine WBC 5-10 H (0-5) Ur Epithelial Cells Rare Amorphous Sediment Not seen Urine Bacteria Many Urine Mucus Not seen 01/26/21 01/26/21 01/26/21 Range/Units 05:00 05:45 05:45 WBC 7.3 (4.5-11.0) K/uL RBC 4.42 (3.30-5.50) M/uL Hgb 12.1 (12.0-15.0) g/dL Hct 40.2 (36.0-48.0) % MCV 91 (80-98) fL MCH 27 (27-31) pg MCHC 30 L (32-36) % Plt Count 156 (150-400) K/uL Neut % (Auto) (36-66) % Lymph % (Auto) (24-44) % [place] % (Auto) (2-6) % Eos % (Auto) (2-4) % Baso % (Auto) (0-1) % PT 25.3 H (9.2-10.6) sec INR 2.6 APTT (21.4-31.8) sec D-Dimer, Quantitative (0.0-500.0) ng/mL Puncture Site Lt radial ABG pH 7.408 (7.350-7.450) ABG pCO2 58.4 H (35.0-42.0) mmHg ABG pO2 90.4 (75.0-100.0) mmHg ABG HCO3 36.1 H (22.0-26.0) mmol/L ABG Total CO2 32.5 H (21.0-25.0) mmol/L ABG O2 Saturation 97.4 (95.0-98.0) % ABG O2 Content 16.6 (15.0-23.0) %vol ABG Base Excess 9.8 mm/L ABG Hemoglobin 12.4 (12.0-16.0) g/dL ABG Oxyhemoglobin 94.7 % ABG Carboxyhemoglobin 2.0 H (0.0-1.6) % ABG Methemoglobin 0.8 % Pedro Test Passed O2 Delivery Device Bipap Oxygen Flow Rate L Sodium (140-148) mmol/L Potassium (3.6-5.2) mmol/L Chloride (100-108) mmol/L Carbon Dioxide (21-32) mmol/L Anion Gap (5.0-14.0) mmol/L BUN (7-18) mg/dL Creatinine (0.6-1.0) mg/dL Est Cr Clr Drug Dosing mL/min Estimated GFR (MDRD) (>60) Glucose (74-106) mg/dL Lactic Acid (0.4-2.0) mmol/L Calcium (8.5-10.1) mg/dL Magnesium (1.8-2.4) mg/dL Ferritin (8-388) ng/ml Total Bilirubin (0.2-1.0) mg/dL Direct Bilirubin (0.0-0.2) mg/dL Indirect Bilirubin AST (15-37) U/L ALT (12-78) U/L Alkaline Phosphatase (46-116) U/L Lactate Dehydrogenase (82-234) U/L Creatine Kinase (26-192) U/L Troponin I (0.000-0.056) ng/mL C-Reactive Protein (0.0-0.3) mg/dL Total Protein (6.4-8.2) g/dL Albumin (3.4-5.0) g/dL Globulin (2.3-3.5) g/dL Albumin/Globulin Ratio (1.2-2.2) Procalcitonin ng/mL Urine Color (YELLOW) Urine Appearance (CLEAR) Urine pH (5.0-8.0) Ur Specific [place] (1.008-1.030) Urine Protein (NEGATIVE) mg/dL Urine Glucose (UA) (NEGATIVE) mg/dL Urine Ketones (NEGATIVE) mg/dL Urine Occult Blood (NEGATIVE) Urine Nitrite (NEGATIVE) Urine Bilirubin (NEGATIVE) Urine Urobilinogen (0.2-1.0) EU/dL Ur Leukocyte Esterase (NEGATIVE) Urine RBC (0-5) Urine WBC (0-5) Ur Epithelial Cells Amorphous Sediment Urine Bacteria Urine Mucus 01/26/21 01/26/21 Range/Units 05:45 05:45 WBC (4.5-11.0) K/uL RBC (3.30-5.50) M/uL Hgb (12.0-15.0) g/dL Hct (36.0-48.0) % MCV (80-98) fL MCH (27-31) pg MCHC (32-36) % Plt Count (150-400) K/uL Neut % (Auto) (36-66) % Lymph % (Auto) (24-44) % [place] % (Auto) (2-6) % Eos % (Auto) (2-4) % Baso % (Auto) (0-1) % PT (9.2-10.6) sec INR APTT (21.4-31.8) sec D-Dimer, Quantitative 343.17 (0.0-500.0) ng/mL Puncture Site ABG pH (7.350-7.450) ABG pCO2 (35.0-42.0) mmHg ABG pO2 (75.0-100.0) mmHg ABG HCO3 (22.0-26.0) mmol/L ABG Total CO2 (21.0-25.0) mmol/L ABG O2 Saturation (95.0-98.0) % ABG O2 Content (15.0-23.0) %vol ABG Base Excess mm/L ABG Hemoglobin (12.0-16.0) g/dL ABG Oxyhemoglobin % ABG Carboxyhemoglobin (0.0-1.6) % ABG Methemoglobin % Pedro Test O2 Delivery Device Oxygen Flow Rate L Sodium 142 (140-148) mmol/L Potassium 4.5 (3.6-5.2) mmol/L Chloride 103 (100-108) mmol/L Carbon Dioxide 37 H (21-32) mmol/L Anion Gap 6.5 (5.0-14.0) mmol/L BUN 36 H (7-18) mg/dL Creatinine 1.0 (0.6-1.0) mg/dL Est Cr Clr Drug Dosing 28.47 mL/min Estimated GFR (MDRD) 52 L (>60) Glucose 139 H (74-106) mg/dL Lactic Acid (0.4-2.0) mmol/L Calcium 8.6 (8.5-10.1) mg/dL Magnesium (1.8-2.4) mg/dL Ferritin (8-388) ng/ml Total Bilirubin 0.2 (0.2-1.0) mg/dL Direct Bilirubin (0.0-0.2) mg/dL Indirect Bilirubin AST 16 (15-37) U/L ALT 26 (12-78) U/L Alkaline Phosphatase 44 L (46-116) U/L Lactate Dehydrogenase (82-234) U/L Creatine Kinase (26-192) U/L Troponin I (0.000-0.056) ng/mL C-Reactive Protein 4.59 H (0.0-0.3) mg/dL Total Protein 6.1 L (6.4-8.2) g/dL Albumin 2.7 L (3.4-5.0) g/dL Globulin 3.4 (2.3-3.5) g/dL Albumin/Globulin Ratio 0.8 L (1.2-2.2) Procalcitonin ng/mL Urine Color (YELLOW) Urine Appearance (CLEAR) Urine pH (5.0-8.0) Ur Specific [place] (1.008-1.030) Urine Protein (NEGATIVE) mg/dL Urine Glucose (UA) (NEGATIVE) mg/dL Urine Ketones (NEGATIVE) mg/dL Urine Occult Blood (NEGATIVE) Urine Nitrite (NEGATIVE) Urine Bilirubin (NEGATIVE) Urine Urobilinogen (0.2-1.0) EU/dL Ur Leukocyte Esterase (NEGATIVE) Urine RBC (0-5) Urine WBC (0-5) Ur Epithelial Cells Amorphous Sediment Urine Bacteria Urine Mucus Meds: Medications Generic Name Dose Route Start Last Admin Trade Name Freq PRN Reason Stop Dose Admin Acetaminophen 650 mg 01/24/21 22:58 Acetaminophen 325 Mg Tab PO Q4H PRN Pain/Fever Albuterol 0 gm 01/25/21 08:29 Albuterol 8 Gm Inhaler INH Q6H PRN Shortness of Breath Albuterol/Ipratropium 1 gm 01/25/21 22:00 01/26/21 10:22 Albuterol/Ipratropium 4 Gm Inhalation [place] INH 1 puff QID ANGELA Administration Aspirin 81 mg 01/25/21 09:00 01/26/21 10:24 Aspirin 81 Mg Tab.Ec PO 81 mg DAILY ANGELA Administration Baricitinib 2 mg 01/25/21 09:00 01/26/21 10:24 Baricitinib 2 Mg Tab PO 02/07/21 09:01 2 mg DAILY ANGELA Administration Benzonatate 100 mg 01/25/21 16:45 Benzonatate 100 Mg Cap PO TID PRN Cough Cholecalciferol 50 mcg 01/25/21 09:00 01/26/21 10:25 Cholecalciferol (Vitamin D3) 25 Mcg Tab PO 50 mcg DAILY ANGELA Administration Cyanocobalamin 1,000 mcg 01/25/21 09:00 01/26/21 10:24 Cyanocobalamin (Vitamin B12) 1,000 Mcg Tab PO 1,000 mcg DAILY ANGELA Administration Dexamethasone 6 mg 01/25/21 23:00 01/25/21 22:28 Dexamethasone 4 Mg/Ml Sdv IVPUSH 6 mg Q24H ANGELA Administration Folic Acid 0.5 mg 01/25/21 09:00 01/26/21 10:25 Folic Acid 1 Mg Tab PO 0.5 mg DAILY ANGELA Administration Furosemide 40 mg 01/25/21 09:00 01/26/21 10:24 Furosemide 40 Mg Tab PO 40 mg DAILY ANGELA Administration Guaifenesin/Dextromethorphan 10 ml 01/25/21 16:45 Guaifenesin/Dextromethorphan 100-10 Mg/5 Ml Soln 10 Ml Cup PO Q4H PRN Cough Remdesivir 100 mg/ Sodium 100 mls @ 100 mls/hr 01/26/21 17:00 Chloride IV 01/29/21 17:59 Q24H ANGELA Lisinopril 20 mg 01/25/21 09:00 01/26/21 10:25 Lisinopril 20 Mg Tab PO 20 mg DAILY ANGELA Administration Melatonin 3 mg 01/25/21 21:00 01/25/21 22:30 Melatonin 3 Mg Tab PO 3 mg BEDTIME ANGELA Administration Metoprolol Succinate 25 mg 01/25/21 09:00 01/26/21 10:23 Metoprolol Succinate 25 Mg Tab.Er PO 25 mg DAILY ANGELA Administration Mirabegron 50 mg 01/25/21 09:00 01/26/21 10:24 Mirabegron 25 Mg Tab Extended Release PO 50 mg DAILY ANGELA Administration Morphine Sulfate 2 mg 01/25/21 08:06 01/25/21 12:50 Morphine 2 Mg/Ml Syringe IVPUSH 2 mg Q1H PRN Administration Anxiety Non-Formulary Medication 135 gm 01/25/21 08:29 Clotrimazole/Betameth Dip/Zinc [Dermacinrx Therazole Devyn] TP BID PRN Itching Pantoprazole Sodium 40 mg 01/25/21 11:30 01/26/21 10:25 Pantoprazole 40 Mg Tab.Cr PO 40 mg ACBREAKFAST ANGELA Administration Pravastatin Sodium 20 mg 01/25/21 09:00 01/26/21 10:24 Pravastatin 20 Mg Tab PO 20 mg DAILY ANGELA Administration Pregabalin 100 mg 01/25/21 09:00 01/26/21 10:48 Pregabalin 100 Mg Cap PO 100 mg TID ANGELA Administration Tiotropium [place] 0 gm 01/25/21 09:00 01/26/21 07:53 Tiotropium [place] 4 Gm Inhalation [place] (2.5mcg/1 Dose; 10 Doses) INH 2 spray DAILYRT ANGELA Administration Warfarin Sodium 5 mg 01/25/21 13:00 01/25/21 12:51 Warfarin 5 Mg Tab PO 5 mg [id number]@1300 ANGELA Administration Warfarin Sodium 2.5 mg 01/26/21 13:00 Warfarin 2.5 Mg Tab PO [email or web address]@1300 [facility] Discontinued Medications Generic Name Dose Route Start Last Admin Trade Name Freq PRN Reason Stop Dose Admin Albuterol/Ipratropium 3 ml 01/24/21 22:58 01/24/21 23:52 Albuterol/Ipratropium 3.0-0.5 Mg/3 Ml Neb Soln NEB 3 ml Q4H PRN Administration Shortness of Breath Dexamethasone 10 mg 01/24/21 22:58 01/24/21 23:50 Dexamethasone 4 Mg/Ml Sdv IVPUSH 01/24/21 22:59 10 mg ONETIME ONE Administration Ferrous Sulfate 325 mg 01/25/21 09:00 01/25/21 09:39 Ferrous Sulfate 325 Mg Tab PO 325 mg BID ANGELA Administration Furosemide 40 mg 01/25/21 09:00 Furosemide 20 Mg Tab PO DAILY ANGELA Levofloxacin/Dextrose 750 mg/ 150 mls @ 100 mls/hr 01/25/21 01:45 01/25/21 02:10 Premix IV 100 mls/hr Q24H ANGELA Administration Remdesivir 200 mg/ Sodium 250 mls @ 250 mls/hr 01/25/21 16:45 01/25/21 18:12 Chloride IV 01/25/21 16:46 Not Given ONETIME ONE Remdesivir 200 mg/ Sodium 250 mls @ 250 mls/hr 01/25/21 17:00 01/25/21 18:07 Chloride IV 01/25/21 17:59 250 mls/hr ONETIME ONE Administration Non-Formulary Medication 20 mg 01/25/21 09:00 Benazepril Hcl [Lotensin] PO DAILY [facility] Non-Formulary Medication 400 mcg 01/25/21 09:00 Folic Acid [Folic Acid] PO DAILY [facility] Non-Formulary Medication 50 mg 01/25/21 09:00 Mirabegron [Myrbetriq] PO DAILY ANGELA Pantoprazole Sodium 40 mg 01/25/21 09:00 Pantoprazole 40 Mg Tab.Cr PO DAILY ANGELA Prednisone 20 mg 01/25/21 09:00 01/25/21 09:41 Prednisone 20 Mg Tab PO 20 mg DAILY [facility] Administration Warfarin Sodium 5 mg 01/25/21 08:30 Warfarin 2.5 Mg Tab PO .MON,WED,FRI ANGELA Warfarin Sodium 2.5 mg 01/25/21 08:30 Warfarin 5 Mg Tab PO .NIURKA,DK,WANDA,SA [facility] - Re-Assessments/Exams Free Text/Narrative Re-Assessment/Exam: 01/25/21 07:53 Took over care from Dr. Alves at 7 AM, review of labs focusing on recent ABG shows increasing PCO2 with worsening hypercapnia oxygen saturation is also declining. Normally this would be a consideration for intubation and taking over ventilatory support however will honor her wishes with a DNR/DNI respiratory therapy is going to adjust the BiPAP for comfort. 01/25/21 10:13 Call back from [facility] they are not able to take this patient at this time. 01/25/21 15:21 Continues to have worsening respiratory failure, continue with comfort care no aggressive measures at this time. Will consult hospitalist service no beds are available at this time 01/25/21 17:25 Updated family spoke with the daughter about current situation reaffirmed that she does not want to be intubated Departure - Departure Time of Disposition: 13:55 Sepsis Event Note (ED) - Focused Exam Vital Signs: Vital Signs Temp Pulse Pulse Resp BP BP Pulse Ox 01/26/21 12:08 95 01/26/21 10:27 97.6 F 70 22 H 141/72 H 98 01/26/21 10:25 141/72 H 01/26/21 10:23 70 141/72 H 01/26/21 06:00 70 20 150/70 H 94 L - My Orders Last 24 Hours: My Active Orders 01/25/21 13:00 Warfarin [Coumadin] 5 mg PO [email or web address]@1300 01/25/21 21:00 Melatonin 3 mg PO BEDTIME 01/26/21 13:00 Warfarin [Coumadin] 2.5 mg PO SuTuThSa@1300 - Assessment/Plan Last 24 Hours: My Active Orders 01/25/21 13:00 Warfarin [Coumadin] 5 mg PO MoWeFr@1300 01/25/21 21:00 Melatonin 3 mg PO BEDTIME 01/26/21 13:00 Warfarin [Coumadin] 2.5 mg PO SuTuThSa@1300
--- NOTE | 2021-01-25 00:05 | CRLCR ---
For Patients: As a result of the Cures Act, medical imaging exams and procedure reports are released immediately into your electronic medical record. You may view this report before your referring provider. If you have questions, please contact your health care provider. INDICATION: COVID pneumonia. TECHNIQUE: Chest 1 view(s) COMPARISON: Chest radiograph dated 12/02/2020. 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 Cardiomegaly, unchanged. Diffuse patchy interstitial opacities, slightly improved in the bilateral lung bases. No large pleural effusion, no definite pneumothorax. Bilateral shoulder arthroplasties. IMPRESSION: Diffuse patchy interstitial opacities, slightly improved in the bilateral lung bases in comparison to prior study. Dictated by Quoc Gordon MD @ 01/25/2021 12:03:43 AM (Electronically Signed)
[2021-01-25] MEDS ORDERED: Levofloxacin/Dextrose 5%-Water 750 MG in Premix Bag 1 BAG IV SCH (01:45)
[2021-01-25] MEDS: Morphine 2 MG/ML SYRINGE IVPUSH PRN ×2 (08:14→12:50)
[2021-01-25] MEDS ORDERED: Albuterol 8 GM Inhaler INH PRN (08:29)
[2021-01-25] MEDS ORDERED: Albuterol/Ipratropium 3.0-0.5 MG/3 ML Neb Soln INH PRN (08:29)
[2021-01-25] MEDS ORDERED: Non-Formulary Medication 1 Each (Clotrimazole/Betameth Dip/Zinc [Dermacinrx Therazole Pak] TP PRN (08:29)
[2021-01-25] MEDS ORDERED: Warfarin 2.5 MG Tab PO SCH (08:30)
[2021-01-25] MEDS ORDERED: Warfarin 5 MG Tab PO SCH ×2 (08:30→13:00)
[2021-01-25] MEDS ORDERED: predniSONE 20 MG Tab PO SCH (09:00)
[2021-01-25] MEDS ORDERED: Ferrous Sulfate 325 MG Tab PO SCH (09:00)
[2021-01-25] MEDS ORDERED: MIRABEGRON 50 MG PO SCH (09:00)
[2021-01-25] MEDS ORDERED: Non-Formulary Medication 1 Each (Folic Acid [Folic Acid] 0.4 MG Tablet) PO SCH (09:00)
[2021-01-25] MEDS ORDERED: Benazepril 10 MG Tab PO SCH (09:00)
[2021-01-25] MEDS ORDERED: Non-Formulary Medication 1 Each (Tiotropium [Spiriva Handihaler] 18 MCG Cap) INH SCH (09:00)
[2021-01-25] MEDS ORDERED: Pantoprazole 40 MG Tab.CR PO SCH (09:00)
[2021-01-25] MEDS ORDERED: Non-Formulary Medication 1 Each (Cholecalciferol (Vitamin D3) [Vitamin D3] 2,000 UNIT Caps PO SCH (09:00)
[2021-01-25] MEDS ORDERED: Furosemide 20 MG Tab PO SCH (09:00)
[2021-01-25] MEDS: Folic Acid 1 MG Tab PO SCH (09:39)
[2021-01-25] MEDS: Pravastatin 20 MG Tab PO SCH (09:40)
[2021-01-25] MEDS: Lisinopril 20 MG Tab PO SCH (09:40)
[2021-01-25] MEDS: Cholecalciferol (Vitamin D3) 25 MCG Tab PO SCH (09:40)
[2021-01-25] MEDS: Aspirin 81 MG Tab.EC PO SCH (09:40)
[2021-01-25] MEDS: Furosemide 40 MG Tab PO SCH (09:40)
[2021-01-25] MEDS: Metoprolol Succinate 25 MG Tab.ER PO SCH (09:40)
[2021-01-25] MEDS: Cyanocobalamin (Vitamin B12) 1,000 MCG Tab PO SCH (09:41)
[2021-01-25] MEDS: Tiotropium Bromide 4 GM Inhalation Spray (2.5mcg/1 dose; 10 doses) INH SCH (09:41)
[2021-01-25] MEDS: Pantoprazole 40 MG Tab.CR PO SCH (09:41)
[2021-01-25] MEDS: Mirabegron 25 MG Tab Extended Release PO SCH (09:41)
[2021-01-25] MEDS: Pregabalin 100 MG Cap PO SCH ×3 (09:49→22:30)
[2021-01-25] MEDS ORDERED: Benzonatate 100 MG Cap PO PRN (16:45)
[2021-01-25] MEDS ORDERED: Enoxaparin 40 MG/0.4 ML Syringe SUBCUT SCH (16:45)
[2021-01-25] MEDS ORDERED: guaiFENesin/Dextromethorphan 100-10 MG/5 ML Soln 10 ML Cup PO PRN (16:45)
[2021-01-25] MEDS ORDERED: REMDESIVIR 200 MG in Sodium Chloride 0.9% 250 ML IV ONE ×2 (16:45→17:00)
--- NOTE | 2021-01-25 16:51 | PCM.CONS ---
H&P History of Present Illness - General Date of Service: 01/25/21 Admit Problem/Dx: Admission Diagnosis/Problem Admission Diagnosis/Problem Pneumonia Source of Information: Patient, Provider History Limitations: Reports: No Limitations - History of Present Illness Initial Comments - Free Text/Narative: CC: I couldn't get up HPI: Nemo presents today with a couple of days of shortness of breath and weakness. The weakness was the most impressive symptom for her. She was so weak she could not get out of bed. She is not aware of any fevers or chills. She has not noticed a significant cough. No sore throat or nasal discharge. No abdominal pain or nausea. Mostly just weak and no appetite. No obvious sick contacts that she is aware of. No change in bowel or bladder habits. Staff at the [facility]-way noticed that her oxygen numbers were low and sent her in for evaluation. She has been vaccinated against COVID-19. Work-up in the emergency room revealed acute on chronic respiratory failure with both hypoxia and hypercapnia. She has a mild respiratory acidosis based on pH but a fairly significant elevation of her PCO2. She was positive for Covid. She is currently requiring NIPPV. The plan was for admission but no beds were available. - Related Data Allergies/Adverse Reactions: Allergies Allergy/AdvReac Type Severity Reaction Status Date / Time No Known Allergies Allergy Verified 12/02/20 16:34 Home Medications: Home Meds Albuterol [Ventolin HFA] 2 puff INH Q6HR PRN 11/25/12 [History] Benazepril HCl [Lotensin] 20 mg PO DAILY 11/25/12 [History] Cholecalciferol (Vitamin D3) [Vitamin D3] 2,000 unit PO DAILY 11/25/12 [History] Metoprolol Succinate [Toprol XL] 25 mg PO DAILY 11/25/12 [History] Sennosides/Docusate Sodium [Senokot-S Tablet] 1 tab PO DAILY 11/25/12 [History] polyethylene glycoL 3350 [MiraLAX] 17 gm PO DAILY 11/25/12 [History] Folic Acid 400 mcg PO DAILY 02/17/15 [History] Warfarin [Coumadin] 2.5 mg PO .NIURKA,DK,WANDA,SA 02/17/15 [History] Albuterol/Ipratropium [DuoNeb 3.0-0.5 MG/3 ML] 3 ml INH Q4H PRN 05/10/15 [History] Naproxen [Naprosyn] 375 mg PO DAILY PRN 05/10/15 [History] Docusate Sodium 100 mg PO DAILY PRN 11/14/17 [History] Nystatin [Nystatin Crm] 1 applic TOP TID PRN 11/14/17 [History] Tiotropium [Spiriva HandiHaler] 1 cap INH DAILY 11/14/17 [History] Warfarin [Coumadin] 5 mg PO .MON,WED,FRI 02/26/19 [History] Mirabegron [Myrbetriq] 50 mg PO DAILY 07/17/19 [History] Aspirin [Halfprin] 81 mg PO DAILY 08/22/20 [History] Furosemide 40 mg PO DAILY 08/22/20 [History] Pravastatin Sodium 20 mg PO DAILY 08/22/20 [History] Pregabalin [Lyrica] 100 mg PO TID 08/22/20 [History] predniSONE [Prednisone] 20 mg PO DAILY 08/22/20 [History] Carbamide Peroxide [Debrox] 5 drop EARBOTH BID PRN 10/05/20 [History] Dextromethorphan/guaiFENesin [Robitussin DM] 10 ml PO Q4H PRN 10/05/20 [History] Mag Hydrox/Aluminum Hyd/Simeth [Maalox Maximum Strength Susp] 30 ml PO Q4H PRN 10/05/20 [History] Magnesium Hydroxide [Milk of Magnesia] 30 ml PO DAILY PRN 10/05/20 [History] Acetaminophen [Acetaminophen Extra Strength] 1,000 mg PO TID PRN 10/14/20 [Hist ory] Cyanocobalamin (Vitamin B12) [Vitamin B12] 1,000 mcg PO DAILY 10/14/20 [History] Diclofenac Sodium [Voltaren 1% Gel] 1 applic TOP BID PRN #100 gm 12/01/20 [Rx] Pantoprazole Sodium [Protonix] 40 mg PO DAILY 12/02/20 [History] Ferrous Sulfate 325 mg PO BID 01/04/21 [History] Acetaminophen/HYDROcodone [HYDROcodone-Acetaminophen 5-325 MG *] 1 tab PO Q6H PRN 01/24/21 [History] Bisacodyl [Laxative Suppository] 10 mg RC Q24H PRN 01/24/21 [History] Clotrimazole/Betameth Dip/Zinc [Dermacinrx Therazole Devyn] 135 gm TP BID PRN 01/24/21 [History] Melatonin 3 mg PO BEDTIME 01/24/21 [History] Past Medical History HEENT History: Reports: Cataract, Hard of Hearing, Impaired Vision Cardiovascular History: Reports: Afib, Automatic Implantable Cardioverter Defibrillators, High Cholesterol, Hypertension, Pacemaker, Other (See Below) Other Cardiovascular History: Aortic stenosis Respiratory History: Reports: Bronchitis, Recurrent, COPD, Sleep Apnea Other Respiratory History: Oxygen and c-pap Gastrointestinal History: Reports: Cholelithiasis, Chronic Constipation, GERD, Hemorrhoids Genitourinary History: Reports: Urinary Incontinence, UTI, Recurrent FINANCE DIRECTOR History: Reports: Musculoskeletal History: Reports: Arthritis, Fracture, RA Other Musculoskeletal History: left knee pain. right shoulder pain Neurological History: Reports: None Psychiatric History: Reports: None Endocrine/Metabolic History: Reports: Hyperthyroidism, Obesity/BMI 30+, Other (See Below) Other Endocrine/Metabolic History: Goiter Hematologic History: Reports: Anticoagulation Therapy, B12 Deficiency Immunologic History: Reports: None Oncologic (Cancer) History: Reports: Other (See Below) Other Oncologic History: "skin cancer" Dermatologic History: Reports: Melanoma Other Dermatologic History: Removal of skin spot l hand. - Infectious Disease History Infectious Disease History: Reports: Chicken Pox, Measles, Mumps - Past Surgical History HEENT Surgical History: Reports: None, Cataract Surgery Cardiovascular Surgical History: Reports: None Respiratory Surgical History: Reports: None GI Surgical History: Reports: Colonoscopy, Hernia Repair/Other, Other (See Below) Other GI Surgeries/Procedures: colon resection Female Surgical History: Reports: None Endocrine Surgical History: Reports: None Musculoskeletal Surgical History: Reports: Knee Replacement, Shoulder Replacement, Shoulder Surgery Other Musculoskeletal Surgeries/Procedures:: LT reverse total shoulder. RT reverse total shoulder (10/19/2020). Bilat TKA Dermatological Surgical History: Reports: Skin Biopsy Social & Family History - Family History Family Medical History: No Pertinent Family History - Tobacco Use Tobacco Use Status *Q: Never Tobacco User - Caffeine Use Caffeine Use: Reports: Coffee - Alcohol Use Alcohol Use History: No Alcohol Use in Last Twelve Months: No - Living Situation & Occupation Living situation: Reports: , Assisted Living Occupation: Retired H&P Review of Systems - Review of Systems: Review Of Systems: See Below Free Text/Narrative: A complete 12 point review of systems was obtained. Pertinent positives and negatives are noted in the history of present illness. All other systems were reviewed and were negative except as noted. Exam - Exam Exam: See Below - Vital Signs Vital Signs: Last Vital Signs Temp 35.3 C L 01/25/21 07:17 Pulse 70 01/25/21 16:12 Resp 18 01/25/21 09:36 BP 114/65 01/25/21 16:12 Pulse Ox 95 01/25/21 16:12 Weight: 136.078 kg - Exam Quality Assessment: Supplemental Oxygen General: Alert, Oriented, Cooperative, Mild Distress HEENT: Conjunctiva Clear. No: Mucosa Moist & Fellows (dry) Neck: Supple. No: JVD Lungs: Normal Respiratory Effort, Decreased Breath Sounds (both bases), Crackles (mild lower and mid lungs) Cardiovascular: Regular Rate, Regular Rhythm GI/Abdominal Exam: Normal Bowel Sounds, Soft, No Distention Extremities: Pedal Edema (mild bilateral lower ext R>L). No: Increased Warmth Skin: Warm, Dry Neuro Extensive - Mental Status: Alert, Oriented x3, Nl Response to Commands Neuro Extensive - Motor, Sensory, Reflexes: No: Dysarthria, Abnormal Motor, Tremor Psychiatric: Alert, Normal Affect - Patient Data Lab Results Last 24 hrs: Laboratory Results - last 24 hr 01/24/21 01/24/21 01/24/21 Range/Units 23:35 23:35 23:35 WBC 9.4 (4.5-11.0) K/uL RBC 4.52 (3.30-5.50) M/uL Hgb 12.7 D (12.0-15.0) g/dL Hct 41.6 (36.0-48.0) % MCV 92 (80-98) fL MCH 28 (27-31) pg MCHC 31 L (32-36) % Plt Count 194 (150-400) K/uL Neut % (Auto) 72.0 H (36-66) % Lymph % (Auto) 15.4 L (24-44) % [place] % (Auto) 12.5 H (2-6) % Eos % (Auto) 0.0 L (2-4) % Baso % (Auto) 0.1 (0-1) % PT (9.2-10.6) sec INR APTT 34.1 H (21.4-31.8) sec D-Dimer, Quantitative (0.0-500.0) ng/mL Puncture Site ABG pH (7.350-7.450) ABG pCO2 (35.0-42.0) mmHg ABG pO2 (75.0-100.0) mmHg ABG HCO3 (22.0-26.0) mmol/L ABG Total CO2 (21.0-25.0) mmol/L ABG O2 Saturation (95.0-98.0) % ABG O2 Content (15.0-23.0) %vol ABG Base Excess mm/L ABG Hemoglobin (12.0-16.0) g/dL ABG Oxyhemoglobin % ABG Carboxyhemoglobin (0.0-1.6) % ABG Methemoglobin % Pedro Test O2 Delivery Device Oxygen Flow Rate L Sodium (140-148) mmol/L Potassium (3.6-5.2) mmol/L Chloride (100-108) mmol/L Carbon Dioxide (21-32) mmol/L Anion Gap (5.0-14.0) mmol/L BUN (7-18) mg/dL Creatinine (0.6-1.0) mg/dL Est Cr Clr Drug Dosing mL/min Estimated GFR (MDRD) (>60) Glucose (74-106) mg/dL Lactic Acid (0.4-2.0) mmol/L Calcium (8.5-10.1) mg/dL Magnesium (1.8-2.4) mg/dL Ferritin 174 (8-388) ng/ml Total Bilirubin (0.2-1.0) mg/dL Direct Bilirubin (0.0-0.2) mg/dL Indirect Bilirubin AST (15-37) U/L ALT (12-78) U/L Alkaline Phosphatase (46-116) U/L Lactate Dehydrogenase (82-234) U/L Creatine Kinase (26-192) U/L Troponin I (0.000-0.056) ng/mL C-Reactive Protein (0.0-0.3) mg/dL Total Protein (6.4-8.2) g/dL Albumin (3.4-5.0) g/dL Globulin (2.3-3.5) g/dL Albumin/Globulin Ratio (1.2-2.2) Procalcitonin ng/mL Urine Color (YELLOW) Urine Appearance (CLEAR) Urine pH (5.0-8.0) Ur Specific [place] (1.008-1.030) Urine Protein (NEGATIVE) mg/dL Urine Glucose (UA) (NEGATIVE) mg/dL Urine Ketones (NEGATIVE) mg/dL Urine Occult Blood (NEGATIVE) Urine Nitrite (NEGATIVE) Urine Bilirubin (NEGATIVE) Urine Urobilinogen (0.2-1.0) EU/dL Ur Leukocyte Esterase (NEGATIVE) Urine RBC (0-5) Urine WBC (0-5) Ur Epithelial Cells Amorphous Sediment Urine Bacteria Urine Mucus 01/24/21 01/24/21 01/24/21 Range/Units 23:35 23:35 23:35 WBC (4.5-11.0) K/uL RBC (3.30-5.50) M/uL Hgb (12.0-15.0) g/dL Hct (36.0-48.0) % MCV (80-98) fL MCH (27-31) pg MCHC (32-36) % Plt Count (150-400) K/uL Neut % (Auto) (36-66) % Lymph % (Auto) (24-44) % [place] % (Auto) (2-6) % Eos % (Auto) (2-4) % Baso % (Auto) (0-1) % PT (9.2-10.6) sec INR APTT (21.4-31.8) sec D-Dimer, Quantitative 396.42 (0.0-500.0) ng/mL Puncture Site ABG pH (7.350-7.450) ABG pCO2 (35.0-42.0) mmHg ABG pO2 (75.0-100.0) mmHg ABG HCO3 (22.0-26.0) mmol/L ABG Total CO2 (21.0-25.0) mmol/L ABG O2 Saturation (95.0-98.0) % ABG O2 Content (15.0-23.0) %vol ABG Base Excess mm/L ABG Hemoglobin (12.0-16.0) g/dL ABG Oxyhemoglobin % ABG Carboxyhemoglobin (0.0-1.6) % ABG Methemoglobin % Pedro Test O2 Delivery Device Oxygen Flow Rate L Sodium 143 (140-148) mmol/L Potassium 5.0 (3.6-5.2) mmol/L Chloride 103 (100-108) mmol/L Carbon Dioxide 36 H (21-32) mmol/L Anion Gap 9.0 (5.0-14.0) mmol/L BUN 44 H D (7-18) mg/dL Creatinine 1.4 H D (0.6-1.0) mg/dL Est Cr Clr Drug Dosing 20.33 mL/min Estimated GFR (MDRD) 36 L (>60) Glucose 111 H (74-106) mg/dL Lactic Acid 1.7 (0.4-2.0) mmol/L Calcium 8.3 L (8.5-10.1) mg/dL Magnesium (1.8-2.4) mg/dL Ferritin (8-388) ng/ml Total Bilirubin 0.3 (0.2-1.0) mg/dL Direct Bilirubin 0.09 (0.0-0.2) mg/dL Indirect Bilirubin TNP AST 16 (15-37) U/L ALT 30 (12-78) U/L Alkaline Phosphatase 52 (46-116) U/L Lactate Dehydrogenase 246 H (82-234) U/L Creatine Kinase 21 L (26-192) U/L Troponin I (0.000-0.056) ng/mL C-Reactive Protein 7.85 H (0.0-0.3) mg/dL Total Protein 6.6 (6.4-8.2) g/dL Albumin 3.1 L (3.4-5.0) g/dL Globulin 3.5 (2.3-3.5) g/dL Albumin/Globulin Ratio 0.9 L (1.2-2.2) Procalcitonin ng/mL Urine Color (YELLOW) Urine Appearance (CLEAR) Urine pH (5.0-8.0) Ur Specific [place] (1.008-1.030) Urine Protein (NEGATIVE) mg/dL Urine Glucose (UA) (NEGATIVE) mg/dL Urine Ketones (NEGATIVE) mg/dL Urine Occult Blood (NEGATIVE) Urine Nitrite (NEGATIVE) Urine Bilirubin (NEGATIVE) Urine Urobilinogen (0.2-1.0) EU/dL Ur Leukocyte Esterase (NEGATIVE) Urine RBC (0-5) Urine WBC (0-5) Ur Epithelial Cells Amorphous Sediment Urine Bacteria Urine Mucus 01/24/21 01/24/21 01/24/21 Range/Units 23:35 23:35 23:35 WBC (4.5-11.0) K/uL RBC (3.30-5.50) M/uL Hgb (12.0-15.0) g/dL Hct (36.0-48.0) % MCV (80-98) fL MCH (27-31) pg MCHC (32-36) % Plt Count (150-400) K/uL Neut % (Auto) (36-66) % Lymph % (Auto) (24-44) % [place] % (Auto) (2-6) % Eos % (Auto) (2-4) % Baso % (Auto) (0-1) % PT 21.7 H (9.2-10.6) sec INR 2.2 APTT (21.4-31.8) sec D-Dimer, Quantitative (0.0-500.0) ng/mL Puncture Site Rt radial ABG pH 7.337 L (7.350-7.450) ABG pCO2 63.3 H (35.0-42.0) mmHg ABG pO2 81.2 (75.0-100.0) mmHg ABG HCO3 33.0 H (22.0-26.0) mmol/L ABG Total CO2 30.1 H (21.0-25.0) mmol/L ABG O2 Saturation 95.7 (95.0-98.0) % ABG O2 Content 16.7 (15.0-23.0) %vol ABG Base Excess 5.8 mm/L ABG Hemoglobin 12.6 (12.0-16.0) g/dL ABG Oxyhemoglobin 93.5 % ABG Carboxyhemoglobin 1.6 (0.0-1.6) % ABG Methemoglobin 0.7 % Pedro Test Pass O2 Delivery Device Nasal cannula Oxygen Flow Rate 3.0 L Sodium (140-148) mmol/L Potassium (3.6-5.2) mmol/L Chloride (100-108) mmol/L Carbon Dioxide (21-32) mmol/L Anion Gap (5.0-14.0) mmol/L BUN (7-18) mg/dL Creatinine (0.6-1.0) mg/dL Est Cr Clr Drug Dosing mL/min Estimated GFR (MDRD) (>60) Glucose (74-106) mg/dL Lactic Acid (0.4-2.0) mmol/L Calcium (8.5-10.1) mg/dL Magnesium (1.8-2.4) mg/dL Ferritin (8-388) ng/ml Total Bilirubin (0.2-1.0) mg/dL Direct Bilirubin (0.0-0.2) mg/dL Indirect Bilirubin AST (15-37) U/L ALT (12-78) U/L Alkaline Phosphatase (46-116) U/L Lactate Dehydrogenase (82-234) U/L Creatine Kinase (26-192) U/L Troponin I (0.000-0.056) ng/mL C-Reactive Protein (0.0-0.3) mg/dL Total Protein (6.4-8.2) g/dL Albumin (3.4-5.0) g/dL Globulin (2.3-3.5) g/dL Albumin/Globulin Ratio (1.2-2.2) Procalcitonin < 0.05 ng/mL Urine Color (YELLOW) Urine Appearance (CLEAR) Urine pH (5.0-8.0) Ur Specific [place] (1.008-1.030) Urine Protein (NEGATIVE) mg/dL Urine Glucose (UA) (NEGATIVE) mg/dL Urine Ketones (NEGATIVE) mg/dL Urine Occult Blood (NEGATIVE) Urine Nitrite (NEGATIVE) Urine Bilirubin (NEGATIVE) Urine Urobilinogen (0.2-1.0) EU/dL Ur Leukocyte Esterase (NEGATIVE) Urine RBC (0-5) Urine WBC (0-5) Ur Epithelial Cells Amorphous Sediment Urine Bacteria Urine Mucus 01/24/21 01/25/21 01/25/21 Range/Units 23:35 00:23 04:45 WBC (4.5-11.0) K/uL RBC (3.30-5.50) M/uL Hgb (12.0-15.0) g/dL Hct (36.0-48.0) % MCV (80-98) fL MCH (27-31) pg MCHC (32-36) % Plt Count (150-400) K/uL Neut % (Auto) (36-66) % Lymph % (Auto) (24-44) % [place] % (Auto) (2-6) % Eos % (Auto) (2-4) % Baso % (Auto) (0-1) % PT (9.2-10.6) sec INR APTT (21.4-31.8) sec D-Dimer, Quantitative (0.0-500.0) ng/mL Puncture Site Lt radial ABG pH 7.319 L (7.350-7.450) ABG pCO2 67.1 H (35.0-42.0) mmHg ABG pO2 67.5 L (75.0-100.0) mmHg ABG HCO3 33.5 H (22.0-26.0) mmol/L ABG Total CO2 30.9 H (21.0-25.0) mmol/L ABG O2 Saturation 92.2 L (95.0-98.0) % ABG O2 Content 15.1 (15.0-23.0) %vol ABG Base Excess 5.9 mm/L ABG Hemoglobin 11.9 L (12.0-16.0) g/dL ABG Oxyhemoglobin 90.1 % ABG Carboxyhemoglobin 1.6 (0.0-1.6) % ABG Methemoglobin 0.7 % Pedro Test Pass O2 Delivery Device Bipap Oxygen Flow Rate L Sodium (140-148) mmol/L Potassium (3.6-5.2) mmol/L Chloride (100-108) mmol/L Carbon Dioxide (21-32) mmol/L Anion Gap (5.0-14.0) mmol/L BUN (7-18) mg/dL Creatinine (0.6-1.0) mg/dL Est Cr Clr Drug Dosing mL/min Estimated GFR (MDRD) (>60) Glucose (74-106) mg/dL Lactic Acid (0.4-2.0) mmol/L Calcium (8.5-10.1) mg/dL Magnesium 2.4 (1.8-2.4) mg/dL Ferritin (8-388) ng/ml Total Bilirubin (0.2-1.0) mg/dL Direct Bilirubin (0.0-0.2) mg/dL Indirect Bilirubin AST (15-37) U/L ALT (12-78) U/L Alkaline Phosphatase (46-116) U/L Lactate Dehydrogenase (82-234) U/L Creatine Kinase (26-192) U/L Troponin I < 0.017 (0.000-0.056) ng/mL C-Reactive Protein (0.0-0.3) mg/dL Total Protein (6.4-8.2) g/dL Albumin (3.4-5.0) g/dL Globulin (2.3-3.5) g/dL Albumin/Globulin Ratio (1.2-2.2) Procalcitonin ng/mL Urine Color Yellow (YELLOW) Urine Appearance Cloudy A (CLEAR) Urine pH 5.0 (5.0-8.0) Ur Specific [place] 1.025 (1.008-1.030) Urine Protein Negative (NEGATIVE) mg/dL Urine Glucose (UA) Negative (NEGATIVE) mg/dL Urine Ketones Negative (NEGATIVE) mg/dL Urine Occult Blood Trace-lysed H (NEGATIVE) Urine Nitrite Positive H (NEGATIVE) Urine Bilirubin Negative (NEGATIVE) Urine Urobilinogen 0.2 (0.2-1.0) EU/dL Ur Leukocyte Esterase Trace H (NEGATIVE) Urine RBC 0-5 (0-5) Urine WBC 5-10 H (0-5) Ur Epithelial Cells Rare Amorphous Sediment Not seen Urine Bacteria Many Urine Mucus Not seen Result Diagrams: 01/26/21 05:45 01/26/21 05:45 Imaging Impressions Last 24 hrs: CXR-images personally reviewed-mild bilateral lower lung patchy infiltrates. No mass or effusion. Heart size normal. Sepsis Event Note - Evaluation Sepsis Screening Result: No Definite Risk - Focused Exam Vital Signs: Vital Signs Temp Pulse Pulse Resp BP BP Pulse Ox 01/25/21 16:12 70 114/65 95 01/25/21 15:43 70 128/56 L 95 01/25/21 09:40 70 124/54 L 01/25/21 09:36 70 18 124/54 L 94 L 01/25/21 08:27 70 95 01/25/21 07:17 35.3 C L 70 16 121/45 L 91 L 01/25/21 06:25 70 29 H 102/41 L 92 L *Q Meaningful Use (ADM) - VTE Risk Assess *Q Each Risk Factor Represents 1 Point: Obesity ( BMI > 25 kg/m2), Serious lung disease including pneumonia Total Score 1 Point Risk Factors: 2 Each Risk Factor Represents 2 Points: None Total Score 2 Point Risk Factors: 0 Each Risk Factor Represents 3 Points: Age 75 Years or Greater Total Score 3 Point Risk Factors: 3 Each Risk Factor Represents 5 Points: None Total Score 5 Point Risk Factors: 0 Venous Thromboembolism Risk Factor Score *Q: 5 Consult PN Assessment/Plan Procedures: Procedures AIRWAY INHALATION TREATMENT (12/02/20) ASSAY OF CREATININE (11/27/17) ASSAY OF FREE THYROXINE (08/04/20) ASSAY OF LACTIC ACID (12/02/20) ASSAY OF NATRIURETIC PEPTIDE (08/21/20) ASSAY OF TROPONIN QUANT (08/21/20) ASSAY THYROID STIM HORMONE (08/04/20) BLOOD CULTURE FOR BACTERIA (12/02/20) BLOOD TYPING SEROLOGIC ABO (10/20/20) BLOOD TYPING SEROLOGIC RH(D) (10/20/20) BONE IMAGING 3 PHASE (06/13/15) C-REACTIVE PROTEIN (12/02/20) CARDIOVASCULAR STRESS TEST (09/29/20) CHEST WALL MANIPULATION (10/20/20) CHEST WALL MANIPULATION (10/20/20) CO/MEMBANE DIFFUSE CAPACITY (01/31/15) COMPLETE CBC AUTOMATED (12/02/20) COMPLETE CBC W/AUTO DIFF WBC (12/02/20) COMPREHEN METABOLIC PANEL (12/02/20) CT ABD & PELV W/CONTRAST (11/25/12) CT HEAD/BRAIN W/O DYE (12/02/20) CT THORAX DX C+ (11/27/17) DIAGNOSTIC COLONOSCOPY (12/26/12) ECHO GUIDE FOR BIOPSY (05/12/15) ELECTROCARDIOGRAM REPORT (08/21/20) ELECTROCARDIOGRAM TRACING (12/02/20) EMERGENCY DEPT VISIT (08/21/20) EMERGENCY DEPT VISIT (08/21/20) EMERGENCY DEPT VISIT (02/26/19) EMERGENCY DEPT VISIT (05/08/18) EMERGENCY DEPT VISIT (11/15/17) EMERGENCY DEPT VISIT (11/15/17) EMERGENCY DEPT VISIT (05/31/15) EMERGENCY DEPT VISIT (05/31/15) EMERGENCY DEPT VISIT (05/30/15) EMERGENCY DEPT VISIT (05/30/15) EMERGENCY DEPT VISIT (09/19/14) EVALUATION OF WHEEZING (01/31/15) EXTREMITY STUDY (08/21/20) FNA W/IMAGE (05/12/15) FREE ASSAY (FT-3) (08/04/20) GAIT TRAINING THERAPY (10/20/20) HOT OR COLD PACKS THERAPY (01/07/18) HT MUSCLE IMAGE SPECT MULT (09/29/20) INFLUENZA ASSAY W/OPTIC (02/26/19) INJECT TRIGGER POINTS 3/> (01/08/18) INSERT TEMP BLADDER CATH (10/20/20) MANUAL THERAPY 1/> REGIONS (10/20/20) MEASURE BLOOD OXYGEN LEVEL (12/02/20) METABOLIC PANEL TOTAL CA (12/02/20) MICROBE SUSCEPTIBLE LUDWIG (12/02/20) OBSERV/HOSP SAME DATE (11/15/17) OFFICE O/P EST LOW 20-29 MIN (12/01/20) OT EVAL LOW COMPLEX 30 MIN (12/02/20) POLYSOM ANY AGE 1-3> NORMA (04/10/19) PROTHROMBIN TIME (01/12/21) PT EVAL LOW COMPLEX 20 MIN (12/02/20) PT EVAL MOD COMPLEX 30 MIN (10/20/20) PT EVALUATION (09/07/15) PULM FUNCTION TEST BY GAS (11/12/13) RBC ANTIBODY SCREEN (10/20/20) RECONSTRUCT SHOULDER JOINT (10/20/20) ROUTINE VENIPUNCTURE (01/12/21) SELF CARE MNGMENT TRAINING (12/02/20) THER/PROPH/DIAG INJ IV PUSH (11/15/17) THER/PROPH/DIAG INJ SC/IM (11/15/17) THER/PROPH/DIAG IV INF INIT (05/31/15) THERAPEUTIC ACTIVITIES (12/02/20) THERAPEUTIC EXERCISES (12/02/20) THROMBOPLASTIN TIME PARTIAL (08/21/20) THYROID IMAGING W/BLOOD FLOW (06/24/18) TTE W/DOPPLER COMPLETE (02/16/20) TX/PRO/DX INJ NEW DRUG ADDON (05/31/15) URINALYSIS AUTO W/SCOPE (12/02/20) URINE BACTERIA CULTURE (12/02/20) URINE CULTURE/COLONY COUNT (12/02/20) US EXAM ABDO BACK WALL COMP (10/26/15) US EXAM OF HEAD AND NECK (04/13/15) VITAMIN B-12 (08/04/20) VITAMIN D 25 HYDROXY (08/04/20) X-RAY EXAM CHEST 1 VIEW (12/02/20) X-RAY EXAM CHEST 2 VIEWS (02/26/19) X-RAY EXAM KNEE 4 OR MORE (07/15/13) X-RAY EXAM L-S SPINE 2/3 VWS (05/31/15) X-RAY EXAM NECK SPINE 2-3 VW (11/15/17) X-RAY EXAM OF ELBOW (07/15/13) X-RAY EXAM OF KNEE 3 (05/08/18) X-RAY EXAM OF PELVIS (05/31/15) X-RAY EXAM OF SHOULDER (10/20/20) X-RAY EXAM OF SHOULDER (08/23/20) X-RAY EXAM SI JOINTS (02/15/15) (1) Pneumonia due to COVID-19 virus SNOMED Code(s): 516155105263608290 Code(s): U07.1 - COVID-19; J12.82 - PNEUMONIA DUE TO CORONAVIRUS DISEASE 2019 Current Visit: Yes (2) Acute respiratory failure with hypoxia and hypercarbia SNOMED Code(s): 353507676 Code(s): J96.01 - ACUTE RESPIRATORY FAILURE WITH HYPOXIA; J96.02 - ACUTE RESPIRATORY FAILURE WITH HYPERCAPNIA Current Visit: Yes (3) Chronic renal insufficiency, stage III (moderate) SNOMED Code(s): 133313644 Code(s): N18.30 - CHRONIC KIDNEY DISEASE, STAGE 3 UNSPECIFIED Current Visit: Yes Qualifiers: Chronic kidney disease stage 3 subtype: stage 3b (GFR 30-44) Qualified Code(s): N18.32 - Chronic kidney disease, stage 3b (4) COPD (chronic obstructive pulmonary disease) SNOMED Code(s): 43814237 Code(s): J44.9 - CHRONIC OBSTRUCTIVE PULMONARY DISEASE, UNSPECIFIED Priority: Low Current Visit: No Qualifiers: (5) Sleep apnea SNOMED Code(s): 53931219 Code(s): G47.30 - SLEEP APNEA, UNSPECIFIED Current Visit: No (6) History of atrial fibrillation SNOMED Code(s): 439440314 Code(s): Z86.79 - PERSONAL HISTORY OF OTHER DISEASES OF THE CIRCULATORY SYSTEM Current Visit: No (7) Obesity, morbid, BMI 50 or higher SNOMED Code(s): 364154263, 400400796 Code(s): E66.01 - MORBID (SEVERE) OBESITY DUE TO EXCESS CALORIES Current Visit: Yes Problem List Initiated/Reviewed/Updated: Yes My Orders Last 24 Hours: My Active Orders 01/25/21 16:44 RT Aerosol Therapy [RC] ASDIRECTED RT Post Treatment Assessment [RC] Click to Edit 01/25/21 16:45 Benzonatate [Tessalon Perles] 100 mg PO TID PRN Dextromethorphan/guaiFENesin [Robitussin DM] 10 ml PO Q4H PRN Enoxaparin [Lovenox] 40 mg SUBCUT Q24H 01/25/21 22:00 Albuterol/Ipratropium [Combivent Respimat] 1 gm INH QID 01/25/21 23:00 dexAMETHasone [Decadron] 6 mg IVPUSH Q24H 01/26/21 05:00 BLOOD GAS ARTERIAL [BG] Timed CBC W/O DIFF,HEMOGRAM [HEME] Timed (1) COMPREHENSIVE METABOLIC PN,CMP [CHEM] Timed CRP [C-REACTIVE PROTEIN] [CHEM] Timed D-DIMER QUANTITATIVE [COAG] Timed INR,PT,PROTHROMBIN TIME [COAG] Timed 01/26/21 17:00 Remdesivir 100 mg Sodium Chloride 0.9% [Normal Saline] 100 ml IV Q24H Plan: ASSESSMENT AND PLAN - COVID-19 pneumonia-complicated by acute respiratory failure with both hypoxia and hypercapnia. Mild elevation of D-dimer and CRP. Patient is requiring NIPPV but overall does not look too bad. She did receive dexamethasone last night and baricitinib today because of the severity of her illness. She is anticoagulated. She has been vaccinated. -Dexamethasone 6 mg every 24 hours -Remdesivir x5 days -Baricitinib every 24 hours -Symptomatic management of cough -Supplemental oxygen/NIPPV, wean as able COPD-no evidence for acute exacerbation at this time. -Continue home medications Stage IIIb kidney disease-creatinine stable. -Encourage oral intake Atrial fibrillation, chronic-rate controlled. Anticoagulated. INR therapeutic. -Continue warfarin Maintenance issues - -DVT prophylaxis-warfarin -GI prophylaxis-PPI -Nutrition-regular -William catheter-placed for strict intake and output monitoring in a critical patient CODE STATUS -DNR/DNI Doyle Abarca M.D. Requesting Provider: Officer Date Consult Requested: 01/25/21 Reason for Consult: covid Patient History Reviewed: Yes Admission H&P Reviewed: No (n/a) Notified Requestor: Yes Time Spent (in minutes): 60
[2021-01-25] MEDS: Dexamethasone 4 MG/ML SDV IVPUSH SCH (22:28)
[2021-01-25] MEDS: Melatonin 3 MG Tab PO SCH (22:30)
[2021-01-25] MEDS: Albuterol/Ipratropium 4 GM Inhalation Spray INH SCH (22:45)
[2021-01-26] MEDS: Albuterol/Ipratropium 4 GM Inhalation Spray INH SCH ×4 (06:25→21:54)
[2021-01-26] MEDS: Tiotropium Bromide 4 GM Inhalation Spray (2.5mcg/1 dose; 10 doses) INH SCH (07:53)
[2021-01-26] MEDS: Metoprolol Succinate 25 MG Tab.ER PO SCH (10:23)
[2021-01-26] MEDS: Pravastatin 20 MG Tab PO SCH (10:24)
[2021-01-26] MEDS: Mirabegron 25 MG Tab Extended Release PO SCH (10:24)
[2021-01-26] MEDS: Cyanocobalamin (Vitamin B12) 1,000 MCG Tab PO SCH (10:24)
[2021-01-26] MEDS: Furosemide 40 MG Tab PO SCH (10:24)
[2021-01-26] MEDS: Aspirin 81 MG Tab.EC PO SCH (10:24)
[2021-01-26] MEDS: Cholecalciferol (Vitamin D3) 25 MCG Tab PO SCH (10:25)
[2021-01-26] MEDS: Folic Acid 1 MG Tab PO SCH (10:25)
[2021-01-26] MEDS: Pantoprazole 40 MG Tab.CR PO SCH (10:25)
[2021-01-26] MEDS: Lisinopril 20 MG Tab PO SCH (10:25)
[2021-01-26] MEDS: Pregabalin 100 MG Cap PO SCH ×3 (10:48→20:28)
--- NOTE | 2021-01-26 13:52 | PCM.HP.2 ---
H&P History of Present Illness - General Date of Service: 01/26/21 Admit Problem/Dx: Admission Diagnosis/Problem Admission Diagnosis/Problem Pneumonia Source of Information: Patient, Provider History Limitations: Reports: No Limitations - History of Present Illness Initial Comments - Free Text/Narative: CC: weakness HPI: Nemo presented to the emergency room late in the evening on 01/24. She was found to be Covid positive and had hypoxic respiratory failure as well as hy percapnic respiratory failure resulting in her being placed on noninvasive ventilation overnight. She was seen in consultation yesterday since no beds were available for admission or for transfer. A bed is now available and she will be admitted to our hospital. She initially presented with a couple of days of progressive shortness of breath as well as profound weakness. She had not had any headaches, sore throat or myalgias. No abdominal pain, nausea or diarrhea. Appetite had been decreased. Energy was also quite decreased. Since the consultation yesterday there has been no significant change in her symptoms. Yesterday she was requiring noninvasive ventilation but today she is on high flow nasal cannula and we have been able to titrate this down since earlier this morning. She is tolerating her treatment with dexamethasone, remdesivir and baricitinib. - Related Data Allergies/Adverse Reactions: Allergies Allergy/AdvReac Type Severity Reaction Status Date / Time No Known Allergies Allergy Verified 12/02/20 16:34 Home Medications: Home Meds Albuterol [Ventolin HFA] 2 puff INH Q6HR PRN 11/25/12 [History] Benazepril HCl [Lotensin] 20 mg PO DAILY 11/25/12 [History] Cholecalciferol (Vitamin D3) [Vitamin D3] 2,000 unit PO DAILY 11/25/12 [History] Metoprolol Succinate [Toprol XL] 25 mg PO DAILY 11/25/12 [History] Sennosides/Docusate Sodium [Senokot-S Tablet] 1 tab PO DAILY 11/25/12 [History] polyethylene glycoL 3350 [MiraLAX] 17 gm PO DAILY 11/25/12 [History] Folic Acid 400 mcg PO DAILY 02/17/15 [History] Warfarin [Coumadin] 2.5 mg PO .DK BAH THUR, 02/17/15 [History] Albuterol/Ipratropium [DuoNeb 3.0-0.5 MG/3 ML] 3 ml INH Q4H PRN 05/10/15 [History] Naproxen [Naprosyn] 375 mg PO DAILY PRN 05/10/15 [History] Docusate Sodium 100 mg PO DAILY PRN 11/14/17 [History] Nystatin [Nystatin Crm] 1 applic TOP TID PRN 11/14/17 [History] Tiotropium [Spiriva HandiHaler] 1 cap INH DAILY 11/14/17 [History] Warfarin [Coumadin] 5 mg PO .MON,WED,Sat02/26/19 [History] Mirabegron [Myrbetriq] 50 mg PO DAILY 07/17/19 [History] Aspirin [Halfprin] 81 mg PO DAILY 08/22/20 [History] Furosemide 40 mg PO DAILY 08/22/20 [History] Pravastatin Sodium 20 mg PO DAILY 08/22/20 [History] Pregabalin [Lyrica] 100 mg PO TID 08/22/20 [History] predniSONE [Prednisone] 20 mg PO DAILY 08/22/20 [History] Carbamide Peroxide [Debrox] 5 drop EARBOTH BID PRN 10/05/20 [History] Dextromethorphan/guaiFENesin [Robitussin DM] 10 ml PO Q4H PRN 10/05/20 [History] Mag Hydrox/Aluminum Hyd/Simeth [Maalox Maximum Strength Susp] 30 ml PO Q4H PRN 10/05/20 [History] Magnesium Hydroxide [Milk of Magnesia] 30 ml PO DAILY PRN 10/05/20 [History] Acetaminophen [Acetaminophen Extra Strength] 1,000 mg PO TID PRN 10/14/20 [History] Cyanocobalamin (Vitamin B12) [Vitamin B12] 1,000 mcg PO DAILY 10/14/20 [History] Diclofenac Sodium [Voltaren 1% Gel] 1 applic TOP BID PRN #100 gm 12/01/20 [Rx] Pantoprazole Sodium [Protonix] 40 mg PO DAILY 12/02/20 [History] Ferrous Sulfate 325 mg PO BID 01/04/21 [History] Acetaminophen/HYDROcodone [HYDROcodone-Acetaminophen 5-325 MG *] 1 tab PO Q6H PRN 01/24/21 [History] Bisacodyl [Laxative Suppository] 10 mg RC Q24H PRN 01/24/21 [History] Clotrimazole/Betameth Dip/Zinc [Dermacinrx Therazole Devyn] 135 gm TP BID PRN 01/24/21 [History] Melatonin 3 mg PO BEDTIME 01/24/21 [History] Past Medical History HEENT History: Reports: Cataract, Hard of Hearing, Impaired Vision Cardiovascular History: Reports: Afib, Automatic Implantable Cardioverter Defibrillators, High Cholesterol, Hypertension, Pacemaker, Other (See Below) Other Cardiovascular History: Aortic stenosis Respiratory History: Reports: Bronchitis, Recurrent, COPD, Sleep Apnea Other Respiratory History: Oxygen and c-pap Gastrointestinal History: Reports: Cholelithiasis, Chronic Constipation, GERD, Hemorrhoids Genitourinary History: Reports: Urinary Incontinence, UTI, Recurrent [employer]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 right shoulder pain Neurological History: Reports: None Psychiatric History: Reports: None Endocrine/Metabolic History: Reports: Hyperthyroidism, Obesity/BMI 30+, Other (See Below) Other Endocrine/Metabolic History: Goiter Hematologic History: Reports: Anticoagulation Therapy, B12 Deficiency Immunologic History: Reports: None Oncologic (Cancer) History: Reports: Other (See Below) Other Oncologic History: "skin cancer" Dermatologic History: Reports: Melanoma Other Dermatologic History: Removal of skin spot l hand. - Infectious Disease History Infectious Disease History: Reports: Chicken Pox, Measles, Mumps - Past Surgical History HEENT Surgical History: Reports: None, Cataract Surgery Cardiovascular Surgical History: Reports: None Respiratory Surgical History: Reports: None GI Surgical History: Reports: Colonoscopy, Hernia Repair/Other, Other (See Below) Other GI Surgeries/Procedures: colon resection Female Surgical History: Reports: None Endocrine Surgical History: Reports: None Musculoskeletal Surgical History: Reports: Knee Replacement, Shoulder Replacement, Shoulder Surgery Other Musculoskeletal Surgeries/Procedures:: LT reverse total shoulder. RT reverse total shoulder (10/19/2020). Bilat TKA Dermatological Surgical History: Reports: Skin Biopsy Social & Family History - Family History Family Medical History: No Pertinent Family History - Tobacco Use Tobacco Use Status *Q: Never Tobacco User - Caffeine Use Caffeine Use: Reports: Coffee - Alcohol Use Alcohol Use History: No Alcohol Use in Last Twelve Months: No - Living Situation & Occupation Living situation: Reports: , Assisted Living Occupation: Retired H&P Review of Systems - Review of Systems: Review Of Systems: See Below Free Text/Narrative: A complete 12 point review of systems was obtained. Pertinent positives and negatives are noted in the history of present illness. All other systems were reviewed and were negative except as noted. Exam - Exam Exam: See Below - Vital Signs Vital Signs: Last Vital Signs Temp 36.4 C 01/26/21 10:27 Pulse 70 01/26/21 10:27 Resp 22 H 01/26/21 10:27 BP 141/72 H 01/26/21 10:27 Pulse Ox 95 01/26/21 12:08 Weight: 136.078 kg - Exam Quality Assessment: Supplemental Oxygen General: Alert, Oriented, Cooperative. No: Mild Distress HEENT: Conjunctiva Clear, Mucosa Moist & [place] Neck: Supple, Trachea Midline Lungs: Normal Respiratory Effort, Decreased Breath Sounds (Both bases), Crackles (Few both bases) Cardiovascular: Regular Rate, Regular Rhythm. No: Systolic Murmur GI/Abdominal Exam: Normal Bowel Sounds, Soft, No Distention Extremities: No Pedal Edema. No: Joint Swelling, Increased Warmth Skin: Warm, Dry Neuro Extensive - Mental Status: Alert, Oriented x3, Nl Response to Commands Neuro Extensive - Motor, Sensory, Reflexes: No: Dysarthria, Abnormal Motor, Tremor Psychiatric: Alert, Normal Affect - Patient Data Lab Results Last 24 hrs: Laboratory Results - last 24 hr 01/26/21 01/26/21 01/26/21 Range/Units 05:00 05:45 05:45 WBC 7.3 (4.5-11.0) K/uL RBC 4.42 (3.30-5.50) M/uL Hgb 12.1 (12.0-15.0) g/dL Hct 40.2 (36.0-48.0) % MCV 91 (80-98) fL MCH 27 (27-31) pg MCHC 30 L (32-36) % Plt Count 156 (150-400) K/uL PT 25.3 H (9.2-10.6) sec INR 2.6 D-Dimer, Quantitative (0.0-500.0) ng/mL Puncture Site Lt radial ABG pH 7.408 (7.350-7.450) ABG pCO2 58.4 H (35.0-42.0) mmHg ABG pO2 90.4 (75.0-100.0) mmHg ABG HCO3 36.1 H (22.0-26.0) mmol/L ABG Total CO2 32.5 H (21.0-25.0) mmol/L ABG O2 Saturation 97.4 (95.0-98.0) % ABG O2 Content 16.6 (15.0-23.0) %vol ABG Base Excess 9.8 mm/L ABG Hemoglobin 12.4 (12.0-16.0) g/dL ABG Oxyhemoglobin 94.7 % ABG Carboxyhemoglobin 2.0 H (0.0-1.6) % ABG Methemoglobin 0.8 % Pedro Test Passed O2 Delivery Device Bipap Oxygen Flow Rate L Sodium (140-148) mmol/L Potassium (3.6-5.2) mmol/L Chloride (100-108) mmol/L Carbon Dioxide (21-32) mmol/L Anion Gap (5.0-14.0) mmol/L BUN (7-18) mg/dL Creatinine (0.6-1.0) mg/dL Est Cr Clr Drug Dosing mL/min Estimated GFR (MDRD) (>60) Glucose (74-106) mg/dL Calcium (8.5-10.1) mg/dL Total Bilirubin (0.2-1.0) mg/dL AST (15-37) U/L ALT (12-78) U/L Alkaline Phosphatase (46-116) U/L C-Reactive Protein (0.0-0.3) mg/dL Total Protein (6.4-8.2) g/dL Albumin (3.4-5.0) g/dL Globulin (2.3-3.5) g/dL Albumin/Globulin Ratio (1.2-2.2) 01/26/21 01/26/21 Range/Units 05:45 05:45 WBC (4.5-11.0) K/uL RBC (3.30-5.50) M/uL Hgb (12.0-15.0) g/dL Hct (36.0-48.0) % MCV (80-98) fL MCH (27-31) pg MCHC (32-36) % Plt Count (150-400) K/uL PT (9.2-10.6) sec INR D-Dimer, Quantitative 343.17 (0.0-500.0) ng/mL Puncture Site ABG pH (7.350-7.450) ABG pCO2 (35.0-42.0) mmHg ABG pO2 (75.0-100.0) mmHg ABG HCO3 (22.0-26.0) mmol/L ABG Total CO2 (21.0-25.0) mmol/L ABG O2 Saturation (95.0-98.0) % ABG O2 Content (15.0-23.0) %vol ABG Base Excess mm/L ABG Hemoglobin (12.0-16.0) g/dL ABG Oxyhemoglobin % ABG Carboxyhemoglobin (0.0-1.6) % ABG Methemoglobin % Pedro Test O2 Delivery Device Oxygen Flow Rate L Sodium 142 (140-148) mmol/L Potassium 4.5 (3.6-5.2) mmol/L Chloride 103 (100-108) mmol/L Carbon Dioxide 37 H (21-32) mmol/L Anion Gap 6.5 (5.0-14.0) mmol/L BUN 36 H (7-18) mg/dL Creatinine 1.0 (0.6-1.0) mg/dL Est Cr Clr Drug Dosing 28.47 mL/min Estimated GFR (MDRD) 52 L (>60) Glucose 139 H (74-106) mg/dL Calcium 8.6 (8.5-10.1) mg/dL Total Bilirubin 0.2 (0.2-1.0) mg/dL AST 16 (15-37) U/L ALT 26 (12-78) U/L Alkaline Phosphatase 44 L (46-116) U/L C-Reactive Protein 4.59 H (0.0-0.3) mg/dL Total Protein 6.1 L (6.4-8.2) g/dL Albumin 2.7 L (3.4-5.0) g/dL Globulin 3.4 (2.3-3.5) g/dL Albumin/Globulin Ratio 0.8 L (1.2-2.2) Result Diagrams: 01/26/21 05:45 01/26/21 05:45 Luis Results Last 24 hrs: Microbiology 01/25/21 01:42 Urine Culture - Preliminary Urine, Catheterized MIXED FILIBERTO DAY 1 01/24/21 23:35 Aerobic Blood Culture - Preliminary Blood - Arm, Left NO GROWTH AFTER 1 DAY Anaerobic Blood Culture - Preliminary NO GROWTH AFTER 1 DAY Imaging Impressions Last 24 hrs: Chest x-ray from 01/24/2021-this image was personally reviewed prior to admission-there are mild diffuse patchy infiltrates. Heart size is normal. No obvious effusions. No masses. Sepsis Event Note - Evaluation Sepsis Screening Result: No Definite Risk - Focused Exam Vital Signs: Vital Signs Temp Pulse Pulse Resp BP BP Pulse Ox 01/26/21 12:08 95 01/26/21 10:27 36.4 C 70 22 H 141/72 H 98 01/26/21 10:25 141/72 H 01/26/21 10:23 70 141/72 H 01/26/21 06:00 70 20 150/70 H 94 L *Q Meaningful Use (ADM) - VTE Risk Assess *Q Each Risk Factor Represents 1 Point: Obesity ( BMI > 25 kg/m2), Serious lung disease including pneumonia, Abnormal Pulmonary Function (COPD) Total Score 1 Point Risk Factors: 3 Each Risk Factor Represents 2 Points: None Total Score 2 Point Risk Factors: 0 Each Risk Factor Represents 3 Points: Age 75 Years or Greater Total Score 3 Point Risk Factors: 3 Each Risk Factor Represents 5 Points: None Total Score 5 Point Risk Factors: 0 Venous Thromboembolism Risk Factor Score *Q: 6 - Problem List (1) Pneumonia due to COVID-19 virus SNOMED Code(s): 503333195366796325 ICD Code: U07.1 - COVID-19; J12.82 - PNEUMONIA DUE TO CORONAVIRUS DISEASE 2018 Status: Acute Current Visit: Yes (2) Acute respiratory failure with hypoxia and hypercarbia SNOMED Code(s): 392610206 ICD Code: J96.01 - ACUTE RESPIRATORY FAILURE WITH HYPOXIA; J96.02 - ACUTE RESPIRATORY FAILURE WITH HYPERCAPNIA Status: Acute Current Visit: Yes (3) Chronic renal insufficiency, stage III (moderate) SNOMED Code(s): 939832835 ICD Code: N18.30 - CHRONIC KIDNEY DISEASE, STAGE 3 UNSPECIFIED Status: Acute Current Visit: Yes Qualifiers: Chronic kidney disease stage 3 subtype: stage 3b (GFR 30-44) Qualified Code(s): N18.32 - Chronic kidney disease, stage 3b (4) COPD (chronic obstructive pulmonary disease) SNOMED Code(s): 42635233 ICD Code: J44.9 - CHRONIC OBSTRUCTIVE PULMONARY DISEASE, UNSPECIFIED Status: Chronic Priority: Low Current Visit: No Qualifiers: (5) Sleep apnea SNOMED Code(s): 57333269 ICD Code: G47.30 - SLEEP APNEA, UNSPECIFIED Status: Chronic Current Visit: No (6) History of atrial fibrillation SNOMED Code(s): 684862814 ICD Code: Z86.79 - PERSONAL HISTORY OF OTHER DISEASES OF THE CIRCULATORY SYSTEM Status: Chronic Current Visit: No (7) Obesity, morbid, BMI 50 or higher SNOMED Code(s): 038604844, 002726097 ICD Code: E66.01 - MORBID (SEVERE) OBESITY DUE TO EXCESS CALORIES Status: Acute Current Visit: Yes Problem List Initiated/Reviewed/Updated: Yes Orders Last 24hrs: Active Orders 24 hr Category Date Time Status Patient Status Manage Transfer [TRANSFER] Routine ADT 01/26/21 13:37 Ordered RT Aerosol Therapy [RC] ASDIRECTED Care 01/25/21 16:44 Active RT Post Treatment Assessment [RC] Click to Edit Care 01/25/21 16:44 Active Albuterol/Ipratropium [Combivent Respimat] Med 01/25/21 22:00 Active 1 gm INH QID Benzonatate [Tessalon Perles] Med 01/25/21 16:45 Active 100 mg PO TID PRN Dextromethorphan/guaiFENesin [Robitussin DM] Med 01/25/21 16:45 Active 10 ml PO Q4H PRN Melatonin Med 01/25/21 21:00 Active 3 mg PO BEDTIME Remdesivir 100 mg Med 01/26/21 17:00 Active Sodium Chloride 0.9% [Normal Saline] 100 ml IV Q24H Warfarin [Coumadin] Med 01/26/21 13:00 Active 2.5 mg PO SuTuThSa@1300 Warfarin [Coumadin] Med 01/25/21 13:00 Active 5 mg PO MoWeFr@1300 dexAMETHasone [Decadron] Med 01/25/21 23:00 Active 6 mg IVPUSH Q24H Medication Orders Acetaminophen (Acetaminophen 325 Mg Tab) 650 mg PO Q4H PRN PRN Reason: Pain/Fever Albuterol (Albuterol 8 Gm Inhaler) 0 gm INH Q6H PRN PRN Reason: Shortness of Breath Albuterol/Ipratropium (Albuterol/Ipratropium 4 Gm Inhalation [place]) 1 gm INH QID [facility] Last Admin: 01/26/21 10:22 Dose: 1 puff Documented by: Admin: 01/26/21 06:25 Dose: 1 puff Documented by: Admin: 01/25/21 22:45 Dose: 1 puff Documented by: JEANETTE Aspirin (Aspirin 81 Mg Tab.Ec) 81 mg PO DAILY [facility] Last Admin: 01/26/21 10:24 Dose: 81 mg Documented by: Admin: 01/25/21 09:40 Dose: 81 mg Documented by: RUDY Baricitinib (Baricitinib 2 Mg Tab) 2 mg PO DAILY [facility] Stop: 02/07/21 09:01 Last Admin: 01/26/21 10:24 Dose: 2 mg Documented by: Admin: 01/25/21 09:41 Dose: 2 mg Documented by: RUDY Benzonatate (Benzonatate 100 Mg Cap) 100 mg PO TID PRN PRN Reason: Cough Cholecalciferol (Cholecalciferol (Vitamin D3) 25 Mcg Tab) 50 mcg PO DAILY [facility] Last Admin: 01/26/21 10:25 Dose: 50 mcg Documented by: Admin: 01/25/21 09:40 Dose: 50 mcg Documented by: RUDY Cyanocobalamin (Cyanocobalamin (Vitamin B12) 1,000 Mcg Tab) 1,000 mcg PO DAILY [facility] Last Admin: 01/26/21 10:24 Dose: 1,000 mcg Documented by: Admin: 01/25/21 09:41 Dose: 1,000 mcg Documented by: RUDY Dexamethasone (Dexamethasone 4 Mg/Ml Sdv) 6 mg IVPUSH Q24H [facility] Last Admin: 01/25/21 22:28 Dose: 6 mg Documented by: JEANETTE Folic Acid (Folic Acid 1 Mg Tab) 0.5 mg PO DAILY [facility] Last Admin: 01/26/21 10:25 Dose: 0.5 mg Documented by: Admin: 01/25/21 09:39 Dose: 0.5 mg Documented by: RUDY Furosemide (Furosemide 40 Mg Tab) 40 mg PO DAILY [facility] Last Admin: 01/26/21 10:24 Dose: 40 mg Documented by: Admin: 01/25/21 09:40 Dose: 40 mg Documented by: RUDY Guaifenesin/Dextromethorphan (Guaifenesin/Dextromethorphan 100-10 Mg/5 Ml Soln 10 Ml Cup) 10 ml PO Q4H PRN PRN Reason: Cough Remdesivir 100 mg/ Sodium (Chloride) 100 mls @ 100 mls/hr IV Q24H [facility] Stop: 01/29/21 17:59 Lisinopril (Lisinopril 20 Mg Tab) 20 mg PO DAILY [facility] Last Admin: 01/26/21 10:25 Dose: 20 mg Documented by: Admin: 01/25/21 09:40 Dose: 20 mg Documented by: RUDY Melatonin (Melatonin 3 Mg Tab) 3 mg PO BEDTIME [facility] Last Admin: 01/25/21 22:30 Dose: 3 mg Documented by: JEANETTE Metoprolol Succinate (Metoprolol Succinate 25 Mg Tab.Er) 25 mg PO DAILY [facility] Last Admin: 01/26/21 10:23 Dose: 25 mg Documented by: Admin: 01/25/21 09:40 Dose: 25 mg Documented by: RUDY Mirabegron (Mirabegron 25 Mg Tab Extended Release) 50 mg PO DAILY [facility] Last Admin: 01/26/21 10:24 Dose: 50 mg Documented by: Admin: 01/25/21 09:41 Dose: 50 mg Documented by: RUYD Morphine Sulfate (Morphine 2 Mg/Ml Syringe) 2 mg IVPUSH Q1H PRN PRN Reason: Anxiety Last Admin: 01/25/21 12:50 Dose: 2 mg Documented by: Admin: 01/25/21 08:14 Dose: 2 mg Documented by: RUDY Non-Formulary Medication (Clotrimazole/Betameth Dip/Zinc [Dermacinrx Therazole Devyn]) 135 gm TP BID PRN PRN Reason: Itching Pantoprazole Sodium (Pantoprazole 40 Mg Tab.Cr) 40 mg PO ACBREAKFAST [facility] Last Admin: 01/26/21 10:25 Dose: 40 mg Documented by: Admin: 01/25/21 09:41 Dose: 40 mg Documented by: RUDY Pravastatin Sodium (Pravastatin 20 Mg Tab) 20 mg PO DAILY [facility] Last Admin: 01/26/21 10:24 Dose: 20 mg Documented by: Admin: 01/25/21 09:40 Dose: 20 mg Documented by: RUDY Pregabalin (Pregabalin 100 Mg Cap) 100 mg PO TID [facility] Last Admin: 01/26/21 10:48 Dose: 100 mg Documented by: Admin: 01/25/21 22:30 Dose: 100 mg Documented by: Admin: 01/25/21 16:04 Dose: 100 mg Documented by: Admin: 01/25/21 09:49 Dose: 100 mg Documented by: RUDY Tiotropium [place] (Tiotropium [place] 4 Gm Inhalation [place] (2.5mcg/1 Dose; 10 Doses)) 0 gm INH DAILYRT [facility] Last Admin: 01/26/21 07:53 Dose: 2 spray Documented by: Admin: 01/25/21 09:41 Dose: 2 spray Documented by: RUDY Warfarin Sodium (Warfarin 5 Mg Tab) 5 mg PO MoWeFr@1300 [facility] Last Admin: 01/25/21 12:51 Dose: 5 mg Documented by: RUDY Warfarin Sodium (Warfarin 2.5 Mg Tab) 2.5 mg PO SuTuThSa@1300 [facility] Assessment/Plan Comment:: ASSESSMENT AND PLAN - COVID-19 pneumonia-complicated by acute respiratory failure with both hypoxia and hypercapnia. Mild elevation of D-dimer and CRP. Patient has improved since the original consultation, pleated yesterday. She is now on high flow nasal cannula and no longer requires noninvasive ventilation. pH is now normal and PCO2 has improved, probably back to her baseline. Symptomatically she is feeling better. -Dexamethasone 6 mg every 24 hours (day 2) -Remdesivir x5 days -Baricitinib every 24 hours -Symptomatic management of cough -Supplemental oxygen/NIPPV, wean as able COPD-no evidence for acute exacerbation at this time. -Continue home medications Stage IIIb kidney disease-creatinine stable. -Encourage oral intake Atrial fibrillation, chronic-rate controlled. Anticoagulated. INR therapeutic. -Continue warfarin Maintenance issues - -DVT prophylaxis-warfarin -GI prophylaxis-PPI -Nutrition-regular -William catheter-placed for strict intake and output monitoring in a critical patient CODE STATUS -DNR/DNI Admission status-patient will be admitted to inpatient status with the idea that her medical condition can be treated and she can be safely discharged and less than 96 hours. Disposition-anticipate discharge either back to her assisted living facility or potentially to the snf for subacute rehab. Doyle Abarca M.D. - Mortality Measure Prognosis:: Poor
[2021-01-26] MEDS: Warfarin 2.5 MG Tab PO SCH (13:55)
[2021-01-26] MEDS ORDERED: Ondansetron 4 MG Tab.DIS PO PRN (15:01)
[2021-01-26] MEDS ORDERED: Magnesium Hydroxide 400 MG/5 ML Susp 30 ML Cup PO PRN (15:01)
[2021-01-26] MEDS ORDERED: LORazepam 2 MG/ML SDV IVPUSH PRN (15:01)
[2021-01-26] MEDS ORDERED: Ondansetron 4 MG/2 ML SDV IV PRN (15:01)
[2021-01-26] MEDS ORDERED: Acetaminophen 325 MG Tab PO PRN (15:01)
[2021-01-26] MEDS ORDERED: REMDESIVIR 100 MG in Sodium Chloride 0.9% 100 ML IV SCH (17:00)
[2021-01-26] MEDS: REMDESIVIR 100 MG in Sodium Chloride 0.9% 100 ML IV SCH (17:23)
[2021-01-26] MEDS: Cephalexin 250 MG Cap PO SCH (20:27)
[2021-01-26] MEDS: Melatonin 3 MG Tab PO SCH (20:27)
[2021-01-26] MEDS: Dexamethasone 4 MG/ML SDV IVPUSH SCH (23:38)
[2021-01-27] MEDS: Albuterol/Ipratropium 4 GM Inhalation Spray INH SCH ×4 (05:11→21:11)
[2021-01-27] MEDS: Tiotropium Bromide 4 GM Inhalation Spray (2.5mcg/1 dose; 10 doses) INH SCH (07:31)
[2021-01-27] MEDS ORDERED: Betamethasone Dipropionate/Clotrimazole 0.05-1% Crm 15 GM Tube TOP PRN (07:41)
[2021-01-27] MEDS: Cephalexin 250 MG Cap PO SCH ×2 (08:35→21:09)
[2021-01-27] MEDS: Mirabegron 25 MG Tab Extended Release PO SCH (09:08)
[2021-01-27] MEDS: Pravastatin 20 MG Tab PO SCH (09:08)
[2021-01-27] MEDS: Folic Acid 1 MG Tab PO SCH (09:08)
[2021-01-27] MEDS: Pregabalin 100 MG Cap PO SCH ×3 (09:08→21:12)
[2021-01-27] MEDS: Cyanocobalamin (Vitamin B12) 1,000 MCG Tab PO SCH (09:09)
[2021-01-27] MEDS: Pantoprazole 40 MG Tab.CR PO SCH (09:09)
[2021-01-27] MEDS: Cholecalciferol (Vitamin D3) 25 MCG Tab PO SCH (09:09)
[2021-01-27] MEDS: Aspirin 81 MG Tab.EC PO SCH (09:09)
[2021-01-27] MEDS: Lisinopril 20 MG Tab PO SCH (09:09)
[2021-01-27] MEDS: Furosemide 40 MG Tab PO SCH (09:09)
[2021-01-27] MEDS: Metoprolol Succinate 25 MG Tab.ER PO SCH (09:10)
--- NOTE | 2021-01-27 13:39 | PCM.PN ---
- General Info Date of Service: 01/27/21 Subjective Update: No acute events overnight. Patient feels well today. She does not report any shortness of breath. She does continue to feel weak. Appetite not great but acceptable. No fevers. Down to 3 L of supplemental oxygen. Did not sleep well last night and is hoping to get something to help her sleep better tonight. Functional Status: Reports: Pain Controlled - Review of Systems General: Reports: Weakness Pulmonary: Reports: Shortness of Breath - Patient Data Vitals - Most Recent: Last Vital Signs Temp 35.9 C L 01/27/21 11:25 Pulse 70 01/27/21 11:25 Resp 18 01/27/21 11:25 BP 154/71 H 01/27/21 11:25 Pulse Ox 97 01/27/21 11:25 Weight - Most Recent: 136.078 kg I&O - Last 24 Hours: Intake & Output 01/26/21 01/27/21 01/27/21 22:59 06:59 14:59 Intake Total 160 Output Total 200 400 Balance -40 -400 Lab Results Last 24 Hours: Laboratory Results - last 24 hr 01/27/21 01/27/21 01/27/21 Range/Units 05:45 05:45 05:45 WBC 7.6 (4.5-11.0) K/uL RBC 4.38 (3.30-5.50) M/uL Hgb 11.9 L (12.0-15.0) g/dL Hct 40.0 (36.0-48.0) % MCV 91 (80-98) fL MCH 27 (27-31) pg MCHC 30 L (32-36) % Plt Count 175 (150-400) K/uL PT 33.7 H (9.2-10.6) sec INR 3.4 Sodium 143 (140-148) mmol/L Potassium 4.7 (3.6-5.2) mmol/L Chloride 103 (100-108) mmol/L Carbon Dioxide 36 H (21-32) mmol/L Anion Gap 8.7 (5.0-14.0) mmol/L BUN 46 H (7-18) mg/dL Creatinine 1.1 H (0.6-1.0) mg/dL Est Cr Clr Drug Dosing 25.88 mL/min Estimated GFR (MDRD) 47 L (>60) Glucose 174 H (74-106) mg/dL Calcium 8.7 (8.5-10.1) mg/dL Luis Results Last 24 Hours: Microbiology 01/25/21 01:42 Urine Culture - Final Urine, Catheterized MIXED FILIBERTO DAY 2 01/24/21 23:35 Aerobic Blood Culture - Preliminary Blood - Arm, Left NO GROWTH AFTER 2 DAYS Anaerobic Blood Culture - Preliminary NO GROWTH AFTER 2 DAYS Med Orders - Current: Current Medications Acetaminophen (Acetaminophen 325 Mg Tab) 650 mg PO Q4H PRN PRN Reason: Pain/Fever Acetaminophen (Acetaminophen 325 Mg Tab) 650 mg PO Q4H PRN PRN Reason: Pain (Mild 1-3)/fever Hydrocodone Bitart/Acetaminophen (Acetaminophen/Hydrocodone 325-5 Mg Tab) 1 tab PO Q6H PRN PRN Reason: Pain (moderate 4-6) Albuterol (Albuterol 8 Gm Inhaler) 0 gm INH Q6H PRN PRN Reason: Shortness of Breath Albuterol/Ipratropium (Albuterol/Ipratropium 4 Gm Inhalation [place]) 1 gm INH QID [facility] Last Admin: 01/27/21 05:11 Dose: 1 puff Documented by: Aspirin (Aspirin 81 Mg Tab.Ec) 81 mg PO DAILY [facility] Last Admin: 01/27/21 09:09 Dose: 81 mg Documented by: Baricitinib (Baricitinib 2 Mg Tab) 2 mg PO DAILY [facility] Stop: 02/07/21 09:01 Last Admin: 01/27/21 09:09 Dose: 2 mg Documented by: Benzonatate (Benzonatate 100 Mg Cap) 100 mg PO TID PRN PRN Reason: Cough Betamethasone/Clotrimazole (Betamethasone Dipropionate/Clotrimazole 0.05-1% Crm 15 Gm Tube) 0 gm TOP BID PRN PRN Reason: Itching Cephalexin (Cephalexin 250 Mg Cap) 500 mg PO BID [facility] Stop: 01/29/21 09:01 Last Admin: 01/27/21 08:35 Dose: 500 mg Documented by: Cholecalciferol (Cholecalciferol (Vitamin D3) 25 Mcg Tab) 50 mcg PO DAILY [facility] Last Admin: 01/27/21 09:09 Dose: 50 mcg Documented by: Cyanocobalamin (Cyanocobalamin (Vitamin B12) 1,000 Mcg Tab) 1,000 mcg PO DAILY [facility] Last Admin: 01/27/21 09:09 Dose: 1,000 mcg Documented by: Dexamethasone (Dexamethasone 4 Mg/Ml Sdv) 6 mg IVPUSH Q24H [facility] Last Admin: 01/26/21 23:38 Dose: 6 mg Documented by: Folic Acid (Folic Acid 1 Mg Tab) 0.5 mg PO DAILY [facility] Last Admin: 01/27/21 09:08 Dose: 0.5 mg Documented by: Furosemide (Furosemide 40 Mg Tab) 40 mg PO DAILY [facility] Last Admin: 01/27/21 09:09 Dose: 40 mg Documented by: Guaifenesin/Dextromethorphan (Guaifenesin/Dextromethorphan 100-10 Mg/5 Ml Soln 10 Ml Cup) 10 ml PO Q4H PRN PRN Reason: Cough Remdesivir 100 mg/ Sodium (Chloride) 100 mls @ 100 mls/hr IV Q24H [facility] Stop: 01/29/21 17:59 Last Admin: 01/26/21 17:23 Dose: 100 mls/hr Documented by: Lisinopril (Lisinopril 20 Mg Tab) 20 mg PO DAILY [facility] Last Admin: 01/27/21 09:09 Dose: 20 mg Documented by: Lorazepam (Lorazepam 2 Mg/Ml Sdv) 0.5 mg IVPUSH Q4H PRN PRN Reason: Nausea/Vomiting Magnesium Hydroxide (Magnesium Hydroxide 400 Mg/5 Ml Susp 30 Ml Cup) 30 ml PO Q12H PRN PRN Reason: Constipation Melatonin (Melatonin 3 Mg Tab) 3 mg PO BEDTIME [facility] Last Admin: 01/26/21 20:27 Dose: 3 mg Documented by: Metoprolol Succinate (Metoprolol Succinate 25 Mg Tab.Er) 25 mg PO DAILY [facility] Last Admin: 01/27/21 09:10 Dose: 25 mg Documented by: Mirabegron (Mirabegron 25 Mg Tab Extended Release) 50 mg PO DAILY [facility] Last Admin: 01/27/21 09:08 Dose: 50 mg Documented by: Morphine Sulfate (Morphine 2 Mg/Ml Syringe) 2 mg IVPUSH Q1H PRN PRN Reason: Anxiety Last Admin: 01/25/21 12:50 Dose: 2 mg Documented by: Ondansetron HCl (Ondansetron 4 Mg/2 Ml Sdv) 4 mg IV Q6H PRN PRN Reason: Nausea/Vomiting Ondansetron HCl (Ondansetron 4 Mg Tab.Dis) 4 mg PO Q6H PRN PRN Reason: Nausea able to take PO Pantoprazole Sodium (Pantoprazole 40 Mg Tab.Cr) 40 mg PO ACBREAKFAST [facility] Last Admin: 01/27/21 09:09 Dose: 40 mg Documented by: Pravastatin Sodium (Pravastatin 20 Mg Tab) 20 mg PO DAILY [facility] Last Admin: 01/27/21 09:08 Dose: 20 mg Documented by: Pregabalin (Pregabalin 100 Mg Cap) 100 mg PO TID [facility] Last Admin: 01/27/21 09:08 Dose: 100 mg Documented by: Senna/Docusate Sodium (Docusate Sodium/Sennosides 50-8.6 Mg Tab) 1 tab PO BID P RN PRN Reason: Constipation Tiotropium [place] (Tiotropium [place] 4 Gm Inhalation [place] (2.5mcg/1 Dose; 10 Doses)) 0 gm INH DAILYRT [facility] Last Admin: 01/27/21 07:31 Dose: 2 spray Documented by: Warfarin Sodium (Warfarin 5 Mg Tab) 5 mg PO MoWeFr@1300 [facility] Last Admin: 01/25/21 12:51 Dose: 5 mg Documented by: Warfarin Sodium (Warfarin 2.5 Mg Tab) 2.5 mg PO SuTuThSa@1300 [facility] Last Admin: 01/26/21 13:55 Dose: 2.5 mg Documented by: Discontinued Medications Albuterol/Ipratropium (Albuterol/Ipratropium 3.0-0.5 Mg/3 Ml Neb Soln) 3 ml NEB Q4H PRN PRN Reason: Shortness of Breath Last Admin: 01/24/21 23:52 Dose: 3 ml Documented by: Dexamethasone (Dexamethasone 4 Mg/Ml Sdv) 10 mg IVPUSH ONETIME ONE Stop: 01/24/21 22:59 Last Admin: 01/24/21 23:50 Dose: 10 mg Documented by: Ferrous Sulfate (Ferrous Sulfate 325 Mg Tab) 325 mg PO BID [facility] Last Admin: 01/25/21 09:39 Dose: 325 mg Documented by: Furosemide (Furosemide 20 Mg Tab) 40 mg PO DAILY [facility] Levofloxacin/Dextrose 750 mg/ (Premix) 150 mls @ 100 mls/hr IV Q24H [facility] Last Admin: 01/25/21 02:10 Dose: 100 mls/hr Documented by: Remdesivir 200 mg/ Sodium (Chloride) 250 mls @ 250 mls/hr IV ONETIME ONE Stop: 01/25/21 16:46 Last Admin: 01/25/21 18:12 Dose: Not Given Documented by: Remdesivir 200 mg/ Sodium (Chloride) 250 mls @ 250 mls/hr IV ONETIME ONE Stop: 01/25/21 17:59 Last Admin: 01/25/21 18:07 Dose: 250 mls/hr Documented by: Non-Formulary Medication (Benazepril Hcl [Lotensin]) 20 mg PO DAILY [facility] Non-Formulary Medication (Folic Acid [Folic Acid]) 400 mcg PO DAILY [facility] Non-Formulary Medication (Mirabegron [Myrbetriq]) 50 mg PO DAILY [facility] Pantoprazole Sodium (Pantoprazole 40 Mg Tab.Cr) 40 mg PO DAILY [facility] Prednisone (Prednisone 20 Mg Tab) 20 mg PO DAILY [facility] Last Admin: 01/25/21 09:41 Dose: 20 mg Documented by: Warfarin Sodium (Warfarin 2.5 Mg Tab) 5 mg PO .MON,WED,FRI [facility] Warfarin Sodium (Warfarin 5 Mg Tab) 2.5 mg PO .SUN,TUE,THUR,SA [facility] - Exam Quality Assessment: Supplemental Oxygen Urinary Catheter Total Time: 1Days 10Hours General: Alert, Oriented, Cooperative, No Acute Distress Lungs: Normal Respiratory Effort, Wheezing (mild end exp wheezing ) Cardiovascular: Regular Rate, Regular Rhythm GI/Abdominal Exam: Soft, No Distention Psy/Mental Status: Alert, Normal Affect - Patient Data Lab Results Last 24 hrs: Laboratory Results - last 24 hr 01/27/21 01/27/21 01/27/21 Range/Units 05:45 05:45 05:45 WBC 7.6 (4.5-11.0) K/uL RBC 4.38 (3.30-5.50) M/uL Hgb 11.9 L (12.0-15.0) g/dL Hct 40.0 (36.0-48.0) % MCV 91 (80-98) fL MCH 27 (27-31) pg MCHC 30 L (32-36) % Plt Count 175 (150-400) K/uL PT 33.7 H (9.2-10.6) sec INR 3.4 Sodium 143 (140-148) mmol/L Potassium 4.7 (3.6-5.2) mmol/L Chloride 103 (100-108) mmol/L Carbon Dioxide 36 H (21-32) mmol/L Anion Gap 8.7 (5.0-14.0) mmol/L BUN 46 H (7-18) mg/dL Creatinine 1.1 H (0.6-1.0) mg/dL Est Cr Clr Drug Dosing 25.88 mL/min Estimated GFR (MDRD) 47 L (>60) Glucose 174 H (74-106) mg/dL Calcium 8.7 (8.5-10.1) mg/dL Result Diagrams: 01/27/21 05:45 01/27/21 05:45 Luis Results Last 24 hrs: Microbiology 01/25/21 01:42 Urine Culture - Final Urine, Catheterized MIXED FILIBERTO DAY 2 01/24/21 23:35 Aerobic Blood Culture - Preliminary Blood - Arm, Left NO GROWTH AFTER 2 DAYS Anaerobic Blood Culture - Preliminary NO GROWTH AFTER 2 DAYS Sepsis Event Note - Evaluation Sepsis Screening Result: No Definite Risk - Focused Exam Vital Signs: Vital Signs Temp Pulse Pulse Resp BP BP Pulse Ox 01/27/21 11:25 35.9 C L 70 18 154/71 H 97 01/27/21 09:10 70 142/57 H 01/27/21 09:09 142/57 H 01/27/21 07:43 36.6 C 70 18 142/57 H 96 01/27/21 04:29 36.6 C 70 20 135/68 94 L - Problem List & Annotations (1) Pneumonia due to COVID-19 virus SNOMED Code(s): 187250537158514751 Code(s): U07.1 - COVID-19; J12.82 - PNEUMONIA DUE TO CORONAVIRUS DISEASE 2018 Status: Acute Current Visit: Yes (2) Acute respiratory failure with hypoxia and hypercarbia SNOMED Code(s): 171262875 Code(s): J96.01 - ACUTE RESPIRATORY FAILURE WITH HYPOXIA; J96.02 - ACUTE RESPIRATORY FAILURE WITH HYPERCAPNIA Status: Acute Current Visit: Yes (3) Chronic renal insufficiency, stage III (moderate) SNOMED Code(s): 026960980 Code(s): N18.30 - CHRONIC KIDNEY DISEASE, STAGE 3 UNSPECIFIED Status: Acute Current Visit: Yes Qualifiers: Chronic kidney disease stage 3 subtype: stage 3b (GFR 30-44) Qualified Code(s): N18.32 - Chronic kidney disease, stage 3b (4) COPD (chronic obstructive pulmonary disease) SNOMED Code(s): 22360982 Code(s): J44.9 - CHRONIC OBSTRUCTIVE PULMONARY DISEASE, UNSPECIFIED Status: Chronic Priority: Low Current Visit: No Qualifiers: (5) Sleep apnea SNOMED Code(s): 67427185 Code(s): G47.30 - SLEEP APNEA, UNSPECIFIED Status: Chronic Current Visit: No (6) History of atrial fibrillation SNOMED Code(s): 845800131 Code(s): Z86.79 - PERSONAL HISTORY OF OTHER DISEASES OF THE CIRCULATORY SYSTEM Status: Chronic Current Visit: No (7) Obesity, morbid, BMI 50 or higher SNOMED Code(s): 257163460, 384630348 Code(s): E66.01 - MORBID (SEVERE) OBESITY DUE TO EXCESS CALORIES Status: Acute Current Visit: Yes - Problem List Review Problem List Initiated/Reviewed/Updated: Yes - My Orders Last 24 Hours: My Active Orders 01/26/21 15:01 Acetaminophen [TylenoL] 650 mg PO Q4H PRN Acetaminophen/HYDROcodone [[place] 325-5 MG] 1 tab PO Q6H PRN Docusate Sodium/Sennosides [Senna Plus] 1 tab PO BID PRN LORazepam [Ativan] 0.5 mg IVPUSH Q4H PRN Magnesium Hydroxide [Milk of Magnesia] 30 ml PO Q12H PRN Ondansetron [Zofran ODT] 4 mg PO Q6H PRN Ondansetron [Zofran] 4 mg IV Q6H PRN 01/26/21 15:01 Patient Status [ADT] Routine Intake and Output [RC] QSHIFT Notify Provider Vital Signs [RC] ASDIRECTED Oxygen Therapy [RC] PRN Up With Assistance [RC] ASDIRECTED Vital Signs [RC] Q4H Isolation [COMM] Routine 01/26/21 17:00 Remdesivir 100 mg Sodium Chloride 0.9% [Normal Saline] 100 ml IV Q24H 01/26/21 21:00 cephALEXin [Keflex] 500 mg PO BID 01/28/21 05:00 COMPREHENSIVE METABOLIC PN,CMP [CHEM] Timed INR,PT,PROTHROMBIN TIME [COAG] Timed - Plan Plan:: ASSESSMENT AND PLAN - COVID-19 pneumonia-complicated by acute respiratory failure with both hypoxia and hypercapnia. Mild elevation of D-dimer and CRP. Patient has continued to improve. Down to 3 L of supplemental oxygen. Clinically feeling better. -Dexamethasone 6 mg every 24 hours (day 3) -Remdesivir x5 days -Baricitinib every 24 hours (will discontinue tomorrow if she continues to improve) -Symptomatic management of cough -Supplemental oxygen/NIPPV, wean as able COPD-no evidence for acute exacerbation at this time. -Continue home medications Stage IIIb kidney disease-creatinine stable. -Encourage oral intake Atrial fibrillation, chronic-rate controlled. Anticoagulated. INR slightly supra therapeutic. -Hold warfarin today -INR in the morning Maintenance issues - -DVT prophylaxis-warfarin -GI prophylaxis-PPI -Nutrition-regular -William catheter-placed for strict intake and output monitoring in a critical patient Disposition-anticipate discharge either back to her assisted living facility along with home care Saturday if stable over the . Doyle Abarca M.D.
[2021-01-27] MEDS: REMDESIVIR 100 MG in Sodium Chloride 0.9% 100 ML IV SCH (16:58)
[2021-01-27] MEDS: Melatonin 3 MG Tab PO SCH (21:11)
[2021-01-27] MEDS: traZODone 50 MG Tab PO SCH (21:12)
[2021-01-27] MEDS: Dexamethasone 4 MG/ML SDV IVPUSH SCH (22:54)
[2021-01-28] MEDS: Albuterol/Ipratropium 4 GM Inhalation Spray INH SCH ×4 (05:38→21:38)
[2021-01-28] MEDS: Pantoprazole 40 MG Tab.CR PO SCH (07:45)
[2021-01-28] MEDS: Tiotropium Bromide 4 GM Inhalation Spray (2.5mcg/1 dose; 10 doses) INH SCH (07:45)
[2021-01-28] MEDS: Cyanocobalamin (Vitamin B12) 1,000 MCG Tab PO SCH (08:57)
[2021-01-28] MEDS: Mirabegron 25 MG Tab Extended Release PO SCH (08:57)
[2021-01-28] MEDS: Lisinopril 20 MG Tab PO SCH (08:58)
[2021-01-28] MEDS: Folic Acid 1 MG Tab PO SCH (08:58)
[2021-01-28] MEDS: Aspirin 81 MG Tab.EC PO SCH (08:58)
[2021-01-28] MEDS: Cholecalciferol (Vitamin D3) 25 MCG Tab PO SCH (08:59)
[2021-01-28] MEDS: Metoprolol Succinate 25 MG Tab.ER PO SCH (08:59)
[2021-01-28] MEDS: Furosemide 40 MG Tab PO SCH (08:59)
[2021-01-28] MEDS: Pravastatin 20 MG Tab PO SCH (09:00)
[2021-01-28] MEDS: Cephalexin 250 MG Cap PO SCH ×2 (09:00→21:05)
[2021-01-28] MEDS: Pregabalin 100 MG Cap PO SCH ×4 (09:28→20:49)
--- NOTE | 2021-01-28 12:16 | PCM.PN ---
- General Info Date of Service: 01/28/21 Subjective Update: No acute events overnight. Patient feels well today. She does not report significant shortness of breath. She does occasionally have a cough. No fever. Appetite okay. She was able to get from the bed to the chair with the use of Viry steady. She seems pretty proud of where her strength is at. Stable on 3 L of oxygen. Functional Status: Reports: Pain Controlled, Tolerating Diet - Review of Systems General: Reports: Weakness - Patient Data Vitals - Most Recent: Last Vital Signs Temp 36.5 C 01/28/21 11:00 Pulse 70 01/28/21 11:00 Resp 16 01/28/21 11:00 BP 162/71 H 01/28/21 11:00 Pulse Ox 95 01/28/21 11:00 Weight - Most Recent: 136.078 kg I&O - Last 24 Hours: Intake & Output 01/27/21 01/28/21 01/28/21 22:59 06:59 14:59 Intake Total 500 Output Total 400 900 Balance -400 -400 Lab Results Last 24 Hours: Laboratory Results - last 24 hr 01/28/21 01/28/21 Range/Units 05:00 05:00 PT 26.7 H (9.2-10.6) sec INR 2.7 Sodium 145 (140-148) mmol/L Potassium 4.6 (3.6-5.2) mmol/L Chloride 103 (100-108) mmol/L Carbon Dioxide 38 H (21-32) mmol/L Anion Gap 8.6 (5.0-14.0) mmol/L BUN 38 H (7-18) mg/dL Creatinine 1.0 (0.6-1.0) mg/dL Est Cr Clr Drug Dosing 31.35 mL/min Estimated GFR (MDRD) 52 L (>60) Glucose 182 H (74-106) mg/dL Calcium 8.7 (8.5-10.1) mg/dL Total Bilirubin 0.3 (0.2-1.0) mg/dL AST 20 (15-37) U/L ALT 26 (12-78) U/L Alkaline Phosphatase 43 L (46-116) U/L Total Protein 6.0 L (6.4-8.2) g/dL Albumin 2.7 L (3.4-5.0) g/dL Globulin 3.3 (2.3-3.5) g/dL Albumin/Globulin Ratio 0.8 L (1.2-2.2) Luis Results Last 24 Hours: Microbiology 01/24/21 23:35 Aerobic Blood Culture - Preliminary Blood - Arm, Left NO GROWTH AFTER 3 DAYS Anaerobic Blood Culture - Preliminary NO GROWTH AFTER 3 DAYS Med Orders - Current: Current Medications Acetaminophen (Acetaminophen 325 Mg Tab) 650 mg PO Q4H PRN PRN Reason: Pain/Fever Acetaminophen (Acetaminophen 325 Mg Tab) 650 mg PO Q4H PRN PRN Reason: Pain (Mild 1-3)/fever Hydrocodone Bitart/Acetaminophen (Acetaminophen/Hydrocodone 325-5 Mg Tab) 1 tab PO Q6H PRN PRN Reason: Pain (moderate 4-6) Albuterol (Albuterol 8 Gm Inhaler) 0 gm INH Q6H PRN PRN Reason: Shortness of Breath Albuterol/Ipratropium (Albuterol/Ipratropium 4 Gm Inhalation Yeoman) 1 gm INH QID [facility] Last Admin: 01/28/21 11:05 Dose: 1 puff Documented by: Aspirin (Aspirin 81 Mg Tab.Ec) 81 mg PO DAILY [facility] Last Admin: 01/28/21 08:58 Dose: 81 mg Documented by: Baricitinib (Baricitinib 2 Mg Tab) 2 mg PO DAILY [facility] Stop: 02/07/21 09:01 Last Admin: 01/28/21 08:57 Dose: 2 mg Documented by: Benzonatate (Benzonatate 100 Mg Cap) 100 mg PO TID PRN PRN Reason: Cough Betamethasone/Clotrimazole (Betamethasone Dipropionate/Clotrimazole 0.05-1% Crm 15 Gm Tube) 0 gm TOP BID PRN PRN Reason: Itching Cephalexin (Cephalexin 250 Mg Cap) 500 mg PO BID [facility] Stop: 01/29/21 09:01 Last Admin: 01/28/21 09:00 Dose: 500 mg Documented by: Cholecalciferol (Cholecalciferol (Vitamin D3) 25 Mcg Tab) 50 mcg PO DAILY [facility] Last Admin: 01/28/21 08:59 Dose: 50 mcg Documented by: Cyanocobalamin (Cyanocobalamin (Vitamin B12) 1,000 Mcg Tab) 1,000 mcg PO DAILY [facility] Last Admin: 01/28/21 08:57 Dose: 1,000 mcg Documented by: Dexamethasone (Dexamethasone 4 Mg/Ml Sdv) 6 mg IVPUSH Q24H [facility] Last Admin: 01/27/21 22:54 Dose: 6 mg Documented by: Folic Acid (Folic Acid 1 Mg Tab) 0.5 mg PO DAILY [facility] Last Admin: 01/28/21 08:58 Dose: 0.5 mg Documented by: Furosemide (Furosemide 40 Mg Tab) 40 mg PO DAILY [facility] Last Admin: 01/28/21 08:59 Dose: 40 mg Documented by: Guaifenesin/Dextromethorphan (Guaifenesin/Dextromethorphan 100-10 Mg/5 Ml Soln 10 Ml Cup) 10 ml PO Q4H PRN PRN Reason: Cough Remdesivir 100 mg/ Sodium (Chloride) 100 mls @ 100 mls/hr IV Q24H [facility] Stop: 01/29/21 17:59 Last Admin: 01/27/21 16:58 Dose: 100 mls/hr Documented by: Lisinopril (Lisinopril 20 Mg Tab) 20 mg PO DAILY [facility] Last Admin: 01/28/21 08:58 Dose: 20 mg Documented by: Lorazepam (Lorazepam 2 Mg/Ml Sdv) 0.5 mg IVPUSH Q4H PRN PRN Reason: Nausea/Vomiting Magnesium Hydroxide (Magnesium Hydroxide 400 Mg/5 Ml Susp 30 Ml Cup) 30 ml PO Q12H PRN PRN Reason: Constipation Melatonin (Melatonin 3 Mg Tab) 3 mg PO BEDTIME [facility] Last Admin: 01/27/21 21:11 Dose: 3 mg Documented by: Metoprolol Succinate (Metoprolol Succinate 25 Mg Tab.Er) 25 mg PO DAILY [facility] Last Admin: 01/28/21 08:59 Dose: 25 mg Documented by: Mirabegron (Mirabegron 25 Mg Tab Extended Release) 50 mg PO DAILY [facility] Last Admin: 01/28/21 08:57 Dose: 50 mg Documented by: Morphine Sulfate (Morphine 2 Mg/Ml Syringe) 2 mg IVPUSH Q1H PRN PRN Reason: Anxiety Last Admin: 01/25/21 12:50 Dose: 2 mg Documented by: Ondansetron HCl (Ondansetron 4 Mg/2 Ml Sdv) 4 mg IV Q6H PRN PRN Reason: Nausea/Vomiting Ondansetron HCl (Ondansetron 4 Mg Tab.Dis) 4 mg PO Q6H PRN PRN Reason: Nausea able to take PO Pantoprazole Sodium (Pantoprazole 40 Mg Tab.Cr) 40 mg PO ACBREAKFAST [facility] Last Admin: 01/28/21 07:45 Dose: 40 mg Documented by: Pravastatin Sodium (Pravastatin 20 Mg Tab) 20 mg PO DAILY [facility] Last Admin: 01/28/21 09:00 Dose: 20 mg Documented by: Pregabalin (Pregabalin 100 Mg Cap) 100 mg PO TID [facility] Last Admin: 01/28/21 09:28 Dose: 100 mg Documented by: Senna/Docusate Sodium (Docusate Sodium/Sennosides 50-8.6 Mg Tab) 1 tab PO BID PRN PRN Reason: Constipation Tiotropium Boon (Tiotropium Boon 4 Gm Inhalation Yeoman (2.5mcg/1 Dose; 10 Doses)) 0 gm INH DAILYRT [facility] Last Admin: 01/28/21 07:45 Dose: 2 spray Documented by: Trazodone HCl (Trazodone 50 Mg Tab) 50 mg PO BEDTIME [facility] Last Admin: 01/27/21 21:12 Dose: 50 mg Documented by: Warfarin Sodium (Warfarin 5 Mg Tab) 5 mg PO MoWeFr@1300 [facility] Last Admin: 01/25/21 12:51 Dose: 5 mg Documented by: Warfarin Sodium (Warfarin 2.5 Mg Tab) 2.5 mg PO SuTuThSa@1300 [facility] Last Admin: 01/26/21 13:55 Dose: 2.5 mg Documented by: Discontinued Medications Albuterol/Ipratropium (Albuterol/Ipratropium 3.0-0.5 Mg/3 Ml Neb Soln) 3 ml NEB Q4H PRN PRN Reason: Shortness of Breath Last Admin: 01/24/21 23:52 Dose: 3 ml Documented by: Dexamethasone (Dexamethasone 4 Mg/Ml Sd) 10 mg IVPUSH ONETIME ONE Stop: 01/24/21 22:59 Last Admin: 01/24/21 23:50 Dose: 10 mg Documented by: Ferrous Sulfate (Ferrous Sulfate 325 Mg Tab) 325 mg PO BID [facility] Last Admin: 01/25/21 09:39 Dose: 325 mg Documented by: Furosemide (Furosemide 20 Mg Tab) 40 mg PO DAILY [facility] Levofloxacin/Dextrose 750 mg/ (Premix) 150 mls @ 100 mls/hr IV Q24H [facility] Last Admin: 01/25/21 02:10 Dose: 100 mls/hr Documented by: Remdesivir 200 mg/ Sodium (Chloride) 250 mls @ 250 mls/hr IV ONETIME ONE Stop: 01/25/21 16:46 Last Admin: 01/25/21 18:12 Dose: Not Given Documented by: Remdesivir 200 mg/ Sodium (Chloride) 250 mls @ 250 mls/hr IV ONETIME ONE Stop: 01/25/21 17:59 Last Admin: 01/25/21 18:07 Dose: 250 mls/hr Documented by: Non-Formulary Medication (Benazepril Hcl [Lotensin]) 20 mg PO DAILY [facility] Non-Formulary Medication (Folic Acid [Folic Acid]) 400 mcg PO DAILY [facility] Non-Formulary Medication (Mirabegron [Myrbetriq]) 50 mg PO DAILY [facility] Pantoprazole Sodium (Pantoprazole 40 Mg Tab.Cr) 40 mg PO DAILY [facility] Prednisone (Prednisone 20 Mg Tab) 20 mg PO DAILY [facility] Last Admin: 01/25/21 09:41 Dose: 20 mg Documented by: Warfarin Sodium (Warfarin 2.5 Mg Tab) 5 mg PO .MON,WED,FRI [facility] Warfarin Sodium (Warfarin 5 Mg Tab) 2.5 mg PO .SUN,TUE,THUR,SA [facility] - Exam Quality Assessment: Supplemental Oxygen Urinary Catheter Total Time: 3Days 5Hours General: Alert, Oriented, Cooperative, No Acute Distress Lungs: Normal Respiratory Effort, Wheezing GI/Abdominal Exam: Soft, No Distention Extremities: Pedal Edema Skin: Warm, Dry Psy/Mental Status: Alert, Normal Affect - Patient Data Lab Results Last 24 hrs: Laboratory Results - last 24 hr 01/28/21 01/28/21 Range/Units 05:00 05:00 PT 26.7 H (9.2-10.6) sec INR 2.7 Sodium 145 (140-148) mmol/L Potassium 4.6 (3.6-5.2) mmol/L Chloride 103 (100-108) mmol/L Carbon Dioxide 38 H (21-32) mmol/L Anion Gap 8.6 (5.0-14.0) mmol/L BUN 38 H (7-18) mg/dL Creatinine 1.0 (0.6-1.0) mg/dL Est Cr Clr Drug Dosing 31.35 mL/min Estimated GFR (MDRD) 52 L (>60) Glucose 182 H (74-106) mg/dL Calcium 8.7 (8.5-10.1) mg/dL Total Bilirubin 0.3 (0.2-1.0) mg/dL AST 20 (15-37) U/L ALT 26 (12-78) U/L Alkaline Phosphatase 43 L (46-116) U/L Total Protein 6.0 L (6.4-8.2) g/dL Albumin 2.7 L (3.4-5.0) g/dL Globulin 3.3 (2.3-3.5) g/dL Albumin/Globulin Ratio 0.8 L (1.2-2.2) Result Diagrams: 01/27/21 05:45 01/28/21 05:00 Luis Results Last 24 hrs: Microbiology 01/24/21 23:35 Aerobic Blood Culture - Preliminary Blood - Arm, Left NO GROWTH AFTER 3 DAYS Anaerobic Blood Culture - Preliminary NO GROWTH AFTER 3 DAYS Sepsis Event Note - Evaluation Sepsis Screening Result: No Definite Risk - Focused Exam Vital Signs: Vital Signs Temp Pulse Pulse Resp BP BP Pulse Ox 01/28/21 11:00 36.5 C 70 16 162/71 H 95 01/28/21 08:59 70 149/73 H 01/28/21 08:58 149/73 H 01/28/21 07:00 36.3 C 70 18 149/70 H 95 01/28/21 02:00 36.6 C 70 18 131/78 94 L - Problem List & Annotations (1) Pneumonia due to COVID-19 virus SNOMED Code(s): 058689911385017160 Code(s): U07.1 - COVID-19; J12.82 - PNEUMONIA DUE TO CORONAVIRUS DISEASE 2019 Status: Acute Current Visit: Yes (2) Acute respiratory failure with hypoxia and hypercarbia SNOMED Code(s): 176369731 Code(s): J96.01 - ACUTE RESPIRATORY FAILURE WITH HYPOXIA; J96.02 - ACUTE RE SPIRATORY FAILURE WITH HYPERCAPNIA Status: Acute Current Visit: Yes (3) Chronic renal insufficiency, stage III (moderate) SNOMED Code(s): 046044508 Code(s): N18.30 - CHRONIC KIDNEY DISEASE, STAGE 3 UNSPECIFIED Status: Acute Current Visit: Yes Qualifiers: Chronic kidney disease stage 3 subtype: stage 3b (GFR 30-44) Qualified Code(s): N18.32 - Chronic kidney disease, stage 3b (4) COPD (chronic obstructive pulmonary disease) SNOMED Code(s): 43637239 Code(s): J44.9 - CHRONIC OBSTRUCTIVE PULMONARY DISEASE, UNSPECIFIED Status: Chronic Priority: Low Current Visit: No Qualifiers: (5) Sleep apnea SNOMED Code(s): 42650832 Code(s): G47.30 - SLEEP APNEA, UNSPECIFIED Status: Chronic Current Visit: No Qualifiers: Sleep apnea type: obstructive Qualified Code(s): G47.33 - Obstructive sleep apnea (adult) (pediatric) (6) History of atrial fibrillation SNOMED Code(s): 586506311 Code(s): Z86.79 - PERSONAL HISTORY OF OTHER DISEASES OF THE CIRCULATORY SYSTEM Status: Chronic Current Visit: No (7) Obesity, morbid, BMI 50 or higher SNOMED Code(s): 319402312, 523712558 Code(s): E66.01 - MORBID (SEVERE) OBESITY DUE TO EXCESS CALORIES Status: Acute Current Visit: Yes - Problem List Review Problem List Initiated/Reviewed/Updated: Yes - My Orders Last 24 Hours: My Active Orders 01/27/21 21:00 traZODone 50 mg PO BEDTIME 01/28/21 05:42 Renew/Continue Urinary Catheter [OM.PC] Routine 01/28/21 21:00 Acetaminophen [Tylenol Extra Strength] 500 mg PO BEDTIME dexAMETHasone 6 mg PO Q24H 01/29/21 05:00 COMPREHENSIVE METABOLIC PN,CMP [CHEM] Timed INR,PT,PROTHROMBIN TIME [COAG] Timed - Plan Plan:: ASSESSMENT AND PLAN - COVID-19 pneumonia-complicated by acute respiratory failure with both hypoxia and hypercapnia. Mild elevation of D-dimer and CRP. Steady improvement. Stable on 3 L of oxygen. -Dexamethasone 6 mg every 24 hours (day 4) -Remdesivir x5 days -Baricitinib today and then discontinue -Symptomatic management of cough -Supplemental oxygen, wean as able COPD-no evidence for acute exacerbation at this time. -Continue home medications Stage IIIb kidney disease-creatinine stable. -Encourage oral intake Atrial fibrillation, chronic-rate controlled. Anticoagulated. INR therapeutic. -Continue warfarin -INR in the morning Maintenance issues - -DVT prophylaxis-warfarin -GI prophylaxis-PPI -Nutrition-regular -William catheter-placed for strict intake and output monitoring in a critical patient, plan to remove today Disposition-anticipate discharge either back to her assisted living facility along with home care Saturday if stable over the . Doyle Abarca M.D.
[2021-01-28] MEDS: Warfarin 2.5 MG Tab PO SCH (12:45)
[2021-01-28] MEDS: REMDESIVIR 100 MG in Sodium Chloride 0.9% 100 ML IV SCH (17:21)
[2021-01-28] MEDS: Acetaminophen/HYDROcodone 325-5 MG Tab PO PRN (19:38)
[2021-01-28] MEDS: Dexamethasone 2 MG Tab PO SCH (21:04)
[2021-01-28] MEDS: traZODone 50 MG Tab PO SCH (21:05)
[2021-01-28] MEDS: Acetaminophen 500 MG Tab PO SCH (21:05)
[2021-01-28] MEDS: Melatonin 3 MG Tab PO SCH (21:05)
[2021-01-29] MEDS: Albuterol/Ipratropium 4 GM Inhalation Spray INH SCH ×4 (05:26→21:15)
[2021-01-29] MEDS: Tiotropium Bromide 4 GM Inhalation Spray (2.5mcg/1 dose; 10 doses) INH SCH (07:56)
[2021-01-29] MEDS: Mirabegron 25 MG Tab Extended Release PO SCH (09:06)
[2021-01-29] MEDS: Furosemide 40 MG Tab PO SCH (09:06)
[2021-01-29] MEDS: Folic Acid 1 MG Tab PO SCH (09:06)
[2021-01-29] MEDS: Cholecalciferol (Vitamin D3) 25 MCG Tab PO SCH (09:06)
[2021-01-29] MEDS: Cyanocobalamin (Vitamin B12) 1,000 MCG Tab PO SCH (09:06)
[2021-01-29] MEDS: Cephalexin 250 MG Cap PO SCH (09:06)
[2021-01-29] MEDS: Lisinopril 20 MG Tab PO SCH (09:07)
[2021-01-29] MEDS: Aspirin 81 MG Tab.EC PO SCH (09:07)
[2021-01-29] MEDS: Pravastatin 20 MG Tab PO SCH (09:07)
[2021-01-29] MEDS: Metoprolol Succinate 25 MG Tab.ER PO SCH (09:07)
[2021-01-29] MEDS: Pantoprazole 40 MG Tab.CR PO SCH (09:08)
[2021-01-29] MEDS: Pregabalin 100 MG Cap PO SCH ×3 (10:23→21:14)
--- NOTE | 2021-01-29 12:45 | PCM.PN ---
- General Info Date of Service: 01/29/21 Subjective Update: No acute events overnight. Oxygenation has been stable. Patient feels well. She does not feel short of breath. She does have a loose cough with occasional sputum. No fevers. Stable on 3 L of oxygen. Appetite good. Weak but slowly improving. - Patient Data Vitals - Most Recent: Last Vital Signs Temp 36.2 C 01/29/21 10:01 Pulse 70 01/29/21 10:01 Resp 20 01/29/21 10:01 BP 136/65 01/29/21 10:01 Pulse Ox 93 L 01/29/21 10:01 Weight - Most Recent: 136.078 kg I&O - Last 24 Hours: Intake & Output 01/28/21 01/29/21 01/29/21 22:59 06:59 14:59 Intake Total 400 60 Output Total 1300 Balance -900 60 Lab Results Last 24 Hours: Laboratory Results - last 24 hr 01/29/21 01/29/21 Range/Units 05:00 05:00 PT 28.7 H (9.2-10.6) sec INR 2.9 Sodium 146 (140-148) mmol/L Potassium 4.4 (3.6-5.2) mmol/L Chloride 104 (100-108) mmol/L Carbon Dioxide 39 H (21-32) mmol/L Anion Gap 7.4 (5.0-14.0) mmol/L BUN 42 H (7-18) mg/dL Creatinine 1.0 (0.6-1.0) mg/dL Est Cr Clr Drug Dosing 31.35 mL/min Estimated GFR (MDRD) 52 L (>60) Glucose 166 H (74-106) mg/dL Calcium 8.5 (8.5-10.1) mg/dL Total Bilirubin 0.3 (0.2-1.0) mg/dL AST 19 (15-37) U/L ALT 31 (12-78) U/L Alkaline Phosphatase 42 L (46-116) U/L Total Protein 6.0 L (6.4-8.2) g/dL Albumin 2.7 L (3.4-5.0) g/dL Globulin 3.3 (2.3-3.5) g/dL Albumin/Globulin Ratio 0.8 L (1.2-2.2) Luis Results Last 24 Hours: Microbiology 11/30/21 23:35 Aerobic Blood Culture - Preliminary Blood - Arm, Left NO GROWTH AFTER 4 DAYS Anaerobic Blood Culture - Preliminary NO GROWTH AFTER 4 DAYS Med Orders - Current: Current Medications Acetaminophen (Acetaminophen 325 Mg Tab) 650 mg PO Q4H PRN PRN Reason: Pain/Fever Acetaminophen (Acetaminophen 325 Mg Tab) 650 mg PO Q4H PRN PRN Reason: Pain (Mild 1-3)/fever Acetaminophen (Acetaminophen 500 Mg Tab) 500 mg PO BEDTIME [facility] Last Admin: 01/28/21 21:05 Dose: 500 mg Documented by: Hydrocodone Bitart/Acetaminophen (Acetaminophen/Hydrocodone 325-5 Mg Tab) 1 tab PO Q6H PRN PRN Reason: Pain (moderate 4-6) Last Admin: 01/28/21 19:38 Dose: 1 tab Documented by: Albuterol (Albuterol 8 Gm Inhaler) 0 gm INH Q6H PRN PRN Reason: Shortness of Breath Albuterol/Ipratropium (Albuterol/Ipratropium 4 Gm Inhalation Pansey) 1 gm INH QID [facility] Last Admin: 01/29/21 09:09 Dose: 1 puff Documented by: Aspirin (Aspirin 81 Mg Tab.Ec) 81 mg PO DAILY [facility] Last Admin: 01/29/21 09:07 Dose: 81 mg Documented by: Benzonatate (Benzonatate 100 Mg Cap) 100 mg PO TID PRN PRN Reason: Cough Betamethasone/Clotrimazole (Betamethasone Dipropionate/Clotrimazole 0.05-1% Crm 15 Gm Tube) 0 gm TOP BID PRN PRN Reason: Itching Cholecalciferol (Cholecalciferol (Vitamin D3) 25 Mcg Tab) 50 mcg PO DAILY [facility] Last Admin: 01/29/21 09:06 Dose: 50 mcg Documented by: Cyanocobalamin (Cyanocobalamin (Vitamin B12) 1,000 Mcg Tab) 1,000 mcg PO DAILY [facility] Last Admin: 01/29/21 09:06 Dose: 1,000 mcg Documented by: Dexamethasone (Dexamethasone 2 Mg Tab) 6 mg PO Q24H [facility] Last Admin: 01/28/21 21:04 Dose: 6 mg Documented by: Folic Acid (Folic Acid 1 Mg Tab) 0.5 mg PO DAILY [facility] Last Admin: 01/29/21 09:06 Dose: 0.5 mg Documented by: Furosemide (Furosemide 40 Mg Tab) 40 mg PO DAILY [facility] Last Admin: 01/29/21 09:06 Dose: 40 mg Documented by: Guaifenesin/Dextromethorphan (Guaifenesin/Dextromethorphan 100-10 Mg/5 Ml Soln 10 Ml Cup) 10 ml PO Q4H PRN PRN Reason: Cough Remdesivir 100 mg/ Sodium (Chloride) 100 mls @ 100 mls/hr IV Q24H [facility] Stop: 01/29/21 17:59 Last Admin: 01/28/21 17:21 Dose: 100 mls/hr Documented by: Lisinopril (Lisinopril 20 Mg Tab) 20 mg PO DAILY [facility] Last Admin: 01/29/21 09:07 Dose: 20 mg Documented by: Lorazepam (Lorazepam 2 Mg/Ml Sdv) 0.5 mg IVPUSH Q4H PRN PRN Reason: Nausea/Vomiting Magnesium Hydroxide (Magnesium Hydroxide 400 Mg/5 Ml Susp 30 Ml Cup) 30 ml PO Q12H PRN PRN Reason: Constipation Melatonin (Melatonin 3 Mg Tab) 3 mg PO BEDTIME [facility] Last Admin: 01/28/21 21:05 Dose: 3 mg Documented by: Metoprolol Succinate (Metoprolol Succinate 25 Mg Tab.Er) 25 mg PO DAILY [facility] Last Admin: 01/29/21 09:07 Dose: 25 mg Documented by: Mirabegron (Mirabegron 25 Mg Tab Extended Release) 50 mg PO DAILY [facility] Last Admin: 01/29/21 09:06 Dose: 50 mg Documented by: Morphine Sulfate (Morphine 2 Mg/Ml Syringe) 2 mg IVPUSH Q1H PRN PRN Reason: Anxiety Last Admin: 01/25/21 12:50 Dose: 2 mg Documented by: Ondansetron HCl (Ondansetron 4 Mg/2 Ml Sdv) 4 mg IV Q6H PRN PRN Reason: Nausea/Vomiting Ondansetron HCl (Ondansetron 4 Mg Tab.Dis) 4 mg PO Q6H PRN PRN Reason: Nausea able to take PO Pantoprazole Sodium (Pantoprazole 40 Mg Tab.Cr) 40 mg PO ACBREAKFAST [facility] Last Admin: 01/29/21 09:08 Dose: 40 mg Documented by: Pravastatin Sodium (Pravastatin 20 Mg Tab) 20 mg PO DAILY [facility] Last Admin: 01/29/21 09:07 Dose: 20 mg Documented by: Pregabalin (Pregabalin 100 Mg Cap) 100 mg PO TID [facility] Last Admin: 01/29/21 10:23 Dose: 100 mg Documented by: Senna/Docusate Sodium (Docusate Sodium/Sennosides 50-8.6 Mg Tab) 1 tab PO BID PRN PRN Reason: Constipation Tiotropium [place] (Tiotropium [place] 4 Gm Inhalation Pansey (2.5mcg/1 Dose; 10 Doses)) 0 gm INH DAILYRT [facility] Last Admin: 01/29/21 07:56 Dose: 2 spray Documented by: Trazodone HCl (Trazodone 50 Mg Tab) 50 mg PO BEDTIME [facility] Last Admin: 01/28/21 21:05 Dose: 50 mg Documented by: Warfarin Sodium (Warfarin 2.5 Mg Tab) 2.5 mg PO DAILY@1300 [facility] Discontinued Medications Albuterol/Ipratropium (Albuterol/Ipratropium 3.0-0.5 Mg/3 Ml Neb Soln) 3 ml NEB Q4H PRN PRN Reason: Shortness of Breath Last Admin: 01/24/21 23:52 Dose: 3 ml Documented by: Baricitinib (Baricitinib 2 Mg Tab) 2 mg PO DAILY [facility] Stop: 02/07/21 09:01 Last Admin: 01/28/21 08:57 Dose: 2 mg Documented by: Cephalexin (Cephalexin 250 Mg Cap) 500 mg PO BID [facility] Stop: 01/29/21 09:01 Last Admin: 01/29/21 09:06 Dose: 500 mg Documented by: Dexamethasone (Dexamethasone 4 Mg/Ml Sdv) 10 mg IVPUSH ONETIME ONE Stop: 01/24/21 22:59 Last Admin: 01/24/21 23:50 Dose: 10 mg Documented by: Dexamethasone (Dexamethasone 4 Mg/Ml Sdv) 6 mg IVPUSH Q24H [facility] Last Admin: 01/27/21 22:54 Dose: 6 mg Documented by: Ferrous Sulfate (Ferrous Sulfate 325 Mg Tab) 325 mg PO BID [facility] Last Admin: 01/25/21 09:39 Dose: 325 mg Documented by: Furosemide (Furosemide 20 Mg Tab) 40 mg PO DAILY [facility] Levofloxacin/Dextrose 750 mg/ (Premix) 150 mls @ 100 mls/hr IV Q24H [facility] Last Admin: 01/25/21 02:10 Dose: 100 mls/hr Documented by: Remdesivir 200 mg/ Sodium (Chloride) 250 mls @ 250 mls/hr IV ONETIME ONE Stop: 01/25/21 16:46 Last Admin: 01/25/21 18:12 Dose: Not Given Documented by: Remdesivir 200 mg/ Sodium (Chloride) 250 mls @ 250 mls/hr IV ONETIME ONE Stop: 01/25/21 17:59 Last Admin: 01/25/21 18:07 Dose: 250 mls/hr Documented by: Non-Formulary Medication (Benazepril Hcl [Lotensin]) 20 mg PO DAILY [facility] Non-Formulary Medication (Folic Acid [Folic Acid]) 400 mcg PO DAILY [facility] Non-Formulary Medication (Mirabegron [Myrbetriq]) 50 mg PO DAILY [facility] Pantoprazole Sodium (Pantoprazole 40 Mg Tab.Cr) 40 mg PO DAILY [facility] Prednisone (Prednisone 20 Mg Tab) 20 mg PO DAILY [facility] Last Admin: 01/25/21 09:41 Dose: 20 mg Documented by: Warfarin Sodium (Warfarin 2.5 Mg Tab) 5 mg PO .MON,WED,FRI [facility] Warfarin Sodium (Warfarin 5 Mg Tab) 2.5 mg PO .SUN,TUE,THUR,SA [facility] Warfarin Sodium (Warfarin 5 Mg Tab) 5 mg PO MoWeFr@1300 [facility] Last Admin: 01/25/21 12:51 Dose: 5 mg Documented by: Warfarin Sodium (Warfarin 2.5 Mg Tab) 2.5 mg PO SuTuThSa@1300 [facility] Last Admin: 01/28/21 12:45 Dose: 2.5 mg Documented by: - Exam Quality Assessment: Supplemental Oxygen Urinary Catheter Total Time: 3Days 5Hours General: Alert, Oriented, Cooperative, No Acute Distress Lungs: Normal Respiratory Effort, Wheezing GI/Abdominal Exam: Soft, No Distention Extremities: No Pedal Edema. No: Increased Warmth Skin: Warm, Dry Psy/Mental Status: Alert, Normal Affect - Patient Data Lab Results Last 24 hrs: Laboratory Results - last 24 hr 01/29/21 01/29/21 Range/Units 05:00 05:00 PT 28.7 H (9.2-10.6) sec INR 2.9 Sodium 146 (140-148) mmol/L Potassium 4.4 (3.6-5.2) mmol/L Chloride 104 (100-108) mmol/L Carbon Dioxide 39 H (21-32) mmol/L Anion Gap 7.4 (5.0-14.0) mmol/L BUN 42 H (7-18) mg/dL Creatinine 1.0 (0.6-1.0) mg/dL Est Cr Clr Drug Dosing 31.35 mL/min Estimated GFR (MDRD) 52 L (>60) Glucose 166 H (74-106) mg/dL Calcium 8.5 (8.5-10.1) mg/dL Total Bilirubin 0.3 (0.2-1.0) mg/dL AST 19 (15-37) U/L ALT 31 (12-78) U/L Alkaline Phosphatase 42 L (46-116) U/L Total Protein 6.0 L (6.4-8.2) g/dL Albumin 2.7 L (3.4-5.0) g/dL Globulin 3.3 (2.3-3.5) g/dL Albumin/Globulin Ratio 0.8 L (1.2-2.2) Result Diagrams: 01/27/21 05:45 01/29/21 05:00 Luis Results Last 24 hrs: Microbiology 01/24/21 23:35 Aerobic Blood Culture - Preliminary Blood - Arm, Left NO GROWTH AFTER 4 DAYS Anaerobic Blood Culture - Preliminary NO GROWTH AFTER 4 DAYS Sepsis Event Note - Evaluation Sepsis Screening Result: No Definite Risk - Focused Exam Vital Signs: Vital Signs Temp Pulse Pulse Resp BP BP Pulse Ox 01/29/21 10:01 36.2 C 70 20 136/65 93 L 01/29/21 10:00 01/29/21 09:07 70 154/54 H 01/29/21 08:16 36.3 C 72 18 148/74 H 94 L 01/29/21 03:18 36.7 C 70 18 141/73 H 96 01/29/21 01:28 94 L Pulse Ox 01/29/21 10:01 01/29/21 10:00 95 01/29/21 09:07 01/29/21 08:16 01/29/21 03:18 01/29/21 01:28 - Problem List & Annotations (1) Pneumonia due to COVID-19 virus SNOMED Code(s): 820607267563946254 Code(s): U07.1 - COVID-19; J12.82 - PNEUMONIA DUE TO CORONAVIRUS DISEASE 2019 Status: Acute Current Visit: Yes (2) Acute respiratory failure with hypoxia and hypercarbia SNOMED Code(s): 980438905 Code(s): J96.01 - ACUTE RESPIRATORY FAILURE WITH HYPOXIA; J96.02 - ACUTE RESPIRATORY FAILURE WITH HYPERCAPNIA Status: Acute Current Visit: Yes (3) Chronic renal insufficiency, stage III (moderate) SNOMED Code(s): 426344392 Code(s): N18.30 - CHRONIC KIDNEY DISEASE, STAGE 3 UNSPECIFIED Status: Acute Current Visit: Yes Qualifiers: Chronic kidney disease stage 3 subtype: stage 3b (GFR 30-44) Qualified Code(s): N18.32 - Chronic kidney disease, stage 3b (4) COPD (chronic obstructive pulmonary disease) SNOMED Code(s): 44479267 Code(s): J44.9 - CHRONIC OBSTRUCTIVE PULMONARY DISEASE, UNSPECIFIED Status: Chronic Priority: Low Current Visit: No Qualifiers: Emphysema type: unspecified (5) Sleep apnea SNOMED Code(s): 81701852 Code(s): G47.30 - SLEEP APNEA, UNSPECIFIED Status: Chronic Current Visit: No Qualifiers: Sleep apnea type: obstructive Qualified Code(s): G47.33 - Obstructive sleep apnea (adult) (pediatric) (6) History of atrial fibrillation SNOMED Code(s): 865849625 Code(s): Z86.79 - PERSONAL HISTORY OF OTHER DISEASES OF THE CIRCULATORY SYSTEM Status: Chronic Current Visit: No (7) Obesity, morbid, BMI 50 or higher SNOMED Code(s): 904192599, 085330984 Code(s): E66.01 - MORBID (SEVERE) OBESITY DUE TO EXCESS CALORIES Status: Acute Current Visit: Yes - Problem List Review Problem List Initiated/Reviewed/Updated: Yes - My Orders Last 24 Hours: My Active Orders 01/28/21 21:00 Acetaminophen [Tylenol Extra Strength] 500 mg PO BEDTIME dexAMETHasone 6 mg PO Q24H 01/29/21 14:00 Nystatin [Nystop] 1 gm TOP TID 01/30/21 05:00 INR,PT,PROTHROMBIN TIME [COAG] Timed 01/30/21 13:00 Warfarin [Coumadin] 2.5 mg PO DAILY@1300 - Plan Plan:: ASSESSMENT AND PLAN - COVID-19 pneumonia-complicated by acute respiratory failure with both hypoxia and hypercapnia. Mild elevation of D-dimer and CRP. Steady improvement. Stable on 3 L of oxygen. -Dexamethasone 6 mg every 24 hours (day 5) -Remdesivir x5 days -Baricitinib discontinued -Symptomatic management of cough -Supplemental oxygen, wean as able COPD-no evidence for acute exacerbation at this time. -Continue home medications Stage IIIb kidney disease-creatinine stable. -Encourage oral intake Atrial fibrillation, chronic-rate controlled. Anticoagulated. INR therapeutic. -Continue warfarin -INR in the morning Maintenance issues - -DVT prophylaxis-warfarin -GI prophylaxis-PPI -Nutrition-regular -William catheter-removed yesterday Disposition-anticipate discharge either back to her assisted living facility along with home care Saturday Doyle Abarca M.D.
[2021-01-29] MEDS: Nystatin Topical Powder 15 GM Bottle TOP SCH ×2 (13:24→22:06)
--- NOTE | 2021-01-29 15:42 | PCM.DCSUM1 ---
Discharge Summary - Hospital Course Brief History: 85-year-old female with history of oxygen dependent COPD, morbid obesity, atrial fibrillation and stage III chronic kidney disease who presented with increasing weakness, fatigue and dyspnea. She was admitted for management of COVID-19 pneumonia with acute on chronic respiratory failure complicated by hypoxia and hypercapnia. Diagnosis: Stroke: No - Discharge Data Discharge Date: 01/30/21 Discharge Disposition: Home, W Home Health Agency 06 Condition: Fair - Referral to Home Health Date of Face to Face Encounter: 01/29/21 Reason for Homebound Status: Acute on chronic dyspnea related to acute medical problems complicating chronic dyspnea with COPD Primary Care Physician: PCP Unknown Skilled Need: Physical therapy and Occupational Therapy - Discharge Diagnosis/Problem(s) (1) Pneumonia due to COVID-19 virus SNOMED Code(s): 472027209860964726 ICD Code: U07.1 - COVID-19; J12.82 - PNEUMONIA DUE TO CORONAVIRUS DISEASE 2018 Status: Acute Current Visit: Yes (2) Acute respiratory failure with hypoxia and hypercarbia SNOMED Code(s): 044732242 ICD Code: J96.01 - ACUTE RESPIRATORY FAILURE WITH HYPOXIA; J96.02 - ACUTE RESPIRATORY FAILURE WITH HYPERCAPNIA Status: Acute Current Visit: Yes (3) Chronic renal insufficiency, stage III (moderate) SNOMED Code(s): 203487253 ICD Code: N18.30 - CHRONIC KIDNEY DISEASE, STAGE 3 UNSPECIFIED Status: Acute Current Visit: Yes Qualifiers: Chronic kidney disease stage 3 subtype: stage 3b (GFR 30-44) Qualified Code(s): N18.32 - Chronic kidney disease, stage 3b (4) COPD (chronic obstructive pulmonary disease) SNOMED Code(s): 53668386 ICD Code: J44.9 - CHRONIC OBSTRUCTIVE PULMONARY DISEASE, UNSPECIFIED Status: Chronic Priority: Low Current Visit: No Qualifiers: Emphysema type: unspecified (5) Sleep apnea SNOMED Code(s): 12466149 ICD Code: G47.30 - SLEEP APNEA, UNSPECIFIED Status: Chronic Current Visit: No Qualifiers: Sleep apnea type: obstructive Qualified Code(s): G47.33 - Obstructive sleep apnea (adult) (pediatric) (6) History of atrial fibrillation SNOMED Code(s): 358264713 ICD Code: Z86.79 - PERSONAL HISTORY OF OTHER DISEASES OF THE CIRCULATORY SYSTEM Status: Chronic Current Visit: No (7) Obesity, morbid, BMI 50 or higher SNOMED Code(s): 074314915, 525704405 ICD Code: E66.01 - MORBID (SEVERE) OBESITY DUE TO EXCESS CALORIES Status: Acute Current Visit: Yes - Patient Summary/Data Hospital Course: Nemo presented to the emergency room from [facility] with increasing weakness, fatigue and dyspnea. She had recently been diagnosed with COVID-19 pneumonia. Work-up in the emergency room revealed acute on chronic hypoxic respiratory failure with both increasing hypoxia and hypercapnia. She was started on dexamethasone, remdesivir and baricitinib in the emergency room. She initially required noninvasive ventilation. Unfortunately no critical care beds were available at the time of presentation and she was boarded in the emergency room. During her time in the emergency room we were able to wean her down from the noninvasive ventilation to high flow nasal cannula. At this point we are able to admit her to the hospital for further management. During the course of the hospital stay we saw steady improvement. She completed 5 days of remdesivir. She had several days of baricitinib and this was discontinued when she reached her baseline oxygen status. We did continue the high-dose steroids throughout the course of the hospital stay. We have been able to wean her down to 3 L of supplemental oxygen. She does remain a little bit weak but probably not far from her baseline. Her vital signs and laboratory studies have been stable. Her INR has remained therapeutic. She is stable and safe for discharge home at this time. The plan is for her to have 3 more days of high-dose steroids after hospital discharge. She can be transitioned back to her regular steroids at this point. She did have a yeast rash under her pannus and breasts and this will be treated with nystatin. We did complete a referral to home health care to provide physical therapy and occupational therapy services to help ease her transition back to the assisted living facility. She should remain in quarantine through February 03 and these may be discontinued on February 04. - Patient Instructions Diet: Regular Diet as Tolerated Activity: As Tolerated Showering/Bathing: May Shower Other/Special Instructions: 1. For the Covid pneumonia take prednisone 40 mg daily for 3 days starting on Saturday and then resume your usual 20 mg daily. You should quarantine through February 03. You may discontinue isolation on the morning of February 04. 2. Decrease your dose of warfarin to 2.5 mg daily. Please recheck an INR in 3 to 5 days. 3. Use nystatin 3 times daily to help reduce the yeast rash under your pannus and breasts until it has resolved. 4. Continue your other medications as previously prescribed. 5. I have placed a referral to home health care services. They will provide physical therapy and occupational therapy to help improve your strength and endurance after hospital discharge. - Discharge Plan *PRESCRIPTION DRUG MONITORING PROGRAM REVIEWED*: Not Applicable *COPY OF PRESCRIPTION DRUG MONITORING REPORT IN PATIENT DANIEL: Not Applicable Prescriptions/Med Rec: Warfarin [Coumadin] 2.5 mg PO DAILY@1300 #30 tablet predniSONE 40 mg PO WITHBREAKFAST #6 tab Home Medications: Home Meds Albuterol [Ventolin HFA] 2 puff INH Q6HR PRN 11/25/12 [History] Benazepril HCl [Lotensin] 20 mg PO DAILY 11/25/12 [History] Cholecalciferol (Vitamin D3) [Vitamin D3] 2,000 unit PO DAILY 11/25/12 [History] Metoprolol Succinate [Toprol XL] 25 mg PO DAILY 11/25/12 [History] Sennosides/Docusate Sodium [Senokot-S Tablet] 1 tab PO DAILY 11/25/12 [History] polyethylene glycoL 3350 [MiraLAX] 17 gm PO DAILY 11/25/12 [History] Folic Acid 400 mcg PO DAILY 02/17/15 [History] Albuterol/Ipratropium [DuoNeb 3.0-0.5 MG/3 ML] 3 ml INH Q4H PRN 05/10/15 [History] Naproxen [Naprosyn] 375 mg PO DAILY PRN 05/10/15 [History] Docusate Sodium 100 mg PO DAILY PRN 11/14/17 [History] Nystatin [Nystatin Crm] 1 applic TOP TID PRN 11/14/17 [History] Tiotropium [Spiriva HandiHaler] 1 cap INH DAILY 11/14/17 [History] Mirabegron [Myrbetriq] 50 mg PO DAILY 07/17/19 [History] Aspirin [Halfprin] 81 mg PO DAILY 08/22/20 [History] Furosemide 40 mg PO DAILY 08/22/20 [History] Pravastatin Sodium 20 mg PO DAILY 08/22/20 [History] Pregabalin [Lyrica] 100 mg PO TID 08/22/20 [History] predniSONE [Prednisone] 20 mg PO DAILY 08/22/20 [History] Carbamide Peroxide [Debrox] 5 drop EARBOTH BID PRN 10/05/20 [History] Dextromethorphan/guaiFENesin [Robitussin DM] 10 ml PO Q4H PRN 10/05/20 [History] Mag Hydrox/Aluminum Hyd/Simeth [Maalox Maximum Strength Susp] 30 ml PO Q4H PRN 10/05/20 [History] Magnesium Hydroxide [Milk of Magnesia] 30 ml PO DAILY PRN 10/05/20 [History] Acetaminophen [Acetaminophen Extra Strength] 1,000 mg PO TID PRN 10/14/20 [History] Cyanocobalamin (Vitamin B12) [Vitamin B12] 1,000 mcg PO DAILY 10/14/20 [History] Diclofenac Sodium [Voltaren 1% Gel] 1 applic TOP BID PRN #100 gm 12/01/20 [Rx] Pantoprazole Sodium [Protonix] 40 mg PO DAILY 12/02/20 [History] Ferrous Sulfate 325 mg PO BID 01/04/21 [History] Acetaminophen/HYDROcodone [HYDROcodone-Acetaminophen 5-325 MG *] 1 tab PO Q6H PRN 01/24/21 [History] Bisacodyl [Laxative Suppository] 10 mg RC Q24H PRN 01/24/21 [History] Melatonin 3 mg PO BEDTIME 01/24/21 [History] Betamethasone/Clotrimazole [Lotrisone] 0 gm TOP BID PRN 01/27/21 [History] Warfarin [Coumadin] 2.5 mg PO DAILY@1300 #30 tablet 01/29/21 [Rx] predniSONE 40 mg PO WITHBREAKFAST #6 tab 01/29/21 [Rx] Oxygen Therapy Mode: Nasal Cannula Oxygen Flow Rate (L/min): 3 Patient Handouts: COVID-19 Referrals: PCP,Unknown [Primary Care Provider] - (f/u as needed after the hospital stay ) - Discharge Summary/Plan Comment DC Time >30 min.: Yes Total # of Minutes for Discharge Time: 35-complex assisted living d/c with home care set up - Patient Data Vitals - Most Recent: Last Vital Signs Temp 35.9 C L 01/29/21 15:07 Pulse 70 01/29/21 15:07 Resp 18 01/29/21 15:07 BP 127/58 L 01/29/21 15:07 Pulse Ox 96 01/29/21 15:07 Weight - Most Recent: 136.078 kg I&O - Last 24 hours: Intake & Output 01/29/21 01/29/21 01/29/21 06:59 14:59 22:59 Intake Total 60 Balance 60 Lab Results - Last 24 hrs: Laboratory Results - last 24 hr 01/29/21 01/29/21 Range/Units 05:00 05:00 PT 28.7 H (9.2-10.6) sec INR 2.9 Sodium 146 (140-148) mmol/L Potassium 4.4 (3.6-5.2) mmol/L Chloride 104 (100-108) mmol/L Carbon Dioxide 39 H (21-32) mmol/L Anion Gap 7.4 (5.0-14.0) mmol/L BUN 42 H (7-18) mg/dL Creatinine 1.0 (0.6-1.0) mg/dL Est Cr Clr Drug Dosing 31.35 mL/min Estimated GFR (MDRD) 52 L (>60) Glucose 166 H (74-106) mg/dL Calcium 8.5 (8.5-10.1) mg/dL Total Bilirubin 0.3 (0.2-1.0) mg/dL AST 19 (15-37) U/L ALT 31 (12-78) U/L Alkaline Phosphatase 42 L (46-116) U/L Total Protein 6.0 L (6.4-8.2) g/dL Albumin 2.7 L (3.4-5.0) g/dL Globulin 3.3 (2.3-3.5) g/dL Albumin/Globulin Ratio 0.8 L (1.2-2.2) LUDWIG Results - Last 24 hrs: Microbiology 01/24/21 23:35 Aerobic Blood Culture - Preliminary Blood - Arm, Left NO GROWTH AFTER 4 DAYS Anaerobic Blood Culture - Preliminary NO GROWTH AFTER 4 DAYS Med Orders - Current: Current Medications Acetaminophen (Acetaminophen 325 Mg Tab) 650 mg PO Q4H PRN PRN Reason: Pain/Fever Acetaminophen (Acetaminophen 325 Mg Tab) 650 mg PO Q4H PRN PRN Reason: Pain (Mild 1-3)/fever Acetaminophen (Acetaminophen 500 Mg Tab) 500 mg PO BEDTIME [facility] Last Admin: 01/28/21 21:05 Dose: 500 mg Documented by: Hydrocodone Bitart/Acetaminophen (Acetaminophen/Hydrocodone 325-5 Mg Tab) 1 tab PO Q6H PRN PRN Reason: Pain (moderate 4-6) Last Admin: 01/28/21 19:38 Dose: 1 tab Documented by: Albuterol (Albuterol 8 Gm Inhaler) 0 gm INH Q6H PRN PRN Reason: Shortness of Breath Albuterol/Ipratropium (Albuterol/Ipratropium 4 Gm Inhalation [place]) 1 gm INH QID [facility] Last Admin: 01/29/21 09:09 Dose: 1 puff Documented by: Aspirin (Aspirin 81 Mg Tab.Ec) 81 mg PO DAILY [facility] Last Admin: 01/29/21 09:07 Dose: 81 mg Documented by: Benzonatate (Benzonatate 100 Mg Cap) 100 mg PO TID PRN PRN Reason: Cough Betamethasone/Clotrimazole (Betamethasone Dipropionate/Clotrimazole 0.05-1% Crm 15 Gm Tube) 0 gm TOP BID PRN PRN Reason: Itching Cholecalciferol (Cholecalciferol (Vitamin D3) 25 Mcg Tab) 50 mcg PO DAILY [facility] Last Admin: 01/29/21 09:06 Dose: 50 mcg Documented by: Cyanocobalamin (Cyanocobalamin (Vitamin B12) 1,000 Mcg Tab) 1,000 mcg PO DAILY [facility] Last Admin: 01/29/21 09:06 Dose: 1,000 mcg Documented by: Dexamethasone (Dexamethasone 2 Mg Tab) 6 mg PO Q24H [facility] Last Admin: 01/28/21 21:04 Dose: 6 mg Documented by: Folic Acid (Folic Acid 1 Mg Tab) 0.5 mg PO DAILY [facility] Last Admin: 01/29/21 09:06 Dose: 0.5 mg Documented by: Furosemide (Furosemide 40 Mg Tab) 40 mg PO DAILY [facility] Last Admin: 01/29/21 09:06 Dose: 40 mg Documented by: Guaifenesin/Dextromethorphan (Guaifenesin/Dextromethorphan 100-10 Mg/5 Ml Soln 10 Ml Cup) 10 ml PO Q4H PRN PRN Reason: Cough Remdesivir 100 mg/ Sodium (Chloride) 100 mls @ 100 mls/hr IV Q24H [facility] Stop: 01/29/21 17:59 Last Admin: 01/28/21 17:21 Dose: 100 mls/hr Documented by: Lisinopril (Lisinopril 20 Mg Tab) 20 mg PO DAILY [facility] Last Admin: 01/29/21 09:07 Dose: 20 mg Documented by: Lorazepam (Lorazepam 2 Mg/Ml Sdv) 0.5 mg IVPUSH Q4H PRN PRN Reason: Nausea/Vomiting Magnesium Hydroxide (Magnesium Hydroxide 400 Mg/5 Ml Susp 30 Ml Cup) 30 ml PO Q12H PRN PRN Reason: Constipation Melatonin (Melatonin 3 Mg Tab) 3 mg PO BEDTIME [facility] Last Admin: 01/28/21 21:05 Dose: 3 mg Documented by: Metoprolol Succinate (Metoprolol Succinate 25 Mg Tab.Er) 25 mg PO DAILY [facility] Last Admin: 01/29/21 09:07 Dose: 25 mg Documented by: Mirabegron (Mirabegron 25 Mg Tab Extended Release) 50 mg PO DAILY [facility] Last Admin: 01/29/21 09:06 Dose: 50 mg Documented by: Morphine Sulfate (Morphine 2 Mg/Ml Syringe) 2 mg IVPUSH Q1H PRN PRN Reason: Anxiety Last Admin: 01/25/21 12:50 Dose: 2 mg Documented by: Nystatin (Nystatin Topical Powder 15 Gm Bottle) 0 gm TOP TID [facility] Last Admin: 01/29/21 13:24 Dose: Not Given Documented by: Ondansetron HCl (Ondansetron 4 Mg/2 Ml Sdv) 4 mg IV Q6H PRN PRN Reason: Nausea/Vomiting Ondansetron HCl (Ondansetron 4 Mg Tab.Dis) 4 mg PO Q6H PRN PRN Reason: Nausea able to take PO Pantoprazole Sodium (Pantoprazole 40 Mg Tab.Cr) 40 mg PO ACBREAKFAST [facility] Last Admin: 01/29/21 09:08 Dose: 40 mg Documented by: Pravastatin Sodium (Pravastatin 20 Mg Tab) 20 mg PO DAILY [facility] Last Admin: 01/29/21 09:07 Dose: 20 mg Documented by: Pregabalin (Pregabalin 100 Mg Cap) 100 mg PO TID [facility] Last Admin: 01/29/21 13:24 Dose: 100 mg Documented by: Senna/Docusate Sodium (Docusate Sodium/Sennosides 50-8.6 Mg Tab) 1 tab PO BID PRN PRN Reason: Constipation Tiotropium [place] (Tiotropium [place] 4 Gm Inhalation [place] (2.5mcg/1 Dose; 10 Doses)) 0 gm INH DAILYRT [facility] Last Admin: 01/29/21 07:56 Dose: 2 spray Documented by: Trazodone HCl (Trazodone 50 Mg Tab) 50 mg PO BEDTIME [facility] Last Admin: 01/28/21 21:05 Dose: 50 mg Documented by: Warfarin Sodium (Warfarin 2.5 Mg Tab) 2.5 mg PO DAILY@1300 [facility] Discontinued Medications Albuterol/Ipratropium (Albuterol/Ipratropium 3.0-0.5 Mg/3 Ml Neb Soln) 3 ml NEB Q4H PRN PRN Reason: Shortness of Breath Last Admin: 01/24/21 23:52 Dose: 3 ml Documented by: Baricitinib (Baricitinib 2 Mg Tab) 2 mg PO DAILY [facility] Stop: 02/07/21 09:01 Last Admin: 01/28/21 08:57 Dose: 2 mg Documented by: Cephalexin (Cephalexin 250 Mg Cap) 500 mg PO BID [facility] Stop: 01/29/21 09:01 Last Admin: 01/29/21 09:06 Dose: 500 mg Documented by: Dexamethasone (Dexamethasone 4 Mg/Ml Sdv) 10 mg IVPUSH ONETIME ONE Stop: 01/24/21 22:59 Last Admin: 01/24/21 23:50 Dose: 10 mg Documented by: Dexamethasone (Dexamethasone 4 Mg/Ml Sdv) 6 mg IVPUSH Q24H [facility] Last Admin: 01/27/21 22:54 Dose: 6 mg Documented by: Ferrous Sulfate (Ferrous Sulfate 325 Mg Tab) 325 mg PO BID [facility] Last Admin: 01/25/21 09:39 Dose: 325 mg Documented by: Furosemide (Furosemide 20 Mg Tab) 40 mg PO DAILY [facility] Levofloxacin/Dextrose 750 mg/ (Premix) 150 mls @ 100 mls/hr IV Q24H [facility] Last Admin: 01/25/21 02:10 Dose: 100 mls/hr Documented by: Remdesivir 200 mg/ Sodium (Chloride) 250 mls @ 250 mls/hr IV ONETIME ONE Stop: 01/25/21 16:46 Last Admin: 01/25/21 18:12 Dose: Not Given Documented by: Remdesivir 200 mg/ Sodium (Chloride) 250 mls @ 250 mls/hr IV ONETIME ONE Stop: 01/25/21 17:59 Last Admin: 01/25/21 18:07 Dose: 250 mls/hr Documented by: Non-Formulary Medication (Benazepril Hcl [Lotensin]) 20 mg PO DAILY [facility] Non-Formulary Medication (Folic Acid [Folic Acid]) 400 mcg PO DAILY [facility] Non-Formulary Medication (Mirabegron [Myrbetriq]) 50 mg PO DAILY [facility] Pantoprazole Sodium (Pantoprazole 40 Mg Tab.Cr) 40 mg PO DAILY [facility] Prednisone (Prednisone 20 Mg Tab) 20 mg PO DAILY [facility] Last Admin: 01/25/21 09:41 Dose: 20 mg Documented by: Warfarin Sodium (Warfarin 2.5 Mg Tab) 5 mg PO .MON,WED,FRI [facility] Warfarin Sodium (Warfarin 5 Mg Tab) 2.5 mg PO .[place],WANDA,[facility] Warfarin Sodium (Warfarin 5 Mg Tab) 5 mg PO MoWeFr@1300 [facility] Last Admin: 01/25/21 12:51 Dose: 5 mg Documented by: Warfarin Sodium (Warfarin 2.5 Mg Tab) 2.5 mg PO SuTuThSa@1300 [facility] Last Admin: 01/28/21 12:45 Dose: 2.5 mg Documented by:
[2021-01-29] MEDS: REMDESIVIR 100 MG in Sodium Chloride 0.9% 100 ML IV SCH (16:45)
[2021-01-29] MEDS: Acetaminophen 500 MG Tab PO SCH (21:14)
[2021-01-29] MEDS: Acetaminophen/HYDROcodone 325-5 MG Tab PO PRN (21:14)
[2021-01-29] MEDS: Dexamethasone 2 MG Tab PO SCH (21:14)
[2021-01-29] MEDS: traZODone 50 MG Tab PO SCH (21:14)
[2021-01-29] MEDS: Melatonin 3 MG Tab PO SCH (21:14)
[2021-01-30] MEDS: Albuterol/Ipratropium 4 GM Inhalation Spray INH SCH ×2 (05:06→09:55)
[2021-01-30] MEDS: Tiotropium Bromide 4 GM Inhalation Spray (2.5mcg/1 dose; 10 doses) INH SCH (07:17)
[2021-01-30] MEDS: Pantoprazole 40 MG Tab.CR PO SCH (07:35)
[2021-01-30] MEDS: Pregabalin 100 MG Cap PO SCH (09:50)
[2021-01-30] MEDS: Cholecalciferol (Vitamin D3) 25 MCG Tab PO SCH (09:50)
[2021-01-30] MEDS: Folic Acid 1 MG Tab PO SCH (09:50)
[2021-01-30] MEDS: Cyanocobalamin (Vitamin B12) 1,000 MCG Tab PO SCH (09:50)
[2021-01-30] MEDS: Aspirin 81 MG Tab.EC PO SCH (09:51)
[2021-01-30] MEDS: Pravastatin 20 MG Tab PO SCH (09:51)
[2021-01-30] MEDS: Metoprolol Succinate 25 MG Tab.ER PO SCH (09:54)
[2021-01-30] MEDS: Lisinopril 20 MG Tab PO SCH (09:54)
[2021-01-30] MEDS: Mirabegron 25 MG Tab Extended Release PO SCH (09:55)
[2021-01-30] MEDS: Furosemide 40 MG Tab PO SCH (09:55)
[2021-01-30] MEDS: Nystatin Topical Powder 15 GM Bottle TOP SCH (09:55)
[2021-01-30 11:15] VITALS: PULSE 70
[2021-01-30 11:33] VITALS: BP 136/64
[2021-01-30] MEDS ORDERED: Warfarin 2.5 MG Tab PO SCH (13:00)
== END 2021-01-30 13:55 | disposition home health service (06) | DRG 177 ==
LOC: JP.ED 22:29 → JP.2SS 01-26 13:37
PROVIDERS: ADMIT Internal Medicine; ATTEND Internal Medicine
PROC: XW033E5 Introduction of Remdesivir Anti-infective into Peripheral Vein, Percutaneous Approach, New Technology Group 5 (ICD-10-PCS; 2021-01-25)
PROC: 3E0333Z Introduction of Anti-inflammatory into Peripheral Vein, Percutaneous Approach (ICD-10-PCS; 2021-01-25)
PROC: 3E0DX3Z Introduction of Anti-inflammatory into Mouth and Pharynx, External Approach (ICD-10-PCS; 2021-01-25)
PROC: XW0DXM6 Introduction of Baricitinib into Mouth and Pharynx, External Approach, New Technology Group 6 (ICD-10-PCS; 2021-01-25)
PROC: 8E0ZXY6 Isolation (ICD-10-PCS; principal; 2021-01-26)
DX: U07.1 COVID-19 (principal); J12.82 Pneumonia due to coronavirus disease 2019; N30.00 Acute cystitis without hematuria; J96.21 Acute and chronic respiratory failure with hypoxia; J96.01 Acute respiratory failure with hypoxia; J96.02 Acute respiratory failure with hypercapnia; J96.22 Acute and chronic respiratory failure with hypercapnia; Z68.43 Body mass index [BMI] 50.0-59.9, adult; I48.91 Unspecified atrial fibrillation; J44.0 Chronic obstructive pulmonary disease with (acute) lower respiratory infection; Z95.810 Presence of automatic (implantable) cardiac defibrillator; I35.0 Nonrheumatic aortic (valve) stenosis; G47.30 Sleep apnea, unspecified; I48.20 Chronic atrial fibrillation, unspecified; K21.9 Gastro-esophageal reflux disease without esophagitis; K59.09 Other constipation; R32 Unspecified urinary incontinence; N18.32 Chronic kidney disease, stage 3b; E05.90 Thyrotoxicosis, unspecified without thyrotoxic crisis or storm; E53.8 Deficiency of other specified B group vitamins; E66.9 Obesity, unspecified; Z85.820 Personal history of malignant melanoma of skin; E66.01 Morbid (severe) obesity due to excess calories; G47.33 Obstructive sleep apnea (adult) (pediatric); Z99.81 Dependence on supplemental oxygen; Z66 Do not resuscitate; H91.90 Unspecified hearing loss, unspecified ear; H54.7 Unspecified visual loss; E78.00 Pure hypercholesterolemia, unspecified; I12.9 Hypertensive chronic kidney disease with stage 1 through stage 4 chronic kidney disease, or unspecified chronic kidney disease; M19.90 Unspecified osteoarthritis, unspecified site; Z96.653 Presence of artificial knee joint, bilateral; Z96.612 Presence of left artificial shoulder joint; Z79.01 Long term (current) use of anticoagulants; Z79.82 Long term (current) use of aspirin; Z79.52 Long term (current) use of systemic steroids; Z79.899 Other long term (current) drug therapy; Z95.0 Presence of cardiac pacemaker; Z85.828 Personal history of other malignant neoplasm of skin; Z98.49 Cataract extraction status, unspecified eye
CPT/HCPCS: 36415 ×2; 36600 ×3; 71045; 80048; 80053; 80076; 82550; 82728; 82803 ×2; 83605; 83615; 83735; 84145; 84484; 85025; 85027; 85379 ×2; 85610 ×2; 85730; 86140 ×2; 87040; 93005; 94640 ×3; 94660; A9270 ×11; J1100; 81001; 87086; 94762; J1956; J2270; J7050; J7512; J7620-GY; J8540

== ENCOUNTER 2021-03-06 23:25 | Emergency (ER) | payer MEDICARE ==
[2021-03-06] MEDS ORDERED: Sodium Chloride 0.9% 10 ML Syringe FLUSH PRN (23:30)
[2021-03-06 23:38] VITALS: BP 100/43; PULSE 70
[2021-03-06] MEDS ORDERED: Acetaminophen/HYDROcodone 325-5 MG Tab PO ONE (23:58)
[2021-03-07] MEDS ORDERED: Lactated Ringers 1,000 ML IV ONE (00:17)
[2021-03-07] MEDS ORDERED: Acetaminophen/HYDROcodone 325-5 MG Tab PO PRN (00:49)
[2021-03-07] MEDS ORDERED: Lactated Ringers 1,000 ML IV SCH (01:00)
[2021-03-07 01:07] LABS: CORONAVIRUS COVID-19 NAA NEGATIVE (NEGATIVE)
[2021-03-07] MEDS ORDERED: Loperamide 2 MG Cap PO ONE (02:35)
[2021-03-07] MEDS ORDERED: Loperamide 2 MG Cap ONE (04:53)
[2021-03-07] MEDS ORDERED: Pregabalin 100 MG Cap PO SCH (09:00)
== END 2021-03-07 09:15 | disposition home or self-care (01) ==
LOC: JP.ED 23:25
DX: K92.1 Melena (principal); R19.7 Diarrhea, unspecified; I48.91 Unspecified atrial fibrillation; E78.00 Pure hypercholesterolemia, unspecified; I10 Essential (primary) hypertension; E66.9 Obesity, unspecified; Z95.0 Presence of cardiac pacemaker; Z79.82 Long term (current) use of aspirin; Z79.899 Other long term (current) drug therapy; Z20.822 Contact with and (suspected) exposure to COVID-19; Z68.43 Body mass index [BMI] 50.0-59.9, adult
CPT/HCPCS: 0241U; 36415; 80048; 85018; 85027; 85610; 86850; 86900; 86901; 99284; A9270; J7120

== ENCOUNTER 2021-03-09 08:52 | Emergency (ER) | payer MEDICARE ==
[2021-03-09 08:57] VITALS: PULSE 70
[2021-03-09] MEDS ORDERED: Lactated Ringers 1,000 ML IV SCH (09:30)
[2021-03-09 10:12] VITALS: BP 106/86
[2021-03-09] MEDS ORDERED: cefTRIAXone 1 GM in Sodium Chloride 0.9% 50 ML IV ONE (10:42)
[2021-03-09 12:18] LABS: CORONAVIRUS COVID-19 NAA POSITIVE (NEGATIVE)
== END 2021-03-09 15:36 | disposition home or self-care (01) ==
LOC: JP.ED 08:52
DX: N39.0 Urinary tract infection, site not specified (principal); U09.9 Post COVID-19 condition, unspecified; E86.0 Dehydration; I48.91 Unspecified atrial fibrillation; J44.9 Chronic obstructive pulmonary disease, unspecified; K21.9 Gastro-esophageal reflux disease without esophagitis; E78.00 Pure hypercholesterolemia, unspecified; I10 Essential (primary) hypertension; E03.9 Hypothyroidism, unspecified; E66.9 Obesity, unspecified; Z68.30 Body mass index [BMI] 30.0-30.9, adult; Z95.0 Presence of cardiac pacemaker; Z20.822 Contact with and (suspected) exposure to COVID-19
CPT/HCPCS: 0241U; 36415; 51702; 71045; 71045-26; 80053; 81001; 83605; 83880; 85025; 87040; 87086; 96365; 99284; 99285-25; J0696; J7120